=== PATIENT | male | born 1965 | race Caucasian/White ===

== ENCOUNTER → 2017-08-11 12:26 | Outpatient (CLI) | payer OTHER, SELFPAY | PROVIDERS: Family Provider Internal Medicine; PCP Internal Medicine; Visit Provider Internal Medicine | DX: Z53.9 Procedure and treatment not carried out, unspecified reason (principal) ==

== ENCOUNTER → 2018-02-08 12:45 | Outpatient (CLI) | payer OTHER, SELFPAY ==
[2018-02-08 14:07] LABS: Microalbumin,Random Urine 8.4 mg/L (NO RANGE EST.); Microalbumin:Creatinine Ratio 14.6 mg/g CRE (<30 mg/g CRE)
[2018-02-08 14:09] LABS: Hemoglobin A1c 7.6 % (4.2-6.3)
== END ==
PROVIDERS: Family Provider Internal Medicine; PCP Internal Medicine; Visit Provider Internal Medicine
DX: E10.65 Type 1 diabetes mellitus with hyperglycemia (principal); E78.5 Hyperlipidemia, unspecified; I10 Essential (primary) hypertension
CPT/HCPCS: 36415; 82043; 82570; 83036

== ENCOUNTER → 2018-07-12 08:58 | Outpatient (CLI) | payer OTHER, SELFPAY ==
[2017-08-19 16:10] VITALS: BMI 33.1
[2018-07-12 09:53] LABS: Cholesterol 192 mg/dL (200); Glucose 126 mg/dL (74-106); High Density Lipoprotein 52 mg/dL; Triglycerides 73 mg/dL; Very Low Density Lipoprotein 15 mg/dL (5-40)
[2018-07-12 10:00] LABS: Hemoglobin A1c 8.3 % (4.2-6.3)
== END ==
PROVIDERS: Family Provider Internal Medicine; PCP Internal Medicine; Referring Provider Internal Medicine; Visit Provider Internal Medicine
DX: E10.65 Type 1 diabetes mellitus with hyperglycemia (principal); I10 Essential (primary) hypertension; E78.5 Hyperlipidemia, unspecified; G47.33 Obstructive sleep apnea (adult) (pediatric); Z12.5 Encounter for screening for malignant neoplasm of prostate
CPT/HCPCS: 36415; 80061; 82947; 83036

== ENCOUNTER → 2018-09-04 13:54 | Outpatient (CLI) | payer OTHER, SELFPAY ==
[2018-08-29 11:31] VITALS: BMI 33.6
--- NOTE | 2018-09-04 13:57 | ECHOD_ITS ---
Reason For Study: HTN Procedure This was a 2D Doppler, Color Flow transthoracic echocardiogram. Technically difficult study due to patient body habitus. Patient refused IV and Definity even after being explained the benefits. Exam performed in department. Left Ventricle Normal LV size. Mild concentric left ventricular hypertrophy. Left ventricular systolic function is normal. The estimated ejection fraction is 60 %. Stage 1 diastolic dysfunction. No regional wall motion abnormalities noted. Right Ventricle Normal RV size. Normal systolic function. Atria Normal left atrium. Normal right atrium. Mitral Valve Normal mitral valve. Tricuspid Valve Normal tricuspid valve. Unable to estimate RV systolic pressure due to inadequate jet, pulmonary artery pressure probably normal. Aortic Valve Trisinus/trileaflet aortic valve. Mild focal aortic valve calcification. Pulmonic Valve Normal pulmonic valve. Great Vessels Normal aortic root. The pulmonary artery is normal size. Normal inferior vena cava. Pericardium/Pleural No pericardial effusion. MMode/2D Measurements & Calculations LVIDd: 4.2 cm IVSd: 1.3 cm Ao root diam: 3.2 cm LVIDs: 2.9 cm LVPWd: 1.2 cm LA dimension: 3.7 cm FS: 31.2 % LAV(MOD-bp): 50.8 ml LA A4 area: 17.5 cm2 RA A4 area: 11.6 cm2 LAV(MOD-bp) Indexed: 21.4 ml/m2 LAV(MOD-sp2): 54.6 ml LAV(MOD-sp4): 47.4 ml Time Measurements MV dec time: 0.18 sec Doppler Measurements & Calculations MV E max miah: 60.3 cm/sec Lat Peak E' Miah: 10.4 cm/sec Med Peak E' Miah: 7.8 cm/sec MV A max miah: 77.2 cm/sec E/E' lat: 5.8 E/E' med: 7.7 MV E/A: 0.78 MV V2 max: 76.6 cm/sec MV P1/2t max miah: 67.4 cm/sec Ao V2 max: 155.0 cm/sec MV max P.3 mmHg MV P1/2t: 72.8 msec Ao max P.6 mmHg MV V2 mean: 39.6 cm/sec MV dec slope: 271.2 cm/sec2 MV mean P.75 mmHg MVA(P1/2t): 3.0 cm2 MV V2 VTI: 22.0 cm LV V1 max: 119.2 cm/sec PA V2 max: 84.7 cm/sec LV V1 max P.7 mmHg Interpretation Summary Normal LV size. Left ventricular systolic function is normal. The estimated ejection fraction is 60 %. Stage 1 diastolic dysfunction. Mild concentric left ventricular hypertrophy. Mild focal aortic valve calcification. Ordering Physician: Elliott Lopez Referring Physician: Gracie Aleman Performed By: Malcolm Arias RCS
== END ==
PROVIDERS: Family Provider Internal Medicine; PCP Internal Medicine; Referring Provider Internal Medicine Cardiovascular Disease; Visit Provider Internal Medicine Cardiovascular Disease
DX: I10 Essential (primary) hypertension (principal)
CPT/HCPCS: 93306

== ENCOUNTER → 2018-11-14 06:35 | Outpatient (CLI) | payer OTHER, SELFPAY ==
[2018-08-29 11:31] VITALS: BMI 33.6
[2018-11-14 07:32] LABS: Cholesterol 152 mg/dL (200); High Density Lipoprotein 41 mg/dL; Triglycerides 107 mg/dL; Very Low Density Lipoprotein 21 mg/dL (5-40)
[2018-11-14 08:23] LABS: Hemoglobin A1c 7.7 % (4.2-6.3)
== END ==
PROVIDERS: Family Provider Internal Medicine; PCP Internal Medicine
DX: E78.5 Hyperlipidemia, unspecified (principal); E10.65 Type 1 diabetes mellitus with hyperglycemia
CPT/HCPCS: 36415; 80061; 83036

== ENCOUNTER → 2018-11-28 06:28 | Outpatient (CLI) | payer OTHER, SELFPAY ==
[2018-08-29 11:31] VITALS: BMI 33.6
--- NOTE | 2018-11-28 06:32 | RAD_ITS ---
STUDY: X-RAY - RIGHT SHOULDER REASON FOR EXAM: Male, 53 years old. 3 week history of pain. TECHNIQUE: 4 view(s) of the shoulder. COMPARISON: None. FINDINGS: Normal glenohumeral articulation. Normal acromioclavicular joint. Normal acromion. Normal humeral head and visualized proximal humerus. The soft tissue structures are unremarkable. Normal visualized pulmonary apex. RAD/Shoulder min 2 Views IMPRESSION: Normal x-ray examination of the shoulder. Electronically Signed: Сергей Lutz, at 14:27 EDT , Service support ,
== END ==
PROVIDERS: Family Provider Internal Medicine; PCP Internal Medicine; Referring Provider Internal Medicine; Visit Provider Internal Medicine
DX: M25.511 Pain in right shoulder (principal)
CPT/HCPCS: 73030

== ENCOUNTER → 2019-01-15 06:03 | Outpatient (CLI) | payer OTHER, SELFPAY ==
[2018-08-29 11:31] VITALS: BMI 33.6
[2019-01-15 06:47] LABS: Absolute Neutrophil Count 4.7 X10^3/uL (2.0-7.7); Basophil# 0.04 X10^3/uL; Basophil% 0.5 % (0-1); Eosinophil# 0.24 X10^3/uL; Eosinophils% 3.2 % (0-5); Hematocrit 47.2 % (40-54); Hemoglobin 16.8 g/dl (13.0-16.5); Mean Corp Hgb Conc 35.6 g/gl (32-36); Mean Corpuscular Hgb 32.1 pg (27.0-32.0); Mean Corpuscular Volume 90.1 fL (80-94); Mean Platelet Vol. 10.2 fl (6.2-12.0); Monocyte# 0.68 X10^3/uL; Monocyte% 9.1 % (0-10); Neutrophil # 4.73 X10^3/uL (2.7-7.7); Neutrophil % 62.9 % (47-70); Platelet Count 213 K/mm3 (150-450); RBC Distribution Width CV 12.5 % (11.6-14.6); RBC Distribution Width SD 40.7 fl (35.1-43.9); Red Blood Count 5.24 M/mm3 (4.6-6.2); White Blood Count 7.5 K/mm3 (4.4-11.0)
[2019-01-15 06:54] LABS: POSITIVE COUNT NO; POSITIVE DIFFERENTIAL NO; POSITIVE MORPHOLOGY NO
[2019-01-15 07:08] LABS: Microalbumin:Creatinine Ratio 27.6 mg/g CRE (<30 mg/g CRE)
[2019-01-15 07:12] LABS: AST(SGOT) 24 U/L (15-37); Alanine Aminotransfer ALT/SGPT 48 U/L (16-61); Albumin, Serum 3.8 g/dL (3.2-5.0); Alkaline Phosphatase 105 U/L (45-117); Anion Gap 8 (5-15); BUN 20 mg/dL (7-18); BUN/Creat Ratio 18.2 RATIO (10-20); Calcium,Total 9.6 mg/dL (8.5-10.1); Chloride 104 mmol/L (98-107); Cholesterol 178 mg/dL (200); EST Glomerular Filtration Rate 74 mL/min (>60); Est Glom Filt Rate - Afr Amer 89 mL/min (>60); Globulin 3.7 g/dL (2.2-4.2); Glucose 190 mg/dL (74-106); High Density Lipoprotein 54 mg/dL; PSA,Total - Annual Screen 1.52 ng/mL (0.00-4.00); Potassium 3.6 mmol/L (3.5-5.1); Protein, Total 7.5 g/dL (6.4-8.2); Sodium Level 140 mmol/L (136-145); Thyroid Stim Hormone (TSH) 2.05 uIU/mL (0.358-3.74); Triglycerides 117 mg/dL; Very Low Density Lipoprotein 23 mg/dL (5-40)
[2019-01-15 07:53] LABS: Color, Urine Straw (Yellow); Glucose, Dipstick 250 mg/dl (Normal); Ketone-Dipstick Negative (Negative); Leukocyte Esterase-Dipstick Negative /ul (Negative); Nitrite-Dipstick Negative (Negative); Occult Blood-Urine Negative /ul (Negative); Protein-Dipstick Negative (Negative); Urine Bilirubin Dipstick Negative (Negative); Urine Clarity Clear (Clear); Urine Urobilinogen Normal (Normal); Urine pH 6.5 (5.0 - 8.0)
[2019-01-15 08:50] LABS: Hemoglobin A1c 7.7 % (4.2-6.3)
== END ==
PROVIDERS: Family Provider Internal Medicine; PCP Internal Medicine; Referring Provider Internal Medicine; Visit Provider Internal Medicine
DX: Z00.00 Encounter for general adult medical examination without abnormal findings (principal); E78.5 Hyperlipidemia, unspecified; I10 Essential (primary) hypertension; E10.65 Type 1 diabetes mellitus with hyperglycemia; Z12.5 Encounter for screening for malignant neoplasm of prostate
CPT/HCPCS: 36415; 80053; 80061; 81002; 82043; 82570; 83036; 84153; 84443; 85025; G0103

== ENCOUNTER 2019-01-22 19:28 | Inpatient (IN) | payer OTHER, SELFPAY ==
[2018-08-29 11:31] VITALS: BMI 33.6
[2019-01-22 19:29] VITALS: BP 110/46; PULSE 106; RESP 18; TEMP 37.3; O2SAT 96; BMI 32.5
[2019-01-22 20:41] LABS: Absolute Lymphocyte Count 0.97 X10^3/ul (0.83-4.51); Basophil# 0.03 X10^3/uL; Basophil% 0.2 % (0-1); Hematocrit 44.6 % (40-54); Hemoglobin 15.2 g/dl (13.0-16.5); Lymphocyte # 0.97 X10^3/ul (4.0); Lymphocyte % 5.4 % (19-41); Mean Corp Hgb Conc 34.1 g/gl (32-36); Mean Corpuscular Volume 93.9 fL (80-94); Mean Platelet Vol. 10.8 fl (6.2-12.0); Monocyte# 0.98 X10^3/uL; Monocyte% 5.4 % (0-10); Neutrophil # 16.03 X10^3/uL (2.7-7.7); Neutrophil % 88.6 % (47-70); Platelet Count 266 K/mm3 (150-450); RBC Distribution Width CV 12.8 % (11.6-14.6); RBC Distribution Width SD 43.7 fl (35.1-43.9); Red Blood Count 4.75 M/mm3 (4.6-6.2); White Blood Count 18.1 K/mm3 (4.4-11.0)
[2019-01-22 20:43] LABS: POSITIVE COUNT NO; POSITIVE DIFFERENTIAL NO; POSITIVE MORPHOLOGY NO
--- NOTE | 2019-01-22 20:50 | ED.VIS.GEN ---
History of Present Illness Chief Complaint: Hyperglycemia Detail of Chief Complaint: Nausea, vomiting, high blood sugar Informant: Patient Onset: - - 4 days Current Severity: Moderate Maximum Severity: Moderate Narrative: Patient has had nausea for the past 4 days. He attributed it to starting Lexapro 4 days ago. Today his dose increased. An hour after taking the medication he developed nausea and vomiting this is continued throughout the day. His blood sugars have been elevated to the 300-400 range. He reports mild abdominal pain. - Past Medical History (1) Atherosclerotic heart disease of [place] coronary artery without angina pectoris Status: Chronic (2) Diabetes mellitus, insulin-dependent (IDDM or type I) Status: Chronic (3) Essential hypertension Status: Chronic (4) Hyperlipidemia Status: Chronic Past Medical History - Allergies and Home Meds Allergies/Adverse Reactions: Allergies No Known Allergies Allergy (Verified 01/22/19 19:31) Primary Care Physician: Gracie Aleman [Primary Care Provider] - Prior records reviewed: Yes Past Medical History: - - Reviewed Smoking Status: Former smoker Review of Systems General: Denies: Chills, Fever ENT: Denies: Bilateral ear pain Cardiovascular: Denies: Chest pain, Palpitations, Heart racing Respiratory: Denies: Dyspnea, Cough Gastrointestinal: Reports: Abdominal pain, Nausea, Vomiting. Denies: Diarrhea Genitourinary: Denies: Dysuria, Hematuria Physical Exam Vital Signs/Narrative: Vital Signs Temp Pulse Resp BP Pulse Ox 01/22/19 19:29 99.1 F 106 H 18 110/46 L 96 General: Well nourished, Well developed ENT: Moist mucous membranes Cardiovascular: Regular rate, Regular rhythm Respiratory: No distress, CTA bilaterally Abdomen: Soft, Tender, - - Mild diffuse tenderness to palpation.. Negative for: Guarding, Rebound tenderness Skin: Normal color Neurological: Alert, Oriented x3 Diagnostic/Tx/Re-eval Laboratory Results 01/22/19 01/22/19 01/22/19 19:45 19:45 19:45 WBC 18.1 H RBC 4.75 Hgb 15.2 Hct 44.6 MCV 93.9 MCH 32.0 MCHC 34.1 RDW 12.8 RDW Differential 43.7 Plt Count 266 MPV 10.8 Immature Gran % (Auto) 0.400 Neut % (Auto) 88.6 H Lymph % (Auto) 5.4 L [place] % (Auto) 5.4 Eos % (Auto) 0.0 Baso % (Auto) 0.2 Absolute Neuts (auto) 16.0 H Absolute Lymphs (auto) 0.97 Sodium 135 L Potassium 4.3 Chloride 98 Carbon Dioxide 12.0 L Anion Gap 25 H BUN 45 H Creatinine 1.95 H Estim Creat Clear Calc 49.76 Est GFR (MDRD) Af Amer 46 L Est GFR (MDRD) Non-Af 38 L BUN/Creatinine Ratio 23.1 H Glucose 511 H* Calcium 9.2 Total Bilirubin 1.00 Direct Bilirubin 0.20 AST 22 ALT 43 Alkaline Phosphatase 103 Total Protein 7.0 Albumin 3.8 Globulin 3.2 Lipase 60 L Urine Color Urine Clarity Urine pH Ur Specific [place] Urine Protein Urine Glucose (UA) Urine Ketones Urine Occult Blood Urine Nitrite Urine Bilirubin Urine Urobilinogen Ur Leukocyte Esterase Urine RBC Urine WBC Ur Squamous Epith Cells Urine Bacteria Urine Mucus Acetone Level 01/22/19 01/22/19 21:15 22:10 WBC RBC Hgb Hct MCV MCH MCHC RDW RDW Differential Plt Count MPV Immature Gran % (Auto) Neut % (Auto) Lymph % (Auto) [place] % (Auto) Eos % (Auto) Baso % (Auto) Absolute Neuts (auto) Absolute Lymphs (auto) Sodium Potassium Chloride Carbon Dioxide Anion Gap BUN Creatinine Estim Creat Clear Calc Est GFR (MDRD) Af Amer Est GFR (MDRD) Non-Af BUN/Creatinine Ratio Glucose Calcium Total Bilirubin Direct Bilirubin AST ALT Alkaline Phosphatase Total Protein Albumin Globulin Lipase Urine Color Yellow Urine Clarity Clear Urine pH 5.0 Ur Specific [place] 1.020 Urine Protein 15 H Urine Glucose (UA) 1000 H Urine Ketones 150 H Urine Occult Blood Negative Urine Nitrite Negative Urine Bilirubin Negative Urine Urobilinogen Normal Ur Leukocyte Esterase Negative Urine RBC 0 SEEN Urine WBC 0 SEEN Ur Squamous Epith Cells 0-5 SEEN Urine Bacteria 0 SEEN Urine Mucus 0 SEEN Acetone Level LARGE H - Medical Decision Making Patient was given Zofran and 2 L of IV fluid on arrival. On repeat evaluation he does feel somewhat improved. Blood work is concerning for DKA. Patient will turn off his insulin pump and we will start an insulin drip to better control this. I will speak with hospitalist regarding admission to the ICU. ED Disposition - Plan for ED Patient: Diagnosis: DKA (diabetic ketoacidoses) Referrals: Gracie Aleman [Primary Care Provider] -
[2019-01-22] MEDS: Ondansetron 4 MG/2 ML Vial IV (21:08)
[2019-01-22] MEDS: 0.9% Normal Saline 1,000 ML 1000 ML IV (21:09)
[2019-01-22 21:23] LABS: Anion Gap 25 (5-15); BUN 45 mg/dL (7-18); BUN/Creat Ratio 23.1 RATIO (10-20); Calcium,Total 9.2 mg/dL (8.5-10.1); Chloride 98 mmol/L (98-107); Creatinine, Serum 1.95 mg/dL (0.70-1.30); EST Glomerular Filtration Rate 38 mL/min (>60); Est Glom Filt Rate - Afr Amer 46 mL/min (>60); Estimated Creatinine Clearance 49.76 ml/min; Glucose 511 mg/dL (74-106); Potassium 4.3 mmol/L (3.5-5.1); Sodium Level 135 mmol/L (136-145)
--- NOTE | 2019-01-22 21:26 | NURSING ---
lab called with a critical glucose of 511. and nurse made aware.
[2019-01-22 21:31] LABS: Bacteria 0 SEEN /hpf (None Seen); Mucous, Urine 0 SEEN /hpf (<or=2+); Red Blood Cells-Urine 0 SEEN /hpf (0-5); White Blood Cells 0 SEEN /hpf (0-5)
[2019-01-22 21:46] LABS: Color, Urine Yellow (Yellow); Glucose, Dipstick 1000 mg/dl (Normal); Leukocyte Esterase-Dipstick Negative /ul (Negative); Nitrite-Dipstick Negative (Negative); Occult Blood-Urine Negative /ul (Negative); Protein-Dipstick 15 mg/dl (Negative); Urine Bilirubin Dipstick Negative (Negative); Urine Clarity Clear (Clear); Urine Urobilinogen Normal (Normal)
[2019-01-22 21:47] LABS: AST(SGOT) 22 U/L (15-37); Alanine Aminotransfer ALT/SGPT 43 U/L (16-61); Albumin, Serum 3.8 g/dL (3.2-5.0); Alkaline Phosphatase 103 U/L (45-117); Globulin 3.2 g/dL (2.2-4.2); Lipase 60 U/L (73-393)
[2019-01-22 21:53] LABS: Ketone-Dipstick 150 mg/dl (Negative)
[2019-01-22 21:56] LABS: Squamous Epithelial Cells - UA 0-5 SEEN /hpf (0-5)
[2019-01-22] MEDS: 0.9% Normal Saline 1,000 ML 999 ML IV (22:12)
[2019-01-22 22:15] VITALS: BP 95/45; PULSE 104; RESP 16; O2SAT 92
--- NOTE | 2019-01-22 22:49 | ED.RN ---
PER DR PARNELL ORDER. PT WAS REQUEST TO REMOVE HIS INSULIN PUMP. ORDER WILL BE PLACED FOR IV INSULIN. PT WAS INFORMED. AT BEDSIDE. PUMP WAS TAKEN BY . Angela DURANT, RN [id number]
--- NOTE | 2019-01-22 22:56 | PCM.HP.STD ---
Problem List (1) DKA (diabetic ketoacidoses) Status: Acute History of Present Illness Date of Admission: 01/22/19 Chief Complaint: nausea and vomiting The patient is a 53 year old M with a significant history of depression; hypertension hyperlipidemia and type 1 diabetes on insulin pump who presented to the emergency department with nausea and vomiting. His symptoms started 4 days before presentation with nausea after he was started on Lexapro 5mg. The Lexapro was then increased to 10 mg and about an hour after 10 mg dose was taken patient started to vomit. He has an insulin pump on but reportedly anytime that his blood sugar is very high his insulin pump is unable to function appropriately. At the emergency department patient was noted to have severely elevated glucose; and large ketones. Further, he was found to have an anion gap. Patient was diagnosed with diabetic ketoacidosis and was started on insulin drip and received IV fluid boluses. Past Medical History Past Medical History (Chronic Problems): Chronic Problems (Last Reviewed 01/23/19 @ 05:38 by Lionel Conner MD) Family history of ischemic heart disease (Chronic) Atherosclerotic heart disease of [place] coronary artery without angina pectoris (Chronic) Abnormal stress test (Chronic) Family history of sudden cardiac (Chronic) Family history of hyperlipidemia (Chronic) Family history of hypertension (Chronic) Sleep apnea (Chronic) Diabetes mellitus, insulin-dependent (IDDM or type I) (Chronic) Hyperlipidemia (Chronic) Essential hypertension (Chronic) Medical History: Medical History (Last Reviewed 01/23/19 @ 07:20 by Lionel Conner MD) Family history of ischemic heart disease (Chronic) Z82.49 Atherosclerotic heart disease of [place] coronary artery without angina pectoris (Chronic) I25.10 Abnormal stress test (Chronic) R94.39 Family history of sudden cardiac (Chronic) Z82.41 Family history of hyperlipidemia (Chronic) Z83.49 Family history of hypertension (Chronic) Z82.49 Sleep apnea (Chronic) G47.30 Diabetes mellitus, insulin-dependent (IDDM or type I) (Chronic) E10.9 Hyperlipidemia (Chronic) E78.5 Essential hypertension (Chronic) I10 Allergies No Known Allergies Allergy (Verified 01/22/19 19:31) Home Medications: Ambulatory Orders Medication Instructions Recorded Lisinopril [Zestril] 40 mg PO DAILY 01/24/14 Aspirin E.C. [Ecotrin] 81 mg PO DAILY@0800 02/11/15 Famotidine [Pepcid] 20 mg PO DAILY 02/11/15 sildenafil 100 mg tablet 100 mg PO ONCE 08/17/17 amlodipine 10 mg tablet 10 mg PO QDAY 08/19/17 hydrochlorothiazide 25 mg tablet 25 mg PO QAM #90 tab 08/19/17 cholecalciferol (vitamin D3) 1,000 2,000 unit PO DAILY cap 08/29/18 unit capsule rosuvastatin 40 mg tablet 40 mg PO DAILY #90 tab 08/29/18 Escitalopram Oxalate [Lexapro] 10 mg PO DAILY 01/22/19 Insulin Lispro [Humalog] 100 unit SQ DAILY 01/22/19 Surgical History: - - Eye surgery Lives: Spouse/ Significant Other Smoking Status: Former smoker Alcohol: Occasional Review of Systems Constitutional: Denies: Chills, Fever, Weight Change HEENT: Denies: Head Aches, Sinus Congestion, Sinus Drainage Cardiovascular: Denies: Chest Pain, Palpitations Respiratory: Denies: Cough, Shortness of breath at rest, Sputum production Gastrointestinal: Reports: Nausea, Vomiting. Denies: Abdominal Pain Genitourinary: Denies: Dysuria Musculoskeletal: Denies: Joint Pain, Joint Tenderness Skin: Denies: Rash, Wounds Neurological: Denies: Numbness, Tingling, Focal weakness Psychiatric: Denies: Anxiety, Depression, Homicidal Ideations, Suicidal Ideations Hematologic/ Lymphatic: Denies: Easy Bruising, Easy Bleeding VTE Information - Inpt Only VTE Present on Admission: No VTE Mechan Device Prophylaxis: None VTE Pharm Prophylaxis ordered?: Yes Patient Problems: Active and Suspected Problems (Last Reviewed 01/23/19 @ 05:38 by Lionel Conner MD) DKA (diabetic ketoacidoses) (Acute) - Physical Exam General: Alert, Oriented x3, Cooperative HEENT: Atraumatic, PERRLA, EOMI, Normocephalic Neck: Supple, No JVD, Negative Carotid Bruits Lungs: Clear to auscultation, Normal air movement Cardiovascular: Regular rate, No murmurs Abdomen: Bowel Sounds Present, Soft, Non Tender Extremities: No edema, Capillary Refill Less than 3 Seconds Skin: No rashes, No breakdown Musculoskeletal: No Tenderness to Palpation of Joints or Extremities Neurological: Cranial nerves II-XII grossly intact Psych/Mental Status: Normal Affect, Appropriate Vital Signs Temp Pulse Resp BP Pulse Ox 99.1 F 104 H 16 95/45 L 92 01/22/19 19:29 01/22/19 22:15 01/22/19 22:15 01/22/19 22:15 01/22/19 22:15 Oxygen Delivery Method Room Air Weight: 114.9 kg Body Mass Index (BMI) 32.5 Laboratory Tests Past 24 Hrs 01/22/19 01/22/19 01/22/19 19:45 19:45 19:45 WBC 18.1 H RBC 4.75 Hgb 15.2 Hct 44.6 MCV 93.9 MCH 32.0 MCHC 34.1 RDW 12.8 RDW Differential 43.7 Plt Count 266 MPV 10.8 Immature Gran % (Auto) 0.400 Neut % (Auto) 88.6 H Lymph % (Auto) 5.4 L [place] % (Auto) 5.4 Eos % (Auto) 0.0 Baso % (Auto) 0.2 Absolute Neuts (auto) 16.0 H Absolute Lymphs (auto) 0.97 Sodium 135 L Potassium 4.3 Chloride 98 Carbon Dioxide 12.0 L Anion Gap 25 H BUN 45 H Creatinine 1.95 H Estim Creat Clear Calc 49.76 Est GFR (MDRD) Af Amer 46 L Est GFR (MDRD) Non-Af 38 L BUN/Creatinine Ratio 23.1 H Glucose 511 H* Calcium 9.2 Total Bilirubin 1.00 Direct Bilirubin 0.20 AST 22 ALT 43 Alkaline Phosphatase 103 Total Protein 7.0 Albumin 3.8 Globulin 3.2 Lipase 60 L Urine Color Urine Clarity Urine pH Ur Specific [place] Urine Protein Urine Glucose (UA) Urine Ketones Urine Occult Blood Urine Nitrite Urine Bilirubin Urine Urobilinogen Ur Leukocyte Esterase Urine RBC Urine WBC Ur Squamous Epith Cells Urine Bacteria Urine Mucus Acetone Level 01/22/19 01/22/19 21:15 22:10 WBC RBC Hgb Hct MCV MCH MCHC RDW RDW Differential Plt Count MPV Immature Gran % (Auto) Neut % (Auto) Lymph % (Auto) [place] % (Auto) Eos % (Auto) Baso % (Auto) Absolute Neuts (auto) Absolute Lymphs (auto) Sodium Potassium Chloride Carbon Dioxide Anion Gap BUN Creatinine Estim Creat Clear Calc Est GFR (MDRD) Af Amer Est GFR (MDRD) Non-Af BUN/Creatinine Ratio Glucose Calcium Total Bilirubin Direct Bilirubin AST ALT Alkaline Phosphatase Total Protein Albumin Globulin Lipase Urine Color Yellow Urine Clarity Clear Urine pH 5.0 Ur Specific [place] 1.020 Urine Protein 15 H Urine Glucose (UA) 1000 H Urine Ketones 150 H Urine Occult Blood Negative Urine Nitrite Negative Urine Bilirubin Negative Urine Urobilinogen Normal Ur Leukocyte Esterase Negative Urine RBC 0 SEEN Urine WBC 0 SEEN Ur Squamous Epith Cells 0-5 SEEN Urine Bacteria 0 SEEN Urine Mucus 0 SEEN Acetone Level LARGE H Assessment/Plan All Active Problems (Last Reviewed 01/23/19 @ 05:38 by Lionel Conner MD) DKA (diabetic ketoacidoses) (Acute) The patient is a 53 year old M with a significant history of depression; hypertension hyperlipidemia and type 1 diabetes on insulin pump who presented to the emergency department with nausea and vomiting after being started on Lexapro and was found to have severely elevated blood glucose; and an anion gap consistent with likely diabetes ketoacidosis. Diabetic ketoacidosis The patient reports compliance with home insulin pump. Insulin pump was taken off at the ED. Unclear whether the Lexapro led to nausea and vomiting and then DKA; or Lexapro was unrelated. In any case we will hold Lexapro at this time. Serum glucose on presentation was 511. His sodium was 135. His corrected sodium is 142. acetone level: Large Anion gap of 25 Insulin drip started from emergency department; continue Completed IV bolus of normal saline and normal saline infusion Because of potassium of 4.3; and he has normal corrected sodium we will start patient on half-normal saline with potassium. BMP every 4 hours to calculate anion gap. N.p.o. for now. Patient asked of ice chips. Allow little ice chips.Hold all home p.o. meds at this time. Admitted to ICU A1C ordered. Returned as 8.2 Zofran IV ordered. Nurse reported that patient asked whether Zofran can be given more often. Will change Zofran frequency accordingly and add prn compazine Hygiene Teacher consult. OUSMANE On presentation his creatinine was 1.95. Review of old records shows a baseline creatinine of around 1.0. BUN over creatinine on presentation was 23.1 Likely prerenal from hypovolemia secondary to nausea and vomiting. IV fluid hydration as above. Patient currently on IV fluids. If anion gap closes consider continuing IV fluids until resolution of OUSMANE. Avoid nephrotoxics. Of note patient is on home lisinopril that has been held secondary to low blood pressure. While DKA persist BMP is been trended. Hypertension On presentation his blood pressure was within goal and even mildly low. Hold home antihypertensive medication at this time. Depression Hold Lexapro at this time GERD At home patient take Pepcid p.o. While n.p.o. hold Pepcid po and give IV. DVT prophylaxis Subcutaneous Lovenox Code Visit Inpatient E&M: 81964 Init Hosp L3
[2019-01-22 23:11] LABS: Bedside Glucose 400 mg/dL (70-110)
[2019-01-22 23:52] VITALS: BP 109/51
[2019-01-23] VITALS (23 sets, daily range): BP systolic 91–148; BP diastolic 48–78; PULSE 79–102; RESP 12–23; TEMP 36.6–37.3; O2SAT 91–97; BMI 33.5
[2019-01-23] MEDS: 0.9% NaCl Peripheral Flush Adult/Peds IV ×3 (00:45→16:47)
[2019-01-23 00:46] LABS: Anion Gap 17 (5-15); BUN 52 mg/dL (7-18); BUN/Creat Ratio 27.1 RATIO (10-20); Chloride 102 mmol/L (98-107); Creatinine, Serum 1.92 mg/dL (0.70-1.30); EST Glomerular Filtration Rate 39 mL/min (>60); Est Glom Filt Rate - Afr Amer 47 mL/min (>60); Estimated Creatinine Clearance 50.54 ml/min; Glucose 383 mg/dL (74-106); Potassium 3.7 mmol/L (3.5-5.1); Sodium Level 135 mmol/L (136-145)
[2019-01-23 01:21] LABS: Bedside Glucose 400 mg/dL (70-110)
[2019-01-23 01:21] LABS: Bedside Glucose 355 mg/dL (70-110)
[2019-01-23 02:04] LABS: Hemoglobin A1c 8.2 % (4.2-6.3)
[2019-01-23] MEDS: Ondansetron 4 MG/2 ML Vial IV ×2 (03:06→16:46)
[2019-01-23 04:11] LABS: Bedside Glucose 299 mg/dL (70-110)
[2019-01-23 04:11] LABS: Bedside Glucose 325 mg/dL (70-110)
[2019-01-23 04:47] LABS: Absolute Lymphocyte Count 1.92 X10^3/ul (0.83-4.51); Basophil# 0.02 X10^3/uL; Basophil% 0.1 % (0-1); Hematocrit 39.3 % (40-54); Hemoglobin 13.7 g/dl (13.0-16.5); Lymphocyte # 1.92 X10^3/ul (4.0); Lymphocyte % 9.8 % (19-41); Mean Corp Hgb Conc 34.9 g/gl (32-36); Mean Corpuscular Hgb 31.2 pg (27.0-32.0); Mean Corpuscular Volume 89.5 fL (80-94); Monocyte# 1.62 X10^3/uL; Monocyte% 8.3 % (0-10); Neutrophil # 15.97 X10^3/uL (2.7-7.7); Neutrophil % 81.5 % (47-70); Platelet Count 241 K/mm3 (150-450); RBC Distribution Width CV 12.5 % (11.6-14.6); Red Blood Count 4.39 M/mm3 (4.6-6.2); White Blood Count 19.6 K/mm3 (4.4-11.0)
[2019-01-23 04:52] LABS: Differential Indicated SCAN CRITERIA MET; POSITIVE COUNT NO; POSITIVE DIFFERENTIAL YES; POSITIVE MORPHOLOGY NO
[2019-01-23 04:58] LABS: Anion Gap 11 (5-15); BUN 50 mg/dL (7-18); BUN/Creat Ratio 28.2 RATIO (10-20); Chloride 104 mmol/L (98-107); Creatinine, Serum 1.77 mg/dL (0.70-1.30); EST Glomerular Filtration Rate 43 mL/min (>60); Est Glom Filt Rate - Afr Amer 52 mL/min (>60); Estimated Creatinine Clearance 54.83 ml/min; Glucose 255 mg/dL (74-106); Potassium 3.7 mmol/L (3.5-5.1); Sodium Level 138 mmol/L (136-145)
[2019-01-23 05:16] LABS: Bedside Glucose 264 mg/dL (70-110)
[2019-01-23 05:16] LABS: Bedside Glucose 231 mg/dL (70-110)
[2019-01-23 05:22] LABS: Platelet Estimate ADEQUATE (ADEQ); Red Cell Morphology NORM C+C NORMAL (NORM C&C)
[2019-01-23 06:11] LABS: Bedside Glucose 193 mg/dL (70-110)
--- NOTE | 2019-01-23 06:33 | PN_ITS ---
Patient Problems: Active and Suspected Problems (Last Reviewed 01/23/19 @ 07:20 by Lionel Conner MD) DKA (diabetic ketoacidoses) (Acute) Subjective: Patient since presentation feeling improved, nausea and emesis have resolved. Patient noted 4-day history of onset eventual intractable nausea and emesis no specific abdominal pain or diarrhea associated. He notes that this started following initiation of antidepressant therapy especially when he escalated the regimen. Patient normally on an insulin pump which had been sent home when he was transition to the insulin drip. Patient denies fevers, chills, recurrent nausea, emesis, abdominal pain, chest pain or dyspnea. Objective: Physical Examination: General: awake, alert, oriented x 3 and cooperative, seated upright in the ICU bedside chair, in no apparent distress. Skin: normal color, turgor, no icterus, cyanosis. HEENT: AT/NC, EOMI, PERRLA, improved, mildly dry MM. Lungs: CTA bilaterally, moderate effort, moderate decrease BL bases, no rales, ronchi or wheezing. Heart: Regular rate and rhythm; no gallop, rub audible. Abdomen: soft, obese, NTTP, ND, normal BS. Extremities: no cyanosis, clubbing, or edema. Neurological: patient awake, alert, oriented x 3; cognitive function intact; pupils equally reactive to light and accomodation; cranial nerves II-XII grossly normal, moving all 4 extremities, no focal deficits, strength mildly to moderately globally decreased, improved from initial presentation. Psychiatric: affect appears improved, mildly fatigued, no acute evidence of depressive or anxiety feelings. Vitals/I&O's: Vital Signs Temp Pulse Resp BP Pulse Ox 98.7 F 94 12 117/61 95 01/23/19 04:00 01/23/19 06:00 01/23/19 06:00 01/23/19 06:00 01/23/19 06:00 Oxygen Delivery Method CPAP Weight: 262 lb 12.656 oz Body Mass Index (BMI) 33.5 Finger Stick Blood Glucose 193 Intake and Output for Last 24 Hours 01/21/19 01/22/19 01/23/19 23:59 23:59 23:59 Intake Total 897.5 / 897.5 Output Total 400 / 400 Balance 497.5 / 497.5 Laboratory Results 01/22/19 19:45: WBC 18.1 H, RBC 4.75, Hgb 15.2, Hct 44.6, MCV 93.9, MCH 32.0, MCHC 34.1, RDW 12.8, RDW Differential 43.7, Plt Count 266, MPV 10.8, Immature Gran % (Auto) 0.400, Neut % (Auto) 88.6 H, Lymph % (Auto) 5.4 L, [place] % (Auto) 5.4, Eos % (Auto) 0.0, Baso % (Auto) 0.2, Absolute Neuts (auto) 16.0 H, Absolute Lymphs (auto) 0.97 01/22/19 19:45: Sodium 135 L, Potassium 4.3, Chloride 98, Carbon Dioxide 12.0 L, Anion Gap 25 H, BUN 45 H, Creatinine 1.95 H, Estim Creat Clear Calc 49.76, Est GFR (MDRD) Af Amer 46 L, Est GFR (MDRD) Non-Af 38 L, BUN/Creatinine Ratio 23.1 H , Glucose 511 H*, Calcium 9.2 01/22/19 19:45: Total Bilirubin 1.00, Direct Bilirubin 0.20, AST 22, ALT 43, Alkaline Phosphatase 103, Total Protein 7.0, Albumin 3.8, Globulin 3.2, Lipase 60 L 01/22/19 21:15: Urine Color Yellow, Urine Clarity Clear, Urine pH 5.0, Ur Specific [place] 1.020, Urine Protein 15 H, Urine Glucose (UA) 1000 H, Urine Ketones 150 H, Urine Occult Blood Negative, Urine Nitrite Negative, Urine Bilirubin Negative, Urine Urobilinogen Normal, Ur Leukocyte Esterase Negative, Urine RBC 0 SEEN, Urine WBC 0 SEEN, Ur Squamous Epith Cells 0-5 SEEN, Urine Bacteria 0 SEEN, Urine Mucus 0 SEEN 01/22/19 22:10: Acetone Level LARGE H 01/22/19 23:00: POC Glucose 400 H 01/23/19 00:10: POC Glucose 400 H 01/23/19 00:20: Hemoglobin A1c 8.2 H 01/23/19 00:20: Sodium 135 L, Potassium 3.7, Chloride 102, Carbon Dioxide 16.0 L , Anion Gap 17 H, BUN 52 H, Creatinine 1.92 H, Estim Creat Clear Calc 50.54, Est GFR (MDRD) Af Amer 47 L, Est GFR (MDRD) Non-Af 39 L, BUN/Creatinine Ratio 27.1 H , Glucose 383 H, Calcium 8.0 L 01/23/19 01:13: POC Glucose 355 H 01/23/19 02:10: POC Glucose 325 H 01/23/19 03:04: POC Glucose 299 H 01/23/19 04:12: POC Glucose 264 H 01/23/19 04:15: Sodium 138, Potassium 3.7, Chloride 104, Carbon Dioxide 23.0, Anion Gap 11, BUN 50 H, Creatinine 1.77 H, Estim Creat Clear Calc 54.83, Est GFR (MDRD) Af Amer 52 L, Est GFR (MDRD) Non-Af 43 L, BUN/Creatinine Ratio 28.2 H, Glucose 255 H, Calcium 8.0 L 01/23/19 04:15: WBC 19.6 H, RBC 4.39 L, Hgb 13.7, Hct 39.3 L, MCV 89.5, MCH 31.2, MCHC 34.9, RDW 12.5, RDW Differential 40.0, Plt Count 241, MPV 10.0, Immature Gran % (Auto) 0.300, Neut % (Auto) 81.5 H, Lymph % (Auto) 9.8 L, [place] % (Auto) 8.3, Eos % (Auto) 0.0, Baso % (Auto) 0.1, Absolute Neuts (auto) 16.0 H, Absolute Lymphs (auto) 1.92, Differential Comment SEE COMMENT, Diff Path Review May foll, Platelet Estimate ADEQUATE, RBC Morphology NORM C+C 01/23/19 05:09: POC Glucose 231 H 01/23/19 06:04: POC Glucose 193 H Current Medications Acetaminophen (Tylenol) 650 mg PO Q6H PRN PRN PRN Reason: Mild Pain (1-3)/Temp > 100.7 F Dextrose (D50w Syringe) 0 gm IV X1 PRN; Protocol PRN Reason: HYPOGLYCEMIA Enoxaparin Sodium (Lovenox) 40 mg SC DAILY@1000 MELANIE Glucagon () 1 mg IM .X1 PRN PRN Reason: Hypoglycemia Insulin Human Lispro 100 unit/ (Sodium Chloride) 100 mls @ 11.49 mls/hr IV .[id number] MELANIE; Protocol Last Admin: 01/23/19 06:06 Dose: 11.49 mls/hr Documented by: Famotidine 20 mg/ Sodium (Chloride) 10 mls @ 300 mls/hr IV Q24 MELANIE Last Admin: 01/23/19 00:40 Dose: 300 mls/hr Documented by: Sodium Chloride () 250 mls @ 15 mls/hr IV .[id number] PRN PRN Reason: SALINE FLUSH Potassium Chloride/Dextrose/Sod Cl (Kcl 20meq In D5.45ns 1000ml) 1,000 mls @ 150 mls/hr IV .Q6H40M MELANIE Stop: 01/23/19 12:14 Last Admin: 01/23/19 06:05 Dose: 150 mls/hr Documented by: Ondansetron HCl (Zofran) 4 mg IV Q6H PRN PRN PRN Reason: NAUSEA/VOMITING Last Admin: 01/23/19 03:06 Dose: 4 mg Documented by: Prochlorperazine Edisylate (Compazine Iv) 5 mg IV Q6H PRN PRN PRN Reason: NAUSEA/VOMITING Sodium Chloride () 10 - 40 ml IV UD PRN PRN Reason: SALINE FLUSH Last Admin: 01/23/19 06:05 Dose: 10 ml Documented by: Medical Necessity - Tobacco Use Smoking Status: Former smoker Assessment/Plan All Active Problems (Last Reviewed 01/23/19 @ 07:20 by Lionel Conner MD) DKA (diabetic ketoacidoses) (Acute) The patient is a 53 y/o M w/ PMHx: Depression, HTN, HLD, DONNELL on CPAP q HS, Diabetes mellitus type I with usage insulin drip baseline, Obesity who presents to the [facility] ED on 01/22/19 with history of 4 days of nausea, emesis following new medication start. (1) DKA w/ Diabetes mellitus type I secondary to medication side effect, Intractable N/V: Admission CBC w/ WBC 19.6 with L shift, BMP w/ Na 135, AG 17, BUN/Cr 52/1.92, glucose 383, HgbA1c 8.2. Patient administered aggressive IVF bolus in the ED and started on an insulin drip. Admitted to ICU initially, initially continued on insulin drip until AG closed, 01/23/19 will transition from overlapping insulin drip to lantus 20 u BID with ISS w/ accu checks and concurrent 5 u TID AC until able to have his insulin pump brought. Mag and phos obtained, normal. Nutrition consulted. Encouraged diet and insulin regimen compliance. (2) Acute kidney injury: Secondary to acute presentation, #1, DKA. Admission BUN/Cr 52/1.92, prior baseline creatinine noted to be 1.0-1.1. Will continue to hydrate, hold nephrotoxic medications and repeat chemistry in AM, discontinue serial BMPs given AG closure and improvement. If no improvement would plan renal US and FeNa assessment. (3) Hypertension: Continue home regimen including amlodipine, holding hydrochlorthiazide and lisinopril given acute kidney injury with restart once appropriate, PRN hydralazine. (4) Hyperlipidemia: Continue home statin regimen. (5) Depression: Recent initiation outpatient Lexapro with unfortunate intractable nausea, emesis, possibly related to this new start, will hold given DKA presentation. In the future may consider retrial as this may unfortunately have been a concurrent gastroenteritis. (6) Obesity: Weight loss and lifestyle changes encouraged, nutrition consulted. (7) DONNELL: CPAP q HS. (8) DVT prophylaxis: SCDs, renally dosed lovenox. Code Visit Inpatient E&M: 27894 Subs Hosp L2
[2019-01-23 07:15] LABS: Bedside Glucose 184 mg/dL (70-110)
--- NOTE | 2019-01-23 07:19 | CON.PCM_ITS ---
Reason for Consult Date of Consultation: 01/23/19 Reason for Consultation: Diabetic ketoacidosis History of Present Illness: The patient is a 53-year-old male, with a history as outlined below, who presented to the emergency department on January 22 with nausea, vomiting and hyperglycemia. The patient has a history of type 1 diabetes mellitus and obstructive sleep apnea, for which he is prescribed nocturnal CPAP therapy with a pressure support of 9 cm of water. The patient regularly follows with Dr. Cartwright of endocrinology. He does have an insulin pump and denies any recent malfunctions. He reports having recently been started on Lexapro. The dose of this medication was recently increased, after which time, the patient reported that he developed nausea and vomiting. The last time he experienced an episode of diabetic ketoacidosis was in college. On presentation to the emergency department, the patient was noted to be afebrile and hemodynamically stable. He was maintaining appropriate oxygen saturations on room air. Laboratory evaluation revealed an elevated white blood cell count 18,000. Chemistry profile was notable for a bicarbonate of 12 and evidence of acute kidney injury with a creatinine of 1.95. Glucose was elevated to 511. Glucose urea was noted on urinalysis. Large serum acetone level was noted. The patient received supplemental IV fluids, antiemetics and was started on a continuous insulin infusion. He was subsequently admitted to the medical intensive care unit for management of his diabetic ketoacidosis. Past Medical History Past Medical History (Chronic Problems): Chronic Problems (Last Reviewed 01/23/19 @ 07:20 by Lionel Conner MD) Family history of ischemic heart disease (Chronic) Atherosclerotic heart disease of [place] coronary artery without angina pectoris (Chronic) Abnormal stress test (Chronic) Family history of sudden cardiac (Chronic) Family history of hyperlipidemia (Chronic) Family history of hypertension (Chronic) Sleep apnea (Chronic) Diabetes mellitus, insulin-dependent (IDDM or type I) (Chronic) Hyperlipidemia (Chronic) Essential hypertension (Chronic) Medical History: Medical History (Last Reviewed 01/23/19 @ 07:20 by Lionel Conner MD) Family history of ischemic heart disease (Chronic) Z82.49 Atherosclerotic heart disease of [place] coronary artery without angina pectoris (Chronic) I25.10 Abnormal stress test (Chronic) R94.39 Family history of sudden cardiac (Chronic) Z82.41 Family history of hyperlipidemia (Chronic) Z83.49 Family history of hypertension (Chronic) Z82.49 Sleep apnea (Chronic) G47.30 Diabetes mellitus, insulin-dependent (IDDM or type I) (Chronic) E10.9 Hyperlipidemia (Chronic) E78.5 Essential hypertension (Chronic) I10 Allergies No Known Allergies Allergy (Verified 01/22/19 19:31) Home Medications: Ambulatory Orders Medication Instructions Recorded Lisinopril [Zestril] 40 mg PO DAILY 01/24/14 Aspirin E.C. [Ecotrin] 81 mg PO DAILY@0800 02/11/15 Famotidine [Pepcid] 20 mg PO DAILY 02/11/15 sildenafil 100 mg tablet 100 mg PO ONCE 08/17/17 amlodipine 10 mg tablet 10 mg PO QDAY 08/19/17 hydrochlorothiazide 25 mg tablet 25 mg PO QAM #90 tab 08/19/17 cholecalciferol (vitamin D3) 1,000 2,000 unit PO DAILY cap 08/29/18 unit capsule rosuvastatin 40 mg tablet 40 mg PO DAILY #90 tab 08/29/18 Escitalopram Oxalate [Lexapro] 10 mg PO DAILY 01/22/19 Insulin Lispro [Humalog] 100 unit SQ DAILY 01/22/19 Surgical History: - - Eye surgery Lives: Spouse/ Significant Other Smoking Status: Former smoker Alcohol: Occasional Review of Systems Constitutional: Denies: Chills, Fever Eyes: Denies: Blurred vision, Double vision HEENT: Denies: Head Aches, Sinus Congestion, Sinus Drainage Cardiovascular: Denies: Chest Pain, Palpitations Respiratory: Denies: Cough, Shortness of breath at rest, Sputum production Gastrointestinal: Reports: Abdominal Pain, Nausea, Vomiting. Denies: Diarrhea Genitourinary: Denies: Dysuria Musculoskeletal: Denies: Joint Pain, Joint Tenderness Skin: Denies: Rash, Wounds Neurological: Denies: Numbness, Tingling, Focal weakness Psychiatric: Denies: Anxiety, Depression, Homicidal Ideations, Suicidal Ideations Hematologic/ Lymphatic: Denies: Easy Bruising, Easy Bleeding Patient Problems: Active and Suspected Problems (Last Reviewed 01/23/19 @ 07:20 by Lionel Conner MD) DKA (diabetic ketoacidoses) (Acute) Objective: The patient's most recent lab work, culture data and imaging studies have all been personally reviewed. - Physical Exam General: Alert, Oriented x3, Cooperative, No apparent distress HEENT: Atraumatic, PERRLA, Normocephalic Oral: No Gingival or Mucosal Lesions/ Ulcerations Neck: Supple, No Nodes, Trachea Midline Lungs: Normal air movement, No rhonchi, No wheeze, No rales Cardiovascular: Regular rate, Regular Rhythm, Normal S1, Normal S2, No murmurs Abdomen: Bowel Sounds Present, Soft, Non Tender Extremities: No clubbing, No cyanosis, No edema Skin: No breakdown Musculoskeletal: No Tenderness to Palpation of Joints or Extremities, No Muscle Wasting Lymphatic: No Cervical, Supraclavicular, or Inguinal Adenopathy Neurological: Cranial nerves II-XII grossly intact, Neuro grossly intact Psych/Mental Status: Alert and oriented to time, place, person, mood and affect Vital Signs Temp Pulse Resp BP Pulse Ox 98.7 F 94 16 106/61 96 01/23/19 04:00 01/23/19 07:00 01/23/19 07:00 01/23/19 07:00 01/23/19 07:00 Oxygen Delivery Method CPAP Weight: 262 lb 12.656 oz Body Mass Index (BMI) 33.5 Finger Stick Blood Glucose 184 Intake and Output for Last 24 Hours 01/21/19 01/22/19 01/23/19 23:59 23:59 23:59 Intake Total 897.5 / 897.5 Output Total 400 / 400 Balance 497.5 / 497.5 Laboratory Tests Past 24 Hrs 01/22/19 01/22/19 01/22/19 19:45 19:45 19:45 WBC 18.1 H RBC 4.75 Hgb 15.2 Hct 44.6 MCV 93.9 MCH 32.0 MCHC 34.1 RDW 12.8 RDW Differential 43.7 Plt Count 266 MPV 10.8 Immature Gran % (Auto) 0.400 Neut % (Auto) 88.6 H Lymph % (Auto) 5.4 L [place] % (Auto) 5.4 Eos % (Auto) 0.0 Baso % (Auto) 0.2 Absolute Neuts (auto) 16.0 H Absolute Lymphs (auto) 0.97 Differential Comment Diff Path Review Platelet Estimate RBC Morphology Sodium 135 L Potassium 4.3 Chloride 98 Carbon Dioxide 12.0 L Anion Gap 25 H BUN 45 H Creatinine 1.95 H Estim Creat Clear Calc 49.76 Est GFR (MDRD) Af Amer 46 L Est GFR (MDRD) Non-Af 38 L BUN/Creatinine Ratio 23.1 H Glucose 511 H* Hemoglobin A1c Calcium 9.2 Total Bilirubin 1.00 Direct Bilirubin 0.20 AST 22 ALT 43 Alkaline Phosphatase 103 Total Protein 7.0 Albumin 3.8 Globulin 3.2 Lipase 60 L Urine Color Urine Clarity Urine pH Ur Specific [place] Urine Protein Urine Glucose (UA) Urine Ketones Urine Occult Blood Urine Nitrite Urine Bilirubin Urine Urobilinogen Ur Leukocyte Esterase Urine RBC Urine WBC Ur Squamous Epith Cells Urine Bacteria Urine Mucus Acetone Level 01/22/19 01/22/19 01/23/19 21:15 22:10 00:20 WBC RBC Hgb Hct MCV MCH MCHC RDW RDW Differential Plt Count MPV Immature Gran % (Auto) Neut % (Auto) Lymph % (Auto) [place] % (Auto) Eos % (Auto) Baso % (Auto) Absolute Neuts (auto) Absolute Lymphs (auto) Differential Comment Diff Path Review Platelet Estimate RBC Morphology Sodium Potassium Chloride Carbon Dioxide Anion Gap BUN Creatinine Estim Creat Clear Calc Est GFR (MDRD) Af Amer Est GFR (MDRD) Non-Af BUN/Creatinine Ratio Glucose Hemoglobin A1c 8.2 H Calcium Total Bilirubin Direct Bilirubin AST ALT Alkaline Phosphatase Total Protein Albumin Globulin Lipase Urine Color Yellow Urine Clarity Clear Urine pH 5.0 Ur Specific [place] 1.020 Urine Protein 15 H Urine Glucose (UA) 1000 H Urine Ketones 150 H Urine Occult Blood Negative Urine Nitrite Negative Urine Bilirubin Negative Urine Urobilinogen Normal Ur Leukocyte Esterase Negative Urine RBC 0 SEEN Urine WBC 0 SEEN Ur Squamous Epith Cells 0-5 SEEN Urine Bacteria 0 SEEN Urine Mucus 0 SEEN Acetone Level LARGE H 01/23/19 01/23/19 01/23/19 00:20 04:15 04:15 WBC 19.6 H RBC 4.39 L Hgb 13.7 Hct 39.3 L MCV 89.5 MCH 31.2 MCHC 34.9 RDW 12.5 RDW Differential 40.0 Plt Count 241 MPV 10.0 Immature Gran % (Auto) 0.300 Neut % (Auto) 81.5 H Lymph % (Auto) 9.8 L [place] % (Auto) 8.3 Eos % (Auto) 0.0 Baso % (Auto) 0.1 Absolute Neuts (auto) 16.0 H Absolute Lymphs (auto) 1.92 Differential Comment SEE COMMENT Diff Path Review May foll Platelet Estimate ADEQUATE RBC Morphology NORM C+C Sodium 135 L 138 Potassium 3.7 3.7 Chloride 102 104 Carbon Dioxide 16.0 L 23.0 Anion Gap 17 H 11 BUN 52 H 50 H Creatinine 1.92 H 1.77 H Estim Creat Clear Calc 50.54 54.83 Est GFR (MDRD) Af Amer 47 L 52 L Est GFR (MDRD) Non-Af 39 L 43 L BUN/Creatinine Ratio 27.1 H 28.2 H Glucose 383 H 255 H Hemoglobin A1c Calcium 8.0 L 8.0 L Total Bilirubin Direct Bilirubin AST ALT Alkaline Phosphatase Total Protein Albumin Globulin Lipase Urine Color Urine Clarity Urine pH Ur Specific [place] Urine Protein Urine Glucose (UA) Urine Ketones Urine Occult Blood Urine Nitrite Urine Bilirubin Urine Urobilinogen Ur Leukocyte Esterase Urine RBC Urine WBC Ur Squamous Epith Cells Urine Bacteria Urine Mucus Acetone Level POC Glucose 01/23/19 01/23/19 01/23/19 07:07 06:04 05:09 POC Glucose 184 H 193 H 231 H 01/23/19 01/23/19 01/23/19 04:12 03:04 02:10 POC Glucose 264 H 299 H 325 H 01/23/19 01/23/19 01/22/19 01:13 00:10 23:00 POC Glucose 355 H 400 H 400 H Assessment/Plan Active and Suspected Problems (Last Reviewed 01/23/19 @ 07:20 by Lionel Conner MD) DKA (diabetic ketoacidoses) (Acute) RECOMMENDATIONS: 1. Continue medical management per DKA protocol with supplemental IV fluid hydration and continuous insulin infusion. 2. Transition to basal insulin and sliding scale coverage once anion gap has been closed x2. 3. Discontinue Lexapro. 4. Continue nocturnal CPAP therapy per home regimen. 5. Close outpatient endocrinology follow-up is recommended. IMPRESSIONS: 1. Diabetic ketoacidosis It is unclear as to whether the Lexapro truly precipitated the patient's DKA or his symptoms were the consequence of the DKA. Regardless, the patient is being treated with supplemental IV fluid hydration and a continuous insulin drip. He will be maintained on this regimen per the DKA protocol. Aggressive electrolyte repletion will be undertaken. Continue to monitor serial chemistry profiles. The patient will remain on the continuous infusion of insulin until the anion gap has been closed x2. After this time, he can be transitioned to basal insulin and sliding scale coverage. 2. Acute kidney injury Likely prerenal in etiology. Creatinine is improving with IV fluid resuscitation. Continue to monitor urine output. No indication for renal replacement therapy. 3. Obstructive sleep apnea Continue nocturnal CPAP therapy with a pressure support of 9 cm of water, per home regimen. 4. Hypertension/hyperlipidemia/depression Complicates care, management, recovery and prognosis. Recommend discontinuation of Lexapro. This note was generated with infibond dictation software. It may contain incorrect words, spelling, and punctuation that were not noted in checking the note b efore signing. Code Visit Inpatient E&M: 18384 Init Hosp L3
[2019-01-23 08:35] LABS: Anion Gap 5 (5-15); BUN 44 mg/dL (7-18); Calcium,Total 8.3 mg/dL (8.5-10.1); Chloride 107 mmol/L (98-107); Creatinine, Serum 1.57 mg/dL (0.70-1.30); EST Glomerular Filtration Rate 49 mL/min (>60); Est Glom Filt Rate - Afr Amer 59 mL/min (>60); Estimated Creatinine Clearance 61.81 ml/min; Glucose 146 mg/dL (74-106); Potassium 3.7 mmol/L (3.5-5.1); Sodium Level 138 mmol/L (136-145)
[2019-01-23] MEDS: Aspirin E.C. 81 MG Tablet PO (09:40)
[2019-01-23] MEDS: Enoxaparin 30 MG/0.3 ML Syringe SC (09:40)
[2019-01-23] MEDS: amLODIPine 10 MG Tablet PO (09:40)
[2019-01-23] MEDS: Famotidine 20 MG Tablet PO ×2 (09:41→21:44)
[2019-01-23] MEDS: 0.9% Normal Saline 1,000 ML 999 ML IV (09:46)
[2019-01-23] MEDS: 0.9% Normal Saline 1,000 ML 125 ML IV ×2 (09:46→18:57)
[2019-01-23 09:51] LABS: Magnesium 2.2 mg/dL (1.6-2.6); Phosphorus 2.6 mg/dL (2.5-4.9)
[2019-01-23 10:01] LABS: Bedside Glucose 114 mg/dL (70-110)
--- NOTE | 2019-01-23 11:46 | CASEMGMT ---
RN CM Assessment Presentation: DKA, OUSMANE Intro role of CM and purpose of RN CM assessment to patient in ICU. Pt is awake, alert and able to participate in assessment. Demographics, PCP and Pharmacy verified. RN CM discussed diabetes management @ home. Pt states he is consistent with blood glucose monitoring, medications and f/u with physicians. RN CM let pt know CM is available for any dc needs or concerns. None identified @ this time. PCP: Dr. Aleman Specialists: Dr. Cartwright endocrinology Preferred Pharmacy: [facility] Insurance: [facility] [employer] Prescription Benefit: yes LNOK: , Amanda Anne Living Arrangements: pt states he is independent, no care needs identified. Transportation: Drives DME: Blood glucose monitoring equipment. HHC: none Patient DC goals: Home DC PLAN: Home on dc. Edwardo WALSH RN ACM
[2019-01-23] MEDS: Insulin Lispro 100 UNIT/ML INSULN.PEN SC ×4 (13:24→21:43)
[2019-01-23 13:31] LABS: Bedside Glucose 202 mg/dL (70-110)
--- NOTE | 2019-01-23 14:53 | CHAPLAIN ---
Type of Pastoral Visit _x__ Initial Visit ___ Follow-up Visit ___ On-call Visit ___ General Patient Visit ___ Spiritual Assessment ___ Family Conference ___ Bereavement ___ Rapid Response ___ Code Blue ___ Other (describe below) Pastoral Care Referral From _x__ Patient ___ Family ___ Nurse ___ Physician ___ Maintenance Custodian ___ Director Of Sleep ___ Other (describe below) Sacrament/Intervention _x__ Active listening ___ Anointing ___ Presybeterian ___ Bereavement ___ Communion _x__ [place] exploration ___ ___ Life review _x__ Prayer ___ Reconciliation ___ Sacrament of Sick _x__ Supportive presence ___ Wedding ___ Other (describe below) Pastoral Comments
[2019-01-23 17:00] LABS: Bedside Glucose 269 mg/dL (70-110)
[2019-01-23] MEDS: proCHLORPERazine 10 MG/2 ML Vial 5 MG IV (19:45)
[2019-01-23] MEDS: Atorvastatin Calcium 80 MG Tablet PO (21:44)
[2019-01-23 22:25] LABS: Bedside Glucose 218 mg/dL (70-110)
[2019-01-24] VITALS (7 sets, daily range): BP systolic 138–148; BP diastolic 74–86; PULSE 81–91; RESP 15–18; TEMP 36.7–36.8; O2SAT 91–97
[2019-01-24] MEDS: 0.9% Normal Saline 1,000 ML 125 ML IV ×3 (02:30→19:25)
[2019-01-24 04:27] LABS: Absolute Lymphocyte Count 1.18 X10^3/uL (0.83-4.51); Absolute Neutrophil Count 11.5 X10^3/uL (2.0-7.7); Basophil# 0.04 X10^3/uL; Basophil% 0.3 % (0-1); Hematocrit 38.9 % (40-54); Hemoglobin 13.6 g/dL (13.0-16.5); Lymphocyte # 1.18 X10^3/ul (4.0); Lymphocyte % 8.9 % (19-41); Mean Corpuscular Hgb 31.6 pg (27.0-32.0); Mean Corpuscular Volume 90.5 fL (80-94); Mean Platelet Vol. 10.1 fl (6.2-12.0); Monocyte# 0.41 X10^3/uL; Monocyte% 3.1 % (0-10); NRBC Flagged by Analyzer 0 % (0-5); Neutrophil # 11.54 X10^3/uL (2.7-7.7); Neutrophil % 87.3 % (47-70); Platelet Count 193 K/mm3 (150-450); RBC Distribution Width CV 12.4 % (11.6-14.6); RBC Distribution Width SD 40.8 fl (35.1-43.9); White Blood Count 13.2 K/mm3 (4.4-11.0)
[2019-01-24 04:48] LABS: Anion Gap 9 (5-15); BUN 24 mg/dL (7-18); BUN/Creat Ratio 21.8 RATIO (10-20); Calcium,Total 8.3 mg/dL (8.5-10.1); Chloride 109 mmol/L (98-107); EST Glomerular Filtration Rate 74 mL/min (>60); Est Glom Filt Rate - Afr Amer 89 mL/min (>60); Estimated Creatinine Clearance 88.22 ml/min; Glucose 238 mg/dL (74-106); Potassium 4.2 mmol/L (3.5-5.1); Sodium Level 143 mmol/L (136-145)
[2019-01-24] MEDS: Ondansetron 4 MG/2 ML Vial IV ×2 (04:59→15:58)
[2019-01-24] MEDS: 0.9% NaCl Peripheral Flush Adult/Peds IV (04:59)
--- NOTE | 2019-01-24 06:42 | DCINST_ITS ---
- Discharge Diagnoses Current Active Problems: Current Active and Chronic Problems (Last Reviewed 01/23/19 @ 07:20 by Lionel Conner MD) DKA (diabetic ketoacidoses) (Acute) Allergies/Adverse Reactions: Allergies No Known Allergies Allergy (Verified 01/22/19 19:31) Medications to take at Discharge Lisinopril [Zestril] 40 mg PO DAILY 01/24/14 Aspirin E.C. [Ecotrin] 81 mg PO DAILY@0800 02/11/15 Famotidine [Pepcid] 20 mg PO DAILY 02/11/15 sildenafil 100 mg tablet 100 mg PO ONCE 08/17/17 amlodipine 10 mg tablet 10 mg PO QDAY 08/19/17 hydrochlorothiazide 25 mg tablet 25 mg PO QAM #90 tab 08/19/17 cholecalciferol (vitamin D3) 1,000 unit capsule 2,000 unit PO DAILY cap 08/29/18 rosuvastatin 40 mg tablet 40 mg PO DAILY #90 tab 08/29/18 Escitalopram Oxalate [Lexapro] 10 mg PO DAILY 01/22/19 Insulin Lispro [Humalog] 100 unit SQ DAILY 01/22/19 Primary Care Physician: Gracie Aleman [Primary Care Provider] - Test Results: Test results from this visit will be discussed in further detail at your follow- up appointment, if applicable.
--- NOTE | 2019-01-24 06:47 | US_ITS ---
STUDY: ABDOMINAL ULTRASOUND - RIGHT UPPER QUADRANT REASON FOR VISIT: Male, 53 years old. Diffuse abdominal pain. TECHNIQUE: Ultrasound evaluation of the right upper quadrant was performed with real-time and static miguel-scale imaging. TECHNICAL QUALITY: Adequate. COMPARISON: None. FINDINGS: Liver: The liver measures 16 cm. There is increased echogenicity consistent with fatty infiltration. The bile ducts are within normal limits. There is hepatic color flow. The direction of portal flow is hepatopetal. There is no demonstrated mass lesion. Gallbladder: Normal distended gallbladder. The gallbladder wall measures 2.3 mm. There is a negative sonographic [place]'s sign. There is no pericholecystic fluid. There are no gallstones. Common Bile Duct (C.B.D.): The common bile duct measures 3.6 mm. Pancreas: Normal size of the head, body and tail of the pancreas. There is normal echogenicity of the pancreas. There is no demonstrated pancreatic mass or cyst. Right Kidney: Normal size of the right kidney. The right kidney measures 12.3 cm x 7.1 cm x 7.1 cm. Normal renal cortex. The right cortex measures 1.9 cm. There is no demonstrated renal mass or cyst. There is no right hydronephrosis. US/Gallbladder IMPRESSION: Fatty infiltration of the liver. Electronically Signed: Сергей Lutz, at 9:48 EDT , Service support ,
[2019-01-24] MEDS: Acetaminophen 325 MG Tablet 650 MG PO (07:01)
[2019-01-24 07:26] LABS: Bedside Glucose 242 mg/dL (70-110)
--- NOTE | 2019-01-24 08:17 | PCM.PN.HOSP ---
Patient Problems: Active and Suspected Problems (Last Reviewed 01/23/19 @ 07:20 by Lionel Conner MD) DKA (diabetic ketoacidoses) (Acute) Subjective: Patient overnight with ongoing nausea although no emesis but poor appetite and minimal intake. He this morning states that he has had 3 bowel movements of normal quality but states that the appearance has been more dark. He does state that he has some mild generalized abdominal cramping and discomfort but has difficulty describing it. Discussed plan of care which included ICU directed evaluation with surgery with pending right upper quadrant ultrasound and possibly follow-up CT scan. Patient denies fevers, chills, emesis, chest pain or dyspnea. Objective: Physical Examination: General: awake, alert, oriented x 3 and cooperative, seated upright in the ICU bed, ill and fatigued appearing. Skin: normal color, turgor, no icterus, cyanosis. HEENT: AT/NC, EOMI, PERRLA, worsened appearance, moderately dry MM, mild facial edema. Lungs: CTA bilaterally, moderate effort, moderate decrease BL bases, no rales, ronchi or wheezing. Heart: Mildly tachycardic with regular rhythm; no gallop, rub audible. Abdomen: soft, obese, no specific pain with palpation with no guarding or rebound, no RUQ pain, mildly distended, hyperactive BS. Extremities: no cyanosis, clubbing, mild extremity, facial edema. Neurological: patient awake, alert, oriented x 3; cognitive function intact; pupils equally reactive to light and accomodation; cranial nerves II-XII grossly normal, moving all 4 extremities, no focal deficits, strength moderately globally decreased. Psychiatric: affect appears worsened, fatigued, ill appearing, no acute evidence of depressive or anxiety feelings. Vitals/I&O's: Vital Signs Temp Pulse Resp BP Pulse Ox 98.1 F 90 16 138/74 H 92 01/24/19 03:00 01/24/19 03:00 01/24/19 03:00 01/24/19 03:00 01/24/19 07:50 Oxygen Delivery Method Room Air Weight: 262 lb 5.601 oz Body Mass Index (BMI) 33.5 Finger Stick Blood Glucose 146 Intake and Output for Last 24 Hours 01/22/19 01/23/19 01/24/19 23:59 23:59 23:59 Intake Total 4786.5 / 4786.5 1109 / 1109 Output Total 4550 / 4550 1050 / 1050 Balance 236.5 / 236.5 59 / 59 Laboratory Results 01/23/19 08:05: Sodium 138, Potassium 3.7, Chloride 107, Carbon Dioxide 26.0, Anion Gap 5, BUN 44 H, Creatinine 1.57 H, Estim Creat Clear Calc 61.81, Est GFR (MDRD) Af Amer 59 L, Est GFR (MDRD) Non-Af 49 L, BUN/Creatinine Ratio 28.0 H, Glucose 146 H, Calcium 8.3 L 01/23/19 08:05: Phosphorus 2.6, Magnesium 2.2 01/23/19 09:44: POC Glucose 114 H 01/23/19 13:19: POC Glucose 202 H 01/23/19 16:18: POC Glucose 269 H 01/23/19 21:42: POC Glucose 218 H 01/24/19 03:50: WBC 13.2 H, RBC 4.30 L, Hgb 13.6, Hct 38.9 L, MCV 90.5, MCH 31.6, MCHC 35.0, RDW Std Deviation 40.8, RDW Coeff of Javier 12.4, Plt Count 193, MPV 10.1, Immature Gran % (Auto) 0.400, Neut % (Auto) 87.3 H, Lymph % (Auto) 8.9 L, [place] % (Auto) 3.1, Eos % (Auto) 0.0, Baso % (Auto) 0.3, Absolute Neuts (auto) 11.5 H, Absolute Lymphs (auto) 1.18, Absolute Nucleated RBC 0.00, Nucleated RBC % 0 01/24/19 03:50: Sodium 143, Potassium 4.2, Chloride 109 H, Carbon Dioxide 25.0, Anion Gap 9, BUN 24 H, Creatinine 1.10, Estim Creat Clear Calc 88.22, Est GFR (MDRD) Af Amer 89, Est GFR (MDRD) Non-Af 74, BUN/Creatinine Ratio 21.8 H, Glucose 238 H, Calcium 8.3 L 01/24/19 07:20: POC Glucose 242 H Current Medications Acetaminophen (Tylenol) 650 mg PO Q6H PRN PRN PRN Reason: Mild Pain (1-3)/Temp > 100.7 F Last Admin: 01/24/19 07:01 Dose: 650 mg Documented by: Amlodipine Besylate (Norvasc) 10 mg PO DAILY [facility] Last Admin: 01/23/19 09:40 Dose: 10 mg Documented by: Aspirin (Ecotrin) 81 mg PO DAILY@0800 [facility] Last Admin: 01/23/19 09:40 Dose: 81 mg Documented by: Atorvastatin Calcium (Lipitor) 80 mg PO QHS [facility] Last Admin: 01/23/19 21:44 Dose: 80 mg Documented by: Dextrose (D50w Syringe) 0 gm IV X1 PRN; Protocol PRN Reason: HYPOGLYCEMIA Dextrose (D50w Syringe) 0 gm IV X1 PRN; Protocol PRN Reason: Hypoglycemia Enoxaparin Sodium (Lovenox) 30 mg SC DAILY [facility] Last Admin: 01/23/19 09:40 Dose: 30 mg Documented by: Famotidine (Pepcid) 20 mg PO BID [facility] Last Admin: 01/23/19 21:44 Dose: 20 mg Documented by: Glucagon () 1 mg IM .X1 PRN PRN Reason: Hypoglycemia Glucagon () 1 mg IM .X1 PRN PRN Reason: Hypoglycemia Sodium Chloride () 250 mls @ 15 mls/hr IV .[id number] PRN PRN Reason: SALINE FLUSH Sodium Chloride () 1,000 mls @ 125 mls/hr IV .Q8H [facility] Last Admin: 01/24/19 02:30 Dose: 125 mls/hr Documented by: Insulin Aspart (Pump, Basal) 0 unit SC Q24 [facility] Insulin Human Lispro (Humalog Kwikpen (Bkc)) 0 unit SC ACHS [facility]; Protocol Last Admin: 01/24/19 07:59 Dose: Not Given Documented by: Ondansetron HCl (Zofran) 4 mg IV Q6H PRN PRN PRN Reason: NAUSEA/VOMITING Last Admin: 01/24/19 04:59 Dose: 4 mg Documented by: Prochlorperazine Edisylate (Compazine Iv) 5 mg IV Q6H PRN PRN PRN Reason: NAUSEA/VOMITING Last Admin: 01/23/19 19:45 Dose: 5 mg Documented by: Promethazine HCl (Phenergan) 6.25 mg IV Q4H PRN PRN PRN Reason: NAUSEA/VOMITING Sodium Chloride () 10 - 40 ml IV UD PRN PRN Reason: SALINE FLUSH Last Admin: 01/24/19 04:59 Dose: 10 ml Documented by: Medical Necessity - Tobacco Use Smoking Status: Former smoker Assessment/Plan All Active Problems (Last Reviewed 01/23/19 @ 07:20 by Lionel Conner MD) DKA (diabetic ketoacidoses) (Acute) The patient is a 53 y/o M w/ PMHx: Depression, HTN, HLD, DONNELL on CPAP q HS, Diabetes mellitus type I with usage insulin drip baseline, Obesity who presents to the [facility] ED on 01/22/19 with history of 4 days of nausea, emesis following new medication start. (1) DKA w/ Diabetes mellitus type I secondary to medication side effect, Intractable N/V, Vague Abdominal Pain, Unclear Etiology: Admission CBC w/ WBC 19.6 with L shift, BMP w/ Na 135, AG 17, BUN/Cr 52/1.92, glucose 383, HgbA1c 8.2. Patient administered aggressive IVF bolus in the ED and started on an insulin drip. Admitted to ICU initially, initially continued on insulin drip until AG closed, 01/23/19 transitioned from overlapping insulin drip to lantus 20 u BID with ISS w/ accu checks and concurrent 5 u TID AC-->01/24/19 transition to 1/2 dosing of his home insulin pump w/ ISS. Mag and until able to have his insulin pump brought. Mag and phos obtained, normal. Nutrition consulted. Given ongoing CBC w/ WBC elevation with shift, elevated HR, ill appearance, ICU consulted Surgeon, planned RUQ US and if not marked appearing would then transition to CT A/P, NPO status currently. (2) Acute kidney injury: Secondary to acute presentation, #1, DKA. Admission BUN/Cr 52/1.92, prior baseline creatinine noted to be 1.0-1.1, continued to hydrate, holding nephrotoxic medications, 01/24/19 BUN/Cr 24/1.10, AG closure, improved, given possible CT needs as noted will plan continuation of IVFs w/ current NPO status. (3) Hypertension: Continue home regimen including amlodipine, holding hydrochlorthiazide and lisinopril given acute kidney injury with restart once appropriate, PRN hydralazine. (4) Hyperlipidemia: Continue home statin regimen. (5) Depression: Recent initiation outpatient Lexapro with unfortunate intractable nausea, emesis, but given ongoing symptoms pending RUQ US imaging suspect not medication related but will need to further elucidate. (6) Obesity: Weight loss and lifestyle changes encouraged, nutrition consulted for #1. (7) DONNELL: CPAP q HS. (8) DVT prophylaxis: SCDs, renally dosed lovenox. Code Visit Inpatient E&M: 49091 Subs Hosp L3
[2019-01-24 10:26] LABS: Bedside Glucose 221 mg/dL (70-110)
--- NOTE | 2019-01-24 11:12 | PCM.PN.INT ---
Subjective: Patient did well overnight. Patient was having significant nausea and did not feel like eating this morning. Patient also had an elevated white blood cell count and had been reporting some vague abdominal pain. Insulin pump has been placed and is running at half basal dosing for now. Patient did have a right upper quadrant ultrasound that is come back negative. Patient did have a bowel movement and reports some improvement in abdominal pain. General: Alert, Oriented x3, Cooperative, No apparent distress, - - Some facial edema appreciated HEENT: Atraumatic, PERRLA, EOMI, Normocephalic, - - No scleral icterus or injection noted. Oral: Moist Mucosa, No Gingival or Mucosal Lesions/ Ulcerations, - - No tongue swelling appreciated Neck: Supple, No JVD, No Nodes, Trachea Midline Lungs: Clear to auscultation, Normal air movement, No rhonchi, No wheeze, No rales Cardiovascular: Regular rate, Regular Rhythm, Normal S1, Normal S2, No murmurs, No rub noted, No Gallop Abdomen: Bowel Sounds Present, Soft, Tender - No pinpoint tenderness. No guarding or rebound noted. Extremities: No clubbing, No cyanosis, No edema, Capillary Refill Less than 3 Seconds Skin: No rashes, No breakdown Musculoskeletal: No Tenderness to Palpation of Joints or Extremities Lymphatic: No Cervical, Supraclavicular, or Inguinal Adenopathy Neurological: Cranial nerves II-XII grossly intact, Neuro grossly intact, Motor Exam 5/5 strength throughout Psych/Mental Status: Alert and oriented to time, place, person, mood and affect Vital Signs Temp Pulse Resp BP Pulse Ox 36.8 C 86 16 139/78 H 97 01/24/19 09:00 01/24/19 09:00 01/24/19 09:00 01/24/19 09:00 01/24/19 09:00 Oxygen Delivery Method Room Air Weight: 119 kg Body Mass Index (BMI) 33.5 Finger Stick Blood Glucose 146 Intake and Output for Last 24 Hours 01/22/19 01/23/19 01/24/19 23:59 23:59 23:59 Intake Total 4786.5 / 4786.5 1109 / 1109 Output Total 4550 / 4550 1050 / 1050 Balance 236.5 / 236.5 59 / 59 Labs (Last 48 Hours) 01/22/19 01/22/19 01/22/19 19:45 19:45 19:45 WBC 18.1 H RBC 4.75 Hgb 15.2 Hct 44.6 MCV 93.9 MCH 32.0 MCHC 34.1 RDW 12.8 RDW Differential 43.7 RDW Std Deviation RDW Coeff of Javier Plt Count 266 MPV 10.8 Immature Gran % (Auto) 0.400 Neut % (Auto) 88.6 H Lymph % (Auto) 5.4 L [place] % (Auto) 5.4 Eos % (Auto) 0.0 Baso % (Auto) 0.2 Absolute Neuts (auto) 16.0 H Absolute Lymphs (auto) 0.97 Absolute Nucleated RBC Nucleated RBC % Differential Comment Diff Path Review Platelet Estimate RBC Morphology Sodium 135 L Potassium 4.3 Chloride 98 Carbon Dioxide 12.0 L Anion Gap 25 H BUN 45 H Creatinine 1.95 H Estim Creat Clear Calc 49.76 Est GFR (MDRD) Af Amer 46 L Est GFR (MDRD) Non-Af 38 L BUN/Creatinine Ratio 23.1 H Glucose 511 H* Hemoglobin A1c Calcium 9.2 Phosphorus Magnesium Total Bilirubin 1.00 Direct Bilirubin 0.20 AST 22 ALT 43 Alkaline Phosphatase 103 Total Protein 7.0 Albumin 3.8 Globulin 3.2 Lipase 60 L Urine Color Urine Clarity Urine pH Ur Specific [place] Urine Protein Urine Glucose (UA) Urine Ketones Urine Occult Blood Urine Nitrite Urine Bilirubin Urine Urobilinogen Ur Leukocyte Esterase Urine RBC Urine WBC Ur Squamous Epith Cells Urine Bacteria Urine Mucus Acetone Level POC Glucose 01/22/19 01/22/19 01/22/19 21:15 22:10 23:00 WBC RBC Hgb Hct MCV MCH MCHC RDW RDW Differential RDW Std Deviation RDW Coeff of Javier Plt Count MPV Immature Gran % (Auto) Neut % (Auto) Lymph % (Auto) [place] % (Auto) Eos % (Auto) Baso % (Auto) Absolute Neuts (auto) Absolute Lymphs (auto) Absolute Nucleated RBC Nucleated RBC % Differential Comment Diff Path Review Platelet Estimate RBC Morphology Sodium Potassium Chloride Carbon Dioxide Anion Gap BUN Creatinine Estim Creat Clear Calc Est GFR (MDRD) Af Amer Est GFR (MDRD) Non-Af BUN/Creatinine Ratio Glucose Hemoglobin A1c Calcium Phosphorus Magnesium Total Bilirubin Direct Bilirubin AST ALT Alkaline Phosphatase Total Protein Albumin Globulin Lipase Urine Color Yellow Urine Clarity Clear Urine pH 5.0 Ur Specific [place] 1.020 Urine Protein 15 H Urine Glucose (UA) 1000 H Urine Ketones 150 H Urine Occult Blood Negative Urine Nitrite Negative Urine Bilirubin Negative Urine Urobilinogen Normal Ur Leukocyte Esterase Negative Urine RBC 0 SEEN Urine WBC 0 SEEN Ur Squamous Epith Cells 0-5 SEEN Urine Bacteria 0 SEEN Urine Mucus 0 SEEN Acetone Level LARGE H POC Glucose 400 H 01/23/19 01/23/19 01/23/19 00:10 00:20 00:20 WBC RBC Hgb Hct MCV MCH MCHC RDW RDW Differential RDW Std Deviation RDW Coeff of Javier Plt Count MPV Immature Gran % (Auto) Neut % (Auto) Lymph % (Auto) [place] % (Auto) Eos % (Auto) Baso % (Auto) Absolute Neuts (auto) Absolute Lymphs (auto) Absolute Nucleated RBC Nucleated RBC % Differential Comment Diff Path Review Platelet Estimate RBC Morphology Sodium 135 L Potassium 3.7 Chloride 102 Carbon Dioxide 16.0 L Anion Gap 17 H BUN 52 H Creatinine 1.92 H Estim Creat Clear Calc 50.54 Est GFR (MDRD) Af Amer 47 L Est GFR (MDRD) Non-Af 39 L BUN/Creatinine Ratio 27.1 H Glucose 383 H Hemoglobin A1c 8.2 H Calcium 8.0 L Phosphorus Magnesium Total Bilirubin Direct Bilirubin AST ALT Alkaline Phosphatase Total Protein Albumin Globulin Lipase Urine Color Urine Clarity Urine pH Ur Specific [place] Urine Protein Urine Glucose (UA) Urine Ketones Urine Occult Blood Urine Nitrite Urine Bilirubin Urine Urobilinogen Ur Leukocyte Esterase Urine RBC Urine WBC Ur Squamous Epith Cells Urine Bacteria Urine Mucus Acetone Level POC Glucose 400 H 01/23/19 01/23/19 01/23/19 01:13 02:10 03:04 WBC RBC Hgb Hct MCV MCH MCHC RDW RDW Differential RDW Std Deviation RDW Coeff of Javier Plt Count MPV Immature Gran % (Auto) Neut % (Auto) Lymph % (Auto) [place] % (Auto) Eos % (Auto) Baso % (Auto) Absolute Neuts (auto) Absolute Lymphs (auto) Absolute Nucleated RBC Nucleated RBC % Differential Comment Diff Path Review Platelet Estimate RBC Morphology Sodium Potassium Chloride Carbon Dioxide Anion Gap BUN Creatinine Estim Creat Clear Calc Est GFR (MDRD) Af Amer Est GFR (MDRD) Non-Af BUN/Creatinine Ratio Glucose Hemoglobin A1c Calcium Phosphorus Magnesium Total Bilirubin Direct Bilirubin AST ALT Alkaline Phosphatase Total Protein Albumin Globulin Lipase Urine Color Urine Clarity Urine pH Ur Specific [place] Urine Protein Urine Glucose (UA) Urine Ketones Urine Occult Blood Urine Nitrite Urine Bilirubin Urine Urobilinogen Ur Leukocyte Esterase Urine RBC Urine WBC Ur Squamous Epith Cells Urine Bacteria Urine Mucus Acetone Level POC Glucose 355 H 325 H 299 H 01/23/19 01/23/19 01/23/19 04:12 04:15 04:15 WBC 19.6 H RBC 4.39 L Hgb 13.7 Hct 39.3 L MCV 89.5 MCH 31.2 MCHC 34.9 RDW 12.5 RDW Differential 40.0 RDW Std Deviation RDW Coeff of Javier Plt Count 241 MPV 10.0 Immature Gran % (Auto) 0.300 Neut % (Auto) 81.5 H Lymph % (Auto) 9.8 L [place] % (Auto) 8.3 Eos % (Auto) 0.0 Baso % (Auto) 0.1 Absolute Neuts (auto) 16.0 H Absolute Lymphs (auto) 1.92 Absolute Nucleated RBC Nucleated RBC % Differential Comment SEE COMMENT Diff Path Review May foll Platelet Estimate ADEQUATE RBC Morphology NORM C+C Sodium 138 Potassium 3.7 Chloride 104 Carbon Dioxide 23.0 Anion Gap 11 BUN 50 H Creatinine 1.77 H Estim Creat Clear Calc 54.83 Est GFR (MDRD) Af Amer 52 L Est GFR (MDRD) Non-Af 43 L BUN/Creatinine Ratio 28.2 H Glucose 255 H Hemoglobin A1c Calcium 8.0 L Phosphorus Magnesium Total Bilirubin Direct Bilirubin AST ALT Alkaline Phosphatase Total Protein Albumin Globulin Lipase Urine Color Urine Clarity Urine pH Ur Specific [place] Urine Protein Urine Glucose (UA) Urine Ketones Urine Occult Blood Urine Nitrite Urine Bilirubin Urine Urobilinogen Ur Leukocyte Esterase Urine RBC Urine WBC Ur Squamous Epith Cells Urine Bacteria Urine Mucus Acetone Level POC Glucose 264 H 01/23/19 01/23/19 01/23/19 05:09 06:04 07:07 WBC RBC Hgb Hct MCV MCH MCHC RDW RDW Differential RDW Std Deviation RDW Coeff of Javier Plt Count MPV Immature Gran % (Auto) Neut % (Auto) Lymph % (Auto) [place] % (Auto) Eos % (Auto) Baso % (Auto) Absolute Neuts (auto) Absolute Lymphs (auto) Absolute Nucleated RBC Nucleated RBC % Differential Comment Diff Path Review Platelet Estimate RBC Morphology Sodium Potassium Chloride Carbon Dioxide Anion Gap BUN Creatinine Estim Creat Clear Calc Est GFR (MDRD) Af Amer Est GFR (MDRD) Non-Af BUN/Creatinine Ratio Glucose Hemoglobin A1c Calcium Phosphorus Magnesium Total Bilirubin Direct Bilirubin AST ALT Alkaline Phosphatase Total Protein Albumin Globulin Lipase Urine Color Urine Clarity Urine pH Ur Specific [place] Urine Protein Urine Glucose (UA) Urine Ketones Urine Occult Blood Urine Nitrite Urine Bilirubin Urine Urobilinogen Ur Leukocyte Esterase Urine RBC Urine WBC Ur Squamous Epith Cells Urine Bacteria Urine Mucus Acetone Level POC Glucose 231 H 193 H 184 H 01/23/19 01/23/19 01/23/19 08:05 08:05 09:44 WBC RBC Hgb Hct MCV MCH MCHC RDW RDW Differential RDW Std Deviation RDW Coeff of Javier Plt Count MPV Immature Gran % (Auto) Neut % (Auto) Lymph % (Auto) [place] % (Auto) Eos % (Auto) Baso % (Auto) Absolute Neuts (auto) Absolute Lymphs (auto) Absolute Nucleated RBC Nucleated RBC % Differential Comment Diff Path Review Platelet Estimate RBC Morphology Sodium 138 Potassium 3.7 Chloride 107 Carbon Dioxide 26.0 Anion Gap 5 BUN 44 H Creatinine 1.57 H Estim Creat Clear Calc 61.81 Est GFR (MDRD) Af Amer 59 L Est GFR (MDRD) Non-Af 49 L BUN/Creatinine Ratio 28.0 H Glucose 146 H Hemoglobin A1c Calcium 8.3 L Phosphorus 2.6 Magnesium 2.2 Total Bilirubin Direct Bilirubin AST ALT Alkaline Phosphatase Total Protein Albumin Globulin Lipase Urine Color Urine Clarity Urine pH Ur Specific [place] Urine Protein Urine Glucose (UA) Urine Ketones Urine Occult Blood Urine Nitrite Urine Bilirubin Urine Urobilinogen Ur Leukocyte Esterase Urine RBC Urine WBC Ur Squamous Epith Cells Urine Bacteria Urine Mucus Acetone Level POC Glucose 114 H 01/23/19 01/23/19 01/23/19 13:19 16:18 21:42 WBC RBC Hgb Hct MCV MCH MCHC RDW RDW Differential RDW Std Deviation RDW Coeff of Javier Plt Count MPV Immature Gran % (Auto) Neut % (Auto) Lymph % (Auto) [place] % (Auto) Eos % (Auto) Baso % (Auto) Absolute Neuts (auto) Absolute Lymphs (auto) Absolute Nucleated RBC Nucleated RBC % Differential Comment Diff Path Review Platelet Estimate RBC Morphology Sodium Potassium Chloride Carbon Dioxide Anion Gap BUN Creatinine Estim Creat Clear Calc Est GFR (MDRD) Af Amer Est GFR (MDRD) Non-Af BUN/Creatinine Ratio Glucose Hemoglobin A1c Calcium Phosphorus Magnesium Total Bilirubin Direct Bilirubin AST ALT Alkaline Phosphatase Total Protein Albumin Globulin Lipase Urine Color Urine Clarity Urine pH Ur Specific [place] Urine Protein Urine Glucose (UA) Urine Ketones Urine Occult Blood Urine Nitrite Urine Bilirubin Urine Urobilinogen Ur Leukocyte Esterase Urine RBC Urine WBC Ur Squamous Epith Cells Urine Bacteria Urine Mucus Acetone Level POC Glucose 202 H 269 H 218 H 01/24/19 01/24/19 01/24/19 03:50 03:50 07:20 WBC 13.2 H RBC 4.30 L Hgb 13.6 Hct 38.9 L MCV 90.5 MCH 31.6 MCHC 35.0 RDW RDW Differential RDW Std Deviation 40.8 RDW Coeff of Javier 12.4 Plt Count 193 MPV 10.1 Immature Gran % (Auto) 0.400 Neut % (Auto) 87.3 H Lymph % (Auto) 8.9 L [place] % (Auto) 3.1 Eos % (Auto) 0.0 Baso % (Auto) 0.3 Absolute Neuts (auto) 11.5 H Absolute Lymphs (auto) 1.18 Absolute Nucleated RBC 0.00 Nucleated RBC % 0 Differential Comment Diff Path Review Platelet Estimate RBC Morphology Sodium 143 Potassium 4.2 Chloride 109 H Carbon Dioxide 25.0 Anion Gap 9 BUN 24 H Creatinine 1.10 Estim Creat Clear Calc 88.22 Est GFR (MDRD) Af Amer 89 Est GFR (MDRD) Non-Af 74 BUN/Creatinine Ratio 21.8 H Glucose 238 H Hemoglobin A1c Calcium 8.3 L Phosphorus Magnesium Total Bilirubin Direct Bilirubin AST ALT Alkaline Phosphatase Total Protein Albumin Globulin Lipase Urine Color Urine Clarity Urine pH Ur Specific [place] Urine Protein Urine Glucose (UA) Urine Ketones Urine Occult Blood Urine Nitrite Urine Bilirubin Urine Urobilinogen Ur Leukocyte Esterase Urine RBC Urine WBC Ur Squamous Epith Cells Urine Bacteria Urine Mucus Acetone Level POC Glucose 242 H 01/24/19 10:18 WBC RBC Hgb Hct MCV MCH MCHC RDW RDW Differential RDW Std Deviation RDW Coeff of Javier Plt Count MPV Immature Gran % (Auto) Neut % (Auto) Lymph % (Auto) [place] % (Auto) Eos % (Auto) Baso % (Auto) Absolute Neuts (auto) Absolute Lymphs (auto) Absolute Nucleated RBC Nucleated RBC % Differential Comment Diff Path Review Platelet Estimate RBC Morphology Sodium Potassium Chloride Carbon Dioxide Anion Gap BUN Creatinine Estim Creat Clear Calc Est GFR (MDRD) Af Amer Est GFR (MDRD) Non-Af BUN/Creatinine Ratio Glucose Hemoglobin A1c Calcium Phosphorus Magnesium Total Bilirubin Direct Bilirubin AST ALT Alkaline Phosphatase Total Protein Albumin Globulin Lipase Urine Color Urine Clarity Urine pH Ur Specific [place] Urine Protein Urine Glucose (UA) Urine Ketones Urine Occult Blood Urine Nitrite Urine Bilirubin Urine Urobilinogen Ur Leukocyte Esterase Urine RBC Urine WBC Ur Squamous Epith Cells Urine Bacteria Urine Mucus Acetone Level POC Glucose 221 H Clinical Impression(s) from Imaging Studies Gallbladder Ultrasound 01/24/19 06:47 IMPRESSION: Fatty infiltration of the liver. Electronically Signed: Сергей Annmyles, at 9:48 EDT , Service support , Medical Necessity - Tobacco Use Smoking Status: Former smoker Assessment/Plan All Active Problems (Last Reviewed 01/23/19 @ 07:20 by Lionel Conner MD) DKA (diabetic ketoacidoses) (Acute) RECOMMENDATIONS: 1. Use insulin pump infusion. 2. P.o. challenge. 3. Discontinue Lexapro. 4. Continue nocturnal CPAP therapy per home regimen. 5. Close outpatient endocrinology follow-up is recommended. IMPRESSIONS: 1. Diabetic ketoacidosis Unclear etiology of patient's onset of DKA. Patient's pump was reportedly working well. Patient had had some nausea associated temporally with Lexapro, but this is not typically noted. Some concern for acute cholecystitis, but gallbladder ultrasound is unremarkable. Patient does have some residual leukocytosis. Discussed with the patient. Will proceed with a p.o. challenge. If patient is able to tolerate, will proceed per protocol. If patient is unable to tolerate p.o., CT of the abdomen with contrast to look for secondary source would be appropriate. 2. Acute kidney injury Resolved. Likely prerenal in etiology. Creatinine is improving with IV fluid resuscitation. Continue to monitor urine output. No indication for renal replacement therapy. 3. Obstructive sleep apnea Continue nocturnal CPAP therapy with a pressure support of 9 cm of water, per home regimen. 4. Hypertension/hyperlipidemia/depression Complicates care, management, recovery and prognosis. Recommend discontinuation of Lexapro. Code Visit Inpatient E&M: 48956 Subs Hosp L3
[2019-01-24] MEDS: Famotidine 20 MG Tablet PO ×2 (11:34→21:21)
[2019-01-24] MEDS: amLODIPine 10 MG Tablet PO (11:34)
[2019-01-24] MEDS: Aspirin E.C. 81 MG Tablet PO (11:34)
[2019-01-24] MEDS: Pantoprazole Sodium 40 MG Tablet PO ×2 (11:34→21:21)
[2019-01-24 12:16] LABS: Bedside Glucose 209 mg/dL (70-110)
--- NOTE | 2019-01-24 13:11 | PCM.CONS.GEN ---
Reason for Consult Date of Consultation: 01/24/19 Reason for Consultation: Abdominal pain and nausea History of Present Illness: The patient is a 53 year old M who was admitted to the ICU for DKA. Patient notes that for the last few weeks he has been nauseated especially when eating food. He describes a generalized abdominal discomfort. No vomiting. 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) Abnormal stress test (Chronic) Family history of sudden cardiac (Chronic) Family history of hyperlipidemia (Chronic) Family history of hypertension (Chronic) Sleep apnea (Chronic) Diabetes mellitus, insulin-dependent (IDDM or type I) (Chronic) Hyperlipidemia (Chronic) Essential hypertension (Chronic) Medical History: Medical History (Last Reviewed 01/23/19 @ 07:20 by Lionel Conner MD) Family history of ischemic heart disease (Chronic) Z82.49 Atherosclerotic heart disease of [place] coronary artery without angina pectoris (Chronic) I25.10 Abnormal stress test (Chronic) R94.39 Family history of sudden cardiac (Chronic) Z82.41 Family history of hyperlipidemia (Chronic) Z83.49 Family history of hypertension (Chronic) Z82.49 Sleep apnea (Chronic) G47.30 Diabetes mellitus, insulin-dependent (IDDM or type I) (Chronic) E10.9 Hyperlipidemia (Chronic) E78.5 Essential hypertension (Chronic) I10 Allergies No Known Allergies Allergy (Verified 01/22/19 19:31) Home Medications: Ambulatory Orders Medication Instructions Recorded Lisinopril [Zestril] 40 mg PO DAILY 01/24/14 Aspirin E.C. [Ecotrin] 81 mg PO DAILY@0800 02/11/15 Famotidine [Pepcid] 20 mg PO DAILY 02/11/15 sildenafil 100 mg tablet 100 mg PO ONCE 08/17/17 amlodipine 10 mg tablet 10 mg PO QDAY 08/19/17 hydrochlorothiazide 25 mg tablet 25 mg PO QAM #90 tab 08/19/17 cholecalciferol (vitamin D3) 1,000 2,000 unit PO DAILY cap 08/29/18 unit capsule rosuvastatin 40 mg tablet 40 mg PO DAILY #90 tab 08/29/18 Escitalopram Oxalate [Lexapro] 10 mg PO DAILY 01/22/19 Insulin Lispro [Humalog] 100 unit SQ DAILY 01/22/19 Surgical History: - - Eye surgery Lives: Spouse/ Significant Other Smoking Status: Former smoker Alcohol: Occasional - *Family History Maternal Family History: Family History (Last Reviewed 08/29/18 @ 11:41 by Elliott Lopez MD) Brother Sudden cardiac Mother Hypertension Brother Hypertension Review of Systems Constitutional: Denies: Anorexia, Fever HEENT: Denies: Difficulty Swallowing Cardiovascular: Denies: Chest Pain Respiratory: Denies: Cough Gastrointestinal: Reports: Nausea. Denies: Hematemesis, Vomiting Neurological: Denies: Balance problems Psychiatric: Denies: Anxiety Patient Problems: Active and Suspected Problems (Last Reviewed 01/23/19 @ 07:20 by Lionel Conner MD) DKA (diabetic ketoacidoses) (Acute) - Physical Exam General: Alert, Oriented x3 Neck: No JVD Lungs: Normal air movement Cardiovascular: Regular rate, Regular Rhythm Abdomen: Soft, Non-Distended Skin: No rashes Musculoskeletal: No Tenderness to Palpation of Joints or Extremities Neurological: Cranial nerves II-XII grossly intact Psych/Mental Status: Normal Affect Vital Signs Temp Pulse Resp BP Pulse Ox 98.2 F 86 16 139/78 H 97 01/24/19 09:00 01/24/19 09:00 01/24/19 09:00 01/24/19 09:00 01/24/19 09:00 Oxygen Delivery Method Room Air Weight: 262 lb 5.601 oz Body Mass Index (BMI) 33.5 Finger Stick Blood Glucose 146 Intake and Output for Last 24 Hours 01/22/19 01/23/19 01/24/19 23:59 23:59 23:59 Intake Total 4786.5 / 4786.5 2309 / 2309 Output Total 4550 / 4550 1800 / 1800 Balance 236.5 / 236.5 509 / 509 Laboratory Tests Past 24 Hrs 01/24/19 01/24/19 03:50 03:50 WBC 13.2 H RBC 4.30 L Hgb 13.6 Hct 38.9 L MCV 90.5 MCH 31.6 MCHC 35.0 RDW Std Deviation 40.8 RDW Coeff of Javier 12.4 Plt Count 193 MPV 10.1 Immature Gran % (Auto) 0.400 Neut % (Auto) 87.3 H Lymph % (Auto) 8.9 L [place] % (Auto) 3.1 Eos % (Auto) 0.0 Baso % (Auto) 0.3 Absolute Neuts (auto) 11.5 H Absolute Lymphs (auto) 1.18 Absolute Nucleated RBC 0.00 Nucleated RBC % 0 Sodium 143 Potassium 4.2 Chloride 109 H Carbon Dioxide 25.0 Anion Gap 9 BUN 24 H Creatinine 1.10 Estim Creat Clear Calc 88.22 Est GFR (MDRD) Af Amer 89 Est GFR (MDRD) Non-Af 74 BUN/Creatinine Ratio 21.8 H Glucose 238 H Calcium 8.3 L POC Glucose 01/24/19 01/24/19 01/24/19 11:39 10:18 07:20 POC Glucose 209 H 221 H 242 H 01/23/19 01/23/19 01/23/19 21:42 16:18 13:19 POC Glucose 218 H 269 H 202 H Clinical Impression(s) from Imaging Studies Gallbladder Ultrasound 01/24/19 06:47 IMPRESSION: Fatty infiltration of the liver. Electronically Signed: Сергей Lutz, at 9:48 EDT , Service support , Assessment/Plan All Active Problems (Last Reviewed 01/23/19 @ 07:20 by Lionel Conner MD) DKA (diabetic ketoacidoses) (Acute) 53-year-old male with nausea and leukocytosis 1. I was consulted by the clinical medical assistant for possible cholecystitis. Patient had leukocytosis and generalized nausea and abdominal discomfort. I ordered an ultrasound of the abdomen which showed normal walled gallbladder with no gallstones. Patient reports that he feels much better later in the morning. The patient may have gastritis and I would recommend PPI. Trial of diet. Johnnie Garces MD Pager: [facility] [address] [place] [address], [address] [place] [address] Office:
[2019-01-24 13:57] LABS: Pathologist Review Reviewed
[2019-01-24 17:26] LABS: Bedside Glucose 192 mg/dL (70-110)
[2019-01-24] MEDS: Atorvastatin Calcium 80 MG Tablet PO (21:21)
[2019-01-24 21:46] LABS: Bedside Glucose 176 mg/dL (70-110)
--- NOTE | 2019-01-25 00:30 | CPS ---
Pt currently wearing his home PAP machine.
[2019-01-25 03:00] VITALS: BP 148/56; PULSE 72; PULSE 81; RESP 15; TEMP 36.7; O2SAT 93
[2019-01-25] MEDS: 0.9% Normal Saline 1,000 ML 125 ML IV (03:12)
[2019-01-25 06:40] LABS: Bedside Glucose 169 mg/dL (70-110)
[2019-01-25 06:50] VITALS: O2SAT 90
[2019-01-25 06:51] LABS: ALB/GLOB Ratio 1.1 RATIO (0.9-2.4); AST(SGOT) 44 U/L (15-37); Alanine Aminotransfer ALT/SGPT 55 U/L (16-61); Alkaline Phosphatase 63 U/L (45-117); Anion Gap 2 (5-15); BUN 17 mg/dL (7-18); BUN/Creat Ratio 18.4 RATIO (10-20); Calcium,Total 8.5 mg/dL (8.5-10.1); Chloride 109 mmol/L (98-107); Creatinine, Serum 0.93 mg/dL (0.70-1.30); EST Glomerular Filtration Rate 90 mL/min (>60); Est Glom Filt Rate - Afr Amer 109 mL/min (>60); Estimated Creatinine Clearance 104.35 ml/min; Globulin 2.8 g/dL (2.2-4.2); Glucose 169 mg/dL (74-106); Magnesium 2.4 mg/dL (1.6-2.6); Phosphorus 1.2 mg/dL (2.5-4.9); Potassium 3.7 mmol/L (3.5-5.1); Protein, Total 5.8 g/dL (6.4-8.2); Sodium Level 140 mmol/L (136-145)
--- NOTE | 2019-01-25 07:16 | PCM.PN.HOSP ---
Patient Problems: Active and Suspected Problems (Last Reviewed 01/23/19 @ 07:20 by Lionel Conner MD) DKA (diabetic ketoacidoses) (Acute) Subjective: Patient overnight with improvement of nausea, no emesis, abdominal mild discomfort which she had noted prior has resolved. He has had a couple bowel movements that are more soft but not severely foul-smelling. He is eager for discharge and attempting to eat a normal breakfast this morning. Discussed plan of care which included suspicion for possible gastroenteritis and if appropriately tolerating diet will plan discharge to home with continued one half insulin pump regimen until oral intake improved with then transition to normal regimen to which she is understanding. Patient denies fevers, chills, recurrent or worsened nausea, emesis, abdominal pain, chest pain or dyspnea. Objective: Physical Examination: General: awake, alert, oriented x 3 and cooperative, seated upright in the ICU side chair, improved appearance since day prior, more interactive. Skin: normal color, turgor, no icterus, cyanosis. HEENT: AT/NC, EOMI, PERRLA, MMM. Lungs: CTA bilaterally, moderate effort, moderate decrease BL bases, no rales, ronchi or wheezing. Heart: Regular rate with regular rhythm; no gallop, rub audible. Abdomen: soft, obese, NTTP, resolved prior mild distention, normalized BS. Extremities: no cyanosis, clubbing, improved appearance. Neurological: patient awake, alert, oriented x 3; cognitive function intact; pupils equally reactive to light and accomodation; cranial nerves II-XII grossly normal, moving all 4 extremities, no focal deficits, strength improved, mildly to moderately globally decreased. Psychiatric: affect appears improved, calm, no acute evidence of depressive or anxiety feelings. Vitals/I&O's: Vital Signs Temp Pulse Resp BP Pulse Ox 98.1 F 72 15 148/56 H 93 01/25/19 03:00 01/25/19 03:00 01/25/19 03:00 01/25/19 03:00 01/25/19 03:00 Oxygen Delivery Method CPAP Weight: 263 lb 3.711 oz Body Mass Index (BMI) 33.5 Finger Stick Blood Glucose 146 Intake and Output for Last 24 Hours 01/23/19 01/24/19 01/25/19 23:59 23:59 23:59 Intake Total 4786.5 / 4786.5 3509 / 4609 1719 / 1719 Output Total 4550 / 4550 1800 / 2900 1100 / 1100 Balance 236.5 / 236.5 1709 / 1709 619 / 619 Laboratory Results 01/23/19 04:15: Diff Path Review Reviewed 01/24/19 07:20: POC Glucose 242 H 01/24/19 10:18: POC Glucose 221 H 01/24/19 11:39: POC Glucose 209 H 01/24/19 17:02: POC Glucose 192 H 01/24/19 21:26: POC Glucose 176 H 01/25/19 06:13: Sodium 140, Potassium 3.7, Chloride 109 H, Carbon Dioxide 29.0, Anion Gap 2 L, BUN 17, Creatinine 0.93, Estim Creat Clear Calc 104.35, Est GFR (MDRD) Af Amer 109, Est GFR (MDRD) Non-Af 90, BUN/Creatinine Ratio 18.4, Glucose 169 H, Calcium 8.5, Phosphorus 1.2 L, Magnesium 2.4, Total Bilirubin 1.00, AST 44 H, ALT 55, Alkaline Phosphatase 63, Total Protein 5.8 L, Albumin 3.0 L, Globulin 2.8, Albumin/Globulin Ratio 1.1 01/25/19 06:21: POC Glucose 169 H Current Medications Acetaminophen (Tylenol) 650 mg PO Q6H PRN PRN PRN Reason: Mild Pain (1-3)/Temp > 100.7 F Last Admin: 01/24/19 07:01 Dose: 650 mg Documented by: Amlodipine Besylate (Norvasc) 10 mg PO DAILY [facility] Last Admin: 01/24/19 11:34 Dose: 10 mg Documented by: Aspirin (Ecotrin) 81 mg PO DAILY@0800 [facility] Last Admin: 01/24/19 11:34 Dose: 81 mg Documented by: Atorvastatin Calcium (Lipitor) 80 mg PO QHS [facility] Last Admin: 01/24/19 21:21 Dose: 80 mg Documented by: Dextrose (D50w Syringe) 0 gm IV X1 PRN; Protocol PRN Reason: HYPOGLYCEMIA Dextrose (D50w Syringe) 0 gm IV X1 PRN; Protocol PRN Reason: Hypoglycemia Enoxaparin Sodium (Lovenox) 30 mg SC DAILY [facility] Last Admin: 01/23/19 09:40 Dose: 30 mg Documented by: Famotidine (Pepcid) 20 mg PO BID [facility] Last Admin: 01/24/19 21:21 Dose: 20 mg Documented by: Glucagon () 1 mg IM .X1 PRN PRN Reason: Hypoglycemia Glucagon () 1 mg IM .X1 PRN PRN Reason: Hypoglycemia Sodium Chloride () 250 mls @ 15 mls/hr IV .[id number] PRN PRN Reason: SALINE FLUSH Sodium Chloride () 1,000 mls @ 125 mls/hr IV .Q8H MELANIE Last Admin: 01/25/19 03:12 Dose: 125 mls/hr Documented by: Insulin Aspart (Pump, Basal) 0 unit SC Q24 MELANIE Last Admin: 01/24/19 10:02 Dose: Not Given Documented by: Insulin Human Lispro (Humalog Kwikpen (Bkc)) 0 unit SC ACHS [facility]; Protocol Last Admin: 01/25/19 06:27 Dose: Not Given Documented by: Ondansetron HCl (Zofran) 4 mg IV Q6H PRN PRN PRN Reason: NAUSEA/VOMITING Last Admin: 01/24/19 15:58 Dose: 4 mg Documented by: Pantoprazole Sodium (Protonix) 40 mg PO BID [facility] Last Admin: 01/24/19 21:21 Dose: 40 mg Documented by: Prochlorperazine Edisylate (Compazine Iv) 5 mg IV Q6H PRN PRN PRN Reason: NAUSEA/VOMITING Last Admin: 01/23/19 19:45 Dose: 5 mg Documented by: Promethazine HCl (Phenergan) 6.25 mg IV Q4H PRN PRN PRN Reason: NAUSEA/VOMITING Sodium Chloride () 10 - 40 ml IV UD PRN PRN Reason: SALINE FLUSH Last Admin: 01/24/19 04:59 Dose: 10 ml Documented by: Medical Necessity - Tobacco Use Smoking Status: Former smoker Assessment/Plan All Active Problems (Last Reviewed 01/23/19 @ 07:20 by Lionel Conner MD) DKA (diabetic ketoacidoses) (Acute) The patient is a 53 y/o M w/ PMHx: Depression, HTN, HLD, DONNELL on CPAP q HS, Diabetes mellitus type I with usage insulin drip baseline, Obesity who presents to the [facility] ED on 01/22/19 with history of 4 days of nausea, emesis following new medication start. (1) DKA w/ Diabetes mellitus type I secondary to medication side effect, Intractable N/V, Vague Abdominal Pain, Unclear Etiology, Suspected Acute Viral Gastroenteritis: Admission CBC w/ WBC 19.6 with L shift, BMP w/ Na 135, AG 17, BUN/Cr 52/1.92, glucose 383, HgbA1c 8.2. Patient administered aggressive IVF bolus in the ED and started on an insulin drip. Admitted to ICU initially, initially continued on insulin drip until AG closed, 01/23/19 transitioned from overlapping insulin drip to lantus 20 u BID with ISS w/ accu checks and concurrent 5 u TID AC-->01/24/19 transition to 1/2 dosing of his home insulin pump w/ ISS. Mag normal. Given ongoing CBC w/ WBC elevation with shift, elevated HR, ill appearance, ICU consulted Surgeon, and right upper quadrant ultrasound obtained given his vague symptoms which was noted to be unremarkable. Patient clinically began to improve and diet was initiated with advance diet as tolerated. Plan discharge to home if tolerating breakfast this AM. Re-evaluation per Surgery also w/ noted GERD x 3 years with no EGD, will refer upon discharge. (2) Acute kidney injury: Secondary to acute presentation, #1, DKA. Admission BUN/Cr 52/1.92, prior baseline creatinine noted to be 1.0-1.1, continued to hydrate, held nephrotoxic medications, 01/25/19 BUN/Cr 17/0.93. (3) Hypertension: Continued home regimen including amlodipine. Given OUSMANE resolution, will restart home lisinopril/HCTZ on 01/26/19. PRN hydralazine. (4) Hyperlipidemia: Continue home statin regimen. (5) Depression: Recent initiation outpatient Lexapro with unfortunate intractable nausea, emesis, suspected not specific medication side effect, likely gastroenteritis. Discussed with patient and advised once completely resolved #1, #2, would be appropriate to re-trial. (6) Obesity: Weight loss and lifestyle changes encouraged, nutrition consulted for #1. (7) DONNELL: CPAP q HS. (8) DVT prophylaxis: SCDs, lovenox.
--- NOTE | 2019-01-25 07:44 | PN_ITS ---
Subjective: Patient was unable to take substantial p.o. intake yesterday secondary to a continued sensation of nausea. Patient was placed on Protonix and this morning states that he feels significantly improved compared to previous. Blood sugars have been adequately controlled. General: Alert, Oriented x3, Cooperative, No apparent distress, Well developed, Well nourished, - - Speaking in full sentences. HEENT: Atraumatic, PERRLA, EOMI, Normocephalic, - - No scleral icterus or injection noted Oral: Moist Mucosa, No Gingival or Mucosal Lesions/ Ulcerations Neck: Supple, No JVD, No Nodes, Trachea Midline Lungs: Clear to auscultation, Normal air movement, No rhonchi, No wheeze, No rales Cardiovascular: Regular rate, Regular Rhythm, Normal S1, Normal S2, No murmurs, No rub noted, No Gallop Abdomen: Bowel Sounds Present, Soft, Non Tender, Non-Distended, Obese Extremities: No clubbing, No cyanosis, Edema - Trace Skin: No rashes, No breakdown Musculoskeletal: No Tenderness to Palpation of Joints or Extremities Lymphatic: No Cervical, Supraclavicular, or Inguinal Adenopathy Neurological: Cranial nerves II-XII grossly intact, Neuro grossly intact, Motor Exam 5/5 strength throughout Psych/Mental Status: Alert and oriented to time, place, person, mood and affect Vital Signs Temp Pulse Resp BP Pulse Ox 36.7 C 72 15 148/56 H 93 01/25/19 03:00 01/25/19 03:00 01/25/19 03:00 01/25/19 03:00 01/25/19 03:00 Oxygen Delivery Method CPAP Weight: 119.4 kg Body Mass Index (BMI) 33.5 Finger Stick Blood Glucose 146 Intake and Output for Last 24 Hours 01/23/19 01/24/19 01/25/19 23:59 23:59 23:59 Intake Total 4786.5 / 4786.5 3509 / 4609 1719 / 1719 Output Total 4550 / 4550 1800 / 2900 1100 / 1100 Balance 236.5 / 236.5 1709 / 1709 619 / 619 Labs (Last 48 Hours) 01/23/19 01/23/19 01/23/19 04:15 08:05 08:05 WBC RBC Hgb Hct MCV MCH MCHC RDW Std Deviation RDW Coeff of Javier Plt Count MPV Immature Gran % (Auto) Neut % (Auto) Lymph % (Auto) [place] % (Auto) Eos % (Auto) Baso % (Auto) Absolute Neuts (auto) Absolute Lymphs (auto) Absolute Nucleated RBC Nucleated RBC % Diff Path Review Reviewed Sodium 138 Potassium 3.7 Chloride 107 Carbon Dioxide 26.0 Anion Gap 5 BUN 44 H Creatinine 1.57 H Estim Creat Clear Calc 61.81 Est GFR (MDRD) Af Amer 59 L Est GFR (MDRD) Non-Af 49 L BUN/Creatinine Ratio 28.0 H Glucose 146 H Calcium 8.3 L Phosphorus 2.6 Magnesium 2.2 Total Bilirubin AST ALT Alkaline Phosphatase Total Protein Albumin Globulin Albumin/Globulin Ratio POC Glucose 01/23/19 01/23/19 01/23/19 09:44 13:19 16:18 WBC RBC Hgb Hct MCV MCH MCHC RDW Std Deviation RDW Coeff of Javier Plt Count MPV Immature Gran % (Auto) Neut % (Auto) Lymph % (Auto) [place] % (Auto) Eos % (Auto) Baso % (Auto) Absolute Neuts (auto) Absolute Lymphs (auto) Absolute Nucleated RBC Nucleated RBC % Diff Path Review Sodium Potassium Chloride Carbon Dioxide Anion Gap BUN Creatinine Estim Creat Clear Calc Est GFR (MDRD) Af Amer Est GFR (MDRD) Non-Af BUN/Creatinine Ratio Glucose Calcium Phosphorus Magnesium Total Bilirubin AST ALT Alkaline Phosphatase Total Protein Albumin Globulin Albumin/Globulin Ratio POC Glucose 114 H 202 H 269 H 01/23/19 01/24/19 01/24/19 21:42 03:50 03:50 WBC 13.2 H RBC 4.30 L Hgb 13.6 Hct 38.9 L MCV 90.5 MCH 31.6 MCHC 35.0 RDW Std Deviation 40.8 RDW Coeff of Javier 12.4 Plt Count 193 MPV 10.1 Immature Gran % (Auto) 0.400 Neut % (Auto) 87.3 H Lymph % (Auto) 8.[address] [place] % (Auto) 3.1 Eos % (Auto) 0.0 Baso % (Auto) 0.3 Absolute Neuts (auto) 11.5 H Absolute Lymphs (auto) 1.18 Absolute Nucleated RBC 0.00 Nucleated RBC % 0 Diff Path Review Sodium 143 Potassium 4.2 Chloride 109 H Carbon Dioxide 25.0 Anion Gap 9 BUN 24 H Creatinine 1.10 Estim Creat Clear Calc 88.22 Est GFR (MDRD) Af Amer 89 Est GFR (MDRD) Non-Af 74 BUN/Creatinine Ratio 21.8 H Glucose 238 H Calcium 8.3 L Phosphorus Magnesium Total Bilirubin AST ALT Alkaline Phosphatase Total Protein Albumin Globulin Albumin/Globulin Ratio POC Glucose 218 H 01/24/19 01/24/19 01/24/19 07:20 10:18 11:39 WBC RBC Hgb Hct MCV MCH MCHC RDW Std Deviation RDW Coeff of Javier Plt Count MPV Immature Gran % (Auto) Neut % (Auto) Lymph % (Auto) [place] % (Auto) Eos % (Auto) Baso % (Auto) Absolute Neuts (auto) Absolute Lymphs (auto) Absolute Nucleated RBC Nucleated RBC % Diff Path Review Sodium Potassium Chloride Carbon Dioxide Anion Gap BUN Creatinine Estim Creat Clear Calc Est GFR (MDRD) Af Amer Est GFR (MDRD) Non-Af BUN/Creatinine Ratio Glucose Calcium Phosphorus Magnesium Total Bilirubin AST ALT Alkaline Phosphatase Total Protein Albumin Globulin Albumin/Globulin Ratio POC Glucose 242 H 221 H 209 H 01/24/19 01/24/19 01/25/19 17:02 21:26 06:13 WBC RBC Hgb Hct MCV MCH MCHC RDW Std Deviation RDW Coeff of Javier Plt Count MPV Immature Gran % (Auto) Neut % (Auto) Lymph % (Auto) [place] % (Auto) Eos % (Auto) Baso % (Auto) Absolute Neuts (auto) Absolute Lymphs (auto) Absolute Nucleated RBC Nucleated RBC % Diff Path Review Sodium 140 Potassium 3.7 Chloride 109 H Carbon Dioxide 29.0 Anion Gap 2 L BUN 17 Creatinine 0.93 Estim Creat Clear Calc 104.35 Est GFR (MDRD) Af Amer 109 Est GFR (MDRD) Non-Af 90 BUN/Creatinine Ratio 18.4 Glucose 169 H Calcium 8.5 Phosphorus 1.2 L Magnesium 2.4 Total Bilirubin 1.00 AST 44 H ALT 55 Alkaline Phosphatase 63 Total Protein 5.8 L Albumin 3.0 L Globulin 2.8 Albumin/Globulin Ratio 1.1 POC Glucose 192 H 176 H 01/25/19 06:21 WBC RBC Hgb Hct MCV MCH MCHC RDW Std Deviation RDW Coeff of Javier Plt Count MPV Immature Gran % (Auto) Neut % (Auto) Lymph % (Auto) [place] % (Auto) Eos % (Auto) Baso % (Auto) Absolute Neuts (auto) Absolute Lymphs (auto) Absolute Nucleated RBC Nucleated RBC % Diff Path Review Sodium Potassium Chloride Carbon Dioxide Anion Gap BUN Creatinine Estim Creat Clear Calc Est GFR (MDRD) Af Amer Est GFR (MDRD) Non-Af BUN/Creatinine Ratio Glucose Calcium Phosphorus Magnesium Total Bilirubin AST ALT Alkaline Phosphatase Total Protein Albumin Globulin Albumin/Globulin Ratio POC Glucose 169 H Clinical Impression(s) from Imaging Studies Gallbladder Ultrasound 01/24/19 06:47 IMPRESSION: Fatty infiltration of the liver. Electronically Signed: Сергей Lutz, at 9:48 EDT , Service support , Medical Necessity - Tobacco Use Smoking Status: Former smoker Assessment/Plan All Active Problems (Last Reviewed 01/23/19 @ 07:20 by Lionel Conner MD) DKA (diabetic ketoacidoses) (Acute) RECOMMENDATIONS: 1. Use insulin pump infusion. 2. Await p.o. challenge 3. Discontinue Lexapro. 4. Continue nocturnal CPAP therapy per home regimen. 5. Close outpatient endocrinology follow-up is recommended. 6. Potentially discharge later today. Consider Protonix as an outpatient IMPRESSIONS: 1. Diabetic ketoacidosis Unclear etiology of patient's onset of DKA. Patient's pump was reportedly working well. Patient had had some nausea associated temporally with Lexapro, but this is not typically noted. Patient has responded well to PPI therapy indicating possible gastritis as the cause of his abdominal issues. Patient has not had any significant other signs of gastroparesis, although this would be a consideration given his long history of diabetes. If patient is able to tolerate a p.o. diet, discharge would be appropriate. 2. Acute kidney injury Resolved. Likely prerenal in etiology. Creatinine is improving with IV fluid resuscitation. Continue to monitor urine output. No indication for renal replacement therapy. 3. Obstructive sleep apnea Continue nocturnal CPAP therapy with a pressure support of 9 cm of water, per home regimen. 4. Hypertension/hyperlipidemia/depression Complicates care, management, recovery and prognosis. Unclear if Lexapro had significant effect on presentation. Code Visit Inpatient E&M: 72516 Subs Hosp L2
--- NOTE | 2019-01-25 07:44 | PCM.PN.SRG ---
Patient Problems: Active and Suspected Problems (Last Reviewed 01/23/19 @ 07:20 by Lionel Conner MD) DKA (diabetic ketoacidoses) (Acute) Subjective: Patient is tolerating diet, denies any abdominal pain states yesterday it may be more just some nausea. Patient does state that he takes Pepcid for about the last 3 years for reflux and sometimes he still has reflux with the medications. Patient has never had an upper scope. - Physical Exam General: Alert, Oriented x3, Cooperative, No apparent distress HEENT: Atraumatic Abdomen: Soft, Non Tender - No peritoneal signs, Non-Distended Neurological: Cranial nerves II-XII grossly intact Psych/Mental Status: Normal Affect Vital Signs Temp Pulse Resp BP Pulse Ox 98.1 F 72 15 148/56 H 93 01/25/19 03:00 01/25/19 03:00 01/25/19 03:00 01/25/19 03:00 01/25/19 03:00 Oxygen Delivery Method CPAP Weight: 263 lb 3.711 oz Body Mass Index (BMI) 33.5 Finger Stick Blood Glucose 146 Intake and Output for Last 24 Hours 01/23/19 01/24/19 01/25/19 23:59 23:59 23:59 Intake Total 4786.5 / 4786.5 3509 / 4609 1719 / 1719 Output Total 4550 / 4550 1800 / 2900 1100 / 1100 Balance 236.5 / 236.5 1709 / 1709 619 / 619 Laboratory Tests Past 24 Hrs 01/23/19 01/25/19 04:15 06:13 [address] Review Reviewed Sodium 140 Potassium 3.7 Chloride 109 H Carbon Dioxide 29.0 Anion Gap 2 L BUN 17 Creatinine 0.93 Estim Creat Clear Calc 104.35 Est GFR (MDRD) Af Amer 109 Est GFR (MDRD) Non-Af 90 BUN/Creatinine Ratio 18.4 Glucose 169 H Calcium 8.5 Phosphorus 1.2 L Magnesium 2.4 Total Bilirubin 1.00 AST 44 H ALT 55 Alkaline Phosphatase 63 Total Protein 5.8 L Albumin 3.0 L Globulin 2.8 Albumin/Globulin Ratio 1.1 POC Glucose 01/25/19 01/24/19 01/24/19 06:21 21:26 17:02 POC Glucose 169 H 176 H 192 H 01/24/19 01/24/19 11:39 10:18 POC Glucose 209 H 221 H Medical Necessity - Tobacco Use Smoking Status: Former smoker Assessment/Plan All Active Problems (Last Reviewed 01/23/19 @ 07:20 by Lionel Conner MD) DKA (diabetic ketoacidoses) (Acute) Patient is tolerating diet denies abdominal pain. No plans for any acute surgical intervention. Discussed with patient that I recommend getting an EGD as an outpatient as he has been on medication for reflux for 3 years and is never had one. Patient was agreeable plans to talk to his PCP regarding this. Will sign off call with any questions. Marielena Bay M.D. Pager: [phone] [facility] [address] [place] [address], Outpatient [place], [address] [place] [address] Office: [phone] Code Visit Inpatient E&M: 36575 Subs Hosp L1
[2019-01-25] MEDS: Aspirin E.C. 81 MG Tablet PO (08:31)
[2019-01-25] MEDS: amLODIPine 10 MG Tablet PO (08:32)
[2019-01-25] MEDS: Famotidine 20 MG Tablet PO (08:33)
[2019-01-25] MEDS: Pantoprazole Sodium 40 MG Tablet PO (08:33)
--- NOTE | 2019-01-25 08:46 | PCM.DC ---
- Discharge Diagnoses Current Active Problems: Current Active and Chronic Problems (Last Reviewed 01/23/19 @ 07:20 by Lionel Conner MD) (1) DKA w/ Diabetes mellitus type I secondary to Intractable N/V, Vague Abdominal Pain, Unclear Etiology, Suspected Acute Viral Gastroenteritis although possible concurrent side effect of new anti-depressant regimen (2) Acute kidney injury, Secondary to acute presentation, #1, DKA (3) Hypertension (4) Hyperlipidemia (5) Depression (6) Obesity (7) DONNELL on CPAP q HS. You will use the following diet at home:: Calorie/Carbohydrate Controlled (specify 1200, 1400, etc) Your food should be the consistency of: Regular Your liquids should be the consistency of: Regular/Thin Discharge Activity: - - Avoid aggressive activity until completely resolved, tolerating normal diet. May resume sexual activity in: - - Resume once current acute presentation completely resolved. Call your doctor if you observe: Fever of 101 or Higher, Inability to urinate, Inability to have a bowel movement, Shortness of breath, Dizziness, Fainting spells, Chest pain, Uncontrolled pain, - - Recurrent nausea, emesis, diarrhea noted, blood sugars low or high frequently Instructions: Long-Term Complications of Diabetes, Hyperglycemia (High Blood Sugar), Hypoglycemia (Low Blood Sugar), What is Type 1 Diabetes?, Resources for People with Diabetes Additional Instructions: Please hold your hydrochlorithiazide and losartan until 01/26/19 at which point you may resume. You renal function was elevated upon presentation but normalized. Please have repeat renal function (basic metabolic panel) with primary care physician at follow-up. Allergies/Adverse Reactions: Allergies No Known Allergies Allergy (Verified 01/22/19 19:31) Medications to take at Discharge Lisinopril [Zestril] 40 mg PO DAILY 01/24/14 Aspirin E.C. [Ecotrin] 81 mg PO DAILY@0800 02/11/15 sildenafil 100 mg tablet 100 mg PO ONCE 08/17/17 amlodipine 10 mg tablet 10 mg PO QDAY 08/19/17 hydrochlorothiazide 25 mg tablet 25 mg PO QAM #90 tab 08/19/17 cholecalciferol (vitamin D3) 1,000 unit capsule 2,000 unit PO DAILY cap 08/29/18 rosuvastatin 40 mg tablet 40 mg PO DAILY #90 tab 08/29/18 Escitalopram Oxalate [Lexapro] 10 mg PO DAILY 01/22/19 Insulin Lispro [Humalog] 100 unit SQ DAILY 01/22/19 Ondansetron [Zofran] 8 mg PO Q8H PRN PRN #20 tab 01/25/19 Pantoprazole Sodium [Protonix] 40 mg PO BID #60 tab 01/25/19 The following prescriptions were given: Pantoprazole Sodium [Protonix] 40 mg PO BID #60 tab Transmission Status: Pending to [facility] Ondansetron [Zofran] 8 mg PO Q8H PRN PRN #20 tab PRN Reason: nausea, emesis Transmission Status: Pending to [facility] Primary Care Physician: Gracie Aleman [Primary Care Provider] - Please follow up with your Primary Care Physician in: Follow-up 3-5 days. Test Results: Test results from this visit will be discussed in further detail at your follow-up appointment, if applicable. Please Follow Up With: Johnnie Garces MD When: Please call office to arrange EGD for ongoing GERD history. Proposed Discharge Date: 01/25/19
--- NOTE | 2019-01-25 08:52 | PCM.DC.SUM ---
Discharge Date and Diagnosis - Problem List Patient Problems: Active and Suspected Problems (Last Reviewed 01/23/19 @ 07:20 by Lionel Conner MD) DKA (diabetic ketoacidoses) (Acute) Date of Admission: 01/22/19 Date of Discharge: 01/25/19 - Primary Discharge Diagnosis Active and Suspected Problems (Last Reviewed 01/23/19 @ 07:20 by Lionel Conner MD) (1) DKA w/ Diabetes mellitus type I secondary to Intractable N/V, Vague Abdominal Pain, Unclear Etiology, Suspected Acute Viral Gastroenteritis although possible concurrent side effect of new anti-depressant regimen (2) Acute kidney injury, Secondary to acute presentation, #1, DKA (3) Hypertension (4) Hyperlipidemia (5) Depression (6) Obesity (7) DONNELL on CPAP q HS - Secondary Discharge Diagnosis Chronic Problems (Last Reviewed 01/23/19 @ 07:20 by Lionel Conner MD) Family history of ischemic heart disease (Chronic) Atherosclerotic heart disease of [place] coronary artery without angina pectoris (Chronic) Abnormal stress test (Chronic) Family history of sudden cardiac (Chronic) Family history of hyperlipidemia (Chronic) Family history of hypertension (Chronic) Sleep apnea (Chronic) Diabetes mellitus, insulin-dependent (IDDM or type I) (Chronic) Hyperlipidemia (Chronic) Essential hypertension (Chronic) Hospital Course and Treatment Dr. Bhakta ICU Dr. Garces Surgery Operations: None Procedures: EKG Summary of Care Provided: The patient is a 53 y/o M w/ PMHx: Depression, HTN, HLD, DONNELL on CPAP q HS, Diabetes mellitus type I with usage insulin drip baseline, Obesity who presented to the [facility] ED on 01/22/19 with history of 4 days of nausea, emesis following new medication start. Admission CBC w/ WBC 19.6 with L shift, BMP w/ Na 135, AG 17, BUN/Cr 52/1.92, glucose 383, HgbA1c 8.2. Patient administered aggressive IVF bolus in the ED and started on an insulin drip. Admitted to ICU initially, initially continued on insulin drip until AG closed, 01/23/19 transitioned from overlapping insulin drip to lantus 20 u BID with ISS w/ accu checks and concurrent 5 u TID AC-->01/24/19 transition to 1/2 dosing of his home insulin pump w/ ISS. Mag normal. Given ongoing CBC w/ WBC elevation with shift, elevated HR, ill appearance, ICU consulted Surgeon, and right upper quadrant ultrasound obtained given his vague symptoms which was noted to be unremarkable. Patient clinically began to improve and diet was initiated with advance diet as tolerated with suspicion of presentation likely acute viral gastroenteritis and unfortunate concurrent start at the same time of his new antidepressant medication, possibly contributing. As noted patient with presentation with OUSMANE, secondary to acute presentation, DKA w/ admission BUN/Cr 52/1.92, prior baseline creatinine noted to be 1.0-1.1, continued to hydrate, held nephrotoxic medications, 01/25/19 BUN/Cr 17/0.93. Patient with recent initiation outpatient Lexapro with unfortunate intractable nausea, emesis, suspected not specific medication side effect, likely gastroenteritis. Discussed with patient and advised once acute presentation completely resolved would be appropriate to re-trial although hesitant. Patient discharged home in stable condition with recommended follow-up with his primary care physician and given history of ongoing reflux symptoms x3 years referred to Dr. Garces for EGD outpatient. Patient discharged with regimen of Protonix as well as PRN Zofran and recommended lactobacillus supplementation. Patient Problems: Active and Suspected Problems (Last Reviewed 01/23/19 @ 07:20 by Lionel Conner MD) DKA (diabetic ketoacidoses) (Acute) - Physical Exam Vital Signs Temp Pulse Resp BP Pulse Ox 98.1 F 72 15 148/56 H 90 01/25/19 03:00 01/25/19 03:00 01/25/19 03:00 01/25/19 03:00 01/25/19 06:50 Oxygen Delivery Method Room Air Weight: 263 lb 3.711 oz Body Mass Index (BMI) 33.5 Finger Stick Blood Glucose 146 Intake and Output for Last 24 Hours 01/23/19 01/24/19 01/25/19 23:59 23:59 23:59 Intake Total 4786.5 / 4786.5 3509 / 4609 1719 / 1719 Output Total 4550 / 4550 1800 / 2900 1100 / 1100 Balance 236.5 / 236.5 1709 / 1709 619 / 619 Laboratory Tests Past 24 Hrs 01/23/19 01/25/19 01/25/19 04:15 06:13 08:00 WBC Cancelled Corrected WBC Cancelled RBC Cancelled Hgb Cancelled Hct Cancelled MCV Cancelled MCH Cancelled MCHC Cancelled RDW Std Deviation Cancelled RDW Coeff of Javier Cancelled Plt Count Cancelled MPV Cancelled Immature Gran % (Auto) Cancelled Neut % (Auto) Cancelled Lymph % (Auto) Cancelled [place] % (Auto) Cancelled Eos % (Auto) Cancelled Baso % (Auto) Cancelled Absolute Neuts (auto) Cancelled Absolute Lymphs (auto) Cancelled Absolute Nucleated RBC Cancelled Total Counted Cancelled Neutrophils % (Manual) Cancelled Band Neutrophils % Cancelled Lymphocytes % (Manual) Cancelled Monocytes % (Manual) Cancelled Eosinophils % (Manual) Cancelled Basophils % (Manual) Cancelled Metamyelocytes % Cancelled Myelocytes % Cancelled Promyelocytes % Cancelled Blast Cells % Cancelled Plasma Cell % (Manual) Cancelled Other Cells % Cancelled Nucleated RBC % Cancelled Nucleated RBCs/100 WBC Cancelled Differential Comment Cancelled Diff Path Review Reviewed Cancelled Hypersegmented Neuts Cancelled Atypical Lymphocytes Cancelled Reactive Lymphocytes Cancelled Smudge Cells Cancelled Toxic Granulation Cancelled Toxic Vacuolation Cancelled Dohle Bodies Cancelled Emiliana Rods Cancelled Platelet Estimate Cancelled Plt Morphology Comment Cancelled RBC Morphology Cancelled Polychromasia Cancelled Hypochromasia Cancelled Poikilocytosis Cancelled Basophilic Stippling Cancelled Anisocytosis Cancelled Microcytosis Cancelled Macrocytosis Cancelled Spherocytes Cancelled Sickle Cells Cancelled Target Cells Cancelled Tear Drop Cells Cancelled Ovalocytes Cancelled Stomatocytes Cancelled [place] Bodies Cancelled Sabrina Cells Cancelled Bite Cells Cancelled Crenated Cell Cancelled Acanthocytes (Spur) Cancelled Rouleaux Cancelled Schistocytes Cancelled Sodium 140 Potassium 3.7 Chloride 109 H Carbon Dioxide 29.0 Anion Gap 2 L BUN 17 Creatinine 0.93 Estim Creat Clear Calc 104.35 Est GFR (MDRD) Af Amer 109 Est GFR (MDRD) Non-Af 90 BUN/Creatinine Ratio 18.4 Glucose 169 H Calcium 8.5 Phosphorus 1.2 L Magnesium 2.4 Total Bilirubin 1.00 AST 44 H ALT 55 Alkaline Phosphatase 63 Total Protein 5.8 L Albumin 3.0 L Globulin 2.8 Albumin/Globulin Ratio 1.1 POC Glucose 07/18/19 07/17/19 07/17/19 06:21 21:26 17:02 POC Glucose 169 H 176 H 192 H 01/24/19 01/24/19 11:39 10:18 POC Glucose 209 H 221 H Discharge Activity: - - Avoid aggressive activity until completely resolved, tolerating normal diet. May resume sexual activity in: - - Resume once current acute presentation completely resolved. Call your doctor if you observe: Fever of 101 or Higher, Inability to urinate, Inability to have a bowel movement, Shortness of breath, Dizziness, Fainting spells, Chest pain, Uncontrolled pain, - - Recurrent nausea, emesis, diarrhea noted, blood sugars low or high frequently Home Medications: Medications to take at Discharge Lisinopril [Zestril] 40 mg PO DAILY 01/24/14 Aspirin E.C. [Ecotrin] 81 mg PO DAILY@0800 02/11/15 sildenafil 100 mg tablet 100 mg PO ONCE 08/17/17 amlodipine 10 mg tablet 10 mg PO QDAY 08/19/17 hydrochlorothiazide 25 mg tablet 25 mg PO QAM #90 tab 08/19/17 cholecalciferol (vitamin D3) 1,000 unit capsule 2,000 unit PO DAILY cap 08/29/18 rosuvastatin 40 mg tablet 40 mg PO DAILY #90 tab 08/29/18 Escitalopram Oxalate [Lexapro] 10 mg PO DAILY 01/22/19 Insulin Lispro [Humalog] 100 unit SQ DAILY 01/22/19 Ondansetron [Zofran] 8 mg PO Q8H PRN PRN #20 tab 01/25/19 Pantoprazole Sodium [Protonix] 40 mg PO BID #60 tab 01/25/19 Following Prescrptions Were Given to Patient: Pantoprazole Sodium [Protonix] 40 mg PO BID #60 tab Transmission Status: Pending to [facility] Ondansetron [Zofran] 8 mg PO Q8H PRN PRN #20 tab PRN Reason: nausea, emesis Transmission Status: Pending to [facility] Primary Care Physician: Gracie Aleman [Primary Care Provider] - Please follow up with your Primary Care Physician in: Follow-up 3-5 days. Please Follow Up With: Johnnie Garces MD When: Please call office to arrange EGD for ongoing GERD history. Patient Instructions: Long-Term Complications of Diabetes, Hyperglycemia (High Blood Sugar), Hypoglycemia (Low Blood Sugar), Resources for People with Diabetes, What is Type 1 Diabetes? Disposition: Home Minutes spent on discharge:: 35 Patient Condition:: Good Medical Necessity - Tobacco Use Smoking Status: Former smoker Meaningful Use Info Meaningful Use Diagnoses (Choose all that apply): None applicable Code Visit Inpatient E&M: 90332 Disch Hosp
[2019-01-25 09:00] VITALS: BP 147/87; PULSE 77; RESP 16; TEMP 36.6; O2SAT 94
--- NOTE | 2019-01-29 13:31 | CASEMGMT ---
ASIYA CM DC PHONE CALL DC DATE: 01/25/19 DC Disposition: Home Diagnosis on Discharge: DKA LACE/STRATA: 05/13 Attempted call to pt's phone. VM is not set up. Edwardo DE LA TORREN RN ACM
== END 2019-01-25 10:50 | disposition home or self-care (01) | DRG 638 ==
LOC: ED 21:14 → ICU 23:51
PROVIDERS: Internal Medicine Critical Care Medicine; Admitting Provider Hospitalist; Emergency Provider Emergency Medicine; Family Provider Internal Medicine; PCP Internal Medicine; Referring Provider Hospitalist; Visit Provider Family Medicine
DX: E10.10 Type 1 diabetes mellitus with ketoacidosis without coma (principal); N17.9 Acute kidney failure, unspecified; I10 Essential (primary) hypertension; E78.5 Hyperlipidemia, unspecified; Z79.4 Long term (current) use of insulin; Z96.41 Presence of insulin pump (external) (internal); A08.4 Viral intestinal infection, unspecified; Z87.891 Personal history of nicotine dependence; F32.9 Major depressive disorder, single episode, unspecified; K21.9 Gastro-esophageal reflux disease without esophagitis; G47.33 Obstructive sleep apnea (adult) (pediatric); E66.9 Obesity, unspecified; Z68.33 Body mass index [BMI] 33.0-33.9, adult; T43.205A Adverse effect of unspecified antidepressants, initial encounter; I25.10 Atherosclerotic heart disease of native coronary artery without angina pectoris
CPT/HCPCS: 76705; 80048; 80053; 80076; 81001; 82009; 82962; 83036; 83690; 83735; 84100; 85025; 94660; 97802; 99284; J7030; A4216; J2405; J3490

== ENCOUNTER 2019-02-12 16:00 | Outpatient (RCR) | payer OTHER, SELFPAY ==
[2018-08-29 11:31] VITALS: BMI 33.6
--- NOTE | 2019-01-05 17:04 | HP.PTEVAL_ITS ---
Patient's Visit Information WES SMITH is a 53 year old M referred to Physical Therapy by Venu Bills MD with a diagnosis of CERVICAL STAIN AND IMPINGEMENT RIGHT SHOULDER. Date of Evaluation: 01/05/19 Physical Therapist: Haley Potts PT, Cert MDT - Visit Plan Frequency: 2-3x /Week Duration: 4-6 Weeks Plan: ULTRASOUND TO NECK AND RIGHT SHOULDER. RIGHT SHLD PROM AND MOBILIZATION. CONSIDER CERVICAL TRACTION AND CRISTIANO'S EXTENSION PRINCIPLE OF TREATMENT. POSTURE CORRECTION/STRENGTHENING, INSTRUCTION IN APPROPRIATE BODY MECHANICS, WORK STATION ERGONOMICS AND ACTIVITY MODIFICATIONS. CHARLIE UE ROM, STRETCHING AND STRENGTHENING. HEP INSTRUCTION. 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 Disability: NO. Present symptoms: RIGHT SHOULDER PAIN. RIGHT CHEST PAIN. RIGHT SHOULDER BLADE PAIN. RIGHT ARM AND VERY RARE FOREARM PAIN. NO NUMBNESS OR TINGLING. CHARLIE NECK PAIN. Present since: NOVEMBER 2018. Pain Scale: Worst - 7/10 Least - 0/10. Currently: 5/10 NECK AND SHOULDER. Commenced as a result of: USING MOUSE WAS WHEN IT WAS FIRST NOTICABLE. Symptoms at onset: RIGHT SHOULDER. Worse: *USING THE MOUSE*, THROWING A BALL, GOLFING. Better: ALEVE? LYING DOWN. Disturbed sleep: YES. Previous history/Previous treatment: 2009 LEFT SHOULDER PT - ULTIMATELY STEROID INJECTION HELPED. NO RIGHT SHOULDER SX. NO NECK SURGERY. NO RIGHT SHOULDER INJECTIONS. NO NECK INJECTIONS. Dizziness: NO. Tinnitis: NO. Nausea: NO. Shortness of Breath: NO. Difficulty Swollowing: NO. Gait: NORMAL. Accidents: NO. Unexplained weight loss: NO. Imaging: RIGHT SHOULDER X-RAY - NORMAL. PMH/Recent major surgery: IDDM - TYPE I, HTN, VENOUS INSUFFICIENCY - SWELLING IN LEG. CARDIAC CATH - DIAGNOSITIC ONLY. - Objective Sitting Posture/Standing Posture: POOR. FORWARD HEAD AND ROUNDED SHOULDERS. Active Correction of posture: BETTER. Other Observations: INDEP GAIT AND TRANSFERS. 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 CHARLIE UE'S 5/5 WITH MMT'ING EXCEPT RIGHT SHOULDER FLEX, ABD AND ER GRADED 4-/5. Sensory deficit: NO. ROM deficit: DECREASED RIGHT SHOULDER FLEX, ABD, AND ER ROM BY APPROX 25% - MORE EVIDENT IN LYING THAN SITTING. Reflexes: 2/3 CHARLIE UE'S. Dural Signs: POSITIVE RIGHT UE. Cervical Mvmt Loss: Flex: NIL +. Pro: NIL +. Ext: STEVE. Ret: STEVE +. RSB: STEVE +. LSB: STEVE +. R Rot: MOD TO STEVE +. L Rot: MOD TO STEVE +. Postural strength: POOR. Palpation: TENDERNESS WITH PALPATION OF CHARLIE NECK, UPPER TRAP, MID TRAP AND SHOULDER REGIONS RIGHT SHLD > LEFT. CERVICAL DISTRACTION TESTING: RESULTS IN INCREASED CHARLIE NECK SORENESS BUT DOES NOT REMAIN WORSE A RESULT. - Goals Goal 1:: DECREASE C/O NECK AND RIGHT UE SX'S. Goal Time Frame: 4-6 Weeks Goal 2:: IMPROVE LIFTING, REACHING, WORK, READING, DRIVING, RECREATIONAL AND SLEEP FUNCTION Goal Time Frame: 4-6 Weeks Goal 3:: INSTRUCT IN PROPHYLAXIS Goal Time Frame: 4-6 Weeks - Rehabilitation Potential Rehabilitation Potential: Fair - Anticipated Interventions Patient/Client Instruction: Educate patient on: Condition, Plan of Care, Risk Factors, Benefits of Fitness Program For the Purpose of:: To improve self management Therapeutic Exercise to Include: Strength training, Body mechanics, Postural training, Passive ROM, Cristiano Exercises, Scapular Strength/Stabilization Comment: CRISTIANO'S EXTENSION PRINCIPLE OF TREATMENT INDICATED/TOLERATED For the Purpose of:: To decrease pain, To increase ROM, To improve muscle performance and motor function, To increase tolerance to activity/condition/position, To improve ability of physical actions for home/community/work/leisure Manual Therapy Techniques to Include: Mobilization, Passive ROM Comment: NECK AND SHOULDER INDICATED For the Purpose of:: To decrease pain, To increase ROM TENS: Yes Cryotherapy (ice pack, ice massage): Yes Thermo therapy (hot pack): Yes Ultrasound (thermal/non thermal): Yes For the Purpose of:: To decrease pain, To decrease swelling/inflammation, To increase ROM, To improve nutrient delivery to tissue Thank you for the opportunity to evaluate your patient. For Medicare and Medicare HMO plans, please review the plan of care and approve it. It will need to be FAXED BACK to us at [phone] for Medicare purposes. For Medicare only, by signing this I certify the plan of care. Please let me know if there are questions or concerns regarding this plan of care. Physician Sign ature: Date:
--- NOTE | 2019-02-12 17:41 | HP.PTDCSUM ---
HP - PT D/C Summary It has been my pleasure to treat WES SMITH under orders from Venu Bills MD, for the diagnosis of CERVICAL STAIN AND IMPINGEMENT RIGHT SHOULDER for a total of 10 visit(s). Discharge Date: 02/12/19 Please see the following information for a summary of their discharge status. - Subjective Subjective: PATIENT STATES HIS NECK IS STIFF AGAIN TODAY BUT THIS HAS BEEN A CHRONIC PROBLEM FOR AT LEAST 5 YEARS. HE PLANS TO TRY MASSAGE THERAPY. HE REPORTS THAT THE SHOULDER PAIN THAT HE CAME HERE FOR IS BETTER NOW. PATIENT REPORTS HE HAS AN ORDER FOR A SLEEP STUDY AND FOR A NECK X-RAY THAT HE HASN'T PURSUED YET. - Pain NECK Pain Intensity (Out of 10): 4 - Overall Improvement % Improvement: 90 - Objective Objective/Function: ALL GOALS MET. PATIENT HAS RIGHT SHOULDER ROM AND STRENGTH WFL AND NO INCREASED PAIN WITH TESTING. HE STILL HAS SIGNIFICANT NECK TIGHTNESS. - Goals Goal 1:: DECREASE C/O NECK AND RIGHT UE SX'S. Goal Progress: Goal Met Goal 2:: IMPROVE LIFTING, REACHING, WORK, READING, DRIVING, RECREATIONAL AND SLEEP FUNCTION Goal Progress: Goal Met Goal 3:: INSTRUCT IN PROPHYLAXIS Goal Progress: Goal Met - Plan Plan: D/C TO INDEP EX AND MASSAGE THERAPY. PATIENT AGREEABLE. - D/C Information If there are questions or concerns regarding this patient's physical therapy, please feel free to call me at [phone]. Thank you for the referral of this patient. Sincerely, Haley Potts, PT, Cert MDT
== END 2019-02-12 19:00 | disposition home or self-care (01) ==
LOC: PT 16:00
PROVIDERS: Family Provider Internal Medicine; PCP Internal Medicine; Referring Provider Orthopaedic Surgery; Visit Provider Orthopaedic Surgery
DX: S16.1XXD Strain of muscle, fascia and tendon at neck level, subsequent encounter (principal); M75.41 Impingement syndrome of right shoulder
CPT/HCPCS: 97012; 97035; 97110; 97140; 97162; 97530

== ENCOUNTER → 2019-02-13 07:01 | Outpatient (CLI) | payer OTHER, SELFPAY ==
[2019-01-23 00:05] VITALS: BMI 33.5
--- NOTE | 2019-02-13 07:08 | RAD_ITS ---
STUDY: X-RAY - CERVICAL SPINE REASON FOR EXAM: Male, 53 years old. Cervical pain. TECHNIQUE: 5 view(s) of the cervical spine were obtained including oblique and flexion extension views. COMPARISON: None FINDINGS: Normal anterior atlantoaxial articulation. Normal odontoid process. There is straightening of the normal cervical lordosis. Anterior spondylosis and disc space narrowing at the C5-C6 and C6-C7 levels. Normal visualized intervertebral neuroforamina. The soft tissue structures are unremarkable. RAD/Cerv Spine 4 or 5 Views IMPRESSION: Spondylosis and disc space narrowing at the C5-C6 and C6-C7 levels. Electronically Signed: Сергей Lutz, at 14:43 EDT , Service support ,
== END ==
PROVIDERS: Family Provider Internal Medicine; PCP Internal Medicine; Referring Provider Internal Medicine; Visit Provider Internal Medicine
DX: M54.2 Cervicalgia (principal)
CPT/HCPCS: 72050

== ENCOUNTER → 2019-09-03 06:44 | Outpatient (CLI) | payer OTHER, SELFPAY ==
[2019-04-24 08:06] VITALS: BMI 33.5
[2019-09-03 08:07] LABS: Cholesterol 129 mg/dL (200); Glucose 101 mg/dL (74-106); High Density Lipoprotein 44 mg/dL; Triglycerides 72 mg/dL; Very Low Density Lipoprotein 14 mg/dL (5-40)
[2019-09-03 08:41] LABS: Hemoglobin A1c 7.4 % (4.2-6.3)
== END ==
PROVIDERS: PCP Internal Medicine; Referring Provider Internal Medicine; Visit Provider Internal Medicine
DX: E10.65 Type 1 diabetes mellitus with hyperglycemia (principal); E78.5 Hyperlipidemia, unspecified
CPT/HCPCS: 36415; 80061; 82947; 83036

== ENCOUNTER → 2020-01-08 06:48 | Outpatient (CLI) | payer OTHER, SELFPAY ==
[2020-01-07 16:13] VITALS: BMI 33.4
[2020-01-08 07:34] LABS: Absolute Lymphocyte Count 1.99 X10^3/uL (0.83-4.51); Absolute Neutrophil Count 3.6 X10^3/uL (2.0-7.7); Basophil# 0.04 X10^3/uL; Basophil% 0.6 % (0-1); Eosinophil# 0.19 X10^3/uL; Eosinophils% 2.9 % (0-5); Hematocrit 44.3 % (40-54); Hemoglobin 15.4 g/dL (13.0-16.5); Lymphocyte # 1.99 X10^3/ul (4.0); Lymphocyte % 30.7 % (19-41); Mean Corp Hgb Conc 34.8 g/dL (32-36); Mean Corpuscular Hgb 32.1 pg (27.0-32.0); Mean Corpuscular Volume 92.3 fL (80-94); Mean Platelet Vol. 9.6 fl (6.2-12.0); Monocyte# 0.65 X10^3/uL; NRBC Flagged by Analyzer 0 % (0-5); Neutrophil # 3.59 X10^3/uL (2.7-7.7); Neutrophil % 55.5 % (47-70); Platelet Count 207 K/mm3 (150-450); RBC Distribution Width CV 12.4 % (11.6-14.6); RBC Distribution Width SD 40.8 fl (35.1-43.9); White Blood Count 6.5 K/mm3 (4.4-11.0)
[2020-01-08 07:50] LABS: Color, Urine Yellow (Yellow); Glucose, Dipstick 250 mg/dl (Normal); Ketone-Dipstick Negative (Negative); Leukocyte Esterase-Dipstick Negative /ul (Negative); Nitrite-Dipstick Negative (Negative); Occult Blood-Urine 10 /ul (Negative); Protein-Dipstick Negative (Negative); Specific Gravity, Urine 1.015 (1.002-1.030); Urine Bilirubin Dipstick Negative (Negative); Urine Clarity Clear (Clear); Urine Urobilinogen Normal (Normal)
[2020-01-08 07:52] LABS: Hemoglobin A1c 7.5 % (3.8-5.6); Microalbumin,Random Urine 9.7 mg/L (NO RANGE EST.); Microalbumin:Creatinine Ratio 19.1 mg/g CRE (<30 mg/g CRE)
[2020-01-08 08:09] LABS: AST(SGOT) 27 U/L (15-37); Alanine Aminotransfer ALT/SGPT 51 U/L (16-61); Albumin, Serum 3.6 g/dL (3.2-5.0); Alkaline Phosphatase 90 U/L (45-117); Anion Gap 6 (5-15); BUN 19 mg/dL (7-18); BUN/Creat Ratio 20.8 RATIO (10-20); Chloride 104 mmol/L (98-107); Cholesterol 165 mg/dL (200); Creatinine, Serum 0.91 mg/dL (0.70-1.30); EST Glomerular Filtration Rate 91 mL/min (>60); Est Glom Filt Rate - Afr Amer 111 mL/min (>60); Globulin 3.6 g/dL (2.2-4.2); Glucose 182 mg/dL (74-106); High Density Lipoprotein 49 mg/dL; Potassium 3.5 mmol/L (3.5-5.1); Protein, Total 7.2 g/dL (6.4-8.2); Sodium Level 139 mmol/L (136-145); Thyroid Stim Hormone (TSH) 2.74 uIU/mL (0.358-3.74); Triglycerides 66 mg/dL; Very Low Density Lipoprotein 13 mg/dL (5-40)
== END ==
PROVIDERS: PCP Internal Medicine; Referring Provider Internal Medicine Endocrinology, Diabetes & Metabolism; Visit Provider Internal Medicine Endocrinology, Diabetes & Metabolism
DX: Z00.00 Encounter for general adult medical examination without abnormal findings (principal); I10 Essential (primary) hypertension; E78.5 Hyperlipidemia, unspecified; Z12.5 Encounter for screening for malignant neoplasm of prostate
CPT/HCPCS: 36415; 80053; 80061; 81002; 82043; 82570; 83036; 84443; 85025

== ENCOUNTER → 2020-02-05 06:57 | Outpatient (CLI) | payer OTHER, SELFPAY ==
[2020-02-05 06:57] VITALS: BMI 33.4
[2020-02-05 08:10] LABS: PSA,Total - Annual Screen 1.67 ng/mL (0.00-4.00)
== END ==
PROVIDERS: PCP Internal Medicine; Referring Provider Internal Medicine; Visit Provider Internal Medicine
DX: Z00.00 Encounter for general adult medical examination without abnormal findings (principal); E78.5 Hyperlipidemia, unspecified; I10 Essential (primary) hypertension; Z12.5 Encounter for screening for malignant neoplasm of prostate
CPT/HCPCS: 36415; 84153; G0103

== ENCOUNTER → 2020-10-08 07:42 | Outpatient (CLI) | payer OTHER, SELFPAY ==
[2020-10-02 15:46] VITALS: BMI 34.1
[2020-10-08 08:59] LABS: Hemoglobin A1c 6.6 % (3.8-5.6)
[2020-10-08 09:10] LABS: AST(SGOT) 29 U/L (15-37); Alanine Aminotransfer ALT/SGPT 62 U/L (16-61); Albumin, Serum 3.9 g/dL (3.2-5.0); Alkaline Phosphatase 86 U/L (45-117); Bilirubin, Direct 0.16 mg/dL (0.00-0.30); Cholesterol 160 mg/dL (200); Globulin 3.5 g/dL (2.2-4.2); High Density Lipoprotein 55 mg/dL; Protein, Total 7.4 g/dL (6.4-8.2); Triglycerides 84 mg/dL; Very Low Density Lipoprotein 17 mg/dL (5-40)
== END ==
PROVIDERS: Internal Medicine Cardiovascular Disease; PCP Internal Medicine; Referring Provider Internal Medicine; Visit Provider Internal Medicine
DX: E10.65 Type 1 diabetes mellitus with hyperglycemia (principal); I25.10 Atherosclerotic heart disease of native coronary artery without angina pectoris
CPT/HCPCS: 36415; 80061; 80076; 83036

== ENCOUNTER → 2021-02-11 06:46 | Outpatient (CLI) | payer OTHER, SELFPAY ==
[2020-10-10 14:30] VITALS: BMI 34.6
[2021-02-11 08:01] LABS: Absolute Lymphocyte Count 2.23 X10^3/uL (0.83-4.51); Absolute Neutrophil Count 3.9 X10^3/uL (2.0-7.7); Basophil# 0.09 X10^3/uL; Basophil% 1.2 % (0-1); Eosinophils% 4.2 % (0-5); Hematocrit 45.2 % (40-54); Hemoglobin 15.3 g/dL (13.0-16.5); Lymphocyte # 2.23 X10^3/ul (0.83-4.51); Lymphocyte % 30.9 % (19-41); Mean Corp Hgb Conc 33.8 g/dL (32-36); Mean Corpuscular Volume 91.5 fL (80-94); Monocyte# 0.71 X10^3/uL; Monocyte% 9.8 % (0-10); NRBC Flagged by Analyzer 0 % (0-5); Neutrophil # 3.88 X10^3/uL (2.7-7.7); Neutrophil % 53.8 % (47-70); Platelet Count 251 K/mm3 (150-450); RBC Distribution Width CV 12.4 % (11.6-14.6); RBC Distribution Width SD 41.6 fl (35.1-43.9); Red Blood Count 4.94 M/mm3 (4.6-6.2); White Blood Count 7.2 K/mm3 (4.4-11.0)
[2021-02-11 08:08] LABS: Color, Urine Yellow (Yellow); Glucose, Dipstick Normal (Normal); Ketone-Dipstick Negative (Negative); Leukocyte Esterase-Dipstick Negative /ul (Negative); Nitrite-Dipstick Negative (Negative); Occult Blood-Urine Negative /ul (Negative); Protein-Dipstick Negative (Negative); Specific Gravity, Urine 1.015 (1.002-1.030); Urine Bilirubin Dipstick Negative (Negative); Urine Clarity Clear (Clear); Urine Urobilinogen Normal (Normal); Urine pH 6.5 (5.0 - 8.0)
[2021-02-11 08:26] LABS: Hemoglobin A1c 6.4 % (3.8-5.6); Microalbumin,Random Urine 12.5 mg/L (NO RANGE EST.)
[2021-02-11 08:33] LABS: ALB/GLOB Ratio 1.1 RATIO (0.9-2.4); AST(SGOT) 24 U/L (15-37); Alanine Aminotransfer ALT/SGPT 49 U/L (16-61); Albumin, Serum 3.8 g/dL (3.2-5.0); Alkaline Phosphatase 82 U/L (45-117); Anion Gap 4 (5-15); BUN 20 mg/dL (7-18); BUN/Creat Ratio 21.5 RATIO (10-20); Calcium,Total 9.6 mg/dL (8.5-10.1); Chloride 105 mmol/L (98-107); Cholesterol 157 mg/dL (200); Creatinine, Serum 0.93 mg/dL (0.70-1.30); EST Glomerular Filtration Rate 89 mL/min (>60); Est Glom Filt Rate - Afr Amer 107 mL/min (>60); Globulin 3.4 g/dL (2.2-4.2); Glucose 136 mg/dL (74-106); High Density Lipoprotein 51 mg/dL; PSA,Total - Annual Screen 1.63 ng/mL (0.00-4.00); Potassium 3.6 mmol/L (3.5-5.1); Protein, Total 7.2 g/dL (6.4-8.2); Sodium Level 140 mmol/L (136-145); Thyroid Stim Hormone (TSH) 2.32 uIU/mL (0.358-3.74); Triglycerides 63 mg/dL; Very Low Density Lipoprotein 13 mg/dL (5-40)
== END ==
PROVIDERS: PCP Internal Medicine; Referring Provider Internal Medicine; Visit Provider Internal Medicine
DX: Z00.00 Encounter for general adult medical examination without abnormal findings (principal); Z12.5 Encounter for screening for malignant neoplasm of prostate; E10.65 Type 1 diabetes mellitus with hyperglycemia; E78.5 Hyperlipidemia, unspecified
CPT/HCPCS: 36415; 80053; 80061; 81002; 82043; 83036; 84153; 84443; 85025; G0103

== ENCOUNTER 2021-08-12 06:36 | Outpatient (CLI) | payer OTHER, SELFPAY ==
[2021-08-12 07:49] LABS: AST(SGOT) 22 U/L (15-37); Alanine Aminotransfer ALT/SGPT 58 U/L (16-61); Albumin, Serum 3.8 g/dL (3.2-5.0); Alkaline Phosphatase 94 U/L (45-117); Anion Gap 5 (5-15); BUN 25 mg/dL (7-18); BUN/Creat Ratio 22.5 RATIO (10-20); Calcium,Total 9.1 mg/dL (8.5-10.1); Chloride 103 mmol/L (98-107); Cholesterol 136 mg/dL (200); Creatinine, Serum 1.11 mg/dL (0.70-1.30); EST Glomerular Filtration Rate 72 mL/min (>60); Est Glom Filt Rate - Afr Amer 88 mL/min (>60); Globulin 3.4 g/dL (2.2-4.2); Glucose 310 mg/dL (74-106); High Density Lipoprotein 39 mg/dL; Protein, Total 7.2 g/dL (6.4-8.2); Sodium Level 137 mmol/L (136-145); Triglycerides 143 mg/dL; Very Low Density Lipoprotein 29 mg/dL (5-40)
[2021-08-12 08:28] LABS: Hemoglobin A1c 6.7 % (3.8-5.6)
== END 2021-08-12 23:59 | disposition short-term general hospital (02) ==
LOC: LAB 06:39
PROVIDERS: Internal Medicine Endocrinology, Diabetes & Metabolism; PCP Internal Medicine; Referring Provider Internal Medicine Cardiovascular Disease; Visit Provider Internal Medicine Cardiovascular Disease
DX: I10 Essential (primary) hypertension (principal); E78.5 Hyperlipidemia, unspecified
CPT/HCPCS: 36415; 80048; 80061; 80076; 83036

== ENCOUNTER 2021-09-28 06:52 | Outpatient (CLI) | payer OTHER, SELFPAY ==
--- NOTE | 2021-09-28 06:54 | ECHOD_ITS ---
Reason For Study: CAD Procedure This was a 2D Doppler, Color Flow transthoracic echocardiogram. The study was technically difficult. Exam performed in department. Left Ventricle Normal LV size. Left ventricular systolic function is normal. The estimated ejection fraction is 60 %. Stage 1 diastolic dysfunction. No regional wall motion abnormalities noted. Right Ventricle Normal RV size. Normal systolic function. Atria Normal left atrium. Normal right atrium. Mitral Valve Normal mitral valve. Tricuspid Valve Normal tricuspid valve. Mild (1+) tricuspid valve insufficiency. Pulmonary artery systolic pressure is 30 mmHg. Aortic Valve Trisinus/trileaflet aortic valve. Moderate focal aortic valve calcification. Pulmonic Valve Normal pulmonic valve. Great Vessels Normal aortic root. The pulmonary artery is normal size. Normal inferior vena cava. Pericardium/Pleural No pericardial effusion. MMode/2D Measurements & Calculations LVIDd: 4.5 cm IVSd: 1.2 cm Ao root diam: 3.4 cm LVIDs: 2.8 cm LVPWd: 1.1 cm RVDd: 3.6 cm FS: 37.9 % LAV(MOD-bp): 49.6 ml LVAd ap4: 31.2 cm2 SV(MOD-sp4): 50.0 ml LAV(MOD-bp) Indexed: 20.1 ml/m2 LVLd ap4: 8.9 cm LAV(MOD-sp2): 44.0 ml EDV(MOD-sp4): 88.9 ml LAV(MOD-sp4): 52.3 ml EDV(sp4-el): 92.7 ml LVAs ap4: 18.5 cm2 LVLs ap4: 7.2 cm ESV(MOD-sp4): 38.9 ml ESV(sp4-el): 40.1 ml EF(MOD-sp4): 56.3 % EF(sp4-el): 56.7 % SV(sp4-el): 52.5 ml LA A4 area: 18.1 cm2 LA dimension(2D): 4.2 cm RA A4 area: 14.2 cm2 Doppler Measurements & Calculations MV E max miah: 67.6 cm/sec Lat Peak E' Miah: 8.9 cm/sec Med Peak E' Miah: 7.7 cm/sec MV A max miah: 73.7 cm/sec E/E' lat: 7.6 E/E' med: 8.8 MV E/A: 0.92 Ao V2 max: 144.8 cm/sec LV V1 max: 116.2 cm/sec PA V2 max: 103.4 cm/sec Ao max P.4 mmHg LV V1 max P.4 mmHg TR max miah: 250.2 cm/sec TR max P.0 mmHg ECHO/Echo Complete Interpretation Summary Normal LV size. Left ventricular systolic function is normal. The estimated ejection fraction is 60 %. Stage 1 diastolic dysfunction. Moderate focal aortic valve calcification. Pulmonary artery systolic pressure is 30 mmHg. Ordering Physician: Elliott Lopez Referring Physician: Gracie Aleman Performed By: Ashlyn Alfonso RDCS
--- NOTE | 2021-09-28 14:04 | STRESSREP ---
Stress Test Report Exercise myocardial perfusion stress test. 55-year-old male with a history of chest pain. Stress protocol: Resting EKG demonstrates normal sinus rhythm with a rate of 61 bpm normal intervals are noted resting blood pressure is 152/86 mmHg. The patient exercised according to regular Tushar protocol for total duration of 5 minutes and 26 seconds. The maximum heart rate attained was 144 bpm which was 88% of max impact at heart rate the maximum workload was 7 metabolic equivalents. The patient maintained sinus rhythm throughout the recording. At rest there were no ST or T wave changes noted to suggest ischemia and at peak exercise there was upsloping ST depression noted in leads II and aVF V4 through V6 and [address] depression noted in lead III. During recovery there was improvement in all these changes except for lead III. No clinical angina was noted the test was terminated due to exaggerated blood pressure response and dyspnea. The peak blood pressure was 220/82 mmHg which was a hypertensive response to exercise. Myocardial perfusion protocol. 14.6 mCi of technetium 99m sestamibi was injected at rest. Patient exercised according to regular Tushar protocol for total duration of 5-1/2 minutes and at peak exercise 45.0 mCi of technetium 99m sestamibi was injected stress images were obtained stress and rest images were reconstructed and compared in the short axis vertical long and horizontal long axis. Gated images were also obtained. Perfusion SPECT analysis: Review of the stress images demonstrate normal uptake of tracer noted in all areas of the myocardium. The resting images similarly demonstrate normal uptake of tracer noted in all areas of the myocardium. No areas of reversibility are noted to suggest ischemia and no previous infarct is noted. Gated SPECT analysis: The gated ejection fraction is 60%. Conclusion: Normal exercise myocardial perfusion stress test at a moderate workload. Preserved ejection fraction.
== END 2021-09-28 23:59 | disposition home or self-care (01) ==
LOC: CVS 06:53
PROVIDERS: PCP Internal Medicine; Referring Provider Internal Medicine Cardiovascular Disease; Visit Provider Internal Medicine Cardiovascular Disease
DX: E78.2 Mixed hyperlipidemia (principal); I10 Essential (primary) hypertension; I25.10 Atherosclerotic heart disease of native coronary artery without angina pectoris
CPT/HCPCS: 78452; 93017; 93306; A9500; A4216

== ENCOUNTER → 2021-11-16 | Outpatient (CLI) | payer OTHER, SELFPAY ==
[2021-11-23 19:07] LABS: Cortisol, Urinary Free 7 ug/L (Undefined)
[2021-11-23 21:46] LABS: Cortisol, Free 24Ur 18 ug/24 hr (5-64)
== END | disposition home or self-care (01) ==
LOC: LABSPEC 07:22
PROVIDERS: PCP Internal Medicine; Referring Provider Internal Medicine Endocrinology, Diabetes & Metabolism; Visit Provider Internal Medicine Endocrinology, Diabetes & Metabolism
DX: E27.0 Other adrenocortical overactivity (principal)
CPT/HCPCS: 81050; 82530

== ENCOUNTER → 2022-03-08 | Outpatient (CLI) | payer OTHER, SELFPAY ==
--- NOTE | 2022-03-08 06:42 | RAD_ITS ---
EXAM: XR CERVICAL SPINE, 4 OR 5 VIEWS CLINICAL INDICATION: SPONDYLOSIS TECHNIQUE: Frontal, lateral and bilateral oblique views of the cervical spine. This report was created using [email or web address] report generation technology. COMPARISON: XR Cervical Spine dated 02/13/2019 FINDINGS: VERTEBRAE: Straightening of the cervical lordosis again noted. Preserved vertebral body height. No acute fracture. No spondylolisthesis. No significant facet arthropathy. DISC SPACES: Mild disc space narrowing moderate to body hypertrophy at the C5-6 and C6-7 levels unchanged from prior exam. SOFT TISSUES: Normal. No prevertebral soft tissue widening. LUNG APICES: Clear. RAD/Cerv Spine 4 or 5 Views IMPRESSION: No acute abnormality. Stable mild spondylosis. Electronically Signed: Danial Perdue MD at 9:51 EDT ,
== END | disposition home or self-care (01) ==
LOC: RAD 06:40
PROVIDERS: PCP Internal Medicine; Referring Provider Internal Medicine; Visit Provider Internal Medicine
DX: M47.892 Other spondylosis, cervical region (principal)
CPT/HCPCS: 72050

== ENCOUNTER → 2022-04-05 | Outpatient (CLI) | payer OTHER, SELFPAY ==
--- NOTE | 2022-04-05 13:14 | MRI_ITS ---
EXAM: MR CERVICAL SPINE WITHOUT INTRAVENOUS CONTRAST CLINICAL INDICATION: CERVICALGIA,RADICULOPATHY TECHNIQUE: Multiplanar and multisequence MR images of the cervical spine without intravenous contrast were performed. This report was created using [employer] report generation technology. COMPARISON: Plain film March 08, 2022. FINDINGS: VERTEBRAE: Mild straightening of the usual lordotic curvature. Normal craniocervical junction and cervicothoracic junction. No spondylolisthesis. SPINAL CORD: Unremarkable in signal and morphology. SOFT TISSUES: Unremarkable. No prevertebral soft tissue swelling. LYMPH NODES: Unremarkable. There is no cervical adenopathy. DISCS/SPINAL CANAL/NEURAL FORAMINA: C2-C3: Unremarkable. Normal disc height and morphology. Normal spinal canal. Normal neuroforamina. C3-C4: Moderate left C3-4 neural foraminal stenosis and left C5-6 neural foraminal stenosis. Normal spinal canal. C4-C5: Unremarkable. Normal disc height and morphology. Normal spinal canal. Normal neuroforamina. C5-C6: Mild disc bulging minimally narrowing the ventral thecal sac and C5-6 and C6-7. Most pronounced at C5-6. The AP diameter of the canal is mildly stenotic, measuring 9 mm at C5-6. No norah cord compression or significant cord signal intensity. C6-C7: See above. C7-T1: Unremarkable. Normal disc height and morphology. Normal spinal canal. Normal neuroforamina. MRI/Spine Cervical (Routine) IMPRESSION: Mild degenerative changes including borderline spinal canal stenosis, bulging discs, and multilevel neural foraminal stenosis. Electronically Signed: Ashley Manjarrez MD at 7:37 EDT ,
== END | disposition home or self-care (01) ==
LOC: MRI 13:11
PROVIDERS: PCP Internal Medicine; Referring Provider Internal Medicine; Visit Provider Internal Medicine
DX: M54.12 Radiculopathy, cervical region (principal); M47.892 Other spondylosis, cervical region; M54.2 Cervicalgia
CPT/HCPCS: 72141

== ENCOUNTER → 2022-06-08 | Outpatient (CLI) | payer OTHER, SELFPAY ==
[2022-06-08 07:23] LABS: Absolute Lymphocyte Count 2.28 X10^3/uL (0.83-4.51); Absolute Neutrophil Count 3.8 X10^3/uL (2.0-7.7); Basophil# 0.06 X10^3/uL; Basophil% 0.8 % (0-1); Eosinophil# 0.26 X10^3/uL; Eosinophils% 3.7 % (0-5); Hematocrit 43.8 % (40-54); Lymphocyte # 2.28 X10^3/ul (0.83-4.51); Lymphocyte % 32.2 % (19-41); Mean Corp Hgb Conc 34.2 g/dL (32-36); Mean Corpuscular Hgb 31.8 pg (27.0-32.0); Mean Platelet Vol. 9.5 fl (6.2-12.0); Monocyte# 0.69 X10^3/uL; Monocyte% 9.8 % (0-10); NRBC Flagged by Analyzer 0 % (0-5); Neutrophil # 3.75 X10^3/uL (2.7-7.7); Neutrophil % 53.1 % (47-70); Platelet Count 244 K/mm3 (150-450); RBC Distribution Width SD 41.5 fl (35.1-43.9); Red Blood Count 4.71 M/mm3 (4.6-6.2); White Blood Count 7.1 K/mm3 (4.4-11.0)
[2022-06-08 08:06] LABS: AST(SGOT) 21 U/L (15-37); Alanine Aminotransfer ALT/SGPT 44 U/L (16-61); Albumin, Serum 3.5 g/dL (3.2-5.0); Alkaline Phosphatase 82 U/L (45-117); Anion Gap 5 (5-15); BUN 20 mg/dL (7-18); BUN/Creat Ratio 19.8 RATIO (10-20); Calcium,Total 9.8 mg/dL (8.5-10.1); Chloride 106 mmol/L (98-107); Cholesterol 171 mg/dL (200); Creatinine, Serum 1.01 mg/dL (0.70-1.30); EST Glomerular Filtration Rate 81 mL/min (>60); Est Glom Filt Rate - Afr Amer 97 mL/min (>60); Globulin 3.6 g/dL (2.2-4.2); Glucose 156 mg/dL (74-106); High Density Lipoprotein 48 mg/dL; PSA,Total - Annual Screen 2.18 ng/mL (0.00-4.00); Potassium 3.8 mmol/L (3.5-5.1); Protein, Total 7.1 g/dL (6.4-8.2); Sodium Level 139 mmol/L (136-145); Triglycerides 177 mg/dL; Very Low Density Lipoprotein 35 mg/dL (5-40)
[2022-06-08 11:34] LABS: Color, Urine Yellow (Yellow); Glucose, Dipstick 100 mg/dl (Normal); Ketone-Dipstick Negative (Negative); Leukocyte Esterase-Dipstick Negative /ul (Negative); Nitrite-Dipstick Negative (Negative); Occult Blood-Urine Negative /ul (Negative); Protein-Dipstick Negative (Negative); Urine Bilirubin Dipstick Negative (Negative); Urine Clarity Clear (Clear); Urine Urobilinogen Normal (Normal)
== END | disposition home or self-care (01) ==
LOC: LAB 06:50
PROVIDERS: Internal Medicine Cardiovascular Disease; PCP Internal Medicine; Referring Provider Internal Medicine; Visit Provider Internal Medicine
DX: Z00.01 Encounter for general adult medical examination with abnormal findings (principal); E10.65 Type 1 diabetes mellitus with hyperglycemia; E78.5 Hyperlipidemia, unspecified; Z12.5 Encounter for screening for malignant neoplasm of prostate
CPT/HCPCS: 36415; 80053; 80061; 81002; 82248; 84153; 84443; 85025; G0103

== ENCOUNTER 2022-06-11 15:30 | Outpatient (RCR) | payer OTHER, SELFPAY ==
--- NOTE | 2022-02-16 13:00 | HP.PTEVAL ---
Patient's Visit Information WES SMITH is a 56 year old M referred to Physical Therapy by Out of Town Doctor with a diagnosis of CERVICALGIA AND SPONDYLOSIS. Date of Evaluation: 02/16/22 Physical Therapist: Haley Potts PT, Cert MDT - Visit Plan Frequency: 2-3x /Week Duration: 4-6 Weeks Plan: CERICAL US X 6-8. POSTURE CORRECTION/STRENGTHENING, INSTRUCTION IN APPROPRIATE BODY MECHANICS AND ACTIVITY MODIFICATIONS. CHARLIE UE ROM, STRETCHING AND STRENGTHENING. HEP INSTRUCTION. CONSIDER MANUAL TRACTION AND STM. - Subjective Diagnosis: NECK PAIN AND SPONDYLOSIS. 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 Present symptoms: CHARLIE NECK AND SHLD PAIN LEFT > RIGHT. INTERMITTENT L WRIST AND RING FINGER PAIN AND TINGLING. SOMETIMES CHARLIE CHEST PAIN LEFT > RIGHT. Present since: DECEMBER 2021 - SX'S SEEMED TO FLARE BACK UP DRIVING ON VACATION IN [place]. Pain Scale: Worst - 8/10 Least - 0/10. Currently: 6-7/10. Commenced as a result of: NO APPARENT REASON. Symptoms at onset: NECK STIFFNESS. 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 Better: LYING DOWN, HEAT. Disturbed sleep: YES. Previous history/Previous treatment: PHYSICAL THERAPY 2019. TYLONOL AND IBUPROFEN. PCP. Dizziness: NO. Tinnitis: NO. Nausea: NO. Shortness of Breath: NO. Difficulty Swollowing: SOMETIMES - PATIENT WILL LET PCP KNOW. Gait: WAS NOTICING SOME STUMBLING WITH LEFT FOOT. BETTER NOW. AGAIN - PATIENT WILL MAKE PCP AWARE ALONG WITH DIFFICULTY SWOLLOWING AT TIMES AND LEFT WRIST AND RING FINGER TINGLING AND PAIN. Accidents: ~2016 FELL ON BACK ON ICE AND HURT L SHLD. HAD PHYSICAL THERAPY. [facility] CONSULT FOR SHLD AND HAD INJECTION THAT HELPED. Unexplained weight loss: NO. Imaging: NECK X-RAYS 2019 - SEE [facility] EMR. PMH/Recent major surgery: IDDM - ON PUMP - SEE BELOW. - Objective Sitting Posture/Standing Posture: FH. RS'S. NO TORTICOLLIS. ACTIVE CORRECTION OF POSTURE INCREASES L CHEST PAIN. Other Observations: INDEP GAIT AND TRANSFERS. Sensory deficit: CHARLIE UE LIGHT TOUCH SENSATION GROSSLY INTACT AND SYMMETRICAL. ROM deficit: CHARLIE UE ROM WFL BUT PAIN WITH L SHLD ELEVATION AND ROTATION TESTING. 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 CHARLIE UE'S GROSSLY 5/5 WITH MMT'ING EXCEPT L SHLD 4-/5. Dural Signs: POSITIVE L UE. Cervical Mvmt Loss: Flex: NIL. Pro: NIL. Ext: STEVE. Ret: STEVE. RSB: STEVE. LSB: STEVE. R Rot: MOD TO STEVE. L Rot: MOD. PATIENT C/O INCREASED NECK OR INCREASED SHLD PAIN WITH NECK ROM TESTING ALL PLANES. Postural strength: POOR. Palpation: VERY TIGHT CHARLIE CERVICAL MUSCULATURE. TREATMENT: NEUROMUSCULAR REEDUCATION - INTRO TO RETRAINING OF MVMT AND POSTURE FOR SITTING, LYING AND STANDING ACTIVITIES AND AVOIDANCE OF PERIPHERALIZATION. - Balance/Special Test Scores Oswestry Neck Score: 13 - Goals Goal 1:: DECREASE C/O NECK AND UE SX'S. Goal Time Frame: 4-6 Weeks Goal 2:: IMPROVE PERSONAL CARE, READING, SLEEP, WORK, DRIVING AND RECREATIONAL FUNCTION Goal Time Frame: 4-6 Weeks Goal 3:: INSTRUCT IN PROPHYLAXIS Goal Time Frame: 4-6 Weeks - Anticipated Interventions Patient/Client Instruction: Educate patient on: Condition, Plan of Care, Risk Factors For the Purpose of:: To improve self management Therapeutic Exercise to Include: Strength training, Body mechanics, Postural training, Flexibilty training, Neuromotor development, Scapular Strength/Stabilization For the Purpose of:: To decrease pain, To increase ROM, To improve muscle performance and motor function, To increase tolerance to activity/condition/position, To improve ability of physical actions for home/community/work/leisure Manual Therapy Techniques to Include: Soft tissue mobilization TENS: Yes IF ES: Yes Cryotherapy (ice pack, ice massage): Yes Thermo therapy (hot pack): Yes Ultrasound (thermal/non thermal): Yes Intermittent cervical traction: Yes - TRY MANUAL FIRST For the Purpose of:: To decrease pain, To improve nutrient delivery to tissue Thank you for the opportunity to evaluate your patient. For Medicare and Medicare HMO plans, please review the plan of care and approve it. It will need to be FAXED BACK to us at [phone] for Medicare purposes. For Medicare only, by signing this I certify the plan of care. Please let me know if there are questions or concerns regarding this plan of care. Physician Signature: Date:
--- NOTE | 2022-04-12 15:36 | HP.PTREVAL ---
Dr. Gracie Aleman MD, It has been my pleasure to treat WES SMITH over the last 11 visits for CERVICALGIA AND SPONDYLOSIS. Please see the progress note below for an update on the physical therapy plan of care! Subjective: PATIENT REPORTS HE ISN'T DOING HIS HEP LIKE HE SHOULD BUT HE THINKS THEY HELP. PATIENT REPORTS THAT HIS DOCTOR WENT OVER HIS MRI RESULTS WITH HIM. HE WAS GIVEN THE OPTION OF HAVING A PAIN MGMT CONSULT BUT HE WANTS TO TRY HIS HEP FOR AWHILE FIRST. HE REPORTS HE DOESN'T FEEL PAIN CONSTANTLY LIKE HE DID BEFORE STARTING PT. NO LONGER HAVING LEFT WRIST OR FINGER TINGLING. CHEST PAIN IS GONE TOO BUT STILL HAVING LEFT NECK AND SHLD PAIN. Objective/Function: PATIENT WAS SEEN TODAY FOR RE-ASSESSMENT OF PROGRESS TOWARD THE SET PT GOALS AND THE NEED FOR FURTHER PHYSICAL THERAPY VS READINESS FOR DISCHARGE. PATIENT IS MAKING SLOW PROGRESS TOWARD PT GOALS AND IS A GOOD CANDIDATE TO CONTINUE PT BASED ON PROGRESS MADE AND ROOM FOR FURTHER IMPROVEMENT. PATIENT IS AGREEABLE. HEP CHECK. PATIENT ADMITS TO NOT BEING CONSISTENT WITH HEP AND HE PLANS TO IMPROVE. UPON EXAM TODAY: Sensory deficit: CHARLIE UE LIGHT TOUCH SENSATION GROSSLY INTACT AND SYMMETRICAL. ROM deficit: CHARLIE UE ROM WFL BUT PAIN WITH L SHLD ELEVATION AND ROTATION TESTING. 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 CHARLIE UE'S GROSSLY 5/5 WITH MMT'ING EXCEPT L SHLD 4-/5. Dural Signs: NEGATIVE L UE. R UE NT. Cervical Mvmt Loss: Flex: NIL. Pro: NIL. Ext: MOD. Ret: STEVE. RSB: MOD. LSB: MOD. R Rot: MOD. L Rot: MOD. PATIENT DENIES INCREASED PAIN WITH CERVICAL ROM TESTING ALL PLANES. Plan Plan: CONTINUE PT 1-2 TIMES A WK X 3-4 WKS FOR EX PROGRESSION. PATIENT IS AGREEABLE. POSTURE CORRECTION/STRENGTHENING, INSTRUCTION IN APPROPRIATE BODY MECHANICS AND ACTIVITY MODIFICATIONS. CHARLIE UE ROM, STRETCHING AND STRENGTHENING. HEP INSTRUCTION. CONSIDER MANUAL TRACTION AND STM. Balance/Gait/Functional tests - Balance/Special Test Scores Oswestry Neck Score: 4 Goals Goal 1:: DECREASE C/O NECK AND UE SX'S. Goal Time Frame: 4-6 Weeks Goal Progress: Progressing Goal 2:: IMPROVE PERSONAL CARE, READING, SLEEP, WORK, DRIVING AND RECREATIONAL FUNCTION Goal Time Frame: 4-6 Weeks Goal Progress: Progressing Goal 3:: INSTRUCT IN PROPHYLAXIS Goal Time Frame: 4-6 Weeks Goal Progress: Progressing Anticipated Interventions Patient/Client Instruction: Educate patient on: Condition, Plan of Care, Risk Factors For the Purpose of:: To improve self management Therapeutic Exercise to Include: Strength training, Body mechanics, Postural training, Flexibilty training, Neuromotor development, Scapular Strength/Stabilization For the Purpose of:: To decrease pain, To increase ROM, To improve muscle performance and motor function, To increase tolerance to activity/condition/position, To improve ability of physical actions for home/community/work/leisure Manual Therapy Techniques to Include: Soft tissue mobilization TENS: Yes IF ES: Yes Cryotherapy (ice pack, ice massage): Yes Thermo therapy (hot pack): Yes Ultrasound (thermal/non thermal): Yes Intermittent cervical traction: Yes - TRY MANUAL FIRST For the Purpose of:: To decrease pain, To improve nutrient delivery to tissue Please do not hesitate to contact me at [phone] by phone or if you have questions or concerns regarding this new plan of care! Sincerely, Haley Potts, PT, Cert MDT
--- NOTE | 2022-06-11 16:11 | HP.PTDCSUM ---
It has been my pleasure to treat WES SMITH referred by Dr. Gracie Aleman MD, with the diagnosis of CERVICALGIA AND SPONDYLOSIS for a total of 15 visit(s). Discharge Date: 06/11/22 Please see the following information for a summary of their discharge status. Subjective: PATIENT REPORTS CONTINUOUS SLOW IMPROVEMENT SINCE LAST VISIT. HAD SOME NUMBNESS IN RING FINGER YESTERDAY BUT THAT WAS THE FIRST TIME IN A LONG TIME. REPORTS PARTIAL COMPLIANCE WITH HEP AND NOTES LESS SX'S WHEN HE IS COMPLIANT WITH HEP. L c-spine Pain Intensity (Out of 10): 2 % Improvement: 75 Objective/Function: ALL GOALS MET. Goal 1:: DECREASE C/O NECK AND UE SX'S. Goal Progress: Goal Met Goal 2:: IMPROVE PERSONAL CARE, READING, SLEEP, WORK, DRIVING AND RECREATIONAL FUNCTION Goal Progress: Goal Met Goal 3:: INSTRUCT IN PROPHYLAXIS Goal Progress: Progressing Plan: D/C TO INDEP EX. PATIENT AGREEABLE. If there are questions or concerns regarding this patient's physical therapy, please feel free to call me at [phone]. Thank you for the referral of this patient. Sincerely, Haley Potts, PT, Cert MDT Balance/Gait/Functional tests - Balance/Special Test Scores Oswestry Neck Score: 1
== END 2022-06-11 19:00 | disposition home or self-care (01) ==
LOC: PT 15:30
PROVIDERS: PCP Internal Medicine; Visit Provider Internal Medicine
DX: M47.892 Other spondylosis, cervical region (principal)
CPT/HCPCS: 97035; 97110; 97112; 97140; 97162; 97164; 97530

== ENCOUNTER → 2022-12-13 | Outpatient (CLI) | payer OTHER, SELFPAY ==
[2022-12-13 08:26] LABS: AST(SGOT) 25 U/L (15-37); Alanine Aminotransfer ALT/SGPT 60 U/L (16-61); Albumin, Serum 3.5 g/dL (3.2-5.0); Alkaline Phosphatase 86 U/L (45-117); Bilirubin, Direct 0.12 mg/dL (0.00-0.30); Cholesterol 132 mg/dL (200); Globulin 3.3 g/dL (2.2-4.2); High Density Lipoprotein 37 mg/dL; Protein, Total 6.8 g/dL (6.4-8.2); Triglycerides 83 mg/dL; Very Low Density Lipoprotein 17 mg/dL (5-40)
[2022-12-13 09:17] LABS: Microalbumin,Random Urine 27.1 mg/L (NO RANGE EST.); Microalbumin:Creatinine Ratio 8.4 mg/g CRE (<30 mg/g CRE)
[2022-12-13 09:47] LABS: Hemoglobin A1c 6.6 % (3.8-5.6)
[2022-12-17 11:08] LABS: Testosterone, % Free 2.37 % (1.50-4.20); Testosterone, Free 13.18 ng/dL (5.00-21.00); Testosterone, Total 556 ng/dL (264-916)
== END | disposition home or self-care (01) ==
LOC: LAB 06:49
PROVIDERS: PCP Internal Medicine; Referring Provider Internal Medicine Endocrinology, Diabetes & Metabolism; Visit Provider Internal Medicine Cardiovascular Disease
DX: E10.9 Type 1 diabetes mellitus without complications (principal); E78.2 Mixed hyperlipidemia; N52.9 Male erectile dysfunction, unspecified
CPT/HCPCS: 36415; 80061; 80076; 82043; 82570; 83036; 84402; 84403

== ENCOUNTER → 2023-01-06 | Outpatient (CLI) | payer OTHER, SELFPAY | END | disposition home or self-care (01) | LOC: SL 20:14 | PROVIDERS: PCP Internal Medicine; Referring Provider Internal Medicine; Visit Provider Internal Medicine | DX: G47.33 Obstructive sleep apnea (adult) (pediatric) (principal) | CPT/HCPCS: 95811 ==

== ENCOUNTER → 2023-02-22 | Outpatient (CLI) | payer OTHER, SELFPAY | END | disposition home or self-care (01) | LOC: SL 02-25 16:04 | PROVIDERS: PCP Internal Medicine; Visit Provider Internal Medicine | DX: Z46.89 Encounter for fitting and adjustment of other specified devices (principal) ==

== ENCOUNTER → 2023-05-11 | Outpatient (CLI) | payer OTHER, SELFPAY ==
--- NOTE | 2023-05-11 08:56 | CDU_ITS ---
Reason For Study: Dizziness Rt. Velocities/BP Lt. Velocities/BP Prox CCA 97.1/15.7 cm/sec. Prox CCA 92.7/12.4 cm/sec. Mid CCA 94.9/14.6 cm/sec. Mid CCA 83.9/19 cm/sec. Dist CCA 72.9/9.1 cm/sec. Dist CCA 78.4/13.5 cm/sec. Prox ICA 62.6/19.2 cm/sec. Prox ICA 64.2/18.8 cm/sec. Mid ICA 70.2/23 cm/sec. Mid ICA 76.5/21.2 cm/sec. Dist ICA 79.5/23.4 cm/sec. Dist ICA 77.7/18.8 cm/sec. Rt. ICA/CCA = 0.84. Lt. ICA/CCA = 0.93. Prox ECA 166.8/7.9 cm/sec. Prox ECA 117/15.1 cm/sec. Rt. Vert. 30.8/7.2 cm/sec. Lt. Vert. 56.4/12.4 cm/sec. Right Extracranial There is intimal thickening but no significant atherosclerotic plaque noted in the right common carotid artery. There is homogeneous, smooth atherosclerotic plaque noted in the right internal carotid artery. There is intimal thickening but no significant atherosclerotic plaque noted in the right external carotid artery. Antegrade flow is noted in the right vertebral artery. Left Extracranial There is intimal thickening but no significant atherosclerotic plaque noted in the left common carotid artery. There is intimal thickening but no significant atherosclerotic plaque noted in the left internal carotid artery. There is intimal thickening but no significant atherosclerotic plaque noted in the left external carotid artery. Antegrade flow is noted in the left vertebral artery. Procedure Carotid Duplex [id number]. This is a Carotid Duplex examination using B-mode, color flow and specral Doppler. Exam performed in department. VL/Carotid Duplex Ultrasound Interpretation Summary Mild (<50%) stenosis right extracranial internal carotid. Normal left extracranial internal carotid. Patent and antegrade vertebrals bilaterally. Ordering Physician: Reba Elliott Referring Physician: Kelsey Burns Performed By: Sussy Gutierrez RVT
== END | disposition home or self-care (01) ==
LOC: CVS 08:55
PROVIDERS: PCP Internal Medicine; Referring Provider Nurse Practitioner Gerontology; Visit Provider Nurse Practitioner Gerontology
DX: R42 Dizziness and giddiness (principal)
CPT/HCPCS: 93880

== ENCOUNTER → 2023-08-03 | Outpatient (CLI) | payer OTHER, SELFPAY ==
--- OUTSIDE RECORDS SUMMARY | 2023-08-03 06:11 | XMS RPT_ITS | CCD ---
Author Name Unknown Address [address] [place] [address] Organization [facility] Care Team Providers Care [employer] Consultant Name Role Phone Brianne Ramsay Unavailable ROSALINA CARTWRIGHT Attending Unavailable CORBYROSALINA M Referring Unavailable CORBYROSALINA M Attending Unavailable CORBYROSALINA M Referring Unavailable CORBYROSALINA M Attending Unavailable CORBYTRISHI M Referring Unavailable CORBY, ROSALINA Attending Unavailable CORBY, ROSALINA Referring Unavailable RANIOL, [facility] Primary Care Unavailable CORBY, ROSALINA Attending Unavailable CORBY, ROSALINA Referring Unavailable RANIOL, [facility] Care Unavailable CORBY, ROSALINA Attending Unavailable CORBY, ROSALINA Referring Unavailable RANIOL, [facility] Care Unavailable CORBY, ROSALINA Attending Unavailable CORBY, ROSALINA Referring Unavailable RANIOL, [facility] Care Unavailable CORBY, ROSALINA Attending Unavailable CORBY, ROSALINA Referring Unavailable RANIOL, [facility] Primary Care Unavailable Sanju MCCLAIN, Venu Lucio Unavailable RAUL OCASIO Attending Unavailab le RANIOL, RAUL CHARLES Referring Unavailab le RANIOL, RAUL CHARLES Primary Care Unavailab le RANIOLRAUL Attending Unavailab le RANIOL, RAUL CHARLES Referring Unavailab le RANIOL, RAUL CHARLES Primary Care Unavailab le RANIOLRAUL Attending Unavailab le RANIOLRAUL Referring Unavailab le RANIOL, RAUL CHARLES Primary Care Unavailab le RANIOL, RAUL CHARLES Primary Care Unavailab le RANIOL, RAUL CHARLES Attending Unavailab le RANIOLRAUL Referring Unavailab le SandraCatie Attending Unavailable Sandra, Pankil Referring Unavailable RAUL OCASIO Primary Care Unavailab le RANIOL, RAUL CHARLES Attending Unavailab le RANIOL, RAUL CHARLES Referring Unavailab le RANIOL, RAUL CHARLES Primary Care Unavailab le RANIOL, RAUL CHARLES Attending Unavailab le RANIOL, RAUL CHARLES Referring Unavailab le RANIOL, RAUL CHARLES Primary Care Unavailab le Medications Completed/Discontinued Medications Medication Drug Class(es) Dates Sig (Normalized) Sig (Original) amLODIPine 10 mg oral tablet (4 sources) Dihydropyridine Calcium Channel Prakash Start: 12-12-2018 AMLODIPINE BESYLATE 10 MG TABS take 1 tablet daily AMLODIPINE BESYLATE [id number] Elodia Basilio PA-C Problems Active Problems Problem Classification Problem Date Documented Da te Episodic/Chronic Coronary atherosclerosis and other heart disease (2 sources) Coronary atherosclerosis; Translations: [Atherosclerotic heart disease of [place] coronary artery without angina pectoris] Onset: 05-13-2011 05-13-2011 Chronic Diabetes mellitus with complications (3 sources) Type 1 diabetes mellitus with hyperglycemia; Translations: [Type 1 diabetes mellitus with hyperglycemia] Onset: 11-01-2015 Chronic Diabetes mellitus without complication (3 sources) Type 1 diabetes mellitus without complications; Translations: [Encounter for fitting and adjustment of insulin pump] Onset: 05-13-2011 05-13-2011 Chronic Disorders of lipid metabolism (2 sources) Hyperlipidemia; Translations: [Mixed hyperlipidemia] Onset: 05-13-2011 05-13-2011 Chronic Essential hypertension (3 sources) Hypertensive disorder; Translations: [Essential (primary) hypertension] Onset: 05-13-2011 05-13-2011 Chronic Other connective tissue disease (1 source) Impingement syndrome of shoulder region; Translations: [Impingement syndrome of right shoulder] Onset: 12-12-2018 12-12-2018 Episodic Other nutritional; endocrine; and metabolic disorders (2 sources) Body mass index (BMI) 34.0-34.9, adult; Translations: [Body mass index (BMI) 34.0-34.9, adult] Onset: 01-23-2014 01-23-2014 Chronic Other nutritional; endocrine; and metabolic disorders (2 sources) Other obesity due to excess calories; Translations: [Class 1 obesity due to excess calories with serious comorbidity and body mass index (BMI) of 34.0 to 34.9 in adult] Onset: 02-10-2018 Chronic Other nutritional; endocrine; and metabolic disorders (1 source) Body mass index (BMI) 33.0-33.9, adult; Translations: [Body mass index (bmi) 33.0-33.9, adult] Onset: 02-10-2018 Chronic Sprains and strains (1 source) Strain of neck muscle; Translations: [Strain of muscle, fascia and tendon at neck level, initial encounter] Onset: 12-12-2018 12-12-2018 Episodic Past or Other Problems Problem Classification Problem Date Documented Date Episodic/Chronic Diabetes mellitus without complication (2 sources) Presence of insulin pump (external) (internal); Translations: [Presence of insulin pump] Onset: 11-01-2015 Episodic Other aftercare (2 sources) penit[facility]iary (current) use of insulin; Translations: [buttermaker (current) use of insulin] Onset: 11-01-2015 Episodic Other screening for suspected conditions (not mental disorders or infectious disease) (3 sources) Abnormal result of cardiovascular function study, unspecified; Translations: [Abnormal result of cardiovascular function study, unspecified] Onset: 05-13-2011 Resolved: 01-22-2014 01-22-2014 Episodic Residual codes; unclassified (1 source) Family history of sudden ; Translations: [Family history of other specified conditions] 01-23-2014 Episodic Residual codes; unclassified (1 source) Family history of ischemic heart disease; Translations: [Family history of ischemic heart disease and other diseases of the circulatory system] Onset: 05-13-2011 05-13-2011 Episodic Residual codes; unclassified (1 source) FH: Hypertension; Translations: [Family history of ischemic heart disease and other diseases of the circulatory system] 01-23-2014 Episodic Residual codes; unclassified (1 source) FH: Raised blood lipids; Translations: [Family history of other specified conditions] 01-23-2014 Episodic Unclassified (1 source) Problem Results Test Name Value Interpretation Reference Range Facil ity Vital Signs Date Time Vital Sign Value Performing Clinician Facility 07-27-2016 16:00-0500 BMI (Body Mass Index) 32.98 kg/m2 Brianne Ramsay [place] [facility] Work Phone: 07-27-2016 16:00-0500 BP Diastolic 60 mm[Hg] Brianne Sobia [facility] Work Phone: 07-27-2016 16:00-0500 BP Systolic 110 mm[Hg] Brianne Sobia [facility] Work Phone: 07-27-2016 16:00-0500 BSA (Body Surface Area) 2.37 m2 Brianne [facility] Work Phone: 07-27-2016 16:00-0500 Pulse (Heart Rate) 68 /min Brianne [facility] Work Phone: 07-27-2016 16:00-0500 Respiratory Rate 20 /min Brianne [facility] Work Phone: 07-27-2016 16:00-0500 Weight 113.4 kg Brianne [facility] Work Phone: 01-23-2014 10:04-0400 Height 185.42 cm Brianne [facility] Work Phone: NEGATED: Highlighted [id number] 15:27-0400 BMI (Body Mass Index) 34.28 kg/m2 Destinicarl [facility] Work Phone: NEGATED: Highlighted [id number] 15:27-0400 BP Diastolic 82 mm[Hg] Destinicarl [facility] Work Phone: NEGATED: Highlighted [id number] 15:27-0400 BP Systolic 124 mm[Hg] Destini Marissa [facility] Work Phone: NEGATED: Highlighted [id number] 15:27-[address] [facility] Work Phone: NEGATED: Highlighted [id number] 15:27-[address] [facility] [facility] Work Phone: NEGATED: Highlighted [id number] 15:27-0400 Pulse (Heart Rate) 80 /min Destini Ann LPN [facility] Work Phone: NEGATED: Highlighted [id number] 15:270400 Weight 120.66 kg Destini Ann LPN [facility] Work Phone: NEGATED: Highlighted [id number] 15:270400 Weight 121 kg Destini Ann LPN [facility] Work Phone: Encounters Encounter Date Encounter Type Care Provider Facility Start: 06-07-2022 ambulatory RAUL BOOKERIOL F acility:[id number] Start: 04-08-2022 ambulatory RAUL FLORESA ADEIOL F acility:9254 Start: 03-04-2022 ambulatory RAUL MELVIN ADEIOL F acility:9254 Start: 02-12-2022 ambulatory RAUL MELVIN RANIOL F acility:9254 Start: 12-01-2021 ambulatory RAUL MELVIN RANIOL F acility:9254 Start: 09-15-2021 ambulatory Lancatrachita Sandra Facility:[id number] Start: 08-10-2021 ambulatory RAUL MELVIN RANIOL F acility:9254 Start: 07-12-2019 Patient encounter procedure ROSALINA CARTWRIGHT Facility:[facility] Start: 04-02-2019 Patient encounter procedure ROSALINA CARTWRIGHT Facility:[facility] Start: 12-12-2018 End: 12-12-2018 Patient encounter procedure Venu Bills MD Work Phone: [facility] Work Phone: Start: 12-12-2018 End: 12-12-2018 Pt evaluation Venu Bills MD Work Phone: [facility] Work Phone: Start: 11-10-2018 End: 11-10-2018 Patient encounter procedure ROSALINA Byrd [facility] Start: 07-13-2018 End: 07-13-2018 Patient encounter procedure ROSALINA Byrd [facility] Start: 02-10-2018 End: 02-10-2018 Patient encounter procedure ROSALINA Byrd [facility] Procedures Date Procedure Procedure Detail Performing Clinician Start: 12-12-2018 End: 12-12-2018 Blood pressure within normal parameters - no follow-up required Venu Bills MD Work Phone: Start: 12-12-2018 End: 12-12-2018 BMI documented as above normal parameters - follow-up documented Venu Bills MD Work Phone: Start: 12-12-2018 End: 12-12-2018 Documentation of current medications Venu Bills MD Work Phone: Start: 12-12-2018 End: 12-12-2018 Pain assessment documented as positive - follow-up documented Venu Bills MD Work Phone: Start: 12-12-2018 End: 12-12-2018 Tobacco non-user Venu Bills MD Work Phone: Start: 07-27-2016 End: 07-27-2016 SHYAM Lopez MD Start: 07-27-2016 End: 07-27-2016 Follow Up Appt 1 year Elliott Lopez MD Start: 07-25-2015 End: 07-25-2015 SHYAM Lopez MD Start: 07-25-2015 End: 07-25-2015 Follow Up Appt 1 year Elliott Lopez MD Start: 05-31-2014 End: 05-31-2014 Dietary management education, guidance, and counseling Brianne Ramsay Start: 05-31-2014 End: 05-31-2014 SHYAM Lopez MD Start: 05-31-2014 End: 05-31-2014 Follow Up Appt 1 year Elliott Lopez MD Start: 01-23-2014 End: 01-24-2014 Chest x-ray Elliott Lopez MD Start: 01-23-2014 End: 01-23-2014 SHYAM Lopez MD Start: 01-23-2014 End: 01-29-2014 Echocardiography Elliott Lopez MD Start: 01-23-2014 End: 01-23-2014 Follow Up Appt 3 months Rochelle Haq Start: 01-23-2014 End: 01-29-2014 Left Heart Cath Elliott Lopez MD Plan of Treatment Date Care Activity Detail Author Start: 12-12-2018 End: 12-12-2018 Appointment Appointment [facility] Work Phone: Start: 07-28-2017 End: 07-28-2017 Appointment Appointment [employer] Work Phone: Start: 07-27-2016 End: 07-27-2016 [facility] 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 CHEMIST [employer] Work Phone: Start: 07-27-2016 End: 07-27-2016 Follow Up Appt 1 year Follow Up Appt 1 year [employer] Work Phone: Start: 07-25-2015 End: 07-25-2015 FORMULATION CHEMIST [employer] Work Phone: Start: 07-25-2015 End: 07-25-2015 Follow Up Appt 1 year Follow Up Appt 1 year [employer] Work Phone: Start: 05-31-2014 End: 05-31-2014 FORMULATION CHEMIST [employer] Work Phone: Start: 05-31-2014 End: 05-31-2014 Follow Up Appt 1 year Follow Up Appt 1 year [employer] Work Phone: Start: 01-23-2014 End: 01-24-2014 Chest x-ray X-Ray, Chest, PA & Lateral [place] [facility] Work Phone: Start: 01-23-2014 End: 01-23-2014 FORMULATION CHEMIST [facility] Work Phone: Start: 01-23-2014 End: 01-23-2014 [facility]chocardiography [facility] Work Phone: Start: 01-23-2014 End: 01-23-2014 Follow Up Appt 3 months Follow Up Appt 3 months [place] [facility] Work Phone: Start: 01-23-2014 End: 01-23-2014 Left Heart Cath Left Heart Cath [place] [facility] Work Phone: Immunizations Immunization Date Immunization Notes Care Provider Fa cility No information available. Destini Ann LPN [facility] Work Phone: Payers Date Payer Category Payer Unknown [id number] 2.16.8 [id number] 1965 Unknown [id number] 2.16.8 [id number] 1965 Unknown [id number] 2.16.8 [id number] 1965 Unknown [id number] 2.16.8 [id number] 1965 Unknown [id number] 2.16.8 [id number] 1965 Unknown [id number] 1965 Unknown [id number] 1965 Unknown [id number] 1965 Unknown [id number] 1965 Unknown [id number] 2.16. [id number] 1965 Unknown [id number] 2.16. [id number] 1965 Unknown [id number] 2.16. [id number] Unknown [id number] Social History Date Type Detail Facility NEGATED: Highlighted rowStart: 12-12-2018 End: 12-12-2018 Alcohol use ETOH USE Yes [facility] Work Phone: NEGATED: Highlighted rowStart: 12-12-2018 End: 12-12-2018 Details of drug misuse behavior DRUG USE No [facility] Work Phone: NEGATED: Highlighted rowStart: 12-12-2018 End: 12-12-2018 Assertion Former smoker [facility] Work Phone: NEGATED: Highlighted rowStart: 12-12-2018 End: 12-12-2018 How many days of moderate to strenuous exercise, like a brisk walk, did you do in the last 7 days? EXERCISEFREQ 2 days per week [facility] Work Phone: Clinical Note 09-12-2020 Note Date & Type Note Facility 09-12-2020 Note Patient Outreach ([place] [facility]) WES SMITH ([id number]) 1965 M Date Time Provider Department 09/12/20 JONN RAYMOND During your visit today, we recorded the following information about you: Allergies As of Date: 09/12/2020 (No Known Allergies) Date Reviewed: 11/13/2018 Reviewed by: Rosalina Cartwright - Fully Assessed Order(s):SARS-COVID VACCINE 1ST DOSE APPT [[id number]] Order #: [id number] FUTURE Prescriptions as of 09/12/2020 Sig: INSULIN LISPRO (U-100) 100 UN* Inject 130 units subcutaneous* BLOOD-GLUCOSE SENSOR DEVICE 1 Each once each week. AMLODIPINE 10 MG TABLET Take 1 tablet by mouth once d* HYDROCHLOROTHIAZIDE 25 MG TAB* Take 1 tablet by mouth once d* CHOLECALCIFEROL (VITAMIN D3) * Take 1 tablet by mouth once d* ROSUVASTATIN 40 MG TABLET Take 40 mg by mouth once chucho* FAMOTIDINE 20 MG TABLET Take 20 mg by mouth once chucho* LISINOPRIL 40 MG TABLET ASPIR-81 ORAL Take 1 tablet by mouth once d* Problem List As Of Date 09/12/2020 Noted Resolved Presence of insulin pump [Z96.41] buttermaker current use of insulin (HCC) [Z79.4] Essential hypertension, benign [I10] Hyperlipidemia [E78.5] Insulin pump titration [Z46.81] Type 1 diabetes mellitus with hyperglycemia (HC* More... Obesity (BMI 30.0-34.9) [E66.9] Type 1 diabetes mellitus with diabetic retinopa* Encounter Status:Closed by [place] on 09/15/20 [facility] Summary Purpose Family History No Family History Records FoundNo Family History Records FoundThere may be information available, but it has not been provided by the sender.No Family History Records FoundNo Family History Records Found Advance Directives No Advanced Directives Records FoundNo Advanced Directives Records FoundThere may be information available, but it has not been provided by the sender.No Advanced Directives Records FoundNo Advanced Directives Records Found Chief Complaint Chief Complaint Description Start Date right shoulder pain Preliminary chief co mplaint data, not yet signed by the author as of Instructions Instruction Description Start Date Patient advised to follow-up with Primary Care Physician for BMI management. Assessments There may be information available, but it has not been provided by the sender. Review of System There may be information available, but it has not been provided by the sender. History of Present Illness There may be information available, but it has not been provided by the sender. Additional Source Comments (unrecognized sect ion and content) No Status Records FoundNo Status Records FoundNo Status Records FoundNo Status Records Found INFORMATION SOURCE (unrecogn ized section and content) DATE CREATED AUTHOR AUTHOR'S ORGANIZ ATION 11/26/2018 [facility] DATE CREATED AUTHOR AUTHOR'S ORGANIZ ATION 08/08/2021 [facility] DATE CREATED AUTHOR AUTHOR'S ORGANIZ ATION 06/07/2022 [facility] Reason for Visit (unrecogniz ed section and content) FOR RECORDS PERTAINING TO PATIENTS WHO ARE OR HAVE BEEN ENROLLED IN A CHEMICAL DEPENDENCY/SUBSTANCEABUSE PROGRAM, SOME INFORMATION MAY BE OMITTED. This clinical summary was aggregated from multiple sources. Caution should be exercised in using it in the provision of clinical care. This summary normalizes information from multiple sources, and as a consequence, information in this document may materially change the coding, format and clinical context of patient data. In addition, data may be omitted in some cases. CLINICAL DECISIONS SHOULD BE BASED ON THE PRIMARY CLINICAL RECORDS. [facility] [employer] provides no warranty or guarantee of the accuracy or completeness of information in this document.
[2023-08-03 07:18] LABS: Absolute Lymphocyte Count 2.39 X10^3/uL (0.83-4.51); Absolute Neutrophil Count 4.2 X10^3/uL (2.0-7.7); Basophil# 0.07 X10^3/uL; Basophil% 0.9 % (0-1); Eosinophil# 0.35 X10^3/uL; Eosinophils% 4.5 % (0-5); Hematocrit 43.2 % (40-54); Hemoglobin 14.5 g/dL (13.0-16.5); Lymphocyte # 2.39 X10^3/ul (0.83-4.51); Mean Corp Hgb Conc 33.6 g/dL (32-36); Mean Corpuscular Hgb 30.9 pg (27.0-32.0); Mean Corpuscular Volume 92.1 fL (80-94); Monocyte# 0.72 X10^3/uL; Monocyte% 9.4 % (0-10); NRBC Flagged by Analyzer 0 % (0-5); Neutrophil # 4.15 X10^3/uL (2.7-7.7); Neutrophil % 53.9 % (47-70); Platelet Count 255 K/mm3 (150-450); RBC Distribution Width CV 12.5 % (11.6-14.6); Red Blood Count 4.69 M/mm3 (4.6-6.2); White Blood Count 7.7 K/mm3 (4.4-11.0)
[2023-08-03 07:55] LABS: Anion Gap 2 (5-15); BUN 24 mg/dL (7-18); BUN/Creat Ratio 24.4 RATIO (10-20); Calcium,Total 9.9 mg/dL (8.5-10.1); Chloride 108 mmol/L (98-107); Creatinine, Serum 0.98 mg/dL (0.70-1.30); EST Glomerular Filtration Rate 83 mL/min (>60); Est Glom Filt Rate - Afr Amer 100 mL/min (>60); Free T3 2.8 pg/mL (2.18-3.98); Glucose 158 mg/dL (74-106); Potassium 4.2 mmol/L (3.5-5.1); Sodium Level 137 mmol/L (136-145); T4 Free Direct 0.89 ng/dL (0.76-1.46); Thyroid Stim Hormone (TSH) 3.06 uIU/mL (0.358-3.74)
[2023-08-03 08:00] LABS: AST(SGOT) 19 U/L (15-37); Alanine Aminotransfer ALT/SGPT 40 U/L (16-61); Albumin, Serum 3.5 g/dL (3.2-5.0); Alkaline Phosphatase 85 U/L (45-117); Bilirubin, Direct 0.16 mg/dL (0.00-0.30); Cholesterol 155 mg/dL (200); Globulin 3.6 g/dL (2.2-4.2); High Density Lipoprotein 47 mg/dL; Protein, Total 7.1 g/dL (6.4-8.2); Triglycerides 118 mg/dL; Very Low Density Lipoprotein 24 mg/dL (5-40)
[2023-08-03 09:48] LABS: Vitamin D,25 Hydroxy 41.6 ng/mL
== END | disposition home or self-care (01) ==
PROVIDERS: Internal Medicine Cardiovascular Disease; PCP Internal Medicine; Referring Provider Nurse Practitioner Gerontology; Visit Provider Nurse Practitioner Gerontology
DX: R53.83 Other fatigue (principal); R42 Dizziness and giddiness; E78.00 Pure hypercholesterolemia, unspecified
CPT/HCPCS: 36415; 80048; 80061; 80076; 82306; 84439; 84443; 84481; 85025

== ENCOUNTER → 2023-08-19 | Outpatient (CLI) | payer OTHER, SELFPAY ==
--- OUTSIDE RECORDS SUMMARY | 2023-08-15 07:28 | XMS RPT_ITS | CCD ---
Author Name Unknown Address [address] [place] [address] Organization [facility] Care Team Providers Care Printed Circuit Board Layout Designer Name Role Phone Brianne Ramsay Unavailable ROSALINA CARTWRIGHT Attending Unavailable CORBYROSALINA M Referring Unavailable CORBYROSALINA M Attending Unavailable CORBYROSALINA M Referring Unavailable CORBYROSALINA M Attending Unavailable CORBYTRISHI M Referring Unavailable CORBY, ROSALINA Attending Unavailable CORBY, ROSALINA Referring Unavailable RANIOL, [facility] Primary Care Unavailable CORBY, ROSALINA Attending Unavailable CORBY, ROSALINA Referring Unavailable RANIOL, [facility] Care Unavailable CORBY, ROSALINA Attending Unavailable CORBY, ROSALINA Referring Unavailable RANIOL, [facility] Care Unavailable CORBY, ROSALINA Attending Unavailable CORBY, ROSALINA Referring Unavailable RANIOL, [facility] Care Unavailable CORBY, ROSALINA Attending Unavailable CORBY, ROSALINA Referring Unavailable RANIOL, [facility] Primary Care Unavailable Sanju MCCLAIN, Venu Lucio [...] TABS take 1 tablet daily AMLODIPINE BESYLATE [id number] Elodia Basilio PA-C Problems Active Problems Problem Classification Problem Date Documented Da te Episodic/Chronic Coronary atherosclerosis and other heart disease (2 sources) Coronary atherosclerosis; Translations: [Atherosclerotic heart disease of havasupai coronary artery without angina pectoris] Onset: 05-13-2011 [...] Onset: 11-01-2015 Episodic Other aftercare (2 sources) intermediate (current) use of insulin; Translations: [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] Onset: 11-01-2015 Episodic [...] (Body Mass Index) 32.98 kg/m2 Brianne Ramsay [facility] Work Phone: 07-27-2016 16:00-0500 BP Diastolic 60 mm[Hg] Brianne Sobia [facility] Work Phone: 07-27-2016 16:00-0500 BP Systolic 110 mm[Hg] Brianne Sobia [facility] Work Phone: 07-27-2016 16:00-0500 BSA (Body Surface Area) 2.37 m2 Brianne [facility] Work Phone: 07-27-2016 16:00-0500 Pulse (Heart Rate) 68 /min Brianne [facility] Work Phone: 07-27-2016 16:00-0500 Respiratory Rate 20 /min Brianne [facility] Work Phone: 07-27-2016 16:00-0500 Weight 113.4 kg Brianne [facility] Work Phone: 01-23-2014 10:04-0400 Height 185.42 cm Brianne [facility] Work Phone: NEGATED: Highlighted [id number] 15:27-0400 BMI (Body Mass Index) 34.28 kg/m2 Destinicarl Ann [facility] Work Phone: NEGATED: Highlighted [id number] 15:27-0400 BP Diastolic 82 mm[Hg] Destinicarl Ann [facility] Work Phone: NEGATED: Highlighted [id number] 15:27-0400 BP Systolic 124 mm[Hg] Destini Marissa [facility] Work Phone: NEGATED: Highlighted [id number] 15:27-0400 [facility] Work Phone: NEGATED: Highlighted [id number] 15:27-0400 Height 188 [facility] Work Phone: NEGATED: Highlighted [id number] 15:27-0400 Pulse (Heart Rate) 80 /min Destini Ann LPN [facility] Work Phone: NEGATED: Highlighted [id number] 15:270400 Weight 120.66 kg Destini Ann LPN [facility] Work Phone: NEGATED: Highlighted [id number] 15:270400 Weight 121 kg Destini Ann LPN [facility] Work Phone: Encounters [...] Patient encounter procedure ROSALINA CARTWRIGHT Facility:[facility] Start: 04-02-2019 Patient encounter procedure ROSALINA CARTWRIGHT Facility:[facility] Start: 12-12-2018 End: 12-12-2018 Patient encounter procedure Venu Bills MD Work Phone: [facility] Work Phone: Start: 12-12-2018 End: 12-12-2018 Pt evaluation Venu Bills MD Work Phone: [facility] Work Phone: Start: 11-10-2018 End: 11-10-2018 Patient encounter procedure ROSALINA [facility] Start: 07-13-2018 End: 07-13-2018 Patient encounter procedure ROSALINA [facility] Start: 02-10-2018 End: 02-10-2018 Patient encounter procedure ROSALINA [facility] Procedures Date Procedure Procedure Detail Performing Clinician [...] Author Start: 12-12-2018 End: 12-12-2018 Appointment Appointment [facility] Work Phone: Start: 07-28-2017 End: 07-28-2017 Appointment Appointment [employer] Work Phone: Start: 07-27-2016 End: 07-27-[address] [facility] ENERGY MANAGEMENT SPECIALIST [employer] [facility] Work Phone: Start: 07-27-2016 End: 07-27-2016 Follow Up Appt 1 year Follow Up Appt 1 year [facility] Work Phone: Start: 07-25-2015 End: 07-25-2015 ENERGY MANAGEMENT SPECIALIST [facility] [employer] Work Phone: Start: 07-25-2015 End: 07-25-2015 Follow Up Appt 1 year Follow Up Appt 1 year [facility] Work Phone: Start: 05-31-2014 End: 05-31-2014 ENERGY MANAGEMENT SPECIALIST [employer] Work Phone: Start: 05-31-2014 End: 05-31-2014 Follow Up Appt 1 year Follow Up Appt 1 year [facility] Work Phone: Start: 01-23-2014 End: 01-24-2014 Chest x-ray X-Ray, Chest, PA & Lateral [facility] Work Phone: Start: 01-23-2014 End: 01-23-2014 ENERGY MANAGEMENT SPECIALIST [facility] Work Phone: Start: 01-23-2014 End: 01-23-2014 [facility] Work Phone: Start: 01-23-2014 End: 01-23-2014 Follow Up Appt 3 months Follow Up Appt 3 months [facility] Work Phone: Start: 01-23-2014 End: 01-23-2014 Left Heart Cath Left Heart Cath [facility] Work Phone: Immunizations Immunization Date Immunization Notes Care Provider Fa cility No information available. Destini Ann LPN [facility] Work Phone: Payers Date Payer Category Payer Unknown [id number] 2.16.8 [id number] 1965 Unknown [id number] 2.16.8 [id number] 1965 Unknown [id number] 2.16.8 [id number] 1963 Unknown [id number] 2.16.8 [id number] 1963 Unknown [id number] 2.16.8 [id number] 1963 Unknown [id number] 1965 Unknown [id number] 1965 Unknown [id number] 1963 Unknown [id number] 1965 Unknown [id number] 2.16. [id number] 1965 Unknown [id number] 2.16. [id number] 1965 Unknown [id number] 2.16. [id number] Unknown [id number] Social History Date Type Detail Facility NEGATED: Highlighted rowStart: 12-12-2018 End: 12-12-2018 Alcohol use ETOH USE Yes [facility] Work Phone: NEGATED: Highlighted rowStart: 12-12-2018 End: 12-12-2018 Details of drug misuse behavior DRUG USE No [facility] Work Phone: NEGATED: Highlighted rowStart: 12-12-2018 End: 12-12-2018 Assertion Former smoker [facility] Work Phone: NEGATED: Highlighted rowStart: 12-12-2018 End: 12-12-2018 How many days of moderate to strenuous exercise, like a brisk walk, did you do in the last 7 days? EXERCISEFREQ 2 days per week [facility] Work Phone: Clinical Note 09-12-2020 Note Date & Type Note Facility 09-12-2020 Note Patient Outreach ([place] [facility]) WES SMITH ([id number]) 1965 M Date Time Provider Department 09/12/20 JONN RAYMOND During your visit today, we recorded the following information about you: Allergies As of Date: 09/12/2020 (No Known Allergies) Date Reviewed: 11/13/2018 Reviewed by: Rosalina Cartwright - Fully Assessed Order(s):SARS-COVID VACCINE 1ST DOSE APPT [26348YET] Order #: [id number] FUTURE Prescriptions as of 09/12/2020 Sig: INSULIN [...] Noted Resolved Presence of insulin pump [Z96.41] director of 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 Obesity (BMI 30.0-34.9) [E66.9] Type 1 diabetes mellitus with diabetic retinopa* Encounter Status:Closed by [facility] on 09/15/20 [facility] Summary Purpose Family History No [...] DATE CREATED AUTHOR AUTHOR'S ORGANIZ ATION 11/26/2018 [facility] [employer] [facility] DATE CREATED AUTHOR AUTHOR'S ORGANIZ ATION 08/08/2021 [facility] DATE CREATED AUTHOR AUTHOR'S ORGANIZ ATION 06/07/2022 [facility] Reason for Visit (unrecogniz ed section and [...] BE BASED ON THE PRIMARY CLINICAL RECORDS. [facility] [employer] provides no warranty or guarantee of the accuracy or completeness of information in this document.
== END | disposition home or self-care (01) ==
PROVIDERS: PCP Internal Medicine; Referring Provider Internal Medicine; Visit Provider Internal Medicine
DX: R00.2 Palpitations (principal)
CPT/HCPCS: 93225; 93226

== ENCOUNTER 2023-12-26 16:30 | Outpatient (RCR) | payer OTHER, SELFPAY ==
--- NOTE | 2023-11-08 18:33 | HP.PTEVAL_ITS ---
Patient's Visit Information Visit Information Visit Information: WES SMITH is a 58 year old M referred to Physical Therapy by Dr. Yolanda Lynne DPM with a diagnosis of Metatarsalgia. Date of Evaluation: 11/08/23 Physical Therapist: Eleuterio Stephenson DPT, OCS, CSCS Visit Plan Duration: 2 visits Plan: molded today for [employer] orthotics as he has had them in the past and likes them. Will call when they are fabricated and sent back for dispensing. Subjective Subjective: Has orthotics but lost one pair. Problem was breaking 5th metatarsal in 2010 and has high arch and wanted to offset the 5th metatarsal. Wears them with tennis shoes. No real pain. No exercises. 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 No neuropathy, no dizzyness, no balance problems. Objective Objective: Walks I into PT without gait deviations. Doffs shoes and socks I and dons shoes I. Sensation feet to gross light touch WNL strength ankles 4/5 without pain. Posture of feet is mild flat feet(says he used to have high arch) and hindfoot neutral. Has a deformity mid shaft 5th metatarsal lateral /[id number] from a previous fracture that could use a relief in his orthotic. Goals Goal 1:: fit for adn I in use of orthotics comfortable Goal Time Frame: 2-4 Weeks Rehabilitation Potential Physical Therapy Diagnosis: H/o foot pain with orthotics being helpful Rehabilitation Potential: Good Anticipated Interventions Patient/Client Instruction: Educate patient on: Plan of Care For the Purpose of:: To improve gait and locomotor functions Orthotics: Shoe insert Comment: to improve foot posture and off load deformity Text: Thank you for the opportunity to evaluate your patient. For Medicare and Medicare HMO plans, please review the plan of care and approve it. It will need to be FAXED BACK to us at [phone] for Medicare purposes. For Medicare only, by signing this I certify the plan of care. Please let me know if there are questions or concerns regarding this plan of care. Physician Signature: Date:
--- NOTE | 2023-12-26 16:55 | HP.PTDCSUM ---
Discharge Summary D/C summary: It has been my pleasure to treat WES SMITH referred by Dr. Yolanda Lynne DPM, with the diagnosis of Metatarsalgia for a total of 2 visit(s). Discharge Date: Please see the following information for a summary of their discharge status. Subjective Subjective: No new co' Goals Goal 1:: fit for adn I in use of orthotics comfortable Plan Plan: Provide orthotics to ensure proper wear and med appropriate adjustments D/C Information d/c sentence: If there are questions or concerns regarding this patient's physical therapy, please feel free to call me at [phone]. Thank you for the referral of this patient. Sincerely, Leopoldo Fowler, PT, Cert MDT, OCS
== END 2023-12-26 19:00 | disposition home or self-care (01) ==
LOC: PT 16:30
PROVIDERS: PCP Internal Medicine; Referring Provider Podiatrist; Visit Provider Podiatrist
DX: M77.41 Metatarsalgia, right foot (principal)
CPT/HCPCS: 97161; 97763

== ENCOUNTER → 2025-01-01 | Outpatient (CLI) | payer OTHER, SELFPAY | END | disposition home or self-care (01) | LOC: LABSPEC 14:50 | PROVIDERS: PCP Internal Medicine; Referring Provider Internal Medicine; Visit Provider Internal Medicine | DX: R09.81 Nasal congestion (principal) | CPT/HCPCS: 87635 ==

== ENCOUNTER → 2025-01-15 | Outpatient (CLI) | payer OTHER, SELFPAY ==
[2025-01-15 07:50] LABS: Hematocrit 40.4 % (40-54); Hemoglobin 13.8 g/dL (13.0-16.5); Immature Granulocytes Count 0.040 X10^3/uL (0.0-0.0); Mean Corp Hgb Conc 34.2 g/dL (32-36); Mean Corpuscular Volume 92.0 fL (80-94); Mean Platelet Vol. 9.6 fl (6.2-12.0); NRBC Flagged by Analyzer 0 % (0-5); Platelet Count 264 K/mm3 (150-450); RBC Distribution Width CV 12.5 % (11.6-14.6); RBC Distribution Width SD 42.2 fl (35.1-43.9); Red Blood Count 4.39 M/mm3 (4.6-6.2); White Blood Count 8.4 K/mm3 (4.4-11.0)
[2025-01-15 09:17] LABS: AST(SGOT) 25 U/L (<=37); Alanine Aminotransfer ALT/SGPT 46 U/L (<=46); Albumin, Serum 3.9 g/dL (3.4-4.8); Alkaline Phosphatase 80 U/L (40-129); Bilirubin, Direct 0.20 mg/dL (0.00-0.30); Globulin 2.8 g/dL (2.2-4.2)
[2025-01-15 09:18] LABS: Creatinine, Urine (random) 244.00 mg/dL (39.00-259.00)
[2025-01-15 09:31] LABS: Microalbumin,Random Urine 18.2 mg/L (NO RANGE EST.)
[2025-01-15 09:36] LABS: AST(SGOT) 25 U/L (<=37); Alanine Aminotransfer ALT/SGPT 46 U/L (<=46); Albumin, Serum 4.0 g/dL (3.4-4.8); Alkaline Phosphatase 80 U/L (40-129); Anion Gap 11 (5-15); BUN 22 mg/dL (4-19); BUN/Creat Ratio 21.0 RATIO (10-20); Calcium,Total 9.8 mg/dL (7.6-11.0); Carbon Dioxide 22.9 mmol/L (21.0-32.0); Chloride 104 mmol/L (98-108); Cholesterol 142 mg/dL (<=200); Globulin 2.7 g/dL (2.2-4.2); Glucose 104 mg/dL (70-99); Low Density Lipoprotein Calc. 81 mg/dL; Potassium 4.3 mmol/L (3.3-5.1); Triglycerides 113 mg/dL; Very Low Density Lipoprotein 23 mg/dL (5-40); Vitamin D,25 Hydroxy 36.5 ng/mL (30-100); cholesterol:hdl ratio screen 3.66
--- OUTSIDE RECORDS SUMMARY | 2025-01-17 02:58 | XMS RPT_ITS | CCD ---
Author Organization [facility] CliniSynj Care Team Providers Care Patient Centered Care Specialist Name Role Phone Brianne Ramsay Unavailable ROSALINA CARTWRIGHT Attending Unavailable CHAY, ROSALINA M Referring Unavailable CHAY, ROSALINA M Attending Unavailable CHAY, ROSALINA M Referring Unavailable CHAY, ROSALINA M Attending Unavailable CHAY, ROSALINA M Referring Unavailable CHAY, ROSALINA Attending Unavailable CHAY, ROSALINA Referring Unavailable RANIOL, BANNER Primary Care Unavailable CHAY, ROSALINA Attending Unavailable CHAY, ROSALINA Referring Unavailable RANIOL, BANNER Primary Care Unavailable CHAY, ROSALINA Attending Unavailable CHAY, ROSALINA Referring Unavailable RANIOL, BANNER Primary Care Unavailable CHAY, ROSALINA Attending Unavailable CHAY, ROSALINA Referring Unavailable RANIOL, BANNER Primary Care Unavailable CHAY, ROSALINA Attending Unavailable CHAY, ROSALINA Referring Unavailable RANIOL, BANNER Primary Care Unavailable Sanju MCCLAIN, Venu Lucio Unavailable Dr. Raul Aleman Primary Care Provider Unava ilDr. Raul Richey Referring Provider UnavailDr. Elliott Cristina Attending Provider [phone] Rosalina Cartwright Attending Provider [phone] HECTOR James Attending Provider HECTOR Huizar Attending Provider Dr. Raul Aleman Primary Care Provider Unava Dr. Raul Minor Referring Provider UnavailDr. Elliott Cristina Attending Provider [phone] Raul Aleman Primary Care Provider Unava Dr. Raul Minor Referring Provider Unavailwilberto Elliott NP, CRISTINA Britton Attending Provider Dr. Rosalina Cartwright Attending Provider RAUL ALEMAN Attending Unavailab le RANIOL, RAUL CHARLES Referring [...] le RANIOL, RAUL CHARLES Referring Unavailab le Sandra, Catie Attending Unavailable Sandra, Catie Referring Unavailable RANIOL, RAUL CHARLES Primary Care Unavailab le RANIOL, RAUL CHARLES Attending Unavailab le RANIOL, RAUL CHARLES Referring Unavailab le RANIOL, RAUL CHARLES Primary Care Unavailab le RANIOL, RAUL CHARLES Attending Unavailab le RANIOL, RAUL CHARLES Referring Unavailab le RANIOL, RAUL CHARLES Primary Care Unavailab le Raniol, Dr. Bowman Primary Care Provider Unava ilverenice Aleman, Dr. Bowman Referring Provider Unavailwilberto Elliott MARINE DRILLER, MARINE DRILLER-C Reba Attending Provider Dr. Rosalina Cartwright Attending Provider [phone] Raul Aleman Primary Care Provider Unava ilDr. Raul Richey Referring Provider Unavaila Dr. Kelsey Reyes Attending Provider [phone] Dr. Rosalina Cartwright Attending Provider [phone] Kelsey Burns Primary Care Provider Dr. Kelsey Burns Primary Care Provider Dr. Eleuterio Quinones Attending Provider [phone] Earl MARINE DRILLER, MARINE DRILLER-C Reba Referring Provider Earl MARINE DRILLER, MARINE DRILLER-C Reba Attending Provider Dr. Kelesy Burns Referring Provider [phone] Dr. Rosalina Cartwright Attending Provider [phone] Kelsey Burns Attending Provider [phone] Katy MCCLAIN, Dr. Cole Primary Care Provider [phone] Dr. Kelsey Burns MD Referring Provider Liang MARINE DRILLER-Howard Lam Attending Provider [phone] Katy MCCLAIN, Dr. Cole Attending Provider Gio MARINE DRILLER-C, Omaira Attending Provider [phone] [place], Kelsey Primary Care Unavailable Liang MARINE DRILLER, Howard Campos Attending Unavailable [place], Kelsey Referring Unavailable [place], Kelsey Referring Unavailable [place], Kelsey Primary Care Unavailable Katy, Kelsey Attending Unavailable Katy, Kelsey Primary Care Unavailable Katy, Kelsey Attending Unavailable [place], Kelsey Referring Unavailable [place], Kelsey Primary Care Unavailable Gio, Omaira Attending Unavailable [place], Kelsey Referring Unavailable Katy, Kelsey Referring Unavailable [place], Kelsey Primary Care Unavailable Katy, Kelsey Attending Unavailable Katy, Kelsey Referring Unavailable Rosalina Cartwright Attending Unavailable [place], Kelsey Primary Care Unavailable Reba Elliott NP Attending Unavailable Katy, Kelsey Primary Care Unavailable [place], Kelsey Referring Unavailable Katy, Kelsey Primary Care Unavailable Katy, Kelsey Attending Unavailable [place], Kelsey Referring Unavailable ChayRosalina Attending Unavailable Katy, Kelsey Primary Care Unavailable Katy, Kelsey Referring Unavailable Medications Current Medications Medication Drug Class(es) Dates Sig (Normalized) Sig (Original) acetaminophen 500 mg oral capsule (14 sources) Start: 10-02-2020 take 2 capsules by mouth twice daily Acetaminophen 500 mg capsule Active 1000 mg PO TWICE A DAY October 02, 2020 12:00am Start: 10-02-2020 take 1000 mg by mout h twice daily Acetaminophen Active 1000 MG PO TWICE A DAY October 01, 2020 11:00pm amoxicillin 500 mg / clavulanate 125 mg oral tablet (15 sources) Penicillin-class Antibacterial Start: 01-04-2025 Amoxicillin-Pot Clavulanate (Augmentin) 500-125 mg tablet Active 1 {tbl} PO THREE TIMES A DAY 21 January 04, 2025 12:00am Otitis media Otitis media, unspecified, unspecified ear Start: 09-16-2021 End: 03-18-2022 Amoxicillin-Pot Clavulanate 875-125 mg tablet Discontinued 1 {tbl} PO TWICE A DAY September 16, 2021 1:00am March 18, 2022 3:55pm Start: 09-16-2021 End: 03-18-2022 take 1 tablet by mouth twice daily Amoxicillin-Pot Clavulanate Discontinued 1 TABLET PO TWICE A DAY September 16, 2021 12:00am March 18, 2022 2:55pm aspirin 81 mg delayed release oral tablet (18 sources) Platelet Aggregation Inhibitor, Nonsteroidal Anti-inflammatory Drug Start: 05-13-2011 take 1 tablet by mouth once daily Aspirin 81 MG tablet Active 81 mg PO DAILY@0800 February 11, 2015 12:00am Start: 05-13-2011 take 1 tablet by demetrio th once daily ASPIRIN 325 MG TABS One tablet by mouth daily ASPIRIN [id number] Antonina M Quinones Start: 05-13-2011 take 1 tablet by demetrio th once daily ASPIRIN 81 MG TABS One tablet by mouth daily ASPIRIN [id number] Elliott Lopez MD brimonidine / Timolol (4 sources) alpha-Adrenergic Agonist, beta-Adrenergic Prakash Start: 12-02-2022 Brimonidine-Mook lol Active 1 DRP OPHTHALMIC TWICE A DAY December 01, 2022 11:00pm Start: 12-02-2022 Brimonidine-Ti molol Active 1 DRP OPHTHALMIC TWICE A DAY December 02, 2022 12:00am Brimonidine-Timolol 0.2-0.5 % drops (8 sources) Start: 01-19-2024 take 0.2-0.5 drop(s) into the eye(s) twice daily Brimonidine-Timolol 0.2-0.5 % drops Active 1 NMA OPHTHALMIC TWICE A DAY January 19, 2024 3:41pm Start: 01-19-2024 take 0.2-0.5 drop(s) into the eye(s) twice daily Brimonidine-Timolol 0.2-0.5 % drops Active 1 NMA OPHTHALMIC TWICE A DAY 5 January 19, 2024 3:41pm Start: 12-02-2022 End: 01-19-2024 take 0.2-0.5 drop(s) into the eye(s) twice daily Brimonidine-Timolol 0.2-0.5 % drops Discontinued 1 NMA OPHTHALMIC TWICE A DAY December 02, 2022 12:00am January 19, 2024 3:41pm codeine phosphate 2 mg/ml / guaiFENesin 20 mg/ml oral solution (2 sources) Opioid Agonist Start: 01-02-2025 take 1 mL by mouth every four to six hours as needed for cough Codeine-Guaifenesin 10-100 mg/5 mL liquid Active 10 mL PO EVERY 4-6 HOURS as needed for cough 118 0 January 02, 2025 12:00am Acute upper respiratory infection Acute upper respiratory infection, unspecified diphenhydrAMINE hydrochloride 25 mg oral tablet (20 sources) Histamine-1 Receptor Antagonist Start: 01-04-2025 take 2 tablets by mouth at bedtime as needed Diphenhydramine Hcl (Allergy (Diphenhydramine)) 25 mg tablet Active 50 mg PO AT BEDTIME as needed January 04, 2025 2:22pm Start: 08-24-2024 End: 01-04-2025 take 1 tablet by mouth at bedtime as needed Diphenhydramine Hcl (Allergy (Diphenhydramine)) 25 mg tablet Discontinued 25 mg PO AT BEDTIME as needed August 24, 2024 1:00am January 04, 2025 2:23pm Start: 10-02-2019 End: 12-02-2022 take 1 capsule by mouth at bedtime as needed Diphenhydramine Hcl 50 mg capsule Discontinued 50 mg PO AT BEDTIME as needed January 07, 2020 4:11pm December 02, 2022 3:01pm esomeprazole 20 mg delayed release oral capsule (4 sources) Proton Pump Inhibitor Start: 10-21-2023 take 1 capsule by mouth once daily Esomeprazole Magnesium 20 mg capsule,delayed release(DR/EC) Active 20 mg PO DAILY October 21, 2023 12:00am ibuprofen 400 mg oral tablet (19 sources) Nonsteroidal Anti-inflammatory Drug Start: 07-18-2024 End: 12-30-2024 Ibuprofen 400 mg tablet Active 600 mg PO TWICE A DAY as needed December 30, 2024 10:08am Start: 03-18-2022 End: 07-18-2024 take 1 tablet by mouth twice daily Ibuprofen 400 mg tablet Discontinued 400 mg PO TWICE A DAY March 18, 2022 12:00am July 18, 2024 3:08pm Lidocaine (4 sources) Antiarrhythmic, Amide Local Anesthetic Start: 12-30-2024 Lidocaine Hcl (Lidocaine Viscous) 2 % solution Active 1 NMA MUCOUS MEM TWICE A DAY as needed for pain 300 1 December 30, 2024 12:00am Start: 12-30-2024 Lidocaine Hcl (Lidocaine Viscous) 2 % solution Active 1 NMA MUCOUS MEM TWICE A DAY as needed for pain 300 December 30, 2024 12:00am melatonin 10 mg oral capsule (20 sources) Start: 04-23-2019 take 1 capsule by mouth at bedtime Melatonin 10 mg capsule Active 10 mg PO BEDTIME April 23, 2019 12:00am Start: 08-18-2017 End: 08-19-2017 take 2 tablets by mouth once daily as needed Melatonin 5 mg tablet Discontinued 0 PO daily as needed August 18, 2017 1:00am August 19, 2017 5:09pm 10MG PO QDAY PRN Start: 08-18-2017 End: 08-19-2017 take 10 mg by mouth once daily as needed Melatonin Discontinued 0 PO daily August 18, 2017 12:00am August 19, 2017 4:09pm 10MG PO QDAY PRN Start: 07-27-2016 take 2 tablets by mo [facility] once daily as needed MELATONIN 5 MG TABS 10 mg by mouth daily as needed MELATONIN [id number] Elliott Lopez MD predniSONE 20 mg oral tablet (3 sources) Start: 01-01-2025 take 2 tablets by mouth once daily Prednisone 20 mg tablet Active 40 mg PO daily 10 0 January 01, 2025 12:00am spironolactone 50 mg oral tablet (20 sources) Aldosterone Antagonist Start: 01-19-2024 End: 05-17-2024 take 1 tablet by mouth once daily Spironolactone 50 mg tablet Active 50 mg PO daily 90 May 17, 2024 4:15pm Start: 01-19-2024 End: 01-19-2024 take 2 tablets by mouth once daily Spironolactone 25 mg tablet Discontinued 50 mg PO .qd January 19, 2024 12:59pm January 19, 2024 1:42pm Start: 07-29-2022 End: 01-19-2024 take 1 tablet by mouth twice daily Spironolactone 25 mg tablet Discontinued 25 mg PO TWICE A DAY 90 3 April 26, 2023 9:04am July 20, 2023 5:17pm Start: 06-23-2021 End: 07-29-2022 take 1 tablet by mouth once daily Spironolactone 25 mg tablet Discontinued 25 mg PO DAILY 90 March 18, 2022 4:04pm July 29, 2022 5:11pm tadalafil 20 mg oral tablet (4 sources) Phosphodiesterase 5 Inhibitor Start: 07-18-2024 take 1 tablet by mouth every twenty-four hours Tadalafil (Cialis) 20 mg tablet Active 20 mg PO daily as needed for sexual activity 10 July 18, 2024 1:00am administer approximately 30min before sexual activity; do not use more than 1 dose per 24hrs Completed/Discontinued Medications Medication Drug Class(es) Dates Sig (Normalized) Sig (Original) amLODIPine 10 mg oral tablet (20 sources) Dihydropyridine Calcium Channel Prakash Start: 08-19-2017 End: 05-17-2024 take 1 tablet by mouth once daily Amlodipine 10 mg tablet Discontinued 10 mg PO daily 90 September 28, 2022 4:14pm July 20, 2023 5:17pm Start: 01-22-2014 End: 08-19-2017 take 1 tablet by mouth once daily Amlodipine 5 MG tablet Discontinued 5 mg PO DAILY January 24, 2014 12:00am August 19, 2017 5:09pm Start: 01-22-2014 take 1 tablet by demetrio th once daily AMLODIPINE BESYLATE 10 MG TABS One tablet by mouth daily AMLODIPINE BESYLATE [id number] Elliott Lopez MD amoxicillin 500 mg oral tablet (14 sources) Penicillin-class Antibacterial Start: 09-12-2021 End: 03-18-2022 take 1 tablet by mouth twice daily Amoxicillin 500 mg tablet Discontinued 500 mg PO TWICE A DAY 20 September 12, 2021 1:00am March 18, 2022 3:55pm Cholecalciferol (20 sources) Vitamin D Start: 12-12-2018 EQL VITAMIN D3 2000 UNIT CAPS take 1 capsule daily CHOLECALCIFEROL [id number] Elodia Basilio PA-C Start: 08-29-2018 take 2 capsules by m out once daily Cholecalciferol (Vitamin D3) 1,000 unit capsule Active 2000 U PO DAILY August 29, 2018 12:30pm Start: 08-29-2018 take 2000 [IU] by mo [facility] once daily Cholecalciferol (Vitamin D3) Active 2000 UNIT PO DAILY August 29, 2018 11:30am Start: 08-19-2017 End: 08-29-2018 take 2 capsules by mouth every other day Cholecalciferol (Vitamin D3) 1,000 UNIT capsule Discontinued 2000 U PO EVERY OTHER DAY August 19, 2017 5:09pm August 29, 2018 12:31pm Start: 08-19-2017 End: 08-29-2018 take 2000 [IU] by mouth every other day Cholecalciferol (Vitamin D3) Discontinued 2000 UNIT PO EVERY OTHER DAY August 19, 2017 4:09pm August 29, 2018 11:31am Start: 01-24-2014 End: 08-19-2017 take 1 capsule by mouth every other day Cholecalciferol (Vitamin D3) 1,000 UNIT capsule Discontinued 1000 U PO EVERY OTHER DAY January 24, 2014 12:00am August 19, 2017 5:10pm Start: 05-13-2011 take 1 tablet by demetrio once daily VITAMIN D 2000 UNIT TABS One tablet by mouth daily CHOLECALCIFEROL [id number] Elliott Lopez MD dorzolamide 20 mg/ml / timolol 5 mg/ml ophthalmic solution (14 sources) Carbonic Anhydrase Inhibitor, beta-Adrenergic Prakash Start: 09-11-2021 End: 12-02-2022 take 1 drop(s) into the eye(s) twice daily Dorzolamide-Timolol (Cosopt) 22.3-6.8 mg/mL drops Discontinued 1 NMA OPHTHALMIC TWICE A DAY September 11, 2021 1:00am December 02, 2022 3:00pm one drop in Right eye Start: 09-11-2021 End: 12-02-2022 take 1 drop(s) into the eye(s) twice daily Dorzolamide-Timolol (Cosopt) 22.3-6.8 mg/mL drops Discontinued 1 DRP OPHTHALMIC TWICE A DAY September 11, 2021 12:00am December 02, 2022 2:00pm one drop in Right eye empagliflozin 25 mg oral tablet (14 sources) Sodium-Glucose Cotransporter 2 Inhibitor Start: 08-19-2017 End: 08-29-2018 take 1 tablet by mouth once daily Empagliflozin (Jardiance) 25 mg tablet Discontinued 25 mg PO daily August 19, 2017 1:00am August 29, 2018 12:30pm escitalopram 10 mg oral tablet (14 sources) Serotonin Reuptake Inhibitor Start: 01-22-2019 End: 04-23-2019 take 1 tablet by mouth once daily Escitalopram Oxalate 10 MG tablet Discontinued 10 mg PO DAILY January 22, 2019 12:00am April 23, 2019 8:38am famotidine 20 mg oral tablet (20 sources) Histamine-2 Receptor Antagonist Start: 10-02-2020 End: 07-20-2023 take 1 tablet by mouth twice daily Famotidine 20 mg tablet Discontinued 20 mg PO TWICE A DAY October 02, 2020 3:47pm July 20, 2023 4:37pm Start: 10-02-2019 End: 10-02-2020 take 1 tablet by mouth once daily Famotidine 20 mg tablet Discontinued 20 mg PO DAILY October 02, 2019 12:00am October 02, 2020 3:47pm Start: 05-31-2014 End: 01-25-2019 take 1 tablet by mouth once daily Famotidine 20 MG tablet Discontinued 20 mg PO DAILY February 11, 2015 12:00am January 25, 2019 8:44am hydroCHLOROthiazide 25 mg oral tablet (20 sources) Thiazide Diuretic Start: 10-02-2019 End: 07-29-2022 take 1 tablet by mouth once daily Hydrochlorothiazide 25 mg tablet Discontinued 25 mg PO DAILY October 02, 2019 12:00am July 29, 2022 5:10pm Start: 08-19-2017 End: 04-23-2019 take 1 tablet by mouth once daily in the morning Hydrochlorothiazide 25 mg tablet Discontinued 25 mg PO EVERY MORNING 90 3 August 19, 2017 1:00am April 23, 2019 8:38am insulin lispro 100 unt/ml injectable solution (20 sources) Insulin Analog Start: 04-04-2020 End: 11-26-2024 Insulin Lispro (Humalog U-100 Insulin) 100 unit/mL solution Discontinued 160 U SC .continuous 15 May 07, 2021 7:52am March 30, 2022 4:13pm Start: 05-28-2019 End: 04-04-2020 Insulin Lispro (Humalog U-10 0 Insulin) 100 unit/mL solution Discontinued 100 U SC .continuous October 02, 2019 11:21am April 04, 2020 10:16am Start: 04-23-2019 End: 05-28-2019 Insulin Lispro (Humalog U-10 0 Insulin) 100 unit/mL solution Discontinued 0 SC .COMPLEX April 23, 2019 12:00am May 28, 2019 2:45pm up to 150U qd SC via pump; Start: 01-22-2019 End: 04-23-2019 inject 100 [IU] by subcutaneous injection once daily Insulin Lispro 100 UNIT/ML cartridge Discontinued 100 U SQ DAILY January 22, 2019 12:00am April 23, 2019 8:38am INSULIN PUMP insulin, aspart, human 100 unt/ml injectable solution (1 source) Insulin Analog Start: 05-13-2011 NOVOLOG 100 UNIT/ML SOLN Per insulin pump, sliding scale INSULIN ASPART [id number] Antonina Quinones ketorolac tromethamine 4 mg/ml ophthalmic solution (14 sources) Nonsteroidal Anti-inflammatory Drug, Cyclooxygenase Inhibitor Start: 04-10-2021 End: 06-23-2021 take 0.4 drop(s) into the eye(s) every six hours Ketorolac (Acular Ls) 0.4 % drops Discontinued 1 NMA OPHTHALMIC EVERY 6 HOURS April 10, 2021 12:00am June 23, 2021 4:51pm RT EYE QID Start: 04-10-2021 End: 06-23-2021 take 0.4 drop(s) into the eye(s) every six hours Ketorolac (Acular Ls) 0.4 % drops Discontinued 1 DRP OPHTHALMIC EVERY 6 HOURS April 09, 2021 11:00pm June 23, 2021 3:51pm RT EYE QID lisinopril 40 mg oral tablet (20 sources) Angiotensin Converting Enzyme Inhibitor Start: 05-13-2011 End: 05-17-2024 take 1 tablet by mouth once daily Lisinopril 40 mg tablet Discontinued 40 mg PO DAILY 90 3 September 28, 2022 4:14pm July 20, 2023 5:17pm naproxen 375 mg delayed release oral tablet (1 source) Nonsteroidal Anti-inflammatory Drug Start: 12-12-2018 EC-NAPROSYN 375 MG TBEC take 1 tablet twice daily NAPROXEN [id number] Elodia Basilio PA-C omeprazole 20 mg delayed release oral tablet (6 sources) Proton Pump Inhibitor Start: 07-20-2023 End: 10-21-2023 take 1 tablet by mouth once daily Omeprazole 20 mg tablet,delayed release (DR/EC) Discontinued 20 mg PO DAILY July 20, 2023 1:00am October 21, 2023 4:05pm ondansetron 8 mg oral tablet (14 sources) Serotonin-3 Receptor Antagonist Start: 01-25-2019 End: 04-23-2019 take 1 tablet by mouth every eight hours as needed for nausea Ondansetron Hcl 8 MG tablet Discontinued 8 mg PO EVERY 8 HOURS NEEDED as needed for nausea, emesis 20 0 January 25, 2019 12:00am April 23, 2019 8:38am pantoprazole 40 mg delayed release oral tablet (14 sources) Proton Pump Inhibitor Start: 01-25-2019 End: 04-23-2019 take 1 tablet by mouth twice daily Pantoprazole 40 MG tablet Discontinued 40 mg PO TWICE A DAY 60 0 January 25, 2019 12:00am April 23, 2019 8:38am Prednisolone Sod Ph-Bromfenac (10 sources) Start: 04-10-2021 End: 06-23-2021 Prednisolone Sod Ph-Bromfenac Discontinued DRP OPHTHALMIC April 10, 2021 2:38pm June 23, 2021 4:51pm Start: 04-10-2021 End: 06-23-2021 Prednisolone Sod Ph-Bromfena c Discontinued DRP OPHTHALMIC April 09, 2021 11:00pm June 23, 2021 3:51pm Start: 04-10-2021 End: 06-23-2021 Prednisolone Sod Ph-Bromfena c Discontinued DRP OPHTHALMIC April 10, 2021 12:00am June 23, 2021 4:51pm Prednisolone Sod Ph-Bromfenac 1-0.075 % drops (4 sources) Start: 04-10-2021 End: 06-23-2021 Prednisolone Sod Ph-Bromfenac 1-0.075 % drops Discontinued NMA OPHTHALMIC April 10, 2021 12:00am June 23, 2021 4:51pm rosuvastatin calcium 40 mg oral tablet (20 sources) HMG-CoA Reductase Inhibitor Start: 08-29-2018 End: 05-17-2024 take 1 tablet by mouth once daily Rosuvastatin 40 mg tablet Discontinued 40 mg PO DAILY 90 3 January 18, 2023 6:11pm January 19, 2024 1:42pm Start: 05-13-2011 End: 08-29-2018 take 1 tablet by mouth once daily Rosuvastatin 20 MG tablet Discontinued 20 mg PO DAILY January 24, 2014 12:00am August 29, 2018 12:48pm sildenafil 100 mg oral tablet (20 sources) Phosphodiesterase 5 Inhibitor Start: 08-17-2017 End: 07-18-2024 take 1 tablet by mouth once Sildenafil (Viagra) 100 mg tablet Discontinued 100 mg PO ONCE 10 October 21, 2023 4:29pm July 18, 2024 4:59pm Start: 05-13-2011 take 1 tablet by demetrio th once daily as needed VIAGRA 100 MG TABS 1 tablet by mouth daily as needed SILDENAFIL CITRATE [id number] Antonina Quinones Tirzepatide (Mounjaro) 2.5 mg/0.5 mL pen injector (6 sources) Start: 06-16-2023 End: 10-21-2023 Tirzepatide (Mounjaro) 2.5 mg/0.5 mL pen injector Discontinued 2.5 mg SC EVERY WEEK 2 05 10June 16, 2023 1:00am October 21, 2023 4:05pm Start: 06-16-2023 End: 10-21-2023 Tirzepatide (Mounjaro) 2.5 m g/0.5 mL pen injector Discontinued 2.5 mg SC EVERY WEEK 09 07June 16, 2023 1:00am October 21, 2023 4:05pm Start: 06-16-2023 Tirzepatide (M ounjaro) 2.5 mg/0.5 mL pen injector Active 2.5 MG SC EVERY WEEK 2 June 16, 2023 12:00am vitamin d 1000 unt oral tablet (2 sources) Start: 05-13-2011 take 1 tablet by mouth every other day VITAMIN D 1000 UNIT TABS 1 tablet by mouth every other day CHOLECALCIFEROL [id number] Antonina Quinones Start: 05-13-2011 take 1 tablet by demetrio th once daily VITAMIN D 1000 UNIT TABS One tablet by mouth daily CHOLECALCIFEROL [id number] Elliott Lopez MD Problems Active Problems Problem Classification Problem Date Documented Da te Episodic/Chronic Administrative/social admission (2 sources) Persons encountering health services in other specified circumstances; Translations: [Other reasons for seeking consultation] 12-02-2022 Episodic Cardiac dysrhythmias (2 sources) Palpitations; Translations: [Palpitations] 07-20-2023 Episodic Conditions associated with dizziness or vertigo (6 sources) Dizziness; Translations: [Dizziness and giddiness] 03-31-2023 Episodic Coronary atherosclerosis and other heart disease (20 sources) Coronary atherosclerosis; Translations: [Atherosclerotic heart disease of [place] coronary artery without angina pectoris] Onset: 05-13-2011 05-13-2011 Chronic Diabetes mellitus with complications (10 sources) Type 1 diabetes mellitus with hyperglycemia; Translations: [Type 1 diabetes mellitus] Onset: 11-01-2015 Chronic Diabetes mellitus without complication (20 sources) Type 1 diabetes mellitus without complications; Translations: [Encounter for fitting and adjustment of insulin pump] Onset: 05-13-2011 05-13-2011 Chronic Diabetes mellitus without complication (20 sources) Presence of insulin pump (external) (internal); Translations: [Insulin pump present] Onset: 11-01-2015 Episodic Disorders of lipid metabolism (20 sources) Hyperlipidemia; Translations: [Mixed hyperlipidemia] Onset: 05-13-2011 05-13-2011 Chronic Essential hypertension (20 sources) Hypertensive disorder; Translations: [Essential (primary) hypertension] Onset: 05-13-2011 05-13-2011 Chronic Malaise and fatigue (6 sources) Fatigue; Translations: [Other fatigue] 03-31-2023 Episodic Other aftercare (14 sources) Long-term current use of insulin; Translations: [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] 10-02-2019 Episodic Other connective tissue disease (1 source) Impingement syndrome of shoulder region; Translations: [Impingement syndrome of right shoulder] Onset: 12-12-2018 12-12-2018 Episodic Other endocrine disorders (3 sources) Increased cortisol level; Translations: [Other adrenocortical overactivity] Chronic Other lower respiratory disease (2 sources) Other forms of dyspnea; Translations: [Other respiratory abnormalities] 07-20-2023 Episodic Other male genital disorders (4 sources) Male erectile dysfunction, unspecified; Translations: [Impotence of organic origin] 12-02-2022 Chronic Other nutritional; endocrine; and metabolic disorders [...] index (bmi) 33.0-33.9, adult] Onset: 02-10-2018 Chronic Other nutritional; endocrine; and metabolic disorders (14 sources) Obesity; Translations: [Obesity, unspecified] 10-13-2020 Chronic Other nutritional; endocrine; and metabolic disorders (12 sources) Obesity, unspecified; Translations: [Obesity, unspecified] Chronic Other upper respiratory disease (1 source) Nasal congestion; Translations: [Nasal congestion] Onset: 01-06-2025 Episodic Other upper respiratory infections (20 sources) Acute maxillary sinusitis; Translations: [Acute maxillary sinusitis, unspecified] Onset: 01-01-2025 Episodic Otitis media and related conditions (19 sources) Otitis media; Translations: [Otitis media, unspecified, left ear] Episodic Residual codes; unclassified (14 sources) Sleep apnea; Translations: [Sleep apnea, unspecified] 08-17-2017 Chronic Residual codes; unclassified (4 sources) Obstructive sleep apnea (adult) (pediatric); Translations: [Obstructive sleep apnea (adult)(pediatric)] 12-02-2022 Chronic Sprains and strains (1 source) Strain of neck muscle; Translations: [Strain of muscle, fascia and tendon at neck level, initial encounter] Onset: 12-12-2018 12-12-2018 Episodic Past or Other Problems Problem Classification Problem Date Documented Date Episodic/Chronic Other 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 (2 sources) 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; Translations: [custodial (current) use of insulin] Onset: 11-01-2015 Episodic [...] Results Test Name Value Interpretation Reference Range Facility Internal Medicine Office Vis raegan 01-04-2025 Internal Medicine Office Visit [facility] [address] [place] [address] OFFICE VISIT Date of Service: 01/04/25 MR#: [id number] Acct: [id number] Name: WES SMITH Rep #: [id number] : 1965 Provider: CRISTINA joshi Age/Sex: 59/M Location: [facility] Status: Signed Intake Vital Signs 01/01/25 13:32 01/04/25 08:23 Height 6 ft 2 in 6 ft 2 in Weight: 264 lb 268 lb BMI 33.9 34.4 BP 140/78 H 128/62 H Blood Pressure Location Rt brachial Lt brachial Position Sitting Sitting Respiration 16 18 Pulse 81 89 Pulse Source Monitor Monitor Temp 97.6 F L 96.8 F L Temp Source Temporal Temporal Pulse Oximetry (%) 92 94 Oxygen Delivery Method room air room air Intake Visit Reasons: ACUTE RIGHT EAR PAIN Chief Complaint: ACUTE RIGHT EAR PAIN Retort Operator Required: No Accompanied by: Self Is patient in pain?: Yes (4 ear pain ) Allergies No Known Allergies Allergy (Verified 01/04/25 14:32) Medications ???Medication ???Instructions ???Recorded ???Confirmed ???Type aspirin 81 mg tablet,delayed 81 mg PO DAILY@0800 /10/23 History release cholecalciferol (vitamin D3) 25 2,000 unit PO DAILY 08/29/1801/04 History mcg (1,000 unit) capsule melatonin 10 mg capsule 10 mg PO HS 04/23/19 01/04/25 Hist ory acetaminophen 500 mg capsule 1,000 mg PO BID 10/02/20 01/04/25 History esomeprazole magnesium 20 mg 20 mg PO DAILY 10/21/23 01/04/25 H istory capsule,delayed release brimonidine 0.2 %-timolol 0.5 % 1 drp ophthalmic (eye) BID #5 mL 0 01/19/24 01/04/25 Rx eye drops amlodipine 10 mg tablet 10 mg PO QDAY #90 tabs 05/17/24 Rx lisinopril 40 mg tablet 40 mg PO DAILY #90 tabs 05/17/24 0 01/04/25 Rx rosuvastatin 40 mg tablet 40 mg PO DAILY #90 tabs 05/17/24 0 01/04/25 Rx spironolactone 50 mg tablet 50 mg PO QDAY #90 tabs 05/17/24 Rx tadalafil 20 mg tablet (Cialis) 20 mg PO QDAY PRN sexual activity 07/18/24 01/04/25 Rx #10 tabs insulin lispro 100 unit/mL 160 unit (1.6 mL) subcut 11/26/24 01/04/25 Rx subcutaneous solution (Humalog .continuous #150 mL U-100 Insulin) ibuprofen 400 mg tablet 600 mg PO BID PRN 12/30/24 5 History lidocaine HCl 2 % mucosal solution 1 applic mucous membrane BID PRN 12/30/24 01/04/25 Rx (Lidocaine Viscous) pain #300 mL prednisone 20 mg tablet 40 mg (2 x 20 mg) PO QDAY #10 tabs 01/01/25 01/04/25 Rx codeine 10 mg-guaifenesin 100 mg/5 10 ml PO Q4-6H PRN cough #118 mL 01/02/25 01/04/25 Rx mL oral liquid amoxicillin 500 mg-potassium 1 tab PO TID #21 tabs 01/04/25 Rx clavulanate 125 mg tablet (Augmentin) diphenhydramine HCl 25 mg tablet 50 mg PO QHS PRN 01/04/25 01/04/25 History (Allergy (diphenhydramine)) Have you fallen in the past year?: No Nurse's Note: pt reports that his earache developed after cold like symptoms this past week, reports sore throat is resolving but he has developed pain and pressure in his ears, worse in right ear. finishing prednisone tomorrow. feels sweaty today. 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 Vascular disease Stomach ulcer Cataracts, bilateral History of back problems DKA (diabetic ketoacidoses) Sleep apnea Hyperlipidemia Surgical History H/O vitrectomy History of left heart catheterization (01/25/14) History of eye surgery Family History Brother Sudden cardiac , Onset Age: 48 Myocardial infarction, Onset Age: 48 Hypertension Hyperlipidemia Heart disease Mother Hypertension Alcoholism analgesic complications Afib post operatively Hyperlipidemia Dementia Father Multiple sclerosis Grandmother Hyperlipidemia Hypertension Grandfather Parkinsons disease Grandmother Cancer lung Social History household members: spouse current occupational status: employed 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 Normal [facility] Internal Medicine Office Vis alinaemma 01-01-2025 Internal Medicine Office Visit [facility] [address] [place] [address] [place] [address] OFFICE VISIT Date of Service: 01/01/25 MR#: [id number] Acct: [id number] Name: WES SMITH Rep #: [id number] : 1965 Provider: Dr. Kelsey thomas MD Age/Sex: 59/M Location: [facility] [place] Status: Signed Intake Vital Signs 08/24/24 16:03 01/01/25 13:32 Height 6 ft 2 in 6 ft 2 in Weight: 264 lb BMI 33.9 BP 140/78 H Blood Pressure Location Rt brachial Position Sitting Respiration 16 Pulse 81 Pulse Source Monitor Temp 97.6 F L Temp Source Temporal Pulse Oximetry (%) 92 Oxygen Delivery Method room air Intake Visit Reasons: ACUTE -CONGESTION / SORE THROAT Chief Complaint: sick Retort Operator Required: No Accompanied by: Self Is patient in pain?: Yes (sore throat is painful ) Pain scale (1-10): 9 Allergies No Known Allergies Allergy (Verified 01/01/25 13:21) Medications ???Medication ???Instructions ???Recorded ???Confirmed ???Type aspirin 81 mg tablet,delayed 81 mg PO DAILY@0800 08//01/01 History release cholecalciferol (vitamin D3) 25 2,000 unit PO DAILY 08/29/1801/01 History mcg (1,000 unit) capsule melatonin 10 mg capsule 10 mg PO HS 04/23/19 01/01/25 Hist ory acetaminophen 500 mg capsule 1,000 mg PO BID 10/02/20 01/01/25 History esomeprazole magnesium 20 mg 20 mg PO DAILY 10/21/23 01/01/25 H istory capsule,delayed release brimonidine 0.2 %-timolol 0.5 % 1 drp ophthalmic (eye) BID #5 mL 0 01/19/24 01/01/25 Rx eye drops amlodipine 10 mg tablet 10 mg PO QDAY #90 tabs 05/17/24 Rx lisinopril 40 mg tablet 40 mg PO DAILY #90 tabs 05/17/24 0 01/01/25 Rx rosuvastatin 40 mg tablet 40 mg PO DAILY #90 tabs 05/17/24 0 01/01/25 Rx spironolactone 50 mg tablet 50 mg PO QDAY #90 tabs 05/17/24 Rx tadalafil 20 mg tablet (Cialis) 20 mg PO QDAY PRN sexual activity 07/18/24 01/01/25 Rx #10 tabs diphenhydramine HCl 25 mg tablet 25 mg PO QHS PRN 08/24/24 01/01/25 History (Allergy (diphenhydramine)) insulin lispro 100 unit/mL 160 unit (1.6 mL) subcut 11/26/24 01/01/25 Rx subcutaneous solution (Humalog .continuous #150 mL U-100 Insulin) ibuprofen 400 mg tablet 600 mg PO BID PRN 12/30/24 5 History lidocaine HCl 2 % mucosal solution 1 applic mucous membrane BID PRN 12/30/24 01/01/25 Rx (Lidocaine Viscous) pain #300 mL prednisone 20 mg tablet 40 mg (2 x 20 mg) PO QDAY #10 tabs 01/01/25 01/01/25 Rx Have you fallen in the past year?: No Nurse's Note: started but really became uncomfortable tuesday with sore throat went tuesday to the [facility] negative for strep on rapid strep test was not tested for anything else at that time lots of pressure in viviane ears coughing head congestion and low grade temp and headache on and off. 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 Vascular disease Stomach ulcer Cataracts, bilateral History of back problems DKA (diabetic ketoacidoses) Sleep apnea Hyperlipidemia Surgical History H/O vitrectomy History of left heart catheterization (01/25/14) History of eye surgery Family History Brother Sudden cardiac , Onset Age: 48 Myocardial infarction, Onset Age: 48 Hypertension Hyperlipidemia Heart disease Mother Hypertension Alcoholism analgesic complications Afib post operatively Hyperlipidemia Dementia Father Multiple sclerosis Grandmother Hyperlipidemia Hypertension Grandfather Parkinsons disease Grandmother Cancer lung Social History household members: spouse current occupational status: employed 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 He has concerns about sinus pressure and sore throat. He reports that his symptoms started when he was drivi (more content not included)... Normal [facility] M100.019on 01-01-2025 M100.019 Negative Normal [facility] Comment on above: Performed By: #### M 100.019 #### [facility] Laboratory [facility] [address] [place], [place], [phone] No Panel InformationOrdered By: Kelsey Burns on 01-01-2025 POC SARS CoV-2 Antigen Negative [facility] Rapid group A Streptococcus antigen assay at point of careOrdered By: Kelsey Burns on 01-01-2025 S. pyogenes Ag IA.rapid Ql (Throat) Negative [facility] [id number] By: Kelsey Burns on 01-01-2025 SARS-CoV-2 (COVID-19) RNA CORINNE+probe Ql (Unsp spec) [facility] Rapid group A Streptococcus antigen assay at point of careOrdered By: Howard Tavera on 12-30-2024 S. pyogenes Ag IA.rapid Ql (Throat) Negative [facility] Urgent Care Visit Reporton 0 12-30-2024 Urgent Care Visit Report [facility] [address] [place] [address] OFFICE VISIT Date of Service: 12/30/24 MR#: [id number] Acct: [id number] Name: WES SMITH Rep #: [id number] : 1965 Provider: CRISTINA varner Age/Sex: 59/M Location: [facility] Status: Signed Intake Vital Signs 08/24/24 16:03 12/30/24 10:08 Height 6 ft 2 in Weight: 268 lb 6 oz BMI 34.4 BP 132/80 H 124/66 H Blood Pressure Location Rt brachial Position Sitting Sitting Respiration 16 Pulse 73 82 Pulse Source Monitor Temp 98.5 F Temp Source Oral Pulse Oximetry (%) 97 95 Oxygen Delivery Method room air room air Intake Visit Reasons: SORE THROAT Accompanied by: Self Allergies No Known Allergies Allergy (Verified 12/30/24 10:08) Medications ???Medication ???Instructions ???Recorded ???Confirmed ???Type aspirin 81 mg tablet,delayed 81 mg PO DAILY@0800 08//12/30 History release cholecalciferol (vitamin D3) 25 2,000 unit PO DAILY 08/29/1812/30 History mcg (1,000 unit) capsule melatonin 10 mg capsule 10 mg PO HS 04/23/19 12/30/24 Hist ory acetaminophen 500 mg capsule 1,000 mg PO BID 10/02/20 12/30/24 History esomeprazole magnesium 20 mg 20 mg PO DAILY 10/21/23 12/30/24 H istory capsule,delayed release brimonidine 0.2 %-timolol 0.5 % 1 drp ophthalmic (eye) BID #5 mL 0 01/19/24 12/30/24 Rx eye drops amlodipine 10 mg tablet 10 mg PO QDAY #90 tabs 05/17/24 Rx lisinopril 40 mg tablet 40 mg PO DAILY #90 tabs 05/17/24 0 12/30/24 Rx rosuvastatin 40 mg tablet 40 mg PO DAILY #90 tabs 05/17/24 0 12/30/24 Rx spironolactone 50 mg tablet 50 mg PO QDAY #90 tabs 05/17/24 Rx tadalafil 20 mg tablet (Cialis) 20 mg PO QDAY PRN sexual activity 07/18/24 12/30/24 Rx #10 tabs diphenhydramine HCl 25 mg tablet 25 mg PO QHS PRN 08/24/24 12/30/24 History (Allergy (diphenhydramine)) insulin lispro 100 unit/mL 160 unit (1.6 mL) subcut 11/26/24 12/30/24 Rx subcutaneous solution (Humalog .continuous #150 mL U-100 Insulin) ibuprofen 400 mg tablet 600 mg PO BID PRN 12/30/24 5 History lidocaine HCl 2 % mucosal solution 1 applic mucous membrane BID PRN 12/30/24 12/30/24 Rx (Lidocaine Viscous) pain #300 mL Nurse's Note: Patient has a ST that has been going on since Tuesday. Patient state thrus he started having chest tightness in his upper chest and nasal congestion and cough. Patient is taking Sudafed.Patient also has pressure in his ear this morning. 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 Vascular disease Stomach ulcer Cataracts, bilateral History of back problems DKA (diabetic ketoacidoses) Sleep apnea Hyperlipidemia Surgical History H/O vitrectomy History of left heart catheterization (01/25/14) History of eye surgery Family History Brother Sudden cardiac , Onset Age: 48 Myocardial infarction, Onset Age: 48 Hypertension Hyperlipidemia Heart disease Mother Hypertension Alcoholism analgesic complications Afib post operatively Hyperlipidemia Dementia Father Multiple sclerosis Grandmother Hyperlipidemia Hypertension Grandfather Parkinsons disease Grandmother Cancer lung Social History household members: spouse current occupational status: employed 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 The patient is a 59-year-old male presenting with upper respiratory infection symptoms. Symptoms include sore throat, nasal congestion, cough, and chest tightness, persisting despite Sudafed and Mucinex DM use. Past medical history includes diabetes mellitus type 1, nonobstructive atherosclerosis of coronary arteries, obesity, sleep apnea, and hyperlipidemia. Former smoker with a 17 pack-year history, uses CPAP for s (more content not included)... Normal [facility] Endocrinology Visit Reporton 08-24-2024 Endocrinology Visit Report [facility] [address] [place] [address] OFFICE VISIT Date of Service: 08/24/24 MR#: [id number] Acct: [id number] Name: WES SMITH Rep #: [id number] : 1965 Provider: Rochelle Camacho Age/Sex: 58/M Location: [facility] Status: Signed Intake Vital Signs 02/10/24 16:29 07/18/24 14:07 08/24/24 16:03 Height 6 ft 2 in 6 ft 2 in 6 ft 2 in Weight: 271 lb 268 lb 6 oz BMI 34.7 34.4 BP 142/78 H 132/80 H Blood Pressure Location Lt brachial Rt brachial Position Sitting Sitting Respiration 17 Pulse 69 73 Pulse Source Monitor Monitor Temp 97.8 F Temp Source Temporal Pulse Oximetry (%) 96 97 Oxygen Delivery Method room air room air Intake Visit Reasons: 6 M FU Chief Complaint: Diabetes Is patient in pain?: No Allergies No Known Allergies Allergy (Verified 08/24/24 16:05) Medications ???Medication ???Instructions ???Recorded ???Confirmed ???Type aspirin 81 mg tablet,delayed 81 mg PO DAILY@0800 08/10/23 History release cholecalciferol (vitamin D3) 25 2,000 unit PO DAILY 08/29/1808/24 History mcg (1,000 unit) capsule melatonin 10 mg capsule 10 mg PO HS 04/23/19 08/24/24 Hist ory acetaminophen 500 mg capsule 1,000 mg PO BID 10/02/20 08/24/24 History esomeprazole magnesium 20 mg 20 mg PO DAILY 10/21/23 08/24/24 H istory capsule,delayed release insulin lispro 100 unit/mL 160 unit (1.6 mL) subcut 10/21/23 08/24/24 Rx subcutaneous solution (Humalog .continuous #150 mL U-100 Insulin) brimonidine 0.2 %-timolol 0.5 % 1 drp ophthalmic (eye) BID #5 mL 0 01/19/24 08/24/24 Rx eye drops amlodipine 10 mg tablet 10 mg PO QDAY #90 tabs 05/17/24 Rx lisinopril 40 mg tablet 40 mg PO DAILY #90 tabs 05/17/24 0 08/24/24 Rx rosuvastatin 40 mg tablet 40 mg PO DAILY #90 tabs 05/17/24 0 08/24/24 Rx spironolactone 50 mg tablet 50 mg PO QDAY #90 tabs 05/17/24 Rx ibuprofen 400 mg tablet 600 mg PO BID 07/18/24 08/24/24 Hi story tadalafil 20 mg tablet (Cialis) 20 mg PO QDAY PRN sexual activity 07/18/24 08/24/24 Rx #10 tabs diphenhydramine HCl 25 mg tablet 25 mg PO QHS PRN 08/24/24 08/24/24 History (Allergy (diphenhydramine)) 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 Vascular disease Stomach ulcer Cataracts, bilateral History of back problems DKA (diabetic ketoacidoses) Sleep apnea Hyperlipidemia Surgical History H/O vitrectomy History of left heart catheterization (01/25/14) History of eye surgery Family History Brother Sudden cardiac , Onset Age: 48 Myocardial infarction, Onset Age: 48 Hypertension Hyperlipidemia Heart disease Mother Hypertension Alcoholism analgesic complications Afib post operatively Hyperlipidemia Dementia Father Multiple sclerosis Grandmother Hyperlipidemia Hypertension Grandfather Parkinsons disease Grandmother Cancer lung Social History household members: spouse current occupational status: employed 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 A1C is 6.9% GMI is 7.2% He is using T-slim insulin pump with Dexcom G7 and Control IQ Upload shows post meal highs. He is on PANTERA and statin. He sees podiatry regularly. ROS Const Constitutional: No fatigue, weight change or change in appetite Eyes Eyes: No change in vision ENT ENT: No dizziness/vertigo or difficulty swallowing Cardio Cardiology: No chest pain at rest, chest pain with exertion, shortness of breath or palpitations Musc Musculoskeletal: No abnormal gait, joint pain, numbness or tingling Neuro Neurology: No abnormal gait, memory loss, numbness or tingling Psych Psychiatric: No change in appetite (more content not included)... Normal [facility] Internal Medicine Office Vis raegan 07-17-2024 Internal Medicine Office Visit [facility] [address] [place] [address] [place] [address] OFFICE VISIT Date of Service: 07/18/24 MR#: [id number] Acct: [id number] Name: WES SMITH Rep #: [id number] : 1965 Provider: Dr. Kelsey thomas MD Age/Sex: 58/M Location: [facility] Status: Signed Intake Vital Signs 01/19/24 12:59 05/17/24 15:05 07/18/24 14:07 Height 6 ft 2 in 6 ft 2 in 6 ft 2 in Weight: 271 lb BMI 34.7 BP 142/78 H Blood Pressure Location Lt brachial Position Sitting Respiration 17 Pulse 69 Pulse Source Monitor Temp 97.8 F Temp Source Temporal Pulse Oximetry (%) 96 Oxygen Delivery Method room air Intake Visit Reasons: 6 m fu Chief Complaint: 6m f/u Is patient in pain?: Yes (pain of 1 on 0-10 ) Allergies No Known Allergies Allergy (Verified 07/18/24 14:07) Medications ???Medication ???Instructions ???Recorded ???Confirmed ???Type aspirin 81 mg tablet,delayed 81 mg PO DAILY@0800 02/11/15 07/18/24 History release cholecalciferol (vitamin D3) 25 2,000 unit PO DAILY 08/29/18 07/18/24 History mcg (1,000 unit) capsule melatonin 10 mg capsule 10 mg PO HS 04/23/19 07/18/24 History acetaminophen 500 mg capsule 1,000 mg PO BID 10/02/20 07/18/24 History esomeprazole magnesium 20 mg 20 mg PO DAILY 10/21/23 07/18/24 History capsule,delayed release insulin lispro 100 unit/mL 160 unit (1.6 mL) subcut 10/21/23 07/18/24 Rx subcutaneous solution (Humalog .continuous #150 mL U-100 Insulin) brimonidine 0.2 %-timolol 0.5 % 1 drp ophthalmic (eye) BID #5 mL 01/19/24 07/18/24 Rx eye drops amlodipine 10 mg tablet 10 mg PO QDAY #90 tabs 05/17/24 07/18/24 Rx lisinopril 40 mg tablet 40 mg PO DAILY #90 tabs 05/17/24 07/18/24 Rx rosuvastatin 40 mg tablet 40 mg PO DAILY #90 tabs 05/17/24 07/18/24 Rx spironolactone 50 mg tablet 50 mg PO QDAY #90 tabs 05/17/24 07/18/24 Rx ibuprofen 400 mg tablet 600 mg PO BID 07/18/24 07/18/24 History tadalafil 20 mg tablet (Cialis) 20 mg PO QDAY PRN sexual activity 07/18/24 07/18/24 Rx #10 tabs Have you fallen in the past year?: Yes (1) Nurse's Note: pt reports that he has chronic pain in bilateral knees reports that the pain right now is a 1 on 0- 10 scale. reports no concerns. 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 Vascular disease Stomach ulcer Cataracts, bilateral History of back problems DKA (diabetic ketoacidoses) Sleep apnea Hyperlipidemia Surgical History H/O vitrectomy History of left heart catheterization (01/25/14) History of eye surgery Family History Brother Sudden cardiac , Onset Age: 48 Myocardial infarction, Onset Age: 48 Hypertension Hyperlipidemia Heart disease Mother Hypertension Alcoholism analgesic complications Afib post operatively Hyperlipidemia Dementia Father Multiple sclerosis Grandmother Hyperlipidemia Hypertension Grandfather Parkinsons disease Grandmother Cancer lung Social History household members: spouse current occupational status: employed 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 He isdue for some routine blood work. He believes he had his colonoscopy in 2018 or 2019 and it was normal. He does still need to get his shingles vaccines and will get that at the pharmacy. He doesn't smoke and does not need refills today. He is trying to eat healthy. He hasn't been very active. The patient has a history of DM1, diagnosed as a child at 10. He does check his sugars at home through his yair and states they have been pretty well controlled. He has an insulin pump in place which runs continuously. He states it is out of warranty, however, and may be changing pumps. He is trying to monitor his carbohydrates and sugars. He reports his diabetic eye exam is up to da (more content not included)... Normal [facility] Cardiology Visit Reporton Cardiology Visit Report [facility] [address] [place] [address] OFFICE VISIT Date of Service: 05/17/24 MR#: [id number] Acct: [id number] Name: WES SMITH Rep #: [id number] : 1965 Provider: CRISTINA nicole Age/Sex: 58/M Location: [facility] [place] Status: Signed HPI HPI History of Present Illness Details: WES SMITH, is a 58 M who presents to the office today for a cardiovascular follow-up visit. As you know he does have a diagnosis of minimal coronary artery disease following a cardiac catheterization in 2013. He also has a history of hypertension, hyperlipidemia, and diabetes mellitus on insulin. From a cardiac standpoint, the patient is doing well. He denies any palpitations, chest pain, pressure or heaviness. He does have occasional SOB with exertion-this is nothing new or worsening. He denies Orthopnea, and PND. He states that he does have a new CPAP. He does not have bleeding issues; no blood in urine, stool or nosebleeds. He denies any decrease in energy level, myalgias, or claudication. He does not have edema, or sudden weight gain. He does acknowledge occasional lightheadedness. He denies dizziness, syncopal or near syncopal episodes, and headaches. Intake Vital Signs 03/31/23 11:09 02/10/24 16:29 05/17/24 15:04 05/17/24 15:05 Height 6 ft 2 in 6 ft 2 in 6 ft 2 in 6 ft 2 in Weight: 272 lb BMI 34.9 BP 119/71 Blood Pressure Location Lt brachial Position Sitting Respiration 18 Pulse 72 Pulse Source Monitor Pulse Oximetry (%) 96 Intake Visit Reasons: 1 Y FU/MOVED FROM [facility] Retort Operator Required: No Is patient in pain?: No Allergies No Known Allergies Allergy (Verified 05/17/24 15:14) Medications ???Medication ???Instructions ???Recorded ???Confirmed ???Type aspirin 81 mg tablet,delayed 81 mg PO DAILY@0800 02/11/15 05/17/24 History release cholecalciferol (vitamin D3) 25 2,000 unit PO DAILY 08/29/18 05/17/24 History mcg (1,000 unit) capsule melatonin 10 mg capsule 10 mg PO HS 04/23/19 05/17/24 History acetaminophen 500 mg capsule 1,000 mg PO BID 10/02/20 05/17/24 History ibuprofen 400 mg tablet 400 mg PO BID 03/18/22 05/17/24 History esomeprazole magnesium 20 mg 20 mg PO DAILY 10/21/23 05/17/24 History capsule,delayed release insulin lispro 100 unit/mL 160 unit (1.6 mL) subcut 10/21/23 05/17/24 Rx subcutaneous solution (Humalog .continuous #150 mL U-100 Insulin) sildenafil 100 mg tablet (Viagra) 100 mg PO ONCE #10 tabs 10/21/23 05/17/24 Rx brimonidine 0.2 %-timolol 0.5 % 1 drp ophthalmic (eye) BID #5 mL 01/19/24 05/17/24 Rx eye drops amlodipine 10 mg tablet 10 mg PO QDAY #90 tabs 05/17/24 05/17/24 Rx lisinopril 40 mg tablet 40 mg PO DAILY #90 tabs 05/17/24 05/17/24 Rx rosuvastatin 40 mg tablet 40 mg PO DAILY #90 tabs 05/17/24 05/17/24 Rx spironolactone 50 mg tablet 50 mg PO QDAY #90 tabs 05/17/24 05/17/24 Rx 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 Vascular disease Stomach ulcer Cataracts, bilateral History of back problems DKA (diabetic ketoacidoses) Sleep apnea Hyperlipidemia Surgical History H/O vitrectomy History of left heart catheterization (01/25/14) History of eye surgery Family History Brother Sudden cardiac , Onset Age: 48 Myocardial infarction, Onset Age: 48 Hypertension Hyperlipidemia Heart disease Mother Hypertension Alcoholism analgesic complications Afib post operatively Hyperlipidemia Dementia Father Multiple sclerosis Grandmother Hyperlipidemia Hypertension Grandfather Parkinsons disease Grandmother Cancer lung Social History household members: spouse current occupational status: employed 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 Normal [facility] Endocrinology Visit Reporton 02-10-2024 Endocrinology Visit Report [facility] [address] [place] [address]. [address] [place] [address] OFFICE VISIT Date of Service: 02/10/24 MR#: [id number] Acct: [id number] Name: WES SMITH Rep #: [id number] : 1965 Provider: Rochelle Camacho Age/Sex: 58/M Location: [facility] [place] Status: Signed Intake Vital Signs 10/21/23 16:07 01/19/24 12:59 02/10/24 16:29 Height 6 ft 2 in 6 ft 2 in 6 ft 2 in Weight: 276 lb 275 lb 8 oz 278 lb BMI 35.4 35.4 35.6 BP 130/73 H 122/64 H 137/77 H Blood Pressure Location Rt brachial Lt brachial Lt brachial Position Sitting Sitting Sitting Respiration 14 16 16 Pulse 80 74 75 Pulse Source Monitor Monitor Monitor Temp 97.7 F L 97.2 F L 97.2 F L Temp Source Temporal Temporal Temporal Pulse Oximetry (%) 92 95 94 Oxygen Delivery Method room air room air room air Intake Visit Reasons: 6 M FU Chief Complaint: 6m f/u Retort Operator Required: No Accompanied by: Self Is patient in pain?: No Allergies No Known Allergies Allergy (Verified 02/10/24 16:24) Medications ???Medication ???Instructions ???Recorded ???Confirmed ???Type aspirin 81 mg tablet,delayed 81 mg PO DAILY@0800 02/11/15 02/10/24 History release cholecalciferol (vitamin D3) 25 2,000 unit PO DAILY 08/29/18 02/10/24 History mcg (1,000 unit) capsule melatonin 10 mg capsule 10 mg PO HS 04/23/19 02/10/24 History acetaminophen 500 mg capsule 1,000 mg PO BID 10/02/20 02/10/24 History ibuprofen 400 mg tablet 400 mg PO BID 03/18/22 02/10/24 History esomeprazole magnesium 20 mg 20 mg PO DAILY 10/21/23 02/10/24 History capsule,delayed release insulin lispro 100 unit/mL 160 unit (1.6 mL) subcut 10/21/23 02/10/24 Rx subcutaneous solution (Humalog .continuous #150 mL U-100 Insulin) sildenafil 100 mg tablet (Viagra) 100 mg PO ONCE #10 tabs 10/21/23 02/10/24 Rx amlodipine 10 mg tablet 10 mg PO QDAY #90 tabs 01/19/24 02/10/24 Rx brimonidine 0.2 %-timolol 0.5 % 1 drp ophthalmic (eye) BID #5 mL 01/19/24 02/10/24 Rx eye drops lisinopril 40 mg tablet 40 mg PO DAILY #90 tabs 01/19/24 02/10/24 Rx rosuvastatin 40 mg tablet 40 mg PO DAILY #90 tabs 01/19/24 02/10/24 Rx spironolactone 50 mg tablet 50 mg PO QDAY #90 tabs 01/19/24 02/10/24 Rx 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 Vascular disease Stomach ulcer Cataracts, bilateral History of back problems DKA (diabetic ketoacidoses) Sleep apnea Hyperlipidemia Surgical History H/O vitrectomy History of left heart catheterization (01/25/14) History of eye surgery Family History Brother Sudden cardiac , Onset Age: 48 Myocardial infarction, Onset Age: 48 Hypertension Hyperlipidemia Heart disease Mother Hypertension Alcoholism analgesic complications Afib post operatively Hyperlipidemia Dementia Father Multiple sclerosis Grandmother Hyperlipidemia Hypertension Grandfather Parkinsons disease Grandmother Cancer lung Social History household members: spouse current occupational status: employed 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 A1c is 7.2% GMI is 7% He is using t-slim insulin pump with Dexcom CGM. Upload shows highs from 8 pm to 11 pm, otherwise good control. He has HTN and hyperlipidemia. He is on statin and PANTERA. He is on spironolactone for renal protection. He is under a lot of stress, but is doing well. ROS Const Constitutional: No body ache, chills, excessive sweating, fatigue, fever(s), frequent falls, headache(s), snoring, weakness or change in appetite Eyes Eyes: No blurry vision, change in vision, eye pain or Light sensitivity ENT ENT: No abnormal hearing, ear or mastoid pain, tinnitus, nasal congestion, headache(s), neck pain or sore throat Card (more content not included)... Normal [facility] Internal Medicine Office Vis iton 01-18-2024 Internal Medicine Office Visit [facility] [address] [place], [place] [address] OFFICE VISIT Date of Service: 01/19/24 MR#: [id number] Acct: [id number] Name: WES SMITH Rep #: [id number] : 1965 Provider: Dr. Kelsey thomas MD Age/Sex: 58/M Location: [facility] [place] Status: Signed Intake Vital Signs 07/20/23 15:40 10/21/23 16:07 01/19/24 12:59 Height 6 ft 2 in 6 ft 2 in 6 ft 2 in Weight: 275 lb 8 oz BMI 35.4 BP 122/64 H Blood Pressure Location Lt brachial Position Sitting Respiration 16 Pulse 74 Pulse Source Monitor Temp 97.2 F L Temp Source Temporal Pulse Oximetry (%) 95 Oxygen Delivery Method room air Intake Visit Reasons: 6 M FU Chief Complaint: f/u Retort Operator Required: No Accompanied by: Self Is patient in pain?: No Allergies No Known Allergies Allergy (Verified 01/19/24 12:55) Medications ???Medication ???Instructions ???Recorded ???Confirmed ???Type aspirin 81 mg tablet,delayed 81 mg PO DAILY@0800 15 01/19/24 History release cholecalciferol (vitamin D3) 25 2,000 unit PO DAILY 08/29/18 01/19/24 History mcg (1,000 unit) capsule melatonin 10 mg capsule 10 mg PO HS 04/23/19 01/19/24 History acetaminophen 500 mg capsule 1,000 mg PO BID 10/02/20 01/19/24 History ibuprofen 400 mg tablet 400 mg PO BID 03/18/22 01/19/24 History esomeprazole magnesium 20 mg 20 mg PO DAILY 10/21/23 01/19/24 History capsule,delayed release insulin lispro 100 unit/mL 160 unit (1.6 mL) subcut 10/21/23 01/19/24 Rx subcutaneous solution (Humalog .continuous #150 mL U-100 Insulin) sildenafil 100 mg tablet (Viagra) 100 mg PO ONCE #10 tabs 10/21/23 01/19/24 Rx amlodipine 10 mg tablet 10 mg PO QDAY #90 tabs 01/19/24 01/19/24 Rx brimonidine 0.2 %-timolol 0.5 % 1 drp ophthalmic (eye) BID #5 mL 01/19/24 01/19/24 Rx eye drops lisinopril 40 mg tablet 40 mg PO DAILY #90 tabs 01/19/24 01/19/24 Rx rosuvastatin 40 mg tablet 40 mg PO DAILY #90 tabs 01/19/24 01/19/24 Rx spironolactone 50 mg tablet 50 mg PO QDAY #90 tabs 01/19/24 Rx PFSH Medical History Pseudophakia of both eyes 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 associated with type 1 diabetes mellitus Epiretinal membrane (ERM) of right eye Ocular hypertension of right eye High triglycerides Glaucoma Diabetes mellitus type 1 Nonobstructive atherosclerosis of coronary artery 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 Vascular disease Stomach ulcer Cataracts, bilateral History of back problems DKA (diabetic ketoacidoses) Sleep apnea Hyperlipidemia Surgical History H/O vitrectomy History of left heart catheterization (01/25/14) History of eye surgery Family History Brother Sudden cardiac , Onset Age: 48 Myocardial infarction, Onset Age: 48 Hypertension Hyperlipidemia Heart disease Mother Hypertension Alcoholism analgesic complications Afib post operatively Hyperlipidemia Dementia Father Multiple sclerosis Grandmother Hyperlipidemia Hypertension Grandfather Parkinsons disease Grandmother Cancer lung Social History (Updated 01/19/24 @ 13:[address] 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 He is up to date on his routine blood work. He believes he had his colonoscopy in 2018 or 2019 and it was normal. He does still need to get his shingles vaccines, which he will get at the pharmacy. He doesn't smoke and does need refills today. He is trying to monitor his diet, but isn't doing as well as he used to be. He reports he isn't very active. The patient has a history of DM1, diagnosed as a child at 10. He does check his sugars at home through his yair. Currently, it is 119. He has an insulin pump in place which runs continuously. He has had the pump for 2-3 years and thinks he is changing his cartridge more frequently. He is trying to monitor his carbohydrates and sugars somewhat. He reports his diabetic eye exam is up to date and he does follow with podiatry. He sees endocrinology and has an appointment coming up. He doesn't check his blood pressure (more content not included)... Normal [facility] Absolute lymphocyte countOrd ered By: Reba Elliott on 08-03-2023 Lymphocytes Auto (Unsp spec) [#/Vol] 2.39 10*3/uL 0.83-4.51 [facility] Automated lymphocyte count a s percentage of total leukocytesOrdered By: Reba Elliott on 08-03-2023 Lymphocytes/100 WBC Auto (Unsp spec) 31.0 % 19-41 [facility] Basophil percentageOrdered B y: Reba Elliott on 08-03-2023 Basophils/100 WBC (Bld) 0.9 % 0-1 [facility] Chloride [Moles/Vol] 108 mmol/L 98-107 [facility] Eosinophils/100 WBC (Bld) 4.5 % 0-5 [facility] Glucose [Mass/Vol] 158 mg/dL 74-106 [facility] Comment on above: Fasting Glucose resu lt greater than or equal to 126 mg/dL suggests DIABETES MELLITUS per A.D.A. criteria. Hemoglobin (Bld) [Mass/Vol] 14.5 g/dL 13.0-16.5 [facility] Monocytes/100 WBC (Bld) 9.4 % 0-10 [facility] Neutrophils (Bld) [#/Vol] 4.2 10*3/uL 2.0-7.7 [facility] Neutrophils/100 WBC (Bld) 53.9 % 47-70 [facility] Potassium [Moles/Vol] 4.2 mmol/L 3.5-5.1 [facility] Sodium [Moles/Vol] 137 mmol/L 136-145 [facility] WBC (Bld) [#/Vol] 7.7 10*3/uL 4.4-11.0 [facility] Basophil percentageOrdered B y: lEliott Lopez on 08-03-2023 Bilirubin [Mass/Vol] 0.40 mg/dL 0.20-1.00 [facility] Comment on above: For patients on eltr ombopag therapy, use of Dimension [place] TBIL is not recommended. Cholesterol [Mass/Vol] 155 mg/dL <200 [facility] Comment on above: <200 mg/dL Desirable 200-240 mg/dL Borderline >240 mg/dL High Risk Protein [Mass/Vol] 7.1 g/dL 6.4-8.2 [facility] Triglyceride [Mass/Vol] 118 mg/dL <199 [facility] Comment on above: The drugs N-Acetylcy steine and Metamizole may falsely depress this assay.Serum Triglycerides Reference Interval Normal <150 mg/dL Borderline high 150 - 199 mg/dL High 200 - 499 mg/dL Very High > or = 500 mg/dL Determination of erythrocyte mean corpuscular volume (MCV)Ordered By: Reba Elliott on 08-03-2023 MCV (RBC) [Entitic vol] 92.1 fL 80-94 [facility] Direct bilirubinOrdered By: Elliott Lopez on 08-03-2023 Bilirubin.direct [Mass/Vol] 0.16 mg/dL 0.00-0.30 [facility] Erythrocyte distribution wid th ratioOrdered By: Reba Elliott on 08-03-2023 Erythrocyte distribution width (RBC) [Ratio] 12.5 % 11.6-14.6 [facility] Erythrocyte distribution wid th standard deviationOrdered By: Reba Elliott on 08-03-2023 Erythrocyte distribution width (RBC) [Entitic vol] 42.0 fL 35.1-43.9 [facility] Hematocrit Auto (Bld) [Volum e fraction]Ordered By: Reba Elliott on 08-03-2023 Hematocrit (Bld) [Volume fraction] 43.2 % 40-54 [facility] High density lipoprotein (HD L) measurementOrdered By: Elliott Lopez on 08-03-2023 Cholesterol in HDL (Body fld) [Mass/Vol] 47 mg/dL >40 [facility] Comment on above: The drugs N-Acetylcy steine and Metamizole may falsely depress this assay. Reference Range HDL <40 mg/dL Low HDL Cholesterol HDL >or= 60 mg/dL High HDL Cholesterol Immature granulocytes/100 WB C Auto (Bld)Ordered By: Reba Elloitt on 08-03-2023 Immature granulocytes/100 WBC (Bld) 0.300 % 0.0-0.9 [facility] Comment on above: IG% - Immature Granu locytes (promyelocytes, myelocytes and metamyelocytes) > 1% indicates that a LEFT SHIFT is Present. Laboratory - Chemistry and C hemistry - challengeOrdered By: Elliott Lopez on 08-03-2023 ALP [Catalytic activity/Vol] 85 U/L 45-117 [facility] ALT [Catalytic activity/Vol] 40 U/L 16-61 [facility] Globulin (S) [Mass/Vol] 3.6 g/dL 2.2-4.2 [facility] Laboratory - Chemistry and C hemistry - challengeOrdered By: Reba Elliott on 08-03-2023 CO2 [Moles/Vol] 27.0 mmol/L 21.0-32.0 [facility] Urea nitrogen/Creatinine [Mass ratio] 24.4 mg/mg 10-20 [facility] Laboratory - Hematology and Cell countsOrdered By: Reba Elliott on 08-03-2023 MCH (RBC) [Entitic mass] 30.9 pg 27.0-32.0 [facility] MCHC (RBC) [Mass/Vol] 33.6 g/dL 32-36 [facility] Nucleated RBC/100 WBC (Bld) [Ratio] 0 % 0-5 [facility] Platelets (Bld) [#/Vol] 255 10*3/uL 150-450 [facility] Low density lipoprotein (LDL ) cholesterol measurementOrdered By: Elliott Lopez on 08-03-2023 Cholesterol in LDL (Body fld) [Moles/Vol] 84 mg/dL 0-130 [facility] No Panel InformationOrdered By: Reba Elliott on 08-03-2023 Estimated GFR (MDRD) Amer 100 mL/min >60 [facility] Comment on above: GFR Calc Estimated GFR (MDRD) Non-Af Amer 83 mL/min >60 [facility] Comment on above: Non- GFR Calc Free Triiodothyronine (T3) pg/dL 2.8 pg/mL 2.18-3.98 [facility] Vitamin D 25-Hydroxy 41.6 ng/mL [facility] Comment on above: Vitamin D 25(OH) Sta tus Range Deficiency <20 ng/mL (50nmol/L) Insufficiency 20 - 30 ng/mL (50 - 75 nmol/L) Sufficiency 30 - 100 ng/mL (75 - 250 nmol/L) Toxicity >100 ng/mL (>250 nmol/L) Platelet mean volume Jonathan-Ec ker (Bld) [Entitic vol]Ordered By: Reba Elliott on 08-03-2023 Platelet mean volume (Bld) [Entitic vol] 10.0 fL 6.2-12.0 [facility] RBC Auto (Bld) [#/Vol]Ordere d By: Reba Elliott on 08-03-2023 RBC (Bld) [#/Vol] 4.69 10*6/uL 4.6-6.2 [facility] Serum or plasma calcium darlene urement (mass/volume)Ordered By: Reba Elliott on 08-03-2023 Calcium [Mass/Vol] 9.9 mg/dL 8.5-10.1 [facility] Serum or plasma creatinine m easurement (mass/volume)Ordered By: Reba Elliott on 08-03-2023 Creatinine [Mass/Vol] 0.98 mg/dL 0.70-1.30 [facility] Comment on above: The validity of the calculated GFR & GFRAA in patients over 70 years has not been determined. Clinical correlation is essential. Serum or plasma thyroid stim ulating hormone (TSH) measurement (units/volume)Ordered By: Reba Elliott on 08-03-2023 TSH Qn 3.06 uIU/mL 0.358-3.74 [facility] Serum or plasma urea nitroge n measurement (mass/volume)Ordered By: Reba Elliott on 08-03-2023 Urea nitrogen [Mass/Vol] 24 mg/dL 7-18 [facility] Thin prep Papanicolaou smear with manual screeningOrdered By: Elliott Lopez on 08-03-2023 Thin prep Papanicolaou smear with manual screening 3.5 g/dL 3.2-5.0 [facility] Thin prep Papanicolaou smear with manual screening 19 U/L 15-37 [facility] Thin prep Papanicolaou smear with manual screeningOrdered By: Reba Elliott on 08-03-2023 Thin prep Papanicolaou smear with manual screening 2 5-15 [facility] Thin prep Papanicolaou smear with manual screening 0.89 ng/dL 0.76-1.46 [facility] Very low density lipoprotein (VLDL) cholesterol measurementOrdered By: Elliott Lopez on 08-03-2023 Cholesterol in VLDL Calc [Moles/Vol] 24 mg/dL 5-40 [facility] Laboratory - Hematology and Cell countson 06-16-2023 HbA1c (Bld) [Mass fraction] 7.4 % 4.2-6.3 [facility] Basophil percentageOrdered B y: Elliott Lopez on 12-13-2022 Bilirubin [Mass/Vol] 0.40 mg/dL 0.20-1.00 [facility] Comment on above: For patients on eltr ombopag therapy, use of Dim[place] TBIL is not recommended. Cholesterol [Mass/Vol] 132 mg/dL <200 [facility] Comment on above: <200 mg/dL Desirable 200-240 mg/dL Borderline >240 mg/dL High Risk Protein [Mass/Vol] 6.8 g/dL 6.4-8.2 [facility] Triglyceride [Mass/Vol] 83 mg/dL <199 [facility] Comment on above: The drugs N-Acetylcy steine and Metamizole may falsely depress this assay.Serum Triglycerides Reference Interval Normal <150 mg/dL Borderline high 150 - 199 mg/dL High 200 - 499 mg/dL Very High > or = 500 mg/dL Basophil percentageOrdered B y: Kelsey Burns on 12-13-2022 Testosterone [Mass/Vol] 556 ng/dL 264-916 [facility] Comment on above: Adult male reference interval is based on a population ofhealthy nonobese males (BMI <30) between 19 and 39 yearsold. vanessa Black.al. JCEM 2017,102;[id number]. PMID:[id number]. Direct bilirubinOrdered By: Elliott Lopez on 12-13-2022 Bilirubin.direct [Mass/Vol] 0.12 mg/dL 0.00-0.30 [facility] Free testosterone percentage Ordered By: Kelsey Burns on 12-13-2022 Testosterone Free/Testosterone.tota l [Mass fraction] 2.37 % 1.50-4.20 [facility] Comment on above: Performed at: - L [address] [id number] Director: Markel Luu PhD, Phone: [phone] at: BN - [facility] [address] [id number] Director: Rom Ohara MD, Phone: [phone] Laboratory - Chemistry and C hemistry - challengeOrdered By: Elliott Lopez on 12-13-2022 ALP [Catalytic activity/Vol] 86 U/L 45-117 [facility] ALT [Catalytic activity/Vol] 60 U/L 16-61 [facility] Globulin (S) [Mass/Vol] 3.3 g/dL 2.2-4.2 [facility] No Panel InformationOrdered By: Kelsey Burns on 12-13-2022 Urine Microalbumin/Creatinin e Ratio 8.4 mg/g CRE <30 [facility] Serum or plasma albumin darlene urement (mass/volume)Ordered By: Elliott Lopez on 12-13-2022 Albumin [Mass/Vol] 3.5 g/dL 3.2-5.0 [facility] Serum or plasma cholesterol in HDL measurement (mass/volume)Ordered By: Elliott Lopez on 12-13-2022 Cholesterol in HDL [Mass/Vol] 37 mg/dL >40 [facility] Comment on above: The drugs N-Acetylcy steine and Metamizole may falsely depress this assay. Reference Range HDL <40 mg/dL Low HDL Cholesterol HDL >or= 60 mg/dL High HDL Cholesterol Serum or plasma cholesterol in VLDL measurement (mass/volume)Ordered By: Elliott Lopez on 12-13-2022 Cholesterol in VLDL [Mass/Vol] 17 mg/dL 5-40 [facility] Serum or plasma low density lipoprotein (LDL) cholesterol measurement (mass/volume)Ordered By: Elliott Lopez on 12-13-2022 Cholesterol in LDL [Mass/Vol] 78 mg/dL 0-130 [facility] Serum or plasma testosterone free measurement (mass/volume)Ordered By: Kelsey Burns on 12-13-2022 Testosterone Free [Mass/Vol] 13.18 ng/dL 5.00-21.00 [facility] Thin prep Papanicolaou smear with manual screeningOrdered By: Elliott Lopez on 12-13-2022 Thin prep Papanicolaou smear with manual screening 25 U/L 15-37 [facility] Thin prep Papanicolaou smear with manual screeningOrdered By: Kelsey Burns on 12-13-2022 Thin prep Papanicolaou smear with manual screening 27.1 mg/L NO RANGE EST. [facility] Urine creatinine measurement (mass/volume)Ordered By: Kelsey Burns on 12-13-2022 Creatinine (U) [Mass/Vol] 323.00 mg/dL NO RANGE EST. [facility] Whole blood hemoglobin A1c/t otal hemoglobin ratio (mass fraction)Ordered By: Rosalina Cartwright on 12-13-2022 HbA1c (Bld) [Mass fraction] 6.6 % 3.8-5.6 [facility] Comment on above: Normal < 5.7 % Predi abetic 5.7 - 6.4 % Diabetic >or= 6.5 % Please note range changes. Absolute lymphocyte counton 06-08-2022 Lymphocytes Auto (Unsp spec) [#/Vol] 2.28 10*3/uL 0.83-4.51 [facility] Work Phone: Basophil percentageon 2021 Basophils/100 WBC (Bld) 0.8 % 0-1 [facility] Work Phone: Eosinophils/100 WBC (Bld) 3.7 % 0-5 [facility] Work Phone: Neutrophils (Bld) [#/Vol] 3.8 10*3/uL 2.0-7.7 [facility] Work Phone: Neutrophils/100 WBC (Bld) 53.1 % 47-70 [facility] Work Phone: WBC (Bld) [#/Vol] 7.1 10*3/uL 4.4-11.0 [facility] Work Phone: Bilirubin [Mass/Vol] 0.40 mg/dL 0.20-1.00 [facility] Work Phone: Comment on above: For patients on eltr ombopag therapy, use of Dimension [place] TBIL is not recommended. Chloride [Moles/Vol] 106 mmol/L 98-107 [facility] Work Phone: Cholesterol [Mass/Vol] 171 mg/dL <200 [facility] Work Phone: Comment on above: <200 mg/dL Desirable 200-240 mg/dL Borderline >240 mg/dL High Risk Glucose [Mass/Vol] 156 mg/dL 74-106 [facility] Work Phone: Comment on above: Fasting Glucose resu lt greater than or equal to 126 mg/dL suggests DIABETES MELLITUS per A.D.A. criteria. Potassium [Moles/Vol] 3.8 mmol/L 3.5-5.1 [facility] Work Phone: Protein [Mass/Vol] 7.1 g/dL 6.4-8.2 [facility] Work Phone: Sodium [Moles/Vol] 139 mmol/L 136-145 [facility] Work Phone: Triglyceride [Mass/Vol] 177 mg/dL <199 [facility] Work Phone: Comment on above: The drugs N-Acetylcy steine and Metamizole may falsely depress this assay.Serum Triglycerides Reference Interval Normal <150 mg/dL Borderline high 150 - 199 mg/dL High 200 - 499 mg/dL Very High > or = 500 mg/dL Bilirubin Test strip Ql (U)o n 06-08-2022 Bilirubin Ql (U) Negative Negative [facility] Work Phone: Blood erythrocytes count (nu mber/volume)on 06-08-2022 RBC (Bld) [#/Vol] 4.71 10*6/uL 4.6-6.2 [facility] Work Phone: Blood hemoglobin measurement (mass/volume)on 06-08-2022 Hemoglobin (Bld) [Mass/Vol] 15.0 g/dL 13.0-16.5 [facility] Work Phone: Blood lymphocytes/100 leukoc yteson 06-08-2022 Lymphocytes/100 WBC (Bld) 32.2 % 19-41 [facility] Work Phone: Blood monocytes/100 leukocyt eson 06-08-2022 Monocytes/100 WBC (Bld) 9.8 % 0-10 [facility] Work Phone: Blood platelet mean volumeon 06-08-2022 Platelet mean volume (Bld) [Entitic vol] 9.5 fL 6.2-12.0 [facility] Work Phone: Determination of erythrocyte mean corpuscular volume (MCV)on 06-08-2022 MCV (RBC) [Entitic vol] 93.0 fL 80-94 [facility] Work Phone: Direct bilirubinon 2 Bilirubin.direct [Mass/Vol] 0.10 mg/dL 0.00-0.30 [facility] Work Phone: Hematocrit Auto (Bld) [Volum e fraction]on 06-08-2022 Hematocrit (Bld) [Volume fraction] 43.8 % 40-54 [facility] Work Phone: Ketones Test strip Ql (U)on 06-08-2022 Ketones Ql (U) Negative Negative [facility] Work Phone: Laboratory - Chemistry and C hemistry - challengeon 06-08-2022 ALP [Catalytic activity/Vol] 82 U/L 45-117 [facility] Work Phone: ALT [Catalytic activity/Vol] 44 U/L 16-61 [facility] Work Phone: CO2 [Moles/Vol] 28.0 mmol/L 21.0-32.0 [facility] Work Phone: Globulin (S) [Mass/Vol] 3.6 g/dL 2.2-4.2 [facility] Work Phone: Urea nitrogen/Creatinine [Mass ratio] 19.8 mg/mg 10-20 [facility] Work Phone: Laboratory - Hematology and Cell countson 06-08-2022 Erythrocyte distribution width (RBC) [Entitic vol] 41.5 fL 35.1-43.9 [facility] Work Phone: Erythrocyte distribution width (RBC) [Ratio] 12.0 % 11.6-14.6 [facility] Work Phone: Immature granulocytes/100 WBC (Bld) 0.400 % 0.0-0.9 [facility] Work Phone: Comment on above: IG% - Immature Granu locytes (promyelocytes, myelocytes and metamyelocytes) > 1% indicates that a LEFT SHIFT is Present. MCH (RBC) [Entitic mass] 31.8 pg 27.0-32.0 [facility] Work Phone: Nucleated RBC/100 WBC (Bld) [Ratio] 0 % 0-5 [facility] Work Phone: MCHC Auto (RBC) [Mass/Vol]on 06-08-2022 MCHC (RBC) [Mass/Vol] 34.2 g/dL 32-36 [facility] Work Phone: Nitrite Test strip Ql (U)on 06-08-2022 Nitrite Ql (U) Negative Negative [facility] Work Phone: No Panel Informationon 06-08 Estimated GFR (MDRD) Amer 97 mL/min >60 [facility] Work Phone: Comment on above: GFR Calc Estimated GFR (MDRD) Non-Af Amer 81 mL/min >60 [facility] Work Phone: Comment on above: Non- GFR Calc Prostate Specific Antigen Screen 2.18 ng/mL 0.00-4.00 [facility] Work Phone: Comment on above: This test was perfor med using the TPSA assay method for [employer] chemistry system. Values obtained with differentassay methods cannot be used interchangably.When changing PSA assays in the course of monitoring apatient, additional sequential testing should be carriedout to confirm baseline values. Thyroid Stimulating Hormone (TSH) 2.60 uIU/mL 0.358-3.74 [facility] Work Phone: Platelets bldon 06-08-2022 Platelets (Bld) [#/Vol] 244 10*3/uL 150-450 [facility] Work Phone: Protein Test strip Ql (U)on 06-08-2022 Protein Ql (U) Negative Negative [facility] Work Phone: Serum or plasma albumin darlene urement (mass/volume)on 06-08-2022 Albumin [Mass/Vol] 3.5 g/dL 3.2-5.0 [facility] Work Phone: Serum or plasma albumin/glob ulin mass ratioon 06-08-2022 Albumin/Globulin [Mass ratio] 1.0 {ratio} 0.9-2.4 [facility] Work Phone: Serum or plasma calcium darlene urement (mass/volume)on 06-08-2022 Calcium [Mass/Vol] 9.8 mg/dL 8.5-10.1 [facility] Work Phone: Serum or plasma cholesterol in HDL measurement (mass/volume)on 06-08-2022 Cholesterol in HDL [Mass/Vol] 48 mg/dL >40 [facility] Work Phone: Comment on above: The drugs N-Acetylcy steine and Metamizole may falsely depress this assay. Reference Range HDL <40 mg/dL Low HDL Cholesterol HDL >or= 60 mg/dL High HDL Cholesterol Serum or plasma cholesterol in VLDL measurement (mass/volume)on 06-08-2022 Cholesterol in VLDL [Mass/Vol] 35 mg/dL 5-40 [facility] Work Phone: Serum or plasma creatinine m easurement (mass/volume)on 06-08-2022 Creatinine [Mass/Vol] 1.01 mg/dL 0.70-1.30 [facility] Work Phone: Comment on above: The validity of the calculated GFR & GFRAA in patients over 70 years has not been determined. Clinical correlation is essential. Serum or plasma low density lipoprotein (LDL) cholesterol measurement (mass/volume)on 06-08-2022 Cholesterol in LDL [Mass/Vol] 88 mg/dL 0-130 [facility] Work Phone: Serum or plasma urea nitroge n measurement (mass/volume)on 06-08-2022 Urea nitrogen [Mass/Vol] 20 mg/dL 7-18 [facility] Work Phone: Thin prep Papanicolaou smear with manual screeningon 06-08-2022 Thin prep Papanicolaou smear with manual screening 21 U/L 15-37 [facility] Work Phone: Thin prep Papanicolaou smear with manual screening 5 5-15 [facility] Work Phone: Urine blood detectionon 05-12 RBC Ql (U) Negative Negative [facility] Work Phone: Urine clarityon 06-08-2022 Clarity (U) Clear Clear [facility] Work Phone: Urine color determinationon 06-08-2022 Color (U) Yellow Yellow [facility] Work Phone: Urine glucose detectionon Glucose Ql (U) 100 mg/dl Normal [facility] Work Phone: Urine leukocyte esterase det ection by dipstickon 06-08-2022 Leukocyte esterase Test strip Ql (U) Negative Negative [facility] Work Phone: Urine pHon 06-08-2022 pH (U) 7.0 [pH] 5.0 - 8.0 [facility] Work Phone: Urine specific gravity measu rementon 06-08-2022 Specific gravity (U) [Rel density] 1.010 1.002-1.030 [facility] Work Phone: Urobilinogen Auto test strip Ql (U)on 06-08-2022 Urobilinogen Ql (U) Normal mg/dl Normal [facility] Work Phone: Laboratory - Hematology and Cell countson 03-30-2022 HbA1c (Bld) [Mass fraction] 7.2 % [facility] Work Phone: Basophil percentageon 2021 Bilirubin [Mass/Vol] 0.40 mg/dL 0.20-1.00 [facility] Work Phone: Comment on above: For patients on eltr ombopag therapy, use of Dimension [place] TBIL is not recommended. Chloride [Moles/Vol] 103 mmol/L 98-107 [facility] Work Phone: Cholesterol [Mass/Vol] 136 mg/dL <200 [facility] Work Phone: Comment on above: <200 mg/dL Desirable 200-240 mg/dL Borderline >240 mg/dL High Risk Glucose [Mass/Vol] 310 mg/dL 74-106 [facility] Work Phone: Comment on above: Glucose result great er than or equal to 200 mg/dLsuggests DIABETES MELLITUS per A.D.A. criteria. Potassium [Moles/Vol] 4.0 mmol/L 3.5-5.1 [facility] Work Phone: Protein [Mass/Vol] 7.2 g/dL 6.4-8.2 [facility] Work Phone: Sodium [Moles/Vol] 137 mmol/L 136-145 [facility] Work Phone: Triglyceride [Mass/Vol] 143 mg/dL [facility] Work Phone: Comment on above: The drugs N-Acetylcy steine and Metamizole may falsely depress this assay.Serum Triglycerides Reference Interval Normal <150 mg/dL Borderline high 150 - 199 mg/dL High 200 - 499 mg/dL Very High > or = 500 mg/dL Direct bilirubinon 2 Bilirubin.direct [Mass/Vol] 0.10 mg/dL 0.00-0.30 [facility] Work Phone: Laboratory - Chemistry and C hemistry - challengeon 08-12-2021 ALP [Catalytic activity/Vol] 94 U/L 45-117 [facility] Work Phone: ALT [Catalytic activity/Vol] 58 U/L 16-61 [facility] Work Phone: CO2 [Moles/Vol] 29.0 mmol/L 21.0-32.0 [facility] Work Phone: Globulin (S) [Mass/Vol] 3.4 g/dL 2.2-4.2 [facility] Work Phone: Urea nitrogen/Creatinine [Mass ratio] 22.5 mg/mg 10-20 [facility] Work Phone: No Panel Informationon 08-12 Estimated GFR (MDRD) Amer 88 mL/min >60 [facility] Work Phone: Comment on above: GFR Calc Estimated GFR (MDRD) Non-Af Amer 72 mL/min >60 [facility] Work Phone: Comment on above: Non- GFR Calc Serum or plasma albumin darlene urement (mass/volume)on 08-12-2021 Albumin [Mass/Vol] 3.8 g/dL 3.2-5.0 [facility] Work Phone: Serum or plasma calcium darlene urement (mass/volume)on 08-12-2021 Calcium [Mass/Vol] 9.1 mg/dL 8.5-10.1 [facility] Work Phone: Serum or plasma cholesterol in HDL measurement (mass/volume)on 08-12-2021 Cholesterol in HDL [Mass/Vol] 39 mg/dL [facility] Work Phone: Comment on above: The drugs N-Acetylcy steine and Metamizole may falsely depress this assay. Reference Range HDL <40 mg/dL Low HDL Cholesterol HDL >or= 60 mg/dL High HDL Cholesterol Serum or plasma cholesterol in VLDL measurement (mass/volume)on 08-12-2021 Cholesterol in VLDL [Mass/Vol] 29 mg/dL 5-40 [facility] Work Phone: Serum or plasma creatinine m easurement (mass/volume)on 08-12-2021 Creatinine [Mass/Vol] 1.11 mg/dL 0.70-1.30 [facility] Work Phone: Comment on above: The validity of the calculated GFR & GFRAA in patients over 70 years has not been determined. Clinical correlation is essential. Serum or plasma low density lipoprotein (LDL) cholesterol measurement (mass/volume)on 08-12-2021 Cholesterol in LDL [Mass/Vol] 68 mg/dL 0-130 [facility] Work Phone: Serum or plasma urea nitroge n measurement (mass/volume)on 08-12-2021 Urea nitrogen [Mass/Vol] 25 mg/dL 7-18 [facility] Work Phone: Thin prep Papanicolaou smear with manual screeningon 08-12-2021 Thin prep Papanicolaou smear with manual screening 22 U/L 15-37 [facility] Work Phone: Thin prep Papanicolaou smear with manual screening 5 5-15 [facility] Work Phone: Whole blood hemoglobin A1c/t otal hemoglobin ratio (mass fraction)on 08-12-2021 HbA1c (Bld) [Mass fraction] 6.7 % 3.8-5.6 [facility] Work Phone: Comment on above: Normal < 5.7 % Predi abetic 5.7 - 6.4 % Diabetic >or= 6.5 % Please note range changes. Clinical Summary: HMSPatient IDon 12-12-2018 OOP [facility] Work Phone: Clinical Summary: Scanned RO S Summaryon 12-12-2018 endocrine ROS Complains [place] Work Phone: endocrine system, review of, comments Diabetes [facility] Work Phone: genitourinary review of systems, E&M Denies [facility] Work Phone: Lymphocytes #/vol (Bld) Denies [facility] Work Phone: ROS cardiovascular E&M Denies Cr ystal [facility] Work Phone: ROS ENT E&M Denies [facility] Work Phone: ROS gastrointestinal E&M Denies [facility] Work Phone: ROS general E&M Denies [facility] Work Phone: ROS Musculoskeletal comments Pain,Joint Pain [facility] Work Phone: ROS musculoskeletal E&M Complains [facility] Work Phone: ROS neurological E&M Denies Kizzy lourdes [facility] Work Phone: ROS psychiatric E&M Denies Cryst al [facility] Work Phone: ROS pulmonary E&M Denies [facility] Work Phone: ROS skin E&M Denies [facility] Work Phone: Office Visit: New/Est - 1st visit with physician, Rm: 41on 12-12-2018 NEGATED: Highlighted rowProtein mass conc Done [facility] Work Phone: NEGATED: Highlighted rowThyrotropin Qn of the right shoulder on 11/2018 at [facility] Work Phone: NEGATED: Highlighted rowTobacco smoking status NHIS Tobacco smoking status NHIS [facility] Work Phone: PROGRESSon 11-13-2018 Protein mass conc HNO ID: [id number] Author: Rosalina Cartwright Service: ? Author Type: Physician Type: Progress Notes Filed: 11/13/2018 5:38 AM Note Text: Subjective Wes Smith is a 53 year old male who presents in follow up for type 1 diabetes. Pump upload reviewed and discussed in detail with pt. Type of insulin: Humalog Hemoglobin A1C (%) Date Value 07/12/2018 8.3 02/08/2018 7.6 ) BMI 34.02 kg/(m2) Discussed the patient's BMI with him. The BMI is above average; BMI management plan is completed. Compliance: Fair Complications: None Last 2 Encounter Wt Readings: Date: Wt: 11/10/2018 120.2 kg (265 lb) 07/13/2018 120.7 kg (266 lb) Review of Systems Constitutional: Negative for chills, diaphoresis, fever, malaise/fatigue and weight loss. HENT: Negative for congestion, ear discharge, ear pain, hearing loss, nosebleeds, sore throat and tinnitus. Eyes: Negative for blurred vision, double vision, photophobia, pain, discharge and redness. Respiratory: Negative for cough, hemoptysis, sputum production, shortness of breath and wheezing. Cardiovascular: Negative for chest pain, palpitations, orthopnea, claudication, leg swelling and PND. Gastrointestinal: Negative for abdominal pain, blood in stool, constipation, diarrhea, heartburn, melena, nausea and vomiting. Genitourinary: Negative for dysuria, flank pain, frequency, hematuria and urgency. Musculoskeletal: Negative for back pain, falls, joint pain, myalgias and neck pain. Skin: Negative for itching and rash. Neurological: Negative for dizziness, tingling, tremors, sensory change, speech change, focal weakness, seizures, loss of consciousness, weakness and headaches. Endo/Heme/Allergies: Negative for environmental allergies and polydipsia. Does not bruise/bleed easily. Psychiatric/Behavioral : Negative for depression, hallucinations, memory loss, substance abuse and suicidal ideas. The patient is not nervous/anxious and does not have insomnia. 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) - Obesity (BMI 30.0-34.9) - Presence of insulin pump - Type 1 diabetes mellitus with hyperglycemia (HCC) PAST SURGICAL HISTORY Procedure Laterality Date - CATARACT EXTRACTION HX 2018 retina ok - EYE SURGERY HX 1988 - IRIDOTOMY/IRIDECTOMY BY LASER Bilateral 2018 FAMILY HISTORY Problem Relation Age of Onset - Hypertension Mother - Hypertension Brother - Lipids Mother Social History Socioeconomic History Marital status: Spouse name: Not on file Number of children: Not on file Years of education: Not on file Highest education level: Not on file Social Needs Financial resource strain: Not on file Food insecurity - worry: Not on file Food insecurity - inability: Not on file Transportation needs - medical: Not on file Transportation needs - non-medical: Not on file Occupational History Not on file Tobacco Use Smoking status: Former Smoker Types: Cigarettes Smokeless tobacco: Never Used Substance and Sexual Activity Alcohol use: Yes Comment: Rare Drug use: Not on file Sexual activity: Not on file Other Topics Concerns: Service: Not Asked Blood Transfusions: Not Asked Caffeine Concern: Yes 2-3 daily Occupational Exposure: Not Asked Hobby Hazards: Not Asked Sleep Concern: Not Asked Stress Concern: Not Asked Weight Concern: Not Asked Special Diet: Not Asked Back Care: Not Asked Exercise: Yes 2-3 weekly Bike Helmet: Not Asked Seat Belt: Not Asked Self-Exams: Not Asked Social History Narrative Not on file Current Meds insulin lispro (HUMALOG U-100 INSULIN) 100 unit/mL injection Inject 130 units subcutaneously daily VIA insulin pump amLODIPine (NORVASC) 10 mg tablet Take 1 tablet by mouth once daily. hydroCHLOROthiazide (HYDRODIURIL, ESIDRIX) 25 mg tablet Take 1 tablet by mouth once daily. cholecalciferol (VITAMIN D-3) 2,000 unit tablet Take 1 tablet by mouth once daily. rosuvastatin (CRESTOR) 40 mg tablet Take 40 mg by mouth once daily. famotidine (PEPCID) 20 mg tablet Take 20 mg by mouth once daily. lisinopril (ZESTRIL, PRINIVIL) 40 mg tablet ASPIRIN (ASPIR-81 ORAL) Take 1 tablet by mouth once daily. Blood-Glucose Sensor (DEXCOM G5-G4 SENSOR) radha 1 Each once each week. Objective BP 136/68 Ht 6' 2 (1.88m) Wt 265 lb (120.2kg) BMI 34.01 kg/(m2). Physical Exam Constitutional: He is oriented to person, place, and time and well-developed, well-nourished, and in no distress. HENT: Head: Normocephalic and atraumatic. Mouth/Throat: Oropharynx is clear and moist. Eyes: Pupils are equal, round, and reactive to light. Conjunctivae and EOM are normal. Neck: Neck supple. Carotid bruit is not present. No thyromegaly present. Cardiovascular: Normal rate, regular rhythm and normal heart sounds. No murmur heard. Pulmonary/Chest: Effort normal and breath sounds normal. Abdominal: Soft. Musculoskeletal: He exhibits no edema. Lymphadenopathy: He has no cervical adenopathy. Neurological: He is alert and oriented to person, place, and time. No cranial nerve deficit. Gait normal. Skin: Skin is warm and dry. Psychiatric: Mood, memory, affect and judgment normal. ASSESSMENT/PLAN: 1. Type 1 diabetes mellitus with hyperglycemia (HCC) - ICD9: 250.01, ICD10: E10.65 (primary diagnosis) uncontrolled Diabetes education provided. I reviewed with the patient the risk of developing and worsening of diabetes complications including retinopathy, neuropathy, nephropathy, heart attack, stroke, amputation and sudden . - INSULIN LISPRO (U-100) 100 UNIT/ML SUBCUTANEOUS SOLUTION - BLOOD-GLUCOSE SENSOR DEVICE - HGB A1C 2. Essential hypertension, benign - ICD9: 401.1, ICD10: I10 - Continue current medication(s) - Recommended regular aerobic exercise. - Recommend home blood pressure monitoring, to bring results in on next visit - Goal of BP <130/80 3. Mixed hyperlipidemia - ICD9: 272.2, ICD10: E78.2 - Continue current medication. 4. custodial current use of insulin (HCC) - ICD9: V58.67, ICD10: Z79.4 5. Presence of insulin pump - ICD9: V45.85, ICD10: Z96.41 Insulin pump management performed. 6. Insulin pump titration - ICD9: V53.91, ICD10: Z46.81 Insulin pump settings adjusted to improve control. 7. Class 1 obesity due to excess calories with serious comorbidity and body mass index (BMI) of 34.0 to 34.9 in adult - ICD9: 278.00, V85.34, ICD10: E66.09, Z68.34 Nutritional counseling provided, avoid flour, sugar, and artificial sweeteners. Rosalina Cartwright MD [facility] CNOVon 11-10-2018 CNOV Office Visit (ASHLEY Boyd) LUISWES ([id number]) 1965 M Date Time Provider Department 11/10/18 2:00 PM ROSALINA CARTWRIGHT During your visit today, we recorded the following information about you: Blood pressure Weight Height 136/68 120.2 kg 1.88 m Rosalina Cartwright MD 11/13/2018 5:38 AM Signed Subjective Wes Smith is a 53 year old male who presents in follow up for type 1 diabetes. Pump upload reviewed and discussed in detail with pt. Type of insulin: Humalog Hemoglobin A1C (%) Date Value 07/12/2018 8.3 02/08/2018 7.6 ) BMI 34.02 kg/(m2) Discussed the patient's BMI with him. The BMI is above average; BMI management plan is completed. Compliance: Fair Complications: None Last 2 Encounter Wt Readings: Date: Wt: 11/10/2018 120.2 kg (265 lb) 07/13/2018 120.7 kg (266 lb) Review of Systems Constitutional: Negative for chills, diaphoresis, fever, malaise/fatigue and weight loss. HENT: Negative for congestion, ear discharge, ear pain, hearing loss, nosebleeds, sore throat and tinnitus. Eyes: Negative for blurred vision, double vision, photophobia, pain, discharge and redness. Respiratory: Negative for cough, hemoptysis, sputum production, shortness of breath and wheezing. Cardiovascular: Negative for chest pain, palpitations, orthopnea, claudication, leg swelling and PND. Gastrointestinal: Negative for abdominal pain, blood in stool, constipation, diarrhea, heartburn, melena, nausea and vomiting. Genitourinary: Negative for dysuria, flank pain, frequency, hematuria and urgency. Musculoskeletal: Negative for back pain, falls, joint pain, myalgias and neck pain. Skin: Negative for itching and rash. Neurological: Negative for dizziness, tingling, tremors, sensory change, speech change, focal weakness, seizures, loss of consciousness, weakness and headaches. Endo/Heme/Allergies: Negative for environmental allergies and polydipsia. Does not bruise/bleed easily. Psychiatric/Behavioral : Negative for depression, hallucinations, memory loss, substance abuse and suicidal ideas. The patient is not nervous/anxious and does not have insomnia. PAST MEDICAL HISTORY Diagnosis Date - Essential hypertension, benign - Hyperlipidemia - Insulin pump titration - custodial current use of insulin (HCC) - Obesity (BMI 30.0-34.9) - Presence of insulin pump - Type 1 diabetes mellitus with hyperglycemia (HCC) PAST SURGICAL HISTORY Procedure Laterality Date - CATARACT EXTRACTION HX 2018 retina ok - EYE SURGERY HX 1988 - IRIDOTOMY/IRIDECTOMY BY LASER Bilateral 2018 FAMILY HISTORY Problem Relation Age of Onset - Hypertension Mother - Hypertension Brother - Lipids Mother Social History Socioeconomic History Marital status: Spouse name: Not on file Number of children: Not on file Years of education: Not on file Highest education level: Not on file Social Needs Financial resource strain: Not on file Food insecurity - worry: Not on file Food insecurity - inability: Not on file Transportation needs - medical: Not on file Transportation needs - non-medical: Not on file Occupational History Not on file Tobacco Use Smoking status: Former Smoker Types: Cigarettes Smokeless tobacco: Never Used Substance and Sexual Activity Alcohol use: Yes Comment: Rare Drug use: Not on file Sexual activity: Not on file Other Topics Concerns: Service: Not Asked Blood Transfusions: Not Asked Caffeine Concern: Yes 2-3 daily Occupational Exposure: Not Asked Hobby Hazards: Not Asked Sleep Concern: Not Asked Stress Concern: Not Asked Weight Concern: Not Asked Special Diet: Not Asked Back Care: Not Asked Exercise: Yes 2-3 weekly Bike Helmet: Not Asked Seat Belt: Not Asked Self-Exams: Not Asked Social History Narrative Not on file Current Meds insulin lispro (HUMALOG U-100 INSULIN) 100 unit/mL injection Inject 130 units subcutaneously daily VIA insulin pump amLODIPine (NORVASC) 10 mg tablet Take 1 tablet by mouth once daily. hydroCHLOROthiazide (HYDRODIURIL, ESIDRIX) 25 mg tablet Take 1 tablet by mouth once daily. cholecalciferol (VITAMIN D-3) 2,000 unit tablet Take 1 tablet by mouth once daily. rosuvastatin (CRESTOR) 40 mg tablet Take 40 mg by mouth once daily. famotidine (PEPCID) 20 mg tablet Take 20 mg by mouth once daily. lisinopril (ZESTRIL, PRINIVIL) 40 mg tablet ASPIRIN (ASPIR-81 ORAL) Take 1 tablet by mouth once daily. Blood-Glucose Sensor (DEXCOM G5-G4 SENSOR) radha 1 Each once each week. Objective BP 136/68 Ht 6' 2 (1.88m) Wt 265 lb (120.2kg) BMI 34.01 kg/(m2). Physical Exam Constitutional: He is oriented to person, place, and time and well-developed, well-nourished, and in no distress. HENT: Head: Normocephalic and atraumatic. Mouth/Throat: Oropharynx is clear and moist. Eyes: Pupils are equal, round, and reactive to light. Conjunctivae and EOM are normal. Neck: Neck supple. Carotid bruit is not present. No thyromegaly present. Cardiovascular: Normal rate, regular rhythm and normal heart sounds. No murmur heard. Pulmonary/Chest: Effort normal and breath sounds normal. Abdominal: Soft. Musculoskeletal: He exhibits no edema. Lymphadenopathy: He has no cervical adenopathy. Neurological: He is alert and oriented to person, place, and time. No cranial nerve deficit. Gait normal. Skin: Skin is warm and dry. Psychiatric: Mood, memory, affect and judgment normal. ASSESSMENT/PLAN: 1. Type 1 diabetes mellitus with hyperglycemia (HCC) - ICD9: 250.01, ICD10: E10.65 (primary diagnosis) uncontrolled Diabetes education provided. I reviewed with the patient the risk of developing and worsening of diabetes complications including retinopathy, neuropathy, nephropathy, heart attack, stroke, amputation and sudden . - INSULIN LISPRO (U-100) 100 UNIT/ML SUBCUTANEOUS SOLUTION - BLOOD-GLUCOSE SENSOR DEVICE - HGB A1C 2. Essential hypertension, benign - ICD9: 401.1, ICD10: I10 - Continue current medication(s) - Recommended regular aerobic exercise. - Recommend home blood pressure monitoring, to bring results in on next visit - Goal of BP <130/80 3. Mixed hyperlipidemia - ICD9: 272.2, ICD10: E78.2 - Continue current medication. 4. custodial current use of insulin (HCC) - ICD9: V58.67, ICD10: Z79.4 5. Presence of insulin pump - ICD9: V45.85, ICD10: Z96.41 Insulin pump management performed. 6. Insulin pump titration - ICD9: V53.91, ICD10: Z46.81 Insulin pump settings adjusted to improve control. 7. Class 1 obesity due to excess calories with serious comorbidity and body mass index (BMI) of 34.0 to 34.9 in adult - ICD9: 278.00, V85.34, ICD10: E66.09, Z68.34 Nutritional counseling provided, avoid flour, sugar, and artificial sweeteners. Rosalina Cartwright MD Referring Provider: ROSALINA CARTWRIGHT [[id number]] Allergies As of Date: 11/10/2018 (No Known Allergies) Date Reviewed: 11/10/2018 Reviewed by: Lorena Patterson - Fully Assessed Reason for Visit: Diabetes [34] Primary Visit Diagnosis:Type 1 diabetes mellitus with hyperglycemia (HCC) [E10.65] Other Visit Diagnoses:Essential hypertension, benign [I10] Mixed hyperlipidemia [E78.2] custodial current use of insulin (HCC) [Z79.4] Presence of insulin pump [Z96.41] Insulin pump titration [Z46.81] Class 1 obesity due to excess calories with serious comorbidity and body mass index (BMI) of 34.0 to 34.9 in adult [E66.09, Z68.34] Order(s):insulin lispro (HUMALOG U-100 INSULIN) 100 unit/mL injectionInject 130 units subcutaneously daily VIA insulin pumpDisp: 12 VialRfl: 1 Blood-Glucose Sensor (DEXCOM G5-G4 SENSOR) devi1 Each once each week.Disp: 12 DeviceRfl: 3 HGB A1C [[id number]] Order #: [id number] FUTURE Prescriptions as of 11/10/2018 Sig: INSULIN LISPRO (U-100) 100 UN* Inject 130 units subcutaneous* AMLODIPINE 10 MG TABLET Take 1 tablet [...] Take 1 tablet by mouth once d* BLOOD-GLUCOSE SENSOR DEVICE 1 Each once each week. Problem List As Of Date 11/10/2018 Noted Resolved Presence of insulin pump [Z96.41] custodial current use of insulin (HCC) [Z79.4] Essential hypertension, benign [I10] Hyperlipidemia [E78.5] Insulin pump titration [Z46.81] Type 1 diabetes mellitus with hyperglycemia (HC* More... Obesity (BMI 30.0-34.9) [E66.9] Prescriptions ordered this encounter Disp Refills Start End INSULIN LISPRO (U-100) 100 UNIT/ML S* 12 V* 1 11/10/2018 Sig: Inject 130 units subcutaneously daily VIA insulin pump BLOOD-GLUCOSE SENSOR DEVICE 12 D* 3 11/10/2018 Route: Misc Si Each once each week. Medications Discontinued During This Encounter empagliflozin (JARDIANCE) 25 mg tabl* 90 t* 1 02/10/2018 11/10/2018 Route: ORAL Sig: Take 1 tablet by mouth once daily. Disc: Reason for discontinue is not on file. insulin lispro (HUMALOG U-100 INSULI* 12 V* 1 11/03/2017 11/10/2018 Sig: Inject 130 units subcutaneously daily VIA insulin pump Disc: Reason for discontinue is not on file. Encounter Status:Closed by ROSALINA CARTWRIGHT MD on 11/13/18 [facility] PROGRESSon 07-14-2018 Protein mass conc HNO ID: [id number] Author: Rosalina Cartwright Service: (none) Author Type: Physician Type: Progress Notes Filed: 08/04/2018 8:04 AM Note Text: Subjective Wes Smith is a 52 year old male who presents in follow up for type 1 diabetes. Pump upload reviewed and discussed in detail with pt. Type of insulin: Humalog Glucose patterns: glucose average is 177. Hemoglobin A1C (%) Date Value 07/12/2018 8.3 02/08/2018 7.6 ) BMI 33.71 kg/(m2) Discussed the patient's BMI with him. The BMI is above average; BMI management plan is completed. Compliance: Fair Complications: None Last 2 Encounter Wt Readings: Date: Wt: 07/13/2018 120.7 kg (266 lb) 02/10/2018 119.6 kg (263 lb 9.6 oz) Review of Systems Constitutional: Negative for chills, diaphoresis, fever, malaise/fatigue and weight loss. HENT: Negative for congestion, ear discharge, ear pain, hearing loss, nosebleeds, sore throat and tinnitus. Eyes: Negative for blurred vision, double vision, photophobia, pain, discharge and redness. Respiratory: Negative for cough, hemoptysis, sputum production, shortness of breath and wheezing. Cardiovascular: Negative for chest pain, palpitations, orthopnea, claudication, leg swelling and PND. Gastrointestinal: Negative for abdominal pain, blood in stool, constipation, diarrhea, heartburn, melena, nausea and vomiting. Genitourinary: Negative for dysuria, flank pain, frequency, hematuria and urgency. Musculoskeletal: Negative for back pain, falls, joint pain, myalgias and neck pain. Skin: Positive for itching and rash. Neurological: Negative for dizziness, tingling, tremors, sensory change, speech change, focal weakness, seizures, loss of consciousness, weakness and headaches. Endo/Heme/Allergies: Negative for environmental allergies and polydipsia. Does not bruise/bleed easily. Psychiatric/Behavioral : Negative for depression, hallucinations, memory loss, substance abuse and suicidal ideas. The patient is not nervous/anxious and does not have insomnia. PAST MEDICAL HISTORY Diagnosis Date - Essential hypertension, benign - Hyperlipidemia - Insulin pump titration - custodial current use of insulin (HCC) - Obesity (BMI 30.0-34.9) - Presence of insulin pump - Type 1 diabetes mellitus with hyperglycemia (HCC) PAST SURGICAL HISTORY Procedure Laterality Date - CATARACT EXTRACTION HX 2018 retina ok - EYE SURGERY HX 1988 - IRIDOTOMY/IRIDECTOMY BY LASER Bilateral 2018 FAMILY HISTORY Problem Relation Age of Onset - Hypertension Mother - Hypertension Brother - Lipids Mother Social History Marital status: Spouse name: Years of education: Number of children: Social History Main Topics Smoking status: Former Smoker Packs/day: 0.00 Years: 0.00 Types: Cigarettes Smokeless tobacco: Never Used Alcohol use: Yes Comment: Rare Other Topics Concern Caffeine Concern Yes Comment:2-3 daily Exercise Yes Comment:2-3 weekly Current Meds amLODIPine (NORVASC) 10 mg tablet Take 1 tablet by mouth once daily. hydroCHLOROthiazide (HYDRODIURIL, ESIDRIX) 25 mg tablet Take 1 tablet by mouth once daily. cholecalciferol (VITAMIN D-3) 2,000 unit tablet Take 1 tablet by mouth once daily. empagliflozin (JARDIANCE) 25 mg tablet Take 1 tablet by mouth once daily. insulin lispro (HUMALOG U-100 INSULIN) 100 unit/mL injection Inject 130 units subcutaneously daily VIA insulin pump rosuvastatin (CRESTOR) 20 mg tablet Take 20 mg by mouth once daily. famotidine (PEPCID) 20 mg tablet Take 20 mg by mouth once daily. lisinopril (ZESTRIL, PRINIVIL) 40 mg tablet ASPIRIN (ASPIR-81 ORAL) Take 1 tablet by mouth once daily. Objective BP 132/76 Ht 6' 2.488 (1.89m) Wt 266 lb (120.7kg) BMI 33.71 kg/(m2). Physical Exam Constitutional: He is oriented to person, place, and time and well-developed, well-nourished, and in no distress. HENT: Head: Normocephalic and atraumatic. Mouth/Throat: Oropharynx is clear and moist. Eyes: Pupils are equal, round, and reactive to light. Conjunctivae and EOM are normal. Neck: Neck supple. Carotid bruit is not present. No thyromegaly present. Cardiovascular: Normal rate, regular rhythm and normal heart sounds. No murmur heard. Pulmonary/Chest: Effort normal and breath sounds normal. Abdominal: Soft. Musculoskeletal: He exhibits no edema. Lymphadenopathy: He has no cervical adenopathy. Neurological: He is alert and oriented to person, place, and time. No cranial nerve deficit. Gait normal. Skin: Skin is warm and dry. Psychiatric: Mood, memory, affect and judgment normal. Feet:Shoes and socks removed, normal distal pulses and vibratory perception normal ASSESSMENT/PLAN: 1. Type 1 diabetes mellitus with hyperglycemia (HCC) - ICD9: 250.01, ICD10: E10.65 (primary diagnosis) uncontrolled Discussed plan of action. Diabetes education provided. 2. Mixed hyperlipidemia - ICD9: 272.2, ICD10: E78.2 - good control - Continue current medication. 3. Essential hypertension, benign - ICD9: 401.1, ICD10: I10 - fair control - Continue current medication(s) - Recommended regular aerobic exercise. - Recommend home blood pressure monitoring, to bring results in on next visit - Discussed need and benefit for weight loss. - Goal of BP <130/80 4. custodial current use of insulin (HCC) - ICD9: V58.67, ICD10: Z79.4 5. Presence of insulin pump - ICD9: V45.85, ICD10: Z96.41 Insulin pump management performed 6. Insulin pump titration - ICD9: V53.91, ICD10: Z46.81 Settings adjusted to improve control 7. Class 1 obesity due to excess calories with serious comorbidity and body mass index (BMI) of 33.0 to 33.9 in adult - ICD9: 278.00, V85.33, ICD10: E66.09, Z68.33 Nutritional counseling provided, avoid flour, sugar, and artificial sweeteners. Rosalina Cartwright MD [facility] CNOVon 07-13-2018 CNOV Office Visit (AGENDO G) WES SMITH ([id number]) 1965 M Date Time Provider Department 07/13/18 2:00 PM ROSALINA CARTWRIGHT During your visit today, we recorded the following information about you: Blood pressure Weight Height 132/76 120.7 kg 1.892 m Rosalina Cartwright MD 08/04/2018 8:04 AM Signed Subjective Wes Smith is a 52 year old male who presents in follow up for type 1 diabetes. Pump upload reviewed and discussed in detail with pt. Type of insulin: Humalog Glucose patterns: glucose average is 177. Hemoglobin A1C (%) Date Value 07/12/2018 8.3 02/08/2018 7.6 ) BMI 33.71 kg/(m2) Discussed the patient's BMI with him. The BMI is above average; BMI management plan is completed. Compliance: Fair Complications: None Last 2 Encounter Wt Readings: Date: Wt: 07/13/2018 120.7 kg (266 lb) 02/10/2018 119.6 kg (263 lb 9.6 oz) Review of Systems Constitutional: Negative for chills, diaphoresis, fever, malaise/fatigue and weight loss. HENT: Negative for congestion, ear discharge, ear pain, hearing loss, nosebleeds, sore throat and tinnitus. Eyes: Negative for blurred vision, double vision, photophobia, pain, discharge and redness. Respiratory: Negative for cough, hemoptysis, sputum production, shortness of breath and wheezing. Cardiovascular: Negative for chest pain, palpitations, orthopnea, claudication, leg swelling and PND. Gastrointestinal: Negative for abdominal pain, blood in stool, constipation, diarrhea, heartburn, melena, nausea and vomiting. Genitourinary: Negative for dysuria, flank pain, frequency, hematuria and urgency. Musculoskeletal: Negative for back pain, falls, joint pain, myalgias and neck pain. Skin: Positive for itching and rash. Neurological: Negative for dizziness, tingling, tremors, sensory change, speech change, focal weakness, seizures, loss of consciousness, weakness and headaches. Endo/Heme/Allergies: Negative for environmental allergies and polydipsia. Does not bruise/bleed easily. Psychiatric/Behavioral : Negative for depression, hallucinations, memory loss, substance abuse and suicidal ideas. The patient is not nervous/anxious and does not have insomnia. PAST MEDICAL HISTORY Diagnosis Date - Essential hypertension, benign - Hyperlipidemia - Insulin pump titration - custodial current use of insulin (HCC) - Obesity (BMI 30.0-34.9) - Presence of insulin pump - Type 1 diabetes mellitus with hyperglycemia (HCC) PAST SURGICAL HISTORY Procedure Laterality Date - CATARACT EXTRACTION HX 2018 retina ok - EYE SURGERY HX 1988 - IRIDOTOMY/IRIDECTOMY BY LASER Bilateral 2018 FAMILY HISTORY Problem Relation Age of Onset - Hypertension Mother - Hypertension Brother - Lipids Mother Social History Marital status: Spouse name: Years of education: Number of children: Social History Main Topics Smoking status: Former Smoker Packs/day: 0.00 Years: 0.00 Types: Cigarettes Smokeless tobacco: Never Used Alcohol use: Yes Comment: Rare Other Topics Concern Caffeine Concern Yes Comment:2-3 daily Exercise Yes Comment:2-3 weekly Current Meds amLODIPine (NORVASC) 10 mg tablet Take 1 tablet by mouth once daily. hydroCHLOROthiazide (HYDRODIURIL, ESIDRIX) 25 mg tablet Take 1 tablet by mouth once daily. cholecalciferol (VITAMIN D-3) 2,000 unit tablet Take 1 tablet by mouth once daily. empagliflozin (JARDIANCE) 25 mg tablet Take 1 tablet by mouth once daily. insulin lispro (HUMALOG U-100 INSULIN) 100 unit/mL injection Inject 130 units subcutaneously daily VIA insulin pump rosuvastatin (CRESTOR) 20 mg tablet Take 20 mg by mouth once daily. famotidine (PEPCID) 20 mg tablet Take 20 mg by mouth once daily. lisinopril (ZESTRIL, PRINIVIL) 40 mg tablet ASPIRIN (ASPIR-81 ORAL) Take 1 tablet by mouth once daily. Objective BP 132/76 Ht 6' 2.488 (1.89m) Wt 266 lb (120.7kg) BMI 33.71 kg/(m2). Physical Exam Constitutional: He is oriented to person, place, and time and well-developed, well-nourished, and in no distress. HENT: Head: Normocephalic and atraumatic. Mouth/Throat: Oropharynx is clear and moist. Eyes: Pupils are equal, round, and reactive to light. Conjunctivae and EOM are normal. Neck: Neck supple. Carotid bruit is not present. No thyromegaly present. Cardiovascular: Normal rate, regular rhythm and normal heart sounds. No murmur heard. Pulmonary/Chest: Effort normal and breath sounds normal. Abdominal: Soft. Musculoskeletal: He exhibits no edema. Lymphadenopathy: He has no cervical adenopathy. Neurological: He is alert and oriented to person, place, and time. No cranial nerve deficit. Gait normal. Skin: Skin is warm and dry. Psychiatric: Mood, memory, affect and judgment normal. Feet:Shoes and socks removed, normal distal pulses and vibratory perception normal ASSESSMENT/PLAN: 1. Type 1 diabetes mellitus with hyperglycemia (HCC) - ICD9: 250.01, ICD10: E10.65 (primary diagnosis) uncontrolled Discussed plan of action. Diabetes education provided. 2. Mixed hyperlipidemia - ICD9: 272.2, ICD10: E78.2 - good control - Continue current medication. 3. Essential hypertension, benign - ICD9: 401.1, ICD10: I10 - fair control - Continue current medication(s) - Recommended regular aerobic exercise. - Recommend home blood pressure monitoring, to bring results in on next visit - Discussed need and benefit for weight loss. - Goal of BP <130/80 4. custodial current use of insulin (HCC) - ICD9: V58.67, ICD10: Z79.4 5. Presence of insulin pump - ICD9: V45.85, ICD10: Z96.41 Insulin pump management performed 6. Insulin pump titration - ICD9: V53.91, ICD10: Z46.81 Settings adjusted to improve control 7. Class 1 obesity due to excess calories with serious comorbidity and body mass index (BMI) of 33.0 to 33.9 in adult - ICD9: 278.00, V85.33, ICD10: E66.09, Z68.33 Nutritional counseling provided, avoid flour, sugar, and artificial sweeteners. 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] Presence of insulin pump [Z96.41] Insulin pump titration [Z46.81] Class 1 obesity due to excess calories with serious comorbidity and body mass index (BMI) of 33.0 to 33.9 in adult [E66.09, Z68.33] Order(s):HEMOGLOBIN A1C (EXTERNAL) [5827790] Order #: [id number] Prescriptions as of 07/13/2018 Sig: AMLODIPINE 10 MG TABLET Take 1 tablet by mouth once d* HYDROCHLOROTHIAZIDE 25 MG TAB* Take 1 tablet by mouth once d* CHOLECALCIFEROL (VITAMIN D3) * Take 1 tablet by mouth once d* EMPAGLIFLOZIN 25 MG TABLET Take 1 tablet by mouth once d* INSULIN LISPRO (U-100) 100 UN* Inject 130 units subcutaneous* ROSUVASTATIN 20 MG TABLET Take 20 mg by mouth once chucho* FAMOTIDINE 20 MG TABLET Take 20 mg by mouth once chucho* LISINOPRIL 40 MG TABLET ASPIR-81 ORAL Take 1 tablet by mouth once d* Problem List As Of Date 07/13/2018 Noted Resolved Presence of insulin pump [Z96.41] 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 Obesity (BMI 30.0-34.9) [E66.9] Encounter Status:Closed by ROSALINA CARTWRIGHT MD on 08/04/18 [facility] PROGRESSon 02-13-2018 Protein mass conc HNO ID: [id number] Author: Rosalina Cartwright Service: (none) Author Type: Physician Type: Progress Notes Filed: 02/13/2018 8:32 AM Note Text: Subjective Wes Smith is a 52 year old male who presents in follow up for type 1 diabetes. HPI Pump upload reviewed and discussed in detail with pt. Type of insulin: Humalog Hemoglobin A1C (%) Date Value 02/08/2018 7.6 HGBA1C (%) Date Value 05/10/2017 8.1 ) BMI 33.40 kg/(m2) Discussed the patient's BMI with him. The BMI is above average; BMI management plan is completed. Compliance: Fair Complications: None Last 2 Encounter Wt Readings: Date: Wt: 02/10/2018 119.6 kg (263 lb 9.6 oz) 09/09/2017 114.8 kg (253 lb) Review of Systems Constitutional: Negative for chills, diaphoresis, fever, malaise/fatigue and weight loss. HENT: Negative for congestion, ear discharge, ear pain, hearing loss, nosebleeds, sore throat and tinnitus. Eyes: Positive for blurred vision. Negative for double vision, photophobia, pain, discharge and redness. Respiratory: Negative for cough, hemoptysis, sputum production, shortness of breath and wheezing. Cardiovascular: Positive for leg swelling. Negative for chest pain, palpitations, orthopnea, claudication and PND. Gastrointestinal: Negative for abdominal pain, blood in stool, constipation, diarrhea, heartburn, melena, nausea and vomiting. Genitourinary: Negative for dysuria, flank pain, frequency, hematuria and urgency. Musculoskeletal: Negative for back pain, falls, joint pain, myalgias and neck pain. Skin: Negative for itching and rash. Neurological: Negative for dizziness, tingling, tremors, sensory change, speech change, focal weakness, seizures, loss of consciousness, weakness and headaches. Endo/Heme/Allergies: Negative for environmental allergies and polydipsia. Does not bruise/bleed easily. Psychiatric/Behavioral : Negative for depression, hallucinations, memory loss, substance abuse and suicidal ideas. The patient is not nervous/anxious and does not have insomnia. 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) - Obesity (BMI 30.0-34.9) - Presence of insulin pump - Type 1 diabetes mellitus with hyperglycemia (HCC) PAST SURGICAL HISTORY Procedure Laterality Date - EYE SURGERY HX 1988 FAMILY HISTORY Problem Relation Age of Onset - Hypertension Mother - Hypertension Brother - Lipids Mother Social History Marital status: Spouse name: Years of education: Number of children: Social History Main Topics Smoking status: Former Smoker Packs/day: 0.00 Years: 0.00 Types: Cigarettes Smokeless tobacco: Never Used Alcohol use: Yes Comment: Rare Other Topics Concern Caffeine Concern Yes Comment:2-3 daily Exercise Yes Comment:2-3 weekly Current Meds empagliflozin (JARDIANCE) 25 mg tablet Take 1 tablet by mouth once daily. insulin lispro (HUMALOG U-100 INSULIN) 100 unit/mL injection Inject 130 units subcutaneously daily VIA insulin pump rosuvastatin (CRESTOR) 20 mg tablet Take 20 mg by mouth once daily. famotidine (PEPCID) 20 mg tablet Take 20 mg by mouth once daily. lisinopril (ZESTRIL, PRINIVIL) 40 mg tablet ASPIRIN (ASPIR-81 ORAL) Take 1 tablet by mouth once daily. amLODIPine (NORVASC) 10 mg tablet Take 1 tablet by mouth once daily. hydroCHLOROthiazide (HYDRODIURIL, ESIDRIX) 25 mg tablet Take 1 tablet by mouth once daily. Objective BP 130/76 Ht 6' 2.488 (1.89m) Wt 263 lb 9.6 oz (119.6kg) BMI 33.40 kg/(m2). Physical Exam Constitutional: He is oriented to person, place, and time and well-developed, well-nourished, and in no distress. No distress. HENT: Head: Normocephalic and atraumatic. Mouth/Throat: Oropharynx is clear and moist. Eyes: Conjunctivae and EOM are normal. Pupils are equal, round, and reactive to light. No scleral icterus. Neck: Neck supple. Carotid bruit is not present. No tracheal deviation present. No thyromegaly present. Cardiovascular: Normal rate, regular rhythm, normal heart sounds and intact distal pulses. No murmur heard. Pulmonary/Chest: Effort normal and breath sounds normal. No respiratory distress. He has no wheezes. Abdominal: Soft. No Organomegaly Musculoskeletal: He exhibits no edema. Lymphadenopathy: He has no cervical adenopathy. Neurological: He is alert and oriented to person, place, and time. No cranial nerve deficit. Gait normal. Skin: Skin is warm and dry. Psychiatric: Mood, memory, affect and judgment normal. ASSESSMENT/PLAN: 1. Type 1 diabetes mellitus with hyperglycemia (HCC) - ICD9: 250.01, ICD10: E10.65 (primary diagnosis) Not at goal Will have pump downloaded and go from there - EMPAGLIFLOZIN 25 MG TABLET - HEMOGLOBIN A1C (EXTERNAL) - MICROALBUMIN/CREATININ E UR W RATIO (EXTERNAL) 2. Mixed hyperlipidemia - ICD9: 272.2, ICD10: E78.2 - Continue current medication. 3. custodial current use of insulin (HCC) - ICD9: V58.67, ICD10: Z79.4 4. Presence of insulin pump - ICD9: V45.85, ICD10: Z96.41 5. Insulin pump titration - ICD9: V53.91, ICD10: Z46.81 Will titrate settings once download is available 6. Essential hypertension, benign - ICD9: 401.1, ICD10: I10 - fair control - Continue current medication(s) - Recommended regular aerobic exercise. - Recommend home blood pressure monitoring, to bring results in on next visit - Goal of BP <130/80 - AMLODIPINE 10 MG TABLET - HYDROCHLOROTHIAZIDE 25 MG TABLET 7. Class 1 obesity due to excess calories with serious comorbidity and body mass index (BMI) of 33.0 to 33.9 in adult - ICD9: 278.00, V85.33, ICD10: E66.09, Z68.33 [facility]wright [facility] (ASHLEY Byod[facility] SMITHWES MCGEE ([id number]) 1965 M Date Time Provider Department 02/10/18 2:00 PM ROSALINA CARTWRIGHT During your visit today, we recorded the following information about you: Blood pressure Weight Height 130/76 119.6 kg 1.892 m Rosalina Cartwright MD 02/13/2018 8:32 AM Signed Subjective Wes Smith is a 52 year old male who presents in follow up for type 1 diabetes. HPI Pump upload reviewed and discussed in detail with pt. Type of insulin: Humalog Hemoglobin A1C (%) Date Value 02/08/2018 7.6 HGBA1C (%) Date Value 05/10/2017 8.1 ) BMI 33.40 kg/(m2) Discussed the patient's BMI with him. The BMI is above average; BMI management plan is completed. Compliance: Fair Complications: None Last 2 Encounter Wt Readings: Date: Wt: 02/10/2018 119.6 kg (263 lb 9.6 oz) 09/09/2017 114.8 kg (253 lb) Review of Systems Constitutional: Negative for chills, diaphoresis, fever, malaise/fatigue and weight loss. HENT: Negative for congestion, ear discharge, ear pain, hearing loss, nosebleeds, sore throat and tinnitus. Eyes: Positive for blurred vision. Negative for double vision, photophobia, pain, discharge and redness. Respiratory: Negative for cough, hemoptysis, sputum production, shortness of breath and wheezing. Cardiovascular: Positive for leg swelling. Negative for chest pain, palpitations, orthopnea, claudication and PND. Gastrointestinal: Negative for abdominal pain, blood in stool, constipation, diarrhea, heartburn, melena, nausea and vomiting. Genitourinary: Negative for dysuria, flank pain, frequency, hematuria and urgency. Musculoskeletal: Negative for back pain, falls, joint pain, myalgias and neck pain. Skin: Negative for itching and rash. Neurological: Negative for dizziness, tingling, tremors, sensory change, speech change, focal weakness, seizures, loss of consciousness, weakness and headaches. Endo/Heme/Allergies: Negative for environmental allergies and polydipsia. Does not bruise/bleed easily. Psychiatric/Behavioral : Negative for depression, hallucinations, memory loss, substance abuse and suicidal ideas. The patient is not nervous/anxious and does not have insomnia. 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) - Obesity (BMI 30.0-34.9) - Presence of insulin pump - Type 1 diabetes mellitus with hyperglycemia (HCC) PAST SURGICAL HISTORY Procedure Laterality Date - EYE SURGERY HX 1989 FAMILY HISTORY Problem Relation Age of Onset - Hypertension Mother - Hypertension Brother - Lipids Mother Social History Marital status: Spouse name: Years of education: Number of children: Social History Main Topics Smoking status: Former Smoker Packs/day: 0.00 Years: 0.00 Types: Cigarettes Smokeless tobacco: Never Used Alcohol use: Yes Comment: Rare Other Topics Concern Caffeine Concern Yes Comment:2-3 daily Exercise Yes Comment:2-3 weekly Current Meds empagliflozin (JARDIANCE) 25 mg tablet Take 1 tablet by mouth once daily. insulin lispro (HUMALOG U-100 INSULIN) 100 unit/mL injection Inject 130 units subcutaneously daily VIA insulin pump rosuvastatin (CRESTOR) 20 mg tablet Take 20 mg by mouth once daily. famotidine (PEPCID) 20 mg tablet Take 20 mg by mouth once daily. lisinopril (ZESTRIL, PRINIVIL) 40 mg tablet ASPIRIN (ASPIR-81 ORAL) Take 1 tablet by mouth once daily. amLODIPine (NORVASC) 10 mg tablet Take 1 tablet by mouth once daily. hydroCHLOROthiazide (HYDRODIURIL, ESIDRIX) 25 mg tablet Take 1 tablet by mouth once daily. Objective BP 130/76 Ht 6' 2.488 (1.89m) Wt 263 lb 9.6 oz (119.6kg) BMI 33.40 kg/(m2). Physical Exam Constitutional: He is oriented to person, place, and time and well-developed, well-nourished, and in no distress. No distress. HENT: Head: Normocephalic and atraumatic. Mouth/Throat: Oropharynx is clear and moist. Eyes: Conjunctivae and EOM are normal. Pupils are equal, round, and reactive to light. No scleral icterus. Neck: Neck supple. Carotid bruit is not present. No tracheal deviation present. No thyromegaly present. Cardiovascular: Normal rate, regular rhythm, normal heart sounds and intact distal pulses. No murmur heard. Pulmonary/Chest: Effort normal and breath sounds normal. No respiratory distress. He has no wheezes. Abdominal: Soft. No Organomegaly Musculoskeletal: He exhibits no edema. Lymphadenopathy: He has no cervical adenopathy. Neurological: He is alert and oriented to person, place, and time. No cranial nerve deficit. Gait normal. Skin: Skin is warm and dry. Psychiatric: Mood, memory, affect and judgment normal. ASSESSMENT/PLAN: 1. Type 1 diabetes mellitus with hyperglycemia (HCC) - ICD9: 250.01, ICD10: E10.65 (primary diagnosis) Not at goal Will have pump downloaded and go from there - EMPAGLIFLOZIN 25 MG TABLET - HEMOGLOBIN A1C (EXTERNAL) - MICROALBUMIN/CREATININ E UR W RATIO (EXTERNAL) 2. Mixed hyperlipidemia - ICD9: 272.2, ICD10: E78.2 - Continue current medication. 3. custodial current use of insulin (HCC) - ICD9: V58.67, ICD10: Z79.4 4. Presence of insulin pump - ICD9: V45.85, ICD10: Z96.41 5. Insulin pump titration - ICD9: V53.91, ICD10: Z46.81 Will titrate settings once download is available 6. Essential hypertension, benign - ICD9: 401.1, ICD10: I10 - fair control - Continue current medication(s) - Recommended regular aerobic exercise. - Recommend home blood pressure monitoring, to bring results in on next visit - Goal of BP <130/80 - AMLODIPINE 10 MG TABLET - HYDROCHLOROTHIAZIDE 25 MG TABLET 7. 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) [Z79.4] Presence of insulin pump [Z96.41] Insulin pump titration [Z46.81] Essential hypertension, benign [I10] Class 1 obesity due to excess calories with serious comorbidity and body mass index (BMI) of 33.0 to 33.9 in adult [E66.09, Z68.33] Order(s):empagliflozin (JARDIANCE) 25 mg tabletTake 1 tablet by mouth once daily.Disp: 90 tabletRfl: 1 amLODIPine (NORVASC) 10 mg tabletTake 1 tablet by mouth once daily.Disp: 90 tabletRfl: 0 hydroCHLOROthiazide (HYDRODIURIL, ESIDRIX) 25 mg tabletTake 1 tablet by mouth once daily.Disp: 90 tabletRfl: 0 HEMOGLOBIN A1C (EXTERNAL) [[id number]] Order #: [id number] MICROALBUMIN/CREATININ E UR W RATIO (EXTERNAL) [[id number]] Order #: [id number] cholecalciferol (VITAMIN D-3) 2,000 unit tabletTake 1 tablet by mouth once daily.Disp: Rfl: Prescriptions as of 02/10/2018 Sig: AMLODIPINE 10 MG TABLET Take 1 tablet by mouth once d* HYDROCHLOROTHIAZIDE 25 MG TAB* Take 1 tablet by mouth once d* CHOLECALCIFEROL (VITAMIN D3) * Take 1 tablet by mouth once d* EMPAGLIFLOZIN 25 MG TABLET Take 1 tablet by mouth once d* INSULIN LISPRO (U-100) 100 UN* Inject 130 units subcutaneous* ROSUVASTATIN 20 MG TABLET Take 20 mg by mouth once chucho* FAMOTIDINE 20 MG TABLET Take 20 mg by mouth once chucho* LISINOPRIL 40 MG TABLET ASPIR-81 ORAL Take 1 tablet by mouth once d* Problem List As Of Date 02/10/2018 Noted Resolved Presence of insulin pump [Z96.41] 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 Obesity (BMI 30.0-34.9) [E66.9] Prescriptions ordered this encounter Disp Refills Start End EMPAGLIFLOZIN 25 MG TABLET 90 t* 1 02/10/2018 Route: ORAL Sig: Take 1 tablet by mouth once daily. AMLODIPINE 10 MG TABLET 90 t* 0 02/13/2018 Class: Med Update Route: ORAL Sig: Take 1 tablet by mouth once daily. HYDROCHLOROTHIAZIDE 25 MG TABLET 90 t* 0 02/13/2018 Class: Med Update Route: ORAL Sig: Take 1 tablet by mouth once daily. CHOLECALCIFEROL (VITAMIN D3) 2,000 U* 02/13/2018 Class: Med Update Route: ORAL Sig: Take 1 tablet by mouth once daily. Medications Discontinued During This Encounter empagliflozin (JARDIANCE) 25 mg tabl* 90 t* 1 09/09/2017 02/10/2018 Route: ORAL Sig: Take 1 tablet by mouth once daily. Disc: Reason for discontinue is not on file. amLODIPine (NORVASC) 5 mg tablet 30 t* 0 05/10/2017 02/13/2018 Class: Med Update Route: ORAL Sig: Take 1 tablet by mouth once daily. Patient taking differently: Take 10 mg by mouth once daily. Disc: Reason for discontinue is not on file. Encounter Status:Closed by ROSALINA CARTWRIGHT MD on 02/13/[address] [facility] Chart Maintenanceon 10-26-19 17 Hemoglobin A1c/Hemoglobin.total mass fraction (Bld) 7.8 % [place] [employer] [facility] Work Phone: Office Visiton 07-27-2016 Protein mass conc Done 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 Work Phone: Clinical Lists Update: Pre inventory control analyst 06-23-2016 Cholesterol in HDL mass conc 40 mg/dL [place] [employer] [facility] Work Phone: Cholesterol in LDL mass conc 67 mg/dL [facility] Work Phone: Cholesterol mass conc 134 mg/dL [facility] [employer] [facility] Work Phone: Triglyceride mass conc 133 mg/dL [facility] Work Phone: Office Visiton 07-25-2015 Tobacco smoking status NHIS Never smoker [facility] Work Phone: Clinical Lists Update: Prelo inventory control analyst 07-10-2015 Albumin mass conc 3.8 g/dL [facility] [employer] [facility] Work Phone: ALP enzyme act/vol (Bld) 96 U/L [place] [employer] [facility] Work Phone: ALT enzyme act/vol 40 U/L [facility] Work Phone: AST enzyme act/vol 17 U/L [facility] Work Phone: Bilirubin mass conc 0.40 mg/dL [facility] Work Phone: Bilirubin.direct mass conc 0.11 mg/dL [facility] Work Phone: Glucose mass conc 231 mg/dL High [facility] Work Phone: Lipoprotein.pre-beta mass conc 14 mg/dL [facility] Work Phone: Protein mass conc 7.2 g/dL [facility] Work Phone: Office Visiton 05-31-2014 cardiac risk group C [facility] Work Phone: General cardiovascular disease 10Y risk [#] Elton.Fara N/A [facility] Work Phone: Lab Report: BGMon 01-25-2014 BGM 195 mg/dL High 70-[address] [facility] Work Phone: Clinical Lists Update: Prelo inventory control analyst 01-09-2014 Anion gap molar conc 6 mmol/L [facility] Work Phone: Calcium mass conc 9.7 mg/dL [facility] Work Phone: Chloride molar conc 106 mmol/L [facility] Work Phone: CO2 ppres (BldV) 28.0 mmol/L [facility] Work Phone: Creatinine mass conc 1.1 mg/dL [facility] Work Phone: Hematocrit Volume Fraction (Bld) 44.2 % [facility] Work Phone: Hemoglobin mass conc (Bld) 16.0 g/dL [facility] Work Phone: MCH Entitic mass (RBC) 32.0 pg Bl [facility] Work Phone: MCHC mass conc (RBC) 36.2 g/dL [facility] Work Phone: MCV Entitic volume (RBC) 88.[address] [facility] Work Phone: Platelets #/vol (Bld) 200 10*3/mm3 B [facility] Work Phone: Potassium molar conc 4.0 mmol/L [facility] Work Phone: RBC #/vol (Bld) 5.0 10*6/uL [facility] Work Phone: Sodium molar conc 140 mmol/L [facility] Work Phone: Thyrotropin Qn 2.51 u[iU]/mL [facility] Work Phone: Urea nitrogen mass conc 19 mg/dL [facility] Work Phone: Urea nitrogen/Creatinine mass ratio 17.3 mg/mg [facility] Work Phone: WBC #/vol (Bld) 7.4 10*3/uL [facility] Work Phone: Vital Signs Date Time Vital Sign Value Performing Clinician Facility 01-04-2025 08:23-0400 Body height 187.[address] Kelsey Burns MD Work Phone: [facility] 01-04-2025 08:23-0400 Body mass index (BMI) [Ratio] 34.4 kg/m2 Dr. Kelsey Burns MD Work Phone: [facility] 01-04-2025 08:23-0400 Body temperature 96.8 [degF] Dr. Kelsey Burns MD Work Phone: [facility] 01-04-2025 08:23-0400 Body weight 121.[address] Kelsey Burns MD Work Phone: [facility] 01-04-2025 08:23-0400 Diastolic blood pressure 62 mm[Hg] Dr. Kelsey Burns MD Work Phone: [facility] 01-04-2025 08:23-0400 Heart rate 89 /min Dr. Kelsey Burns MD Work Phone: [facility] 01-04-2025 08:23-0400 Respiratory rate 18 /min Dr. Kelsey Burns MD Work Phone: [facility] 01-04-2025 08:23-0400 SaO2% (BldA) [Mass fraction] 94 % Dr. Kelsey Burns MD Work Phone: [facility] 01-04-2025 08:23-0400 Systolic blood pressure 128 mm[Hg] Dr. Kelsey Burns MD Work Phone: [facility] 01-01-2025 13:32-0400 Body height 187.[address] Kelsey Burns MD Work Phone: [facility] 01-01-2025 13:32-0400 Body mass index (BMI) [Ratio] 33.9 kg/m2 Dr. Kelsey Burns MD Work Phone: [facility] 01-01-2025 13:32-0400 Body temperature 97.6 [degF] Dr. Kelsey Burns MD Work Phone: [facility] 01-01-2025 13:32-0400 Body weight 119.[address] Kelsey Burns MD Work Phone: [facility] 01-01-2025 13:32-0400 Diastolic blood pressure 78 mm[Hg] Dr. Kelsey Burns MD Work Phone: [facility] 01-01-2025 13:32-0400 Heart rate 81 /min Dr. Kelsey Burns MD Work Phone: [facility] 01-01-2025 13:32-0400 Respiratory rate 16 /min Dr. Kelsey Burns MD Work Phone: [facility] 01-01-2025 13:32-0400 SaO2% (BldA) [Mass fraction] 92 % Dr. Kelsey Burns MD Work Phone: [facility] 01-01-2025 13:32-0400 Systolic blood pressure 140 mm[Hg] Dr. Kelsey Burns MD Work Phone: [facility] 12-30-2024 10:08-0400 Body temperature 98.5 [degF] Dr. Kelsey Burns MD Work Phone: [facility] 12-30-2024 10:08-0400 Diastolic blood pressure 66 mm[Hg] Dr. Kelsey Burns MD Work Phone: [facility] 12-30-2024 10:08-0400 Heart rate 82 /min Dr. Kelsey Burns MD Work Phone: [facility] 12-30-2024 10:08-0400 Respiratory rate 16 /min Dr. Kelsey Burns MD Work Phone: [facility] 12-30-2024 10:08-0400 SaO2% (BldA) [Mass fraction] 95 % Dr. Kelsey Burns MD Work Phone: [facility] 12-30-2024 10:08-0400 Systolic blood pressure 124 mm[Hg] Dr. Kelsey Burns MD Work Phone: [facility] 07-20-2023 15:40-0500 Body height 187.[address] Kelsey Burns Work Phone: [facility] 07-20-2023 15:40-0500 Body mass index (BMI) [Ratio] 35.9 kg/m2 Dr. Kelsey Burns Work Phone: [facility] 07-20-2023 15:40-0500 Body temperature 97.3 [degF] Dr. Kelsey Burns Work Phone: [facility] 07-20-2023 15:40-0500 Body weight [address] Kelsey Burns Work Phone: [facility] 07-20-2023 15:40-0500 Diastolic blood pressure 74 mm[Hg] Dr. Kelsey Burns Work Phone: [facility] 07-20-2023 15:40-0500 Heart rate 73 /min Dr. Kelsey Burns Work Phone: [facility] 07-20-2023 15:40-0500 Respiratory rate 16 /min Dr. Kelsey Burns Work Phone: [facility] 07-20-2023 15:40-0500 SaO2% (BldA) [Mass fraction] 94 % Dr. Kelsey Burns Work Phone: [facility] 07-20-2023 15:40-0500 Systolic blood pressure 140 mm[Hg] Dr. Kelsey Burns Work Phone: [facility] 06-16-2023 16:00-0500 Body mass index (BMI) [Ratio] 35 kg/m2 Dr. Kelsey Burns Work Phone: [facility] 06-16-2023 16:00-0500 Body temperature 97.8 [degF] Dr. Kelsey Burns Work Phone: [facility] 06-16-2023 16:00-0500 Body weight 123.[address] Kelsey Burns Work Phone: [facility] 06-16-2023 16:00-0500 Diastolic blood pressure 80 mm[Hg] Dr. Kelsey Burns Work Phone: [facility] 06-16-2023 16:00-0500 Heart rate 81 /min Dr. Kelsey Burns Work Phone: [facility] 06-16-2023 16:00-0500 SaO2% (BldA) [Mass fraction] 95 % Dr. Kelsey Burns Work Phone: [facility] 06-16-2023 16:00-0500 Systolic blood pressure 152 mm[Hg] Dr. Kelsey Burns Work Phone: [facility] 12-14-2022 15:56-0400 Body height 187.[address] Bowman [facility] 12-14-2022 15:56-0400 Body mass index (BMI) [Ratio] 34.7 kg/m2 Dr. Bowman [facility] 12-14-2022 15:56-0400 Body temperature 98.2 [degF] Dr. Bowman [facility] 12-14-2022 15:56-0400 Body weight 122.[address] [facility]man [facility] 12-14-2022 15:56-0400 Diastolic blood pressure 73 mm[Hg[facility] 12-14-2022 15:56-0400 Heart rate 78 /min [facility]. Bowman [facility] 12-14-2022 15:56-0400 Respiratory rate 16 /min [facility]. Bowman [facility] 12-14-2022 15:56-0400 SaO2% (BldA) [Mass fraction] 95 % Dr. Bowman [facility] 12-14-2022 15:56-0400 Systolic blood pressure 133 mm[Hg] [facility] 12-02-2022 15:06-0400 Body mass index (BMI) [Ratio] 34.1 kg/m2 Dr. Bowman [facility] 12-02-2022 15:06-0400 Body temperature 98.2 [degF] [facility] 12-02-2022 15:06-0400 Body weight 120.[address] Bowman [facility] 12-02-2022 15:06-0400 Diastolic blood pressure 68 mm[Hg] [facility] 12-02-2022 15:06-0400 Heart rate 62 /min [facility]. Bowman [facility] 12-02-2022 15:06-0400 Respiratory rate 14 /[facility] 12-02-2022 15:06-0400 SaO2% (BldA) [Mass fraction] 97 % Dr. Raul Aleman [facility] 12-02-2022 15:06-0400 Systolic blood pressure 124 mm[Hg] Dr. Raul Aleman [facility] 03-30-2022 15:07-0400 Body height 187.[address] Raul Aleman [facility] Work Phone: 03-30-2022 15:07-0400 Body mass index (BMI) [Ratio] 34.9 kg/m2 Dr. Bowman [facility] Work Phone: 03-30-2022 15:07-0400 Body temperature 96.5 [degF] [facility] Work [facility]: 03-30-2022 15:07-0400 Body weight 123.[address] Bowman [facility] Work Phone: 03-30-2022 15:07-0400 Diastolic blood pressure 78 mm[Hg] [facility] Work [facility]: 03-30-2022 15:07-0400 Heart rate 74 /min Dr. Bowman [facility] Work Phone: 03-30-2022 15:07-0400 Respiratory rate 20 /min [facility]. Bowman [facility] Work Phone: 03-30-2022 15:07-0400 SaO2% (BldA) [Mass fraction] 94 % Dr. Bowman [facility] Work Phone: 03-30-2022 15:07-0400 Systolic blood pressure 126 mm[Hg] [facility] Work Phone: 03-18-2022 15:51-0400 Body mass index (BMI) [Ratio] 34.9 kg/m2 [facility] Work Phone: 03-18-2022 15:51-0400 Body weight 123.[address] Raul Aleman [facility] Work Phone: 03-18-2022 15:51-0400 Diastolic blood pressure 77 mm[Hg] Dr. Raul Aleman [facility] Work Phone: 03-18-2022 15:51-0400 Heart rate 79 /[facility] Work [facility]: 03-18-2022 15:51-0400 Respiratory rate 18 /[facility] Work Phone: 03-18-2022 15:51-0400 SaO2% (BldA) [Mass fraction] 95 % Dr. Raul Aleman [facility] Work Phone: 03-18-2022 15:51-0400 Systolic blood pressure 134 mm[Hg] [facility] Work Phone: 09-16-2021 14:39-0500 Body temperature 97.8 [degF] Dr. Raul Aleman [facility] Work Phone: 09-16-2021 14:39-0500 Diastolic blood pressure 70 mm[Hg] Dr. Raul Aleman [facility] Work Phone: 09-16-2021 14:39-0500 Heart rate 62 /[facility] Work Phone: 09-16-2021 14:39-0500 Respiratory rate 16 /min [facility]. Bowman [facility] Work Phone: 09-16-2021 14:39-0500 SaO2% (BldA) [Mass fraction] 97 % [facility] Work Phone: 09-16-2021 14:39-0500 Systolic blood pressure 152 mm[Hg] [facility] Work Phone: 09-12-2021 10:23-0500 Body height 187.[address] Raul Aleman [facility] Work Phone: 09-12-2021 10:23-0500 Body mass index (BMI) [Ratio] 34 kg/m2 Dr. Raul Aleman [facility] Work Phone: 09-12-2021 10:23-0500 Body temperature 98 [degF] Dr. Raul Aleman [facility] Work Phone: 09-12-2021 10:23-0500 Body weight 120.[address] Raul Aleman [facility] Work Phone: 09-12-2021 10:23-0500 Diastolic blood pressure 78 mm[Hg] Dr. Raul Aleman [facility] Work Phone: 09-12-2021 10:23-0500 Heart rate 78 /[facility] Work Phone: 09-12-2021 10:23-0500 Respiratory rate 16 /min [facility]. Bow[facility] Work Phone: 09-12-2021 10:23-0500 SaO2% (BldA) [Mass fraction] 96 % Dr. Raul Aleman [facility] Work Phone: 09-12-2021 10:23-0500 Systolic blood pressure 132 mm[Hg] Dr. Raul Aleman [facility] Work Phone: 09-11-2021 14:07-0500 Body mass index (BMI) [Ratio] 34.2 kg/m2 Dr. Raul Aleman [facility] Work Phone: 09-11-2021 14:07-0500 Body temperature 96.5 [degF] Dr. Raul Aleman [facility] Work Phone: 09-11-2021 14:07-0500 Body weight 120.[address] Raul Aleman [facility] Work Phone: 09-11-2021 14:07-0500 Diastolic blood pressure 82 mm[Hg] Dr. Raul Aleman [facility] Work Phone: 09-11-2021 14:07-0500 Heart rate 73 /min Dr. Raul Aleman [facility] Work Phone: 09-11-2021 14:07-0500 Respiratory rate 16 /[facility] Work Phone: 09-11-2021 14:07-0500 SaO2% (BldA) [Mass fraction] 97 % Dr. Raul Aleman [facility] Work Phone: 09-11-2021 14:07-0500 Systolic blood pressure 140 mm[Hg] Dr. Raul Aleman [facility] Work Phone: 06-23-2021 14:46-0500 Body weight 122.[address] Bowman [facility] Work Phone: 06-23-2021 14:46-0500 Diastolic blood pressure 87 mm[Hg] Dr. Raul Aleman [facility] Work Phone: 06-23-2021 14:46-0500 Heart rate 82 /min Dr. Raul Aleman [facility] Work Phone: 06-23-2021 14:46-0500 Respiratory rate 16 /[facility] Work Phone: 06-23-2021 14:46-0500 SaO2% (BldA) [Mass fraction] 96 % Dr. Raul Aleman [facility] Work Phone: 06-23-2021 14:46-0500 Systolic blood pressure 154 mm[Hg] Dr. Raul Aleman [facility] Work Phone: 10-02-2020 15:46-0400 Body mass index (BMI) [Ratio] 34.1 kg/m2 Dr. Raul Aleman [facility] Work Phone: 07-27-2016 16:00-0500 BMI (Body Mass Index) 32.98 kg/m2 [facility] [employer] [facility] Work Phone: 07-27-2016 16:00-0500 BP Diastolic 60 mm[Hg] [facility] [employer] [facility] Work Phone: 07-27-2016 16:00-0500 BP Systolic 110 mm[Hg] Formerly [facility] [employer] [facility] Work Phone: 07-27-2016 16:00-0500 BSA (Body Surface Area) 2.37 m2 Formerly [facility] [employer] [facility] Work Phone: 07-27-2016 16:00-0500 Pulse (Heart Rate) 68 /min Formerly [facility] [employer] [facility] Work Phone: 07-27-2016 16:00-0500 Respiratory Rate 20 /min Formerly [facility] [employer] [facility] Work Phone: 07-27-2016 16:00-0500 Weight 113.4 kg Formerly [facility] [employer] [facility] Work Phone: 01-23-2014 10:04-0400 Height 185.42 cm Formerly [facility] [employer] [facility] Work Phone: NEGATED: Highlighted [id number] 15:27-0400 BMI (Body Mass Index) 34.28 kg/m2 [facility] Work Phone: NEGATED: Highlighted [id number] 15:27-0400 BP Diastolic 82 mm[Hg] [facility] Work Phone: NEGATED: Highlighted [id number] 15:27-0400 BP Systolic 124 mm[Hg] [facility] Work Phone: NEGATED: Highlighted [id number] 15:270400 Height 187.96 cm Destini Ann [facility] Work Phone: NEGATED: Highlighted [id number] 15:27-0400 Height 188 cm Destini Ann 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 Work Phone: NEGATED: Highlighted [id number] 15:27-0400 Pulse (Heart Rate) 80 /min Destini Marissa [facility] Work Phone: NEGATED: Highlighted [id number] 15:27-0400 Weight 120.66 kg Destinicarl Ann [facility] Work Phone: NEGATED: Highlighted [id number] 15:270400 Weight 121 kg [facility] Work Phone: Encounters Encounter Date Encounter Type Care Provider Facility Start: 01-04-2025 End: 01-04-2025 Patient encounter procedure Omaira EVANS -[facility] Work Phone: Start: 01-04-2025 End: 01-04-[address] Kelsey Burns MD Work Phone: -[facility] Start: 01-01-2025 End: 01-01-[address] Kelsey Burns MD Work Phone: -Laboratory Specimen Start: 01-01-2025 End: 01-01-[address] Kelsey Burns MD -Laboratory Specimen Work Phone: Start: 01-01-2025 End: 01-01-[address] Kelsey Burns MD -[facility] Work Phone: Start: 01-01-2025 End: 01-01-[address] Kelsey Burns MD Work Phone: [facility] Work Phone: Start: 01-01-2025 End: 01-01-2025 ambulatory Kelsey Burns Facility:[facility] Start: 12-30-2024 End: 12-30-2024 Patient encounter procedure Howard Tavera MARINE [facility] Work Phone: Start: 12-30-2024 End: 12-30-[address] Kelsey Burns MD Work Phone: [facility] Work Phone: Start: 08-24-2024 End: 08-24-2024 ambulatory Rosalina Cartwright Facility:[facility] Start: 07-18-2024 End: 07-18-2024 ambulatory Kelsey Burns Facility:[facility] Start: 05-17-2024 End: 05-17-2024 ambulatory Reba Elliott NP Facility:[facility] Start: 02-10-2024 End: 02-10-2024 ambulatory Kelsey Burns Facility:[facility] Start: 01-19-2024 End: 01-19-2024 ambulatory Kelsey Burns Facility:[facility] Start: 08-19-2023 End: 08-19-[address] Kelsey Burns Work Phone: [facility] Work Phone: Start: 08-19-2023 End: 08-19-[address] Kelsey Burns Work Phone: [facility]-Pulmonary Services/Neurology Work Phone: Start: 08-03-2023 End: 08-03-[address] Kelsey Burns Work Phone: [facility] Work Phone: Start: 08-03-2023 End: 08-03-[address] Kelsey Burns Work Phone: [facility]-Laboratory Work Phone: Start: 07-20-2023 End: 07-20-[address] Kelsey Burns Work Phone: [facility] Internal Medicine Work Phone: Start: 06-16-2023 End: 06-16-[address] Kelsey Burns Work Phone: [facility] Endocrinology Work Phone: Start: 05-16-2023 Non-patient / Non-visit Dr. Kelsey Burns Work Phone: [facility] Work Phone: Start: 05-11-2023 Non-patient / Non-visit Dr. Kelsey Burns Work Phone: [facility] Start: 05-11-2023 End: 05-11-[address] [facility] Work [facility] Start: 02-22-2023 End: 02-22-[address] Raul Aleman [facility] Work Phone: Start: 02-22-2023 End: 02-22-[address] Raul Aleman [facility]-Sleep Lab Work Phone: Start: 01-06-2023 End: 01-06-[address] Raul Aleman [facility] Work Phone: Start: 01-06-2023 End: 01-06-[address] Raul Aleman [facility]-Sleep Lab Work Phone: Start: 12-14-2022 End: 12-14-[address] Raul Aleman [facility] Endocrinology Work Phone: Start: 12-13-2022 End: 12-13-[address] [facility] Work Phone: Start: 12-02-2022 End: 12-02-[address] Raul Aleman [facility] Work Phone: Start: 06-11-2022 End: 06-11-[address] Raul Aleman [facility] Work Phone: Start: 06-11-2022 End: 06-11-[address] Raul Aleman [facility]-Physical Therapy Start: 06-08-2022 End: 06-08-[address] Raul Aleman [facility] Work Phone: Start: 06-08-2022 End: 06-08-[address] Raul Aleman [facility]-Laboratory Start: 06-07-2022 ambulatory RAUL ALEMAN Facility:[id number] Start: 04-08-2022 ambulatory RAUL ALEMAN Facility:[id number] Start: 04-05-2022 End: 04-05-[address] Raul Aleman [facility] Work Phone: Start: 04-05-2022 End: 04-05-[address] Raul Aleman [facility] Start: 03-30-2022 End: 03-30-[address] Raul Aleman [facility]-[place] [facility] Start: 03-23-[address] Raul grayson [facility]-Physical Therapy Start: 03-18-2022 End: 03-18-[address] Raul Aleman [facility] Start: 03-08-2022 End: 03-08-[address] Raul Aleman [facility] Start: 03-04-2022 ambulatory RAUL ALEMAN Facility:[id number] Start: 02-12-2022 ambulatory RAUL ALEMAN Facility:[id number] Start: 12-01-2021 ambulatory RAUL ALEMAN Facility:[id number] Start: 11-16-2021 End: 11-16-[address] Raul Raniol [facility]-Laboratory, Specimen Start: 09-28-2021 Non-patient / Non-visit Dr. Raul Aleman [facility] Start: 09-28-2021 End: 09-28-[address] Raul Aleman [facility]-Cardiovascular Services Start: 09-16-2021 End: 09-16-[address] Raul Aleman [facility] Start: 09-15-2021 ambulatory Catie Flores Facility:[id number] Start: 09-12-2021 End: 09-12-[address] Raul Aleman [facility] Start: 09-11-2021 End: 09-11-[address] Raul Aleman [facility] Start: 08-12-2021 End: 08-12-[address] Raul Aleman [facility]-Laboratory Start: 08-10-2021 ambulatory RAUL ALEMAN Facility:[id number] Start: 06-23-2021 End: 06-23-[address] Raul Aleman [facility] Start: 07-12-2019 Patient encounter procedure ROSALINA CARTWRIGHT Facility:[facility] Start: 04-02-2019 Patient encounter procedure ROSALINA CARTWRIGHT Facility:[facility] Start: 12-12-2018 End: 12-12-2018 Patient encounter procedure Venu Bills MD Work Phone: [facility] Work Phone: Start: 12-12-2018 End: 12-12-2018 Pt evaluation Venu Bills MD Work Phone: [facility] Work Phone: Start: 11-10-2018 End: 11-10-2018 Patient encounter procedure ROSALINA Byrd [facility] Start: 07-13-2018 End: 07-13-2018 Patient encounter procedure ROSALINA Byrd [facility] Start: 02-10-2018 End: 02-10-2018 Patient encounter procedure ROSALINA Byrd [facility] Procedures Date Procedure Procedure Detail Performing Clinician Start: 01-01-2025 Sars-cov-2 Dr. Kelsey Burns MD Work Phone: Start: 04-05-2022 MRI of cervical spine Shin Aleman Start: 03-08-2022 X-ray of cervical spine Dr. Raul Aleman Start: 09-28-2021 Radionuclide imaging of perfusion of myocardium under exercise stress Dr. 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 Lopez MD Start: 01-23-2014 End: 01-29-2014 Echocardiography Elliott Lopez MD Start: 01-23-2014 End: 01-23-2014 Follow Up Appt 3 months Rochelle Haq Start: 01-23-2014 End: 01-29-2014 Left Heart Cath Elliott Lopez MD Plan of Treatment Date Care Activity Detail Author Start: 12-12-2018 End: 12-12-2018 Appointment Appointment [facility] [place] [facility] Work Phone: Start: 07-28-2017 End: 07-28-2017 Appointment Appointment [employer] Work Phone: Start: 07-27-2016 End: 07-27-2016 [facility] 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[employer] Work Phone: Start: 07-27-2016 End: 07-27-2016 Follow Up Appt 1 year Follow Up Appt 1 year [employer] Work Phone: Start: 07-25-2015 End: 07-25-2015 [facility] 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 Work Phone: Start: 01-23-2014 End: 01-23-2014 Follow Up Appt 3 months Follow Up Appt [address] [facility] Work Phone: Start: 01-23-2014 End: 01-23-2014 Left Heart Cath Left Heart Cath [facility] Work Phone: Ambulatory ECG [facility] Sars-cov-2 [facility] SARS-CoV-2 (COVID-19 ) Ag [Presence] in Upper respiratory specimen by Rapid immunoassa [facility] Immunizations Immunization Date Immunization Notes Care Provider Ade stearns 11-30-[address] Kelsey Burns MD Work Phone: [facility] 08-28-[address] Kelsey Burns MD Work Phone: [facility] 05-09-2024 influenza, seasonal, injectable, preservative free Dr. Kelsey Burns MD Work Phone: [facility] 03-30-2024 Covid (Spikevax) Dr. Kelsey Burns MD Work Phone: [facility] 05-05-2023 Covid (Spikevax) Dr. Kelsey Burns Work Phone: [facility] 04-28-2023 influenza, injectabl e, quadrivalent, preservative free Dr. Kelsey Burns Work Phone: [facility] 04-28-2022 influenza, injectabl e, quadrivalent, preservative free Dr. Kelsey Burns Work Phone: [facility] 04-28-2022 influenza, seasonal, [facility] 03-26-2022 Covid Moderna Bivale nt Booster Dr. Bowman [facility] 10-20-2021 Covid (Moderna) Dr. Bowman [facility] 05-05-2021 Covid (Moderna) Dr. Bowman [facility] 04-07-2021 influenza, injectabl e, quadrivalent, preservative free Dr. Kelsey Burns Work Phone: [facility] 04-07-2021 influenza, seasonal, injectable [facility]. Bowman [facility] 04-07-2021 influenza, seasonal, injectable, preservative free Dr. Kelsey Burns MD Work Phone: [facility] 04-07-2021 Seasonal, quadrivale nt, recombinant, injectable influenza vaccine, preservative free Dr. Kelsey Burns Work Phone: [facility] 08-05-2020 Covid (Moderna) Dr. Bowman [facility] 07-08-2020 Covid (Moderna) Dr. Bowman [facility] 04-16-2020 influenza, injectabl e, quadrivalent, preservative free Dr. Kelsey Burns Work Phone: [facility] 04-16-2020 influenza, seasonal, injectable Dr. Bowman [facility] 05-14-2019 influenza, injectabl e, quadrivalent, preservative free Dr. Kelsey Burns Work Phone: [facility] 05-14-2019 influenza, seasonal, injectable Dr. Bowman [facility] 04-24-2018 influenza, injectabl e, quadrivalent, preservative free Dr. Kelsey Burns Work Phone: [facility] 04-24-2018 influenza, seasonal, [facility] 11-28-2017 tetanus toxoid, redu steven diphtheria toxoid, and acellular pertussis vaccine, adsorbed Dr. Bowman [facility] 05-04-2017 influenza, injectabl e, quadrivalent, preservative free Dr. Kelsey Burns Work Phone: [facility] 05-04-2017 influenza, seasonal, injectable Dr. Bowman [facility] 04-26-2016 influenza, injectabl e, quadrivalent, preservative free Dr. Kelsey Burns Work Phone: [facility] 04-26-2016 influenza, seasonal, injectable Dr. Bowman [facility] 05-06-2015 influenza, injectabl e, quadrivalent, preservative free Dr. Kelsey Burns Work Phone: [facility] 05-06-2015 influenza, seasonal, injectable [facility]. Bowman [facility] 05-09-2014 influenza, injectabl e, quadrivalent, preservative free Dr. Kelsey Burns Work Phone: [facility] 05-09-2014 influenza, seasonal, injectable Dr. Bowman [facility] 07-19-[address] Bowman [facility] 01-03-2012 pneumococcal polysaccharide vaccine, [address] Bowman [facility] 05-05-2009 novel influenza-H1N1 -09, preservative-free, injectable Dr. Bowman [facility] No information available. Destini Ann LPN [facility] [place] [facility] Work Phone: Payers Date Payer Category Payer Self-pay [id number] 2023 Unknown [id number] 2016 Unknown [id number] 1965 Unknown [id number] 2.16.8 [id number] 1965 Unknown [id number] 2.16.8 40.1.174522.3.579.2.278 1965 Unknown [id number] 2.16.8 40.1.273757.3.579.2.278 1965 Unknown [id number] 2.16.8 40.1.863926.3.579.2.278 1965 Unknown [id number] 2.16.8 40.1.864808.3.579.2.278 1965 Unknown [id number] 2.16. 840.1.620885.3.579.2.356 1965 Unknown [id number] 2.16. 840.1.357588.3.579.2.356 1965 Unknown [id number] 2.16. 840.1.324434.3.579.2.356 1965 Unknown [id number] 2.16. 840.1.402099.3.579.2.356 1963 Unknown [id number] 2.16. 840.1.965242.3.579.2.356 1963 Unknown [id number] 2.16. 840.1.993391.3.579.2.356 1965 Unknown [id number] 2.16. 840.1.981893.3.579.2.356 Unknown [id number] 2.16.8 40.1.277120.3.579.2.462 Unknown [id number] 2.16.8 40.1.988772.3.579.2.462 Unknown [id number] 2.16.8 40.1.903633.3.579.2.462 Unknown [id number] 2.16.8 40.1.250897.3.579.2.462 Unknown [id number] 2.16.8 40.1.155351.3.579.2.462 Unknown [id number] 2.16.8 40.1.883617.3.579.2.462 Unknown [id number] 2.16.8 40.1.714624.3.579.2.462 Unknown [id number] 2.16.8 [id number] Unknown [id number] 2.16.8 [id number] Social History Date Type Detail Facility Start: 09-16-2021 End: 07-19-2023 Tobacco smoking status [facility] Unknown if ever smoked [facility] Start: 01-23-2019 Occasional [facility] Start: 01-23-2019 Spouse/ Signif icant Other [facility] Start: 1965 Sex Assigned At Male [facility] Start: 01-19-2024 End: 01-04-2025 Tobacco smoking status NHIS Ex-smoker (finding) [facility] NEGATED: Highlighted rowStart: 12-12-2018 End: 12-12-2018 Alcohol use ETOH USE Yes [facility] Work Phone: NEGATED: Highlighted rowStart: 12-12-2018 End: 12-12-2018 Details of drug misuse behavior DRUG USE No [facility] Work Phone: NEGATED: Highlighted rowStart: 12-12-2018 End: 12-12-2018 Assertion Former smoker [facility] Work Phone: NEGATED: Highlighted rowStart: 12-12-2018 End: 12-12-2018 How many days of moderate to strenuous exercise, like a brisk walk, did you do in the last 7 days? EXERCISEFREQ 2 days per week [facility] Work Phone: Clinical Notes 09-12-2020 to 12-30-2024 Note Date & Type Note Facility 12-30-2024 Evaluation note Diagnosis Onset Date Resolution Pharyngitis acute December 30 9:43am [facility] Work Phone: 1(200) 743-755206-22-2025 Evaluation note* Diagnosis Onset Date Resolution Status Admit Date Pharyngitis acute December 30 9:43am URI, acute noneactive January 01 1:30pm [place] [employer] [facility] Work Phone: 1(897) 432-498906-22-2025 Evaluation note* Diagnosis Onset Date Resolution Status Admit Date Pharyngitis acute December 30 9:43am URI, acute noneactive January 01 1:30pm Otitis media acute January 04, 2 025 2:14pm Pharyngitis acute January 04 2:14pm [facility] Work Phone: 1(772) 536-411203-05-2021 NotePatient Outreach (COVAMN) WES SMITH ([id number]) 1965 M Date Time Provider Department 09/12/20 KERRISJONN During your visit today, we recorded the following information about you: Allergies As of Date: 09/12/2020 (No Known Allergies) Date Reviewed: 11/13/2018 Reviewed by: Rosalina Cartwright - Fully Assessed Order(s):SARS-COVID VACCINE 1ST DOSE APPT [[id number]] Order #: [id number] FUTURE Prescriptions as of 09/12/2020 Sig: INSULIN [...] TABLET Take 40 mg by mouth once hcucho* FAMOTIDINE 20 MG TABLET Take 20 mg by mouth once chucho* LISINOPRIL 40 MG TABLET ASPIR-81 ORAL Take 1 tablet by mouth once d* Problem List As Of Date 09/12/2020 Noted Resolved Presence of insulin pump [Z96.41] custodial current use of insulin (HCC) [Z79.4] Essential hypertension, benign [I10] Hyperlipidemia [E78.5] Insulin pump titration [Z46.81] Type 1 diabetes mellitus with hyperglycemia (HC* More... Obesity (BMI 30.0-34.9) [E66.9] Type 1 diabetes mellitus with diabetic retinopa* Encounter Status:Closed by TROY APPLEUSEKhadijah on 09/15/20[facility] Evaluation note* Diagnosis Onset Date Resolution Status Essential hypertension chron ic Hyperlipidemia chronic Nonobstructive atherosclerosis of coronary artery chronic Diabetes mellitus, insulin-dependent (IDDM or type I) chronic Essential hypertension chron ic Hyperlipidemia chronic Obesity chronic Presence of insulin pump chr onic Otitis media, left acute Acute maxillary sinusitis, unspecified acute [facility] Work Phone: Evaluation note* Diagnosis Onset Date Resolution Status Diabetes mellitus, insulin-dependent (IDDM or type I) chronic Essential hypertension chron ic Hyperlipidemia chronic Obesity chronic Presence of insulin pump chr onic Otitis media, left acute Acute maxillary sinusitis, unspecified acute [facility] Work Phone: Evaluation note* Diagnosis Onset Date Resolution Status Essential hypertension chron ic Hyperlipidemia chronic Nonobstructive atherosclerosis of coronary artery chronic Diabetes acute Essential hypertension chron ic Hyperlipidemia chronic Obesity chronic Presence of insulin pump chr [facility] Work Phone: Evaluation note* Diagnosis Onset Date Resolution Status Diabetes mellitus type 1 chr onic Essential hypertension chron ic Nonobstructive atherosclerosis of coronary artery chronic Obstructive sleep apnea none active Establishing care with new doctor, encounter for noneactive Erectile dysfunction noneact rk Diabetes mellitus type 1 chr onic Essential hypertension chron ic Hyperlipidemia chronic Obesity chronic Presence of insulin pump chr [facility] Work Phone: Evaluation note* Diagnosis Onset Date Resolution Status Diabetes mellitus type 1 chr onic Essential hypertension chron ic Hyperlipidemia chronic Obesity chronic Presence of insulin pump chr onic Diabetes mellitus type 1 chr onic Essential hypertension chron ic Nonobstructive atherosclerosis of coronary artery chronic Obstructive sleep apnea none active GARCIA (dyspnea on exertion) no neactive Palpitations noneactive Erectile dysfunction noneact rk Obesity (BMI 30-39.9) noneac tive [facility] Work Phone: Evaluation noteNo assessment information available [facility] Work Phone: Reason for referral (narrative)No reason for referral information [facility] Work Phone: Summary Purpose Family History No Family History Records Found Relationship Condition Age at Onset Recorded Date/T kacie brother Sudden cardiac Unknown Myocardial infarction Unknown Hypertension Unknown Hyperlipidemia Unknown mother Hypertension Unknown Alcoholism Unknown Unknown father Multiple sclerosis Unknown grandmother Hyperlipidemia Unknown grandfather Parkinson's disease Unknown Relationship Condition Age at Onset Recorded Date/T kacie brother Sudden cardiac 48 Myocardial infarction 48 Hypertension Unknown Hyperlipidemia Unknown Cardiac disease Unknown mother Hypertension Unknown Alcoholism Unknown Afib post operatively Unknown Dementia Unknown father Multiple sclerosis Unknown grandmother Hyperlipidemia Unknown grandfather Parkinson's disease Unknown grandmother Malignant neoplasm Unknown Advance Directives No Advanced Directives Records Found Advance Directive Response Recorded Date/ Time Advance Directives No February 18, 2015 6:45am Living Will No January 23, 2019 12:05am Power of Welfare Visitor No January 23 9 12:05am Advance Directive Response Recorded Date/ Time Advance Directives No February 18, 2015 5:45am Living Will No January 22, 2019 11:05pm Power of Welfare Visitor No January 22 9 11:05pm Advance Directive Response Recorded Date/ Time Advance Directives No February 18, 2015 6:45am Advance Directive Response Recorded Date/ Time Advance Directives No January 04 8:23am Chief Complaint Chief Complaint Description Start Date [...] has not been provided by the sender. Chief Complaint and Reason for Visit Chief Complaint 9 M FU E ORDERS//3 ORDERING DOCTORS 5M F/U- [address]M PER DR[address] CARTWRIGHT EAR COMPLAINTS BILATERAL EAR COMPLAINT CAD/ASHD Reason for Visit Essential hypertensi on Hyperlipidemia Nonobstructive atherosclerosis of coronary artery Diabetes mellitus, insulin-dependent (IDDM or type I) Essential hypertension Hyperlipidemia Obesity Presence of insulin pump Otitis media, left Acute maxillary sinusitis, unspecified Chief Complaint E ORDERS//3 ORDERING DOCTORS 5M F/U- [address]M PER DR[address] CARTWRIGHT EAR COMPLAINTS BILATERAL EAR COMPLAINT CAD/ASHD E ORDER Reason for Visit Diabetes mellitus, i nsulin-dependent (IDDM or type I) Essential hypertension Hyperlipidemia Obesity Presence of insulin pump Otitis media, left Acute maxillary sinusitis, unspecified Chief Complaint 9 M FU NECK PAIN. RX HERE 6 M FU RADICULOPATHY Reason for Visit Essential hypertensi on Hyperlipidemia Nonobstructive atherosclerosis of coronary artery Diabetes Essential hypertension Hyperlipidemia Obesity Presence of insulin pump Chief Complaint 9 M FU 6 M FU RADICULOPATHY NECK PAIN. RX HERE Reason for Visit Essential hypertensi on Hyperlipidemia Nonobstructive atherosclerosis of coronary artery Diabetes Essential hypertension Hyperlipidemia Obesity Presence of insulin pump Chief Complaint MARINE DRILLER. EST CARE - PPW S ENT INT LAB 3X ORDERING PROVIDERS 4 M FU OSP Reason for Visit Diabetes mellitus ty pe 1 Essential hypertension Nonobstructive atherosclerosis of coronary artery Obstructive sleep apnea Establishing care with new doctor, encounter for Erectile dysfunction Diabetes mellitus type 1 Essential hypertension Hyperlipidemia Obesity Presence of insulin pump Chief Complaint MARINE DRILLER. EST CARE - PPW S ENT INT LAB 3X ORDERING PROVIDERS 4 M FU OSP DONNELL; CPAP *DEVICE TAGGED Reason for Visit Diabetes mellitus ty pe 1 Essential hypertension Nonobstructive atherosclerosis of coronary artery Obstructive sleep apnea Establishing care with new doctor, encounter for Erectile dysfunction Diabetes mellitus type 1 Essential hypertension Hyperlipidemia Obesity Presence of insulin pump Chief Complaint DIZZINESS AND GIDDIN ESS Amb Documentation 6 M FU FU/R-S FROM JUNE INT LABS Reason for Visit Diabetes mellitus ty pe 1 Essential hypertension Hyperlipidemia Obesity Presence of insulin pump Diabetes mellitus type 1 Essential hypertension Nonobstructive atherosclerosis of coronary artery Obstructive sleep apnea GARCIA (dyspnea on exertion) Palpitations Erectile dysfunction Obesity (BMI 30-39.9) Chief Complaint DIZZINESS AND GIDDIN ESS Amb Documentation 6 M FU FU/R-S FROM JUNE INT LABS PALP Reason for Visit Diabetes mellitus ty pe 1 Essential hypertension Hyperlipidemia Obesity Presence of insulin pump Diabetes mellitus type 1 Essential hypertension Nonobstructive atherosclerosis of coronary artery Obstructive sleep apnea GARCIA (dyspnea on exertion) Palpitations Erectile dysfunction Obesity (BMI 30-39.9) Chief Complaint Admit Date SORE THROAT December 30, 2024 9:43 am Chief Complaint Admit Date SORE THROAT December 30, 2024 9:43 am ACUTE -CONGESTION / SORE THROAT December 1:30pm Reason for Visit Admit Date Pharyngitis December 30, 2024 9:43 am Chief Complaint Admit Date SORE THROAT December 30, 2024 9:43 am ACUTE -CONGESTION / SORE THROAT December 1:30pm ACUTE RIGHT EAR PAIN January 04, 2025 2:1 4pm Reason for Visit Admit Date Pharyngitis December 30, 2024 9:43 am URI, acute January 01, 2025 1:30 pm Reason for Visit Admit Date Pharyngitis December 30, 2024 9:43 am URI, acute January 01, 2025 1:30 pm Otitis media January 04, 2025 2:14 pm Pharyngitis January 04, 2025 2:14 pm Additional Source Comments (unrecognized sect ion and content) No Status Records FoundNo Status Records FoundNo Status Records FoundNo Status Records FoundNo Status Records Found INFORMATION SOURCE (unrecogn ized section and content) DATE CREATED AUTHOR 11/26/2018 [facility] DATE CREATED AUTHOR AUTHOR'S ORGANIZ ATION 11/26/2018 [facility] DATE CREATED AUTHOR AUTHOR'S ORGANIZ ATION 08/08/2021 [facility] DATE CREATED AUTHOR AUTHOR'S ORGANIZ ATION 06/07/2022 [facility] DATE CREATED AUTHOR AUTHOR'S ORGANIZ ATION 01/06/2025 [facility] Reason for Visit (unrecogniz ed section and content) Reason For Visit Description New/Est - 1st visit with physician 12/12 Preliminary reason f or visit data, not yet signed by the author as of right shoulder pain Goals (unrecognized section and content) Goals may be documented in a n alternate sectionGoals may be documented in an alternate sectionGoals may be documented in an alternate sectionGoals may be documented in an alternate sectionGoals may be documented in an alternate sectionGoals may be documented in an alternate sectionGoals may be documented in an alternate sectionGoals may be documented in an alternate sectionGoals may be documented in an alternate sectionGoals may be documented in an alternate sectionGoals may be documented in an alternate sectionGoals may be documented in an alternate sectionGoals may be documented in an alternate sectionGoals may be documented in an alternate section Care Teams (unrecognized sec tion and content) Team Status: Active Member Role Status Dates Dr. Raul Aleman MD Family Provider Active Dr. Kelsey Burns MD Primary Care Provider Active Team Status: Inactive Member Role Status Dates Dr. Raul Aleman MD Referring Provider Active Dr. Rosalina Cartwright MD Attending Provider Active Dr. Kelsey Burns MD Primary Care Provider Active Team Status: Inactive Member Role Status Dates Dr. Raul Aleman MD Primary Care Provider, Referr ing Provider Active Dr. Kelsey Burns MD Attending Provider Active Team Status: Inactive Member Role Status Dates Dr. Kelsey Burns MD Primary Care Pro vider, Attending Provider, Referring Provider Active Team Status: Inactive Member Role Status Dates Dr. Kelsey Burns MD Primary Care Provider, Other P rovider Active Dr. Elliott Lopez MD Attending Provider Active Dr. Rosalina Cartwright MD Referring Provider Active Team Status: Inactive Member Role Status Dates Dr. Kelsey Burns MD Primary Care Provider, Attendi ng Provider Active Team Status: Inactive Member Role Status Dates Dr. Kelsey Burns MD Primary Care Provider, Referri ng Provider Active Dr. Rosalina Cartwright MD Attending Provider Active Team Status: Active Member Role Status Dates Dr. Kelsey Burns MD Primary Care Provider Active Dr. Eleuterio Quinones MD Attending Provider Active Reba Elliott MARINE DRILLER, MARINE DRILLER-C Referring Provider Active Team Status: Active Member Role Status Dates Dr. Kelsey Burns MD Primary Care Provider Active Reba Elliott MARINE DRILLER, MARINE DRILLER-C Attending Provider Active Team Status: Inactive Member Role Status Dates Dr. Kelsey Burns MD Primary Care Provider Active Reba Elliott MARINE DRILLER, MARINE DRILLER-C Attending Provider, Referring P rovider Active Team Status: Inactive Member Role Status Dates Dr. Kelsey Burns MD Primary Care Provider Active Reba Elliott MARINE DRILLER, MARINE DRILLER-C Attending Provider, Referring P rovider Active Dr. Elliott Lopez MD Other Provider Active Team Status: Inactive Member Role Status Dates Dr. Kelsey Burns MD Primary Care Provider Active Start: December 30, 2024 End: December 30, 2024 Dr. Kelsey Burns MD Referring Provider Active Start: December 30, 2024 End: December 30, 2024 Howard Tavera MARINE DRILLER, MARINE DRILLER-C Attending Provider Active S tart: December 30, 2024 End: December 30, 2024 Team Status: Inactive Member Role Status Dates Dr. Kelsey Burns MD Primary Care Provider Active Start: January 01, 2025 End: January 01, 2025 Dr. Kelsey Burns MD Attending Provider Active Start: January 01, 2025 End: January 01, 2025 Dr. Kelsey Burns MD Referring Provider Active Start: January 01, 2025 End: January 01, 2025 Team Status: Active Member Role/Relationship Status Dates Dr. Raul Aleman MD Family Provider Active Dr. Kelsey Burns MD Primary Care Provider Active Team Status: Inactive Member Role/Relationship Status Dates Dr. Kelsey Burns MD Primary Care Provider Active Start: December 30, 2024 End: December 30, 2024 Dr. Kelsey Burns MD Referring Provider Active Start: December 30, 2024 End: December 30, 2024 Howard Tavera MARINE DRILLER, MARINE DRILLER-C Attending Provider Active S tart: December 30, 2024 End: December 30, 2024 Team Status: Inactive Member Role/Relationship Status Dates Dr. Kelsey Burns MD Primary Care Provider Active Start: January 01, 2025 End: January 01, 2025 Dr. Kelsey Burns MD Attending Provider Active Start: January 01, 2025 End: January 01, 2025 Dr. Kelsey Burns MD Referring Provider Active Start: January 01, 2025 End: January 01, 2025 Team Status: Active Member Role/Relationship Status Dates Dr. Kelsey Burns MD Primary Care Provider Active Start: January 01, 2025 Dr. Kelsey Burns MD Attending Provider Active Start: January 01, 2025 Dr. Kelsey Burns MD Referring Provider Active Start: January 01, 2025 Team Status: Inactive Member Role/Relationship Status Dates Dr. Kelsey Burns MD Primary Care Provider Active Start: January 04, 2025 End: January 04, 2025 Dr. Kelsey Burns MD Referring Provider Active Start: January 04, 2025 End: January 04, 2025 CRISTINA Colón Attending Provider Active Start: January 04, 2025 End: January 04, 2025 Team Status: Inactive Member Role/Relationship Status Dates Dr. Kelsey Burns MD Primary Care Provider Active Start: January 01, 2025 End: January 01, 2025 Dr. Kelsey Burns MD Attending Provider Active Start: January 01, 2025 End: January 01, 2025 Dr. Kelsey Burns MD Referring Provider Active Start: January 01, 2025 End: January 01, 2025 FOR RECORDS PERTAINING TO PATIENTS WHO ARE [...] BE BASED ON THE PRIMARY CLINICAL RECORDS. [facility] [employer] provides no warranty or guarantee of the accuracy or completeness of information in this document.
== END | disposition home or self-care (01) ==
LOC: LAB 06:43
PROVIDERS: PCP Internal Medicine; Referring Provider Internal Medicine Cardiovascular Disease; Visit Provider Internal Medicine Cardiovascular Disease
DX: E10.319 Type 1 diabetes mellitus with unspecified diabetic retinopathy without macular edema (principal); I25.10 Atherosclerotic heart disease of native coronary artery without angina pectoris; I10 Essential (primary) hypertension; E78.2 Mixed hyperlipidemia
CPT/HCPCS: 36415; 80053; 80061; 80076; 82043; 82306; 82570; 85025

== ENCOUNTER 2025-04-03 07:00 | Outpatient (RCR) | payer OTHER, SELFPAY ==
--- NOTE | 2025-02-21 17:53 | HP.PTEVAL ---
Patient's Visit Information Visit Information Visit Information: WES SMITH is a 59 year old M referred to Physical Therapy by Dr. Kelsey Burns MD with a diagnosis of R sided sciatica. Date of Evaluation: 02/21/25 Physical Therapist: Darin Fitch, PT, ATC Visit Plan Frequency: 1x/Week Duration: 2 Weeks Plan: Pt was issued HEP of prone prop progression for HEP. Follow up for 1-2 Rx's to assess benefit of HEP and to add L/S stab ex's to HEP Subjective Subjective: Pt reports he began to experience R glute pain approximately 4 months ago while driving to and from work. Pt reports his pain is the worst when he is sitting. Pt notes he has to sit a lot at work, and that causes his pain. Pt notes he has LBP which has been chronically present. Pt reports when his sciatica is present, it will descend to the mid hamstring region. Pt has not had any recent diagnostic tests at this time. Pt reports his LBP is the worst in the morning when he is getting out of heard. Pt reports his pain will go away if he walks after driving for a long period of time. Pt notes he also gets increased pain while he is trying to weed his garden. Pt reports he is able to perform most of his IADL's without being limited, although he does experience increased pain. 7/10 pain at rest, 8/10 at worst. Pain LBP: Pain Intensity (Out of 10): 7 Pain Intensity Range: 8 Objective Objective: Neuro: B LE sensation is WNL to light touch. MMT: B LE's are strong and equal when compared bilaterally ROM: Pt is moderately limited with flex and ext of the lumbar spine. B SB is minimally limited. Repeated movements: RFIS 10x2 peripheralized sx's into R glute region. Prone prop on elbows 2x1 min and [id number] NE, NW Balance/Special Test Scores Lower Extremity Functional Score: 76 Goals Goal 1:: I with HEP Goal Time Frame: 2 Weeks Goal 2:: Decrease R LE radiculopathy x 50% to aid with driving Goal Time Frame: 2 Weeks Goal 3:: Decrease LBP x 50% to aid with yard duties Goal Time Frame: 2 Weeks Rehabilitation Potential Physical Therapy Diagnosis: Pt has B knee pain, R LE radiculopathy, and LBP secondary to L/S disc derrangement Rehabilitation Potential: Good Anticipated Interventions Patient/Client Instruction: Educate patient on: Condition and Plan of Care For the Purpose of:: To improve self management Therapeutic Exercise to Include: Strength training, Body mechanics, Postural training, Dynamic Lumbar Stabilization and [place] Exercises For the Purpose of:: To decrease pain, To increase ROM and To improve muscle performance and motor function Text: Thank you for the opportunity to evaluate your patient. For Medicare and Medicare HMO plans, please review the plan of care and approve it. It will need to be FAXED BACK to us at [phone] for Medicare purposes. For Medicare only, by signing this I certify the plan of care. Please let me know if there are questions or concerns regarding this plan of care. Physician Signature: Date:
--- NOTE | 2025-05-03 07:37 | HP.PTDCSUM_ITS ---
Discharge Summary D/C summary: It has been my pleasure to treat WES SMITH referred by Dr. Kelsey Burns MD, with the diagnosis of R sided sciatica for a total of 4 visit(s). Discharge Date: Please see the following information for a summary of their discharge status. Subjective Subjective: Pt reports he is now pain free. Pain LBP: Pain Intensity (Out of 10): 0 Objective Objective/Function: Pt is now I with HEP. Pt is pain free. Goals Goal 1:: I with HEP Goal Progress: Goal Met Goal 2:: Decrease R LE radiculopathy x 50% to aid with driving Goal Progress: Goal Met Goal 3:: Decrease LBP x 50% to aid with yard duties Goal Progress: Goal Met Plan Plan: [facility]charge to [facility] D/C Information d/c sentence: If there are questions or concerns regarding this patient's physical therapy, please feel free to call me at [phone]. Thank you for the referral of this patient. Sincerely, Darin Fitch, PT, ATC Balance/Gait/Functional tests Balance/Special Test Scores Oswestry Low Back Score: 4 Lower Extremity Functional Score: 76
== END 2025-04-03 19:00 | disposition home or self-care (01) ==
LOC: PT 07:00
PROVIDERS: PCP Internal Medicine; Referring Provider Internal Medicine; Visit Provider Internal Medicine
DX: M25.561 Pain in right knee (principal); M25.562 Pain in left knee; M54.31 Sciatica, right side
CPT/HCPCS: 97110; 97161

== ENCOUNTER 2025-06-29 17:23 | Emergency (ER) | payer OTHER, SELFPAY ==
[2025-06-29 17:24] VITALS: BP 107/65; PULSE 96; RESP 18; TEMP 36.9; O2SAT 97
[2025-06-29 17:28] VITALS: BMI 34.7
--- NOTE | 2025-06-29 17:45 | RAD_ITS ---
PROCEDURE: KNEE 4 OR MORE VIEWS 06/29/2025 REASON FOR EXAM: INJURY/PAIN TECHNIQUE: Procedure Code: RADKN Modality: DX Procedure: KNEE 4 OR MORE VIEWS COMPARISON: None available. FINDINGS: No fracture or dislocation in the right knee. Patellar enthesopathy at the upper and lower poles. The tricompartmental joint spaces of the knees are maintained. Large knee joint effusion. There is a focal calcification in the suprapatellar bursal region. Vascular calcifications. RAD/Knee 4 or More Views IMPRESSION: No acute fracture or dislocation. Large right knee joint effusion. Patellar e nthesopathy. Reading Location: [id number]
--- OUTSIDE RECORDS SUMMARY | 2025-06-29 17:49 | XMS RPT_ITS | CCD ---
Author Organization [facility] ion [facility] Care Team Providers Care Facilities Maintenance Supervisor Name Role Phone Brianne Ramsay Unavailable ROSALINA CARTWRIGHT Attending Unavailable CORBY, ROSALINA M Referring Unavailable CORBY, ROSALINA M Attending Unavailable CORBY, ROSALINA M Referring Unavailable CORBY, ROSALINA M Attending Unavailable CORBY, ROSALINA M Referring Unavailable CORBY, ROSALINA Attending Unavailable CORBY, ROSALINA Referring Unavailable AMARJIT RAUL Primary Care Unavailable CORBY, ROSALINA Attending Unavailable CORBY, ROSALINA Referring Unavailable RANIOL [facility] Care Unavailable CORBY, ROSALINA Attending Unavailable CORBY, ROSALINA Referring Unavailable RANIOL, [facility] Unavailable CORBY, ROSALINA Attending Unavailable CORBY, ROSALINA Referring Unavailable RANIOL, [facility] Care Unavailable CORBY, ROASLINA Attending Unavailable CORBY, ROSALINA Referring Unavailable AMARJIT [facility] Primary Care Unavailable Sanju MCCLAIN, Venu Lucio Unavailable Dr. Raul Aleman Primary Care Provider Unava Dr. Raul Minor Referring Provider UnavailDr. Elliott Cristina Attending Provider Dr. Rosalina Cartwright Attending Provider HECTOR James Attending Provider HECTOR Huizar Attending Provider [phone] Dr. Raul Aleman Primary Care Provider UnaDr. Raul Espinoza Referring Provider UnavailDr. Elliott Cristina Attending Provider Dr. Raul Aleman Primary Care Provider Unava Dr. Raul Minor Referring Provider Unavailwilberto Elliott JAVA WEB USER INTERFACE DEVELOPER, JAVA WEB USER INTERFACE DEVELOPER-C Reba Attending Provider Dr. Rosalina Cartwright Attending Provider AMARJIT, RAUL CHARLES Attending Unavailab le RANIOL, RAUL [...] Raniol, Dr. Bowman Primary Care Provider Unava Dr. Raul Minor Referring Provider Unavailwilberto Elliott JAVA WEB USER INTERFACE DEVELOPER, JAVA WEB USER INTERFACE DEVELOPER-C Reba Attending Provider Dr. Rosalina Cartwright Attending Provider Dr. Raul Aleman Primary Care Provider Alisiava Dr. Raul Minor Referring Provider UnavailDr. Kelsey Desir Attending Provider Dr. Rosalina Cartwright Attending Provider Dr. Kelsey Burns Primary Care Provider Dr. Kelsey Burns Primary Care Provider Dr. Eleuterio Quinones Attending Provider Earl JAVA WEB USER INTERFACE DEVELOPER, JAVA WEB USER INTERFACE DEVELOPER-C Reba Referring Provider Earl JAVA WEB USER INTERFACE DEVELOPER, JAVA WEB USER INTERFACE DEVELOPER-C Reba Attending Provider Dr. Kelsey Burns Referring Provider [phone] Dr. Rosalina Cartwright Attending Provider Dr. Kelsey Burns Attending Provider [phone] Katy MCCLAIN, Dr. Cole Primary Care Provider [phone] Katy MCCLAIN, Dr. Cole Referring Provider [facility] JAVA WEB USER INTERFACE DEVELOPER-CHoward Attending Provider Katy MCCLAIN, Dr. Cole Attending Provider Gio JAVA WEB USER INTERFACE DEVELOPER-C, Omaira Attending Provider [phone] Jessica MCCLAIN, Dr. Gallagher Attending Provider [phone] Jessica MCCLAIN, Dr. Gallagher Referring Provider [phone] Assessment, Health Risk Attending Provider Unava ilable Assessment, Health Risk Referring Provider Unava ilable King SARAHI, Dr. Shoemaker Attending Provider [place], Kelsey Primary Care Unavailable Katy, Kelsey Attending Unavailable [place], Kelsey Referring Unavailable Katy, Kelsey Attending Unavailable Katy, Kelsey Referring Unavailable [place], Kelsey Primary Care Unavailable [place], Kelsey Attending Unavailable [place], Kelsey Referring Unavailable Katy, Kelsey Primary Care Unavailable Assessment, Health Risk Attending Unavaila ble Assessment, Health Risk Referring Unavaila ble [place], Kelsey Primary Care Unavailable Elliott Lopez Attending Unavailable Jessica [facility] Referring Unavailable Katy, Kelsey Primary Care Unavailable Katy, Kelsey Primary Care Unavailable Reba Elliott Attending Unavailable [place], Kelsey Referring Unavailable [place], Kelsey Referring Unavailable [place], Kelsey Primary Care Unavailable Rosalina Cartwright Attending Unavailable Katy, Kelsey Attending Unavailable [place], Kelsey Referring Unavailable [place], Kelsey Primary Care Unavailable Ungerer, Omaira Attending Unavailable [place], Kelsey Referring Unavailable [place], Kelsey Primary Care Unavailable [place], Kelsey Attending Unavailable Katy, Kelsey Referring Unavailable Katy, Kelsey Primary Care Unavailable Roof Howard LEONARD Attending Unavailable Kelsey Burns Referring Unavailable Kelsey Burns Primary Care Unavailable Kelsey Burns Primary Care Unavailable Rosalina Cartwright Attending Unavailable Kelsey Burns Referring Unavailable Medications Current Medications Medication Drug Class(es) Dates Sig (Normalized) Sig (Original) 8 hr acetaminophen 650 mg extended release oral tablet (20 sources) Start: 03-08-2025 Acetaminophen (Tylenol Arthritis Pain) 650 mg tablet extended release Active 1300 mg PO TWICE A DAY March 08, 2025 12:00am Start: 01-16-2025 End: 03-08-2025 Acetaminophen 500 mg capsule Discontinued 1250 mg PO TWICE A DAY January 16, 2025 3:07pm March 08, 2025 3:53pm Start: 10-02-2020 End: 01-16-2025 take 2 capsules by mouth twice daily Acetaminophen 500 mg capsule Discontinued 1000 mg PO TWICE A DAY October 02, 2020 12:00am January 16, 2025 3:10pm Start: 10-02-2020 take 1000 mg by mout h twice daily Acetaminophen Active 1000 MG PO TWICE A DAY October 01, 2020 11:00pm aspirin 81 mg delayed release oral tablet (20 sources) Platelet Aggregation Inhibitor, Nonsteroidal Anti-inflammatory Drug Start: 05-13-2011 take 1 tablet by mouth once daily Aspirin 81 MG tablet Active 81 mg PO DAILY@0800 February 11, 2015 12:00am Start: 05-13-2011 take 1 tablet by demetrio th once daily ASPIRIN 325 MG TABS One tablet by mouth daily ASPIRIN [id number] Antonina Byrd Quinones Start: 05-13-2011 take 1 tablet by demetrio th once daily ASPIRIN 81 MG TABS One tablet by mouth daily ASPIRIN [id number] Elliott Lopez MD brimonidine / Timolol (4 sources) alpha-Adrenergic Agonist, beta-Adrenergic Prakash Start: 12-02-2022 Brimonidine-Mook lol Active 1 DRP OPHTHALMIC TWICE A DAY December 01, 2022 11:00pm Start: 12-02-2022 Brimonidine-Ti molol Active 1 DRP OPHTHALMIC TWICE A DAY December 02, 2022 12:00am Brimonidine-Timolol 0.2-0.5 % drops (14 sources) Start: 01-19-2024 take 0.2-0.5 drop(s) into the eye(s) twice daily Brimonidine-Timolol 0.2-0.5 % drops Active 1 NMA OPHTHALMIC TWICE A DAY 5 January 19, 2024 3:41pm Start: 01-19-2024 take 0.2-0.5 drop(s) into the eye(s) twice daily Brimonidine-Timolol 0.2-0.5 % drops Active 1 NMA OPHTHALMIC TWICE A DAY January 19, 2024 3:41pm Start: 12-02-2022 End: 01-19-2024 take 0.2-0.5 drop(s) into the eye(s) twice daily Brimonidine-Timolol 0.2-0.5 % drops Discontinued 1 NMA OPHTHALMIC TWICE A DAY December 02, 2022 12:00am January 19, 2024 3:41pm diphenhydrAMINE hydrochloride 25 mg oral tablet (20 [...] esomeprazole 20 mg delayed release oral capsule (7 sources) Proton Pump Inhibitor Start: 10-21-2023 take 1 capsule by mouth once daily Esomeprazole Magnesium 20 mg capsule,delayed release(DR/EC) Active 20 mg PO DAILY October 21, 2023 12:00am insulin lispro 100 unt/ml injectable solution (20 sources) Insulin Analog Start: 04-04-2020 End: 03-08-2025 Insulin Lispro (Humalog U-100 Insulin) 100 unit/mL solution Active 160 U SC .continuous 150 3 March 08, 2025 5:17pm Start: 05-28-2019 End: 04-04-2020 Insulin Lispro (Humalog [...] 12:00am April 23, 2019 8:38am INSULIN PUMP melatonin 10 mg oral capsule (20 sources) [...] Start: 07-27-2016 take 2 tablets by mo uth once daily as needed MELATONIN 5 MG TABS 10 mg by mouth daily as needed MELATONIN [id number] Elliott Lopez MD spironolactone 50 mg oral tablet (20 sources) Aldosterone Antagonist Start: 01-19-2024 End: 05-17-2024 take 1 tablet by mouth once daily Spironolactone 50 mg tablet Active 50 mg PO daily 90 3 May 17, 2024 4:15pm Start: 01-19-2024 End: [...] tablet Discontinued 25 mg PO DAILY 90 3 March 18, 2022 4:04pm July 29, 2022 5:11pm tadalafil 20 mg oral tablet (10 sources) Phosphodiesterase 5 Inhibitor Start: 07-18-2024 End: 01-16-2025 take 1 tablet by mouth every twenty-four hours Tadalafil (Cialis) 20 mg tablet Active 20 mg PO daily as needed for sexual activity 10 January 16, 2025 3:55pm administer approximately 30min before sexual activity; do not use more than 1 dose per 24hrs Completed/Discontinued Medications Medication Drug Class(es) Dates Sig (Normalized) Sig (Original) amLODIPine 10 mg oral tablet (20 sources) Dihydropyridine Calcium Channel Prakash Start: 08-19-2017 End: 05-17-2024 take 1 tablet by mouth once daily Amlodipine 10 mg tablet Discontinued 10 mg PO daily 90 3 September 28, 2022 4:14pm July 20, 2023 5:17pm Start: 01-22-2014 End: 08-19-2017 take 1 tablet by mouth once daily Amlodipine 5 MG tablet Discontinued 5 mg PO DAILY January 24, 2014 12:00am August 19, 2017 5:09pm Start: 01-22-2014 take 1 tablet by demetrio th once daily AMLODIPINE BESYLATE 10 MG TABS One tablet by mouth daily AMLODIPINE BESYLATE [id number] Elliott Lopez MD amoxicillin 500 mg oral tablet (17 sources) Penicillin-class Antibacterial Start: 09-12-2021 End: 03-18-2022 take 1 tablet by mouth twice daily Amoxicillin 500 mg tablet Discontinued 500 mg PO TWICE A DAY 20 September 12, 2021 1:00am March 18, 2022 3:55pm amoxicillin 500 mg / clavulanate 125 mg oral tablet (20 sources) Penicillin-class Antibacterial Start: 01-04-2025 End: 01-16-2025 Amoxicillin-Pot Clavulanate (Augmentin) 500-125 mg tablet Discontinued 1 {tbl} PO THREE TIMES A DAY 21 0 January 04, 2025 12:00am January 16, 2025 3:08pm Otitis media Otitis media, unspecified, unspecified ear Start: 09-16-2021 End: 03-18-2022 Amoxicillin-Pot Clavulanate 875-125 mg tablet Discontinued 1 {tbl} PO TWICE A DAY September 16, 2021 1:00am March 18, 2022 3:55pm Start: 09-16-2021 End: 03-18-2022 take 1 tablet by mouth twice daily Amoxicillin-Pot Clavulanate Discontinued 1 TABLET PO TWICE A DAY September 16, 2021 12:00am March 18, 2022 2:55pm Cholecalciferol (20 sources) Vitamin D Start: 12-12-2018 EQL VITAMIN D3 2000 UNIT CAPS take 1 capsule daily CHOLECALCIFEROL [id number] Elodia Basilio PA-C Start: 08-29-2018 take 2 capsules by m outh once daily Cholecalciferol (Vitamin D3) 1,000 unit capsule Active 2000 U PO DAILY August 29, 2018 12:30pm Start: 08-29-2018 take 2000 [IU] by mo uth once daily Cholecalciferol (Vitamin D3) Active 2000 [...] by demetrio th once daily VITAMIN D 2000 UNIT TABS One tablet by mouth daily CHOLECALCIFEROL [id number] Elliott Lopez MD codeine phosphate 2 mg/ml / guaiFENesin 20 mg/ml oral solution (5 sources) Opioid Agonist Start: 01-02-2025 End: 01-16-2025 take 1 mL by mouth every four to six hours as needed for cough Codeine-Guaifenesin 10-100 mg/5 mL liquid Discontinued 10 mL PO EVERY 4-6 HOURS as needed for cough 118 0 January 02, 2025 12:00am January 16, 2025 3:08pm Acute upper respiratory infection Acute upper respiratory infection, unspecified dorzolamide 20 mg/ml / timolol 5 mg/ml ophthalmic solution (17 sources) Carbonic Anhydrase Inhibitor, beta-Adrenergic Prakash Start: [...] Right eye empagliflozin 25 mg oral tablet (17 sources) Sodium-Glucose Cotransporter 2 Inhibitor Start: 08-19-2017 End: 08-29-2018 take 1 tablet by mouth once daily Empagliflozin (Jardiance) 25 mg tablet Discontinued 25 mg PO daily August 19, 2017 1:00am August 29, 2018 12:30pm escitalopram 10 mg oral tablet (17 sources) Serotonin Reuptake Inhibitor Start: 01-22-2019 End: [...] tablet Discontinued 25 mg PO EVERY MORNING August 19, 2017 1:00am April 23, 2019 8:38am ibuprofen 400 mg oral tablet (20 sources) Nonsteroidal Anti-inflammatory Drug Start: 07-18-2024 End: 01-16-2025 Ibuprofen 400 mg tablet Discontinued 600 mg PO TWICE A DAY as needed December 30, 2024 10:08am January 16, 2025 3:10pm Start: 03-18-2022 End: 07-18-2024 take 1 tablet by mouth twice daily Ibuprofen 400 mg tablet Discontinued 400 mg PO TWICE A DAY March 18, 2022 12:00am July 18, 2024 3:08pm insulin, aspart, human 100 unt/ml injectable solution (1 source) Insulin Analog Start: 05-13-2011 NOVOLOG 100 UNIT/ML SOLN Per insulin pump, sliding scale INSULIN ASPART [id number] Antonina Quinones ketorolac tromethamine 4 mg/ml ophthalmic solution (17 sources) Nonsteroidal Anti-inflammatory Drug, Cyclooxygenase Inhibitor Start: [...] June 23, 2021 3:51pm RT EYE QID Lidocaine (7 sources) Antiarrhythmic, Amide Local Anesthetic Start: 12-30-2024 End: 01-16-2025 Lidocaine Hcl (Lidocaine Viscous) 2 % solution Discontinued 1 NMA MUCOUS MEM TWICE A DAY as needed for pain 300 1 December 30, 2024 12:00am January 16, 2025 3:09pm Start: 12-30-2024 Lidocaine Hcl (Lidocaine Viscous) 2 % solution Active 1 NMA MUCOUS MEM TWICE A DAY as needed for pain 300 1 December 30, 2024 12:00am Start: 12-30-2024 Lidocaine Hcl (Lidocaine Viscous) 2 % solution Active 1 NMA MUCOUS MEM TWICE A DAY as needed for pain 300 December 30, 2024 12:00am lisinopril 40 mg oral tablet (20 sources) Angiotensin Converting Enzyme Inhibitor Start: 05-13-2011 End: 05-17-2024 take 1 tablet by mouth once daily Lisinopril 40 mg tablet Discontinued 40 mg PO DAILY September 28, 2022 4:14pm July 20, 2023 5:17pm naproxen 375 mg delayed release oral tablet (1 source) Nonsteroidal Anti-inflammatory Drug Start: 12-12-2018 EC-NAPROSYN 375 MG TBEC take 1 tablet twice daily NAPROXEN [id number] Elodia Basilio PA-C omeprazole 20 mg delayed release oral tablet (9 sources) Proton Pump Inhibitor Start: 07-20-2023 End: 10-21-2023 take 1 tablet by mouth once daily Omeprazole 20 mg tablet,delayed release (DR/EC) Discontinued 20 mg PO DAILY July 20, 2023 1:00am October 21, 2023 4:05pm ondansetron 8 mg oral tablet (17 sources) Serotonin-3 Receptor Antagonist Start: 01-25-2019 End: 04-23-2019 take 1 tablet by mouth every eight hours as needed for nausea Ondansetron Hcl 8 MG tablet Discontinued 8 mg PO EVERY 8 HOURS NEEDED as needed for nausea, emesis 20 0 January 25, 2019 12:00am April 23, 2019 8:38am pantoprazole 40 mg delayed release oral tablet (17 sources) Proton Pump Inhibitor Start: 01-25-2019 End: [...] 4:51pm Prednisolone Sod Ph-Bromfenac 1-0.075 % drops (7 sources) Start: 04-10-2021 End: 06-23-2021 Prednisolone Sod Ph-Bromfenac 1-0.075 % drops Discontinued NMA OPHTHALMIC April 10, 2021 12:00am June 23, 2021 4:51pm predniSONE 10 mg oral tablet (9 sources) Start: 01-16-2025 End: 03-08-2025 take 4 tablets by mouth once daily, then take 3 tablets by mouth once daily, then take 2 tablets by mouth once daily, then take 1 tablet by mouth once daily, then take 0.5 tablet by mouth once daily Prednisone 10 mg tablet Discontinued 10 mg PO As Directed 32 0 January 16, 2025 12:00am March 08, 2025 3:55pm see taper instructions take 4 tablets daily x 3 days, then 3 tablets daily x 3 days, then 2 tablets daily x 3 days, then 1 tablet daily x 3 days, then half a tablet daily for 2 days. Start: 01-01-2025 End: 01-16-2025 take 2 tablets by mouth once daily Prednisone 20 mg tablet Discontinued 40 mg PO daily 10 January 01, 2025 12:00am January 16, 2025 3:09pm rosuvastatin calcium 40 mg oral tablet (20 sources) HMG-CoA Reductase Inhibitor Start: 08-29-2018 End: 05-17-2024 take 1 tablet by mouth once daily Rosuvastatin 40 mg tablet Discontinued 40 mg PO DAILY January 18, 2023 6:11pm January 19, 2024 [...] by mouth daily as needed SILDENAFIL CITRATE [id number] Antonina M Joni Tirzepatide (Mounjaro) 2.5 mg/0.5 mL pen injector (9 sources) Start: 06-16-2023 End: 10-21-2023 Tirzepatide (Mounjaro) 2.5 mg/0.5 mL pen injector Discontinued 2.5 mg SC EVERY WEEK June 16, 2023 1:00am October 21, 2023 4:05pm Start: 06-16-2023 End: 10-21-2023 Tirzepatide (Mounjaro) 2.5 m g/0.5 mL pen injector Discontinued 2.5 mg SC EVERY WEEK 09 07June 16, 2023 1:00am October 21, 2023 4:05pm Start: 06-16-2023 Tirzepatide (Rochelle zimmeremmacandy) 2.5 mg/0.5 mL pen injector Active 2.5 MG SC EVERY WEEK 2 June 16, 2023 12:00am vitamin d 1000 unt oral tablet (2 sources) Start: 05-13-2011 take 1 tablet by mouth every other day VITAMIN D 1000 UNIT TABS 1 tablet by mouth every other day CHOLECALCIFEROL [id number] Antonina Quinones Start: 05-13-2011 take 1 tablet by demetrio th once daily VITAMIN D 1000 UNIT TABS One tablet by mouth daily CHOLECALCIFEROL [id number] Elliott Lopez MD Problems Active Problems Problem Classification Problem Date Documented Da te Episodic/Chronic Administrative/social admission (2 sources) Persons encountering health services in other specified circumstances; Translations: [Other reasons for seeking consultation] 12-02-2022 Episodic Cardiac dysrhythmias (2 sources) Palpitations; Translations: [Palpitations] 07-20-2023 Episodic Conditions associated with dizziness or vertigo (9 sources) Dizziness; Translations: [Dizziness and giddiness] 03-31-2023 Episodic Coronary atherosclerosis and other heart disease (20 sources) Coronary atherosclerosis; Translations: [Atherosclerotic heart disease of ewiiaapaayp coronary artery without angina pectoris] Onset: 05-13-2011 [...] Onset: 05-13-2011 05-13-2011 Chronic Malaise and fatigue (9 sources) Fatigue; Translations: [Other fatigue] 09-21-2023 Episodic Other aftercare (17 sources) Long-term current use of insulin; 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] 10-02-2019 Episodic Other connective tissue disease (1 source) Impingement syndrome of shoulder region; Translations: [Impingement syndrome of right shoulder] Onset: 12-12-2018 12-12-2018 Episodic Other ear and sense organ disorders (2 sources) Ear pressure sensation; Translations: [Other specified disorders of ear, unspecified ear] 01-16-2025 Episodic Other endocrine disorders (3 sources) Increased cortisol level; Translations: [Other adrenocortical overactivity] Chronic Other lower respiratory disease (2 sources) Other forms of dyspnea; Translations: [Other respiratory abnormalities] 07-20-2023 Episodic Other male genital disorders (7 sources) Male erectile dysfunction, unspecified; Translations: [Impotence [...] Chronic Other nutritional; endocrine; and metabolic disorders (17 sources) Obesity; Translations: [Obesity, unspecified] 10-13-2020 Chronic Other nutritional; endocrine; and metabolic disorders (12 sources) Obesity, unspecified; Translations: [Obesity, unspecified] Chronic Other nutritional; endocrine; and metabolic disorders (3 sources) Body mass index 30+ - obesity; Translations: [Obesity, unspecified] 01-16-2025 Chronic Otitis media and related conditions (20 sources) Otitis media; Translations: [Otitis media, unspecified, left ear] Episodic Residual codes; unclassified (17 sources) Sleep apnea; Translations: [Sleep apnea, unspecified] 08-17-2017 Chronic Residual codes; unclassified (4 sources) Obstructive sleep apnea (adult) (pediatric); Translations: [Obstructive sleep apnea (adult)(pediatric)] 12-02-2022 Chronic Residual codes; unclassified (3 sources) Obstructive sleep apnea syndrome; Translations: [Obstructive sleep apnea (adult) (pediatric)] 01-16-2025 Chronic Screening and history of mental health and substance abuse codes (2 sources) Patient encounter status; Translations: [Encounter for screening for depression] 01-16-2025 Episodic Sprains and strains (1 source) Strain of neck muscle; Translations: [Strain of muscle, fascia and tendon at neck level, initial encounter] Onset: 12-12-2018 12-12-2018 Episodic Unclassified (3 sources) Pain in both knees Unclassified (3 sources) Right sciatic nerve pain Unclassified (3 sources) M25.561 - Pain in right knee,M25.562 - Pain in left knee,M54.31 - Sciatica, right side Past or Other Problems Problem Classification Problem Date Documented Date Episodic/Chronic Other aftercare (2 sources) residential (current) use of insulin; 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] Onset: 11-01-2015 Episodic Other non-traumatic joint disorders (4 sources) Pain in right knee; Translations: [Bilateral knee pain] Onset: 01-16-2025 01-16-2025 Episodic Other non-traumatic joint disorders (1 source) Pain in left knee; Translations: [Pain in left knee] Onset: 01-16-2025 Episodic Other screening for suspected conditions (not mental disorders or infectious disease) (3 sources) Abnormal result of cardiovascular function study, unspecified; Translations: [Abnormal result of cardiovascular function study, unspecified] Onset: 05-13-2011 Resolved: 01-22-2014 01-22-2014 Episodic Other upper respiratory disease (1 source) Nasal congestion; Translations: [Nasal congestion] Onset: 01-06-2025 Episodic Other upper respiratory infections (20 sources) Acute maxillary sinusitis; Translations: [Acute maxillary sinusitis, unspecified] Onset: 01-01-2025 Episodic Residual codes; unclassified (1 source) Family [...] history of other specified conditions] 01-23-2014 Episodic Spondylosis; intervertebral disc disorders; other back problems (4 sources) Sciatica; Translations: [Sciatica, right side] Onset: 01-16-2025 01-16-2025 Episodic Unclassified (1 source) Problem Results Test Name Value Interpretation Reference Range Facility PT D/C Summary (1)on 025 PT D/C Summary (1) [facility] [address] [place] [address] [address] [place] [address] / REHABILITATION SERVICES DISCHARGE SUMMARY MR#: [id number] Acct: [id number] Name: WES SMITH Rep #: [id number] : 1965 59 From: Darin Fitch PT, ATC Referring Dr.: Dr. Kelsey Burns MD Status: R EG RCR Insurance: [place] SELF PAY INSURANCE Discharge Summary D/C summary: It has been my pleasure to treat WES SMITH referred by Dr. Kelsey Burns MD, with the diagnosis of R sided sciatica for a total of 4 visit(s). Discharge Date: Please see the following information for a summary of their discharge status. Subjective Subjective: Pt reports he is now pain free. Pain LBP: Pain Intensity (Out of 10): 0 Objective Objective/Function: Pt is now I with HEP. Pt is pain free. Goals Goal 1:: I with HEP Goal Progress: Goal Met Goal 2:: Decrease R LE radiculopathy x 50% to aid with driving Goal Progress: Goal Met Goal 3:: Decrease LBP x 50% to aid with yard duties Goal Progress: Goal Met Plan Plan: Discharge to HEP D/C Information d/c sentence: If there are questions or concerns regarding this patient's physical therapy, please feel free to call me at [phone]. Thank you for the referral of this patient. Sincerely, Darin Fitch, PT, ATC Balance/Gait/Functiona l tests Balance/Special Test Scores Oswestry Low Back Score: 4 Lower Extremity Functional Score: 76 05/03/25 0737 CC: Dr. Kelsey Burns MD [facility] Signed Normal [facility] Endocrinology Visit Reporton 03-08-2025 Endocrinology Visit Report [facility] [address] [place] [address] OFFICE VISIT Date of Service: 03/08/25 MR#: [id number] Acct: [id number] Name: WES SMITH Rep #: [id number] : 1965 Provider: Rochelle Camacho Age/Sex: 59/M Location: [facility] Status: Signed Intake Vital Signs 08/24/24 16:03 01/16/25 15:12 03/08/25 15:51 Height 6 ft 2 in 6 ft 2 in 6 ft 2 in Weight: 266 lb 268 lb BMI 34.1 34.4 BP 126/64 H 124/77 H Blood Pressure Location Lt brachial Lt brachial Position Sitting Sitting Respiration 16 Pulse 73 80 Pulse Source Monitor Monitor Temp 97.3 F L Temp Source Temporal Pulse Oximetry (%) 93 83 Oxygen Delivery Method room air room air Intake Visit Reasons: 6 M FU Chief Complaint: Diabetes 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 Accompanied by: Self Is patient in pain?: Yes (Knees) Pain scale (1-10): 7 Allergies No Known Allergies Allergy (Verified 03/08/25 15:51) Medications ???Medication ???Instructions ???Recorded ???Confirmed ???Type aspirin 81 mg tablet,delayed 81 mg PO DAILY@0800 02/11/1503/08 History release cholecalciferol (vitamin D3) 25 2,000 unit PO DAILY 08/29/1803/08 History mcg (1,000 unit) capsule melatonin 10 mg capsule 10 mg PO HS 04/23/19 03/08/25 Hist ory esomeprazole magnesium 20 mg 20 mg PO DAILY 10/21/23 03/08/25 H istory capsule,delayed release brimonidine 0.2 %-timolol 0.5 % 1 drp ophthalmic (eye) BID #5 mL 0 01/19/24 03/08/25 Rx eye drops amlodipine 10 mg tablet 10 mg PO QDAY #90 tabs 05/17/24 Rx lisinopril 40 mg tablet 40 mg PO DAILY #90 tabs 05/17/24 0 03/08/25 Rx rosuvastatin 40 mg tablet 40 mg PO DAILY #90 tabs 05/17/24 0 03/08/25 Rx spironolactone 50 mg tablet 50 mg PO QDAY #90 tabs 05/17/24 Rx diphenhydramine HCl 25 mg tablet 50 mg PO QHS PRN 01/04/25 03/08/25 History (Allergy (diphenhydramine)) ibuprofen 400 mg tablet 600 mg PO BID 01/16/25 03/08/25 Hi story tadalafil 20 mg tablet (Cialis) 20 mg PO QDAY PRN sexual activity 01/16/25 03/08/25 Rx #10 tabs acetaminophen 650 mg 1,300 mg PO BID 03/08/25 03/08/25 History tablet,extended release (Tylenol Arthritis Pain) insulin lispro 100 unit/mL 160 unit (1.6 mL) subcut 03/08/25 03/08/25 Rx subcutaneous solution (Humalog .continuous #150 mL U-100 Insulin) [facility] Medical History 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 A1C is 6.9% He is using T-slim insulin pump with Dexcom CGM and Control IQ+ Upload shows controlled blood sugars. Labs are up to date. He is on PANTERA, statin and spironolactone. Blood pressure and lipids are controlled. ROS Const Constitutional: No fatigue, weakness, weight change or change in appetite Eyes Eyes: No change in vision ENT ENT: No hearing loss, nasal congestion or difficulty swallowing Cardio Cardiology: No chest pain at rest, chest pain with exertion or shortness of breath Musc M (more content not included)... Normal [facility] Inital Evaluation (1) - PTon 02-21-2025 Inital Evaluation (1) - PT [facility] Physical Therapy [facility] [address] [place] [address] / REHABILITATION SERVICES INITIAL EVALUATION MR#: [id number] Acct: [id number] Name: WES SMITH Rep #: [id number] : 1965 59 From: Darin Fitch PT, ATC Referring Dr.: Dr. Kelsey Burns MD Status: R EG RCR [facility] SELF PAY INSURANCE Patient's Visit Information Visit Information Visit Information: WES SMITH is a 59 year old M referred to Physical Therapy by Dr. Kelsey Burns MD with a diagnosis of R sided sciatica. Date of Evaluation: 02/21/25 Physical Therapist: Darin Fitch, PT, ATC Visit Plan Frequency: 1x/Week Duration: 2 Weeks Plan: Pt was issued HEP of prone prop progression for HEP. Follow up for 1-2 Rx's to assess benefit of HEP and to add L/S stab ex's to HEP Subjective Subjective: Pt reports he began to experience R glute pain approximately 4 months ago while driving to and from work. Pt reports his pain is the worst when he is sitting. Pt notes he has to sit a lot at work, and that causes his pain. Pt notes he has LBP which has been chronically present. Pt reports when his sciatica is present, it will descend to the mid hamstring region. Pt has not had any recent diagnostic tests at this time. Pt reports his LBP is the worst in the morning when he is getting out of heard. Pt reports his pain will go away if he walks after driving for a long period of time. Pt notes he also gets increased pain while he is trying to weed his garden. Pt reports he is able to perform most of his IADL's without being limited, although he does experience increased pain. 7/10 pain at rest, 8/10 at worst. Pain LBP: Pain Intensity (Out of 10): 7 Pain Intensity Range: 8 Objective Objective: Neuro: B LE sensation is WNL to light touch. MMT: B LE's are strong and equal when compared bilaterally ROM: Pt is moderately limited with flex and ext of the lumbar spine. B SB is minimally limited. Repeated movements: RFIS 10x2 peripheralized sx's into R glute region. Prone prop on elbows 2x1 min and [id number] NE, NW Balance/Special Test Scores Lower Extremity Functional Score: 76 Goals Goal 1:: I with HEP Goal Time Frame: 2 Weeks Goal 2:: Decrease R LE radiculopathy x 50% to aid with driving Goal Time Frame: 2 Weeks Goal 3:: Decrease LBP x 50% to aid with yard duties Goal Time Frame: 2 Weeks Rehabilitation Potential Physical Therapy Diagnosis: Pt has B knee pain, R LE radiculopathy, and LBP secondary to L/S disc derrangement Rehabilitation Potential: Good Anticipated Interventions Patient/Client Instruction: Educate patient on: Condition and Plan of Care For the Purpose of:: To improve self management Therapeutic Exercise to Include: Strength training, Body mechanics, Postural training, Dynamic Lumbar Stabilization and [place] Exercises For the Purpose of:: To decrease pain, To increase ROM and To improve muscle performance and motor function Text: Thank you for the opportunity to evaluate your patient. For Medicare and Medicare HMO plans, please review the plan of care and approve it. It will need to be FAXED BACK to us at [phone] for Medicare purposes. For Medicare only, by signing this I certify the plan of care. Please let me know if there are questions or concerns regarding this plan of care. Physician Signature: Date:__ 02/21/25 1753 CC: Dr. Kelsey Burns MD [facility] Signed Normal [facility] Laboratory - Hematology and Cell countsOrdered By: Kelsey Burns on 01-16-2025 HbA1c (Bld) [Mass fraction] 6.9 % High 4.2-6.3 [facility] Absolute lymphocyte countOrd ered By: HEALTH ASSESSMENT on 01-15-2025 Lymphocytes Auto (Unsp spec) [#/Vol] 2.22 10*3/uL 0.83-4.51 [facility] Absolute lymphocyte countOrd ered By: Kelsey Burns on 01-15-2025 Lymphocytes Auto (Unsp spec) [#/Vol] 2.48 10*3/uL 0.83-4.51 [facility] Absolute neutrophil countOrd ered By: HEALTH ASSESSMENT on 01-15-2025 Neutrophils (Bld) [#/Vol] 4.4 10*3/uL 2.0-7.7 [facility] Absolute neutrophil countOrd ered By: Kelsey Burns on 01-15-2025 Neutrophils (Bld) [#/Vol] 4.6 10*3/uL 2.0-7.7 [facility] Absolute nucleated red blood cell countOrdered By: HEALTH ASSESSMENT on 01-15-2025 Nucleated RBC (Bld) [#/Vol] 0.00 10*3/uL 0-5 [facility] Anion gap in Serum or Plasma Ordered By: HEALTH ASSESSMENT on 01-15-2025 Anion gap [Moles/Vol] 11 mmol/L 5- [facility] Anion gap in Serum or Plasma Ordered By: Kelsey Burns on 01-15-2025 Anion gap [Moles/Vol] 11 mmol/L 5- [facility] Automated lymphocyte count a s percentage of total leukocytesOrdered By: Kelsey Burns on 01-15-2025 Lymphocytes/100 WBC Auto (Unsp spec) 29.4 % 19-41 [facility] BUN/creatinine ratioOrdered By: HEALTH ASSESSMENT on 01-15-2025 Urea nitrogen/Creatinine [Mass ratio] 20.8 mg/mg High 10- [facility] BUN/creatinine ratioOrdered By: Kelsey Burns on 01-15-2025 Urea nitrogen/Creatinine [Mass ratio] 21.0 mg/mg High 10- [facility] Basophil percentageOrdered B y: Kelsey Burns on 01-15-2025 Basophils/100 WBC (Bld) 0.8 % 0-[address] [facility] Bilirubin Test strip Ql (U)O rdered By: HEALTH ASSESSMENT on 01-15-2025 Bilirubin Ql (U) Negative Negative [facility] Bilirubin directOrdered By: HEALTH ASSESSMENT on 01-15-2025 Bilirubin.direct [Mass/Vol] 0.20 mg/dL 0.00-0.30 [facility] Bilirubin directOrdered By: Elliott Lopez on 01-15-2025 Bilirubin.direct [Mass/Vol] 0.20 mg/dL 0.00-0.30 [facility] Bilirubin, totalOrdered By: HEALTH ASSESSMENT on 01-15-2025 Bilirubin [Mass/Vol] 0.51 mg/dL 0.00-1.30 [facility] Bilirubin, totalOrdered By: Kelsey Burns on 01-15-2025 Bilirubin [Mass/Vol] 0.52 mg/dL 0.00-1.30 [facility] CBC W/Diff, Automatedon 07-0 8-2025 Absolute Lymph 2.48 X10 3/uL Normal 0.83-4.51 [facility] Comment on above: Performed By: #### L 500.4050, L500.4100, L506.1001, L100.0100, L502.0250 #### [facility] [address] [place], [address] Absolute Neut 4.6 X10 3/uL Normal 2.0-7.7 [facility] Comment on above: Performed By: #### L 500.4050, L500.4100, L506.1001, L100.0100, L502.0250 #### [facility] [address] [place], [address] Basophils/100 WBC (Bld) 0.8 % Normal 0-[address] [facility] Comment on above: Performed By: #### L 500.4050, L500.4100, L506.1001, L100.0100, L502.0250 #### [facility] [address] [place], [address] Eosinophils/100 WBC (Bld) 2.7 % Normal 0-5 [facility] Comment on above: Performed By: #### L 500.4050, L500.4100, L506.1001, L100.0100, L502.0250 #### [facility] [address] [place], [address] Erythrocyte distribution width (RBC) [Ratio] 12.5 % Normal 11.6-14.6 [facility] Comment on above: Performed By: #### L 500.4050, L500.4100, L506.1001, L100.0100, L502.0250 #### [facility] [address] [place], [address] Hematocrit (Bld) [Volume fraction] 40.4 % Normal 40-54 [facility] Comment on above: Performed By: #### L 500.4050, L500.4100, L506.1001, L100.0100, L502.0250 #### [facility] [address] [place], [address] Hemoglobin (Bld) [Mass/Vol] 13.8 g/dL Normal 13.0-16.5 [facility] Comment on above: Performed By: #### L 500.4050, L500.4100, L506.1001, L100.0100, L502.0250 #### [facility] [address] [place], [address] IG% 0.500 Normal 0.0-0.9 [facility] Comment on above: Result Comment: IG% - Immature Granulocytes (promyelocytes, myelocytes and metamyelocytes) > 1% indicates that a LEFT SHIFT is Present. Performed By: #### L 500.4050, L500.4100, L506.1001, L100.0100, L502.0250 #### [facility] [address] [place], [address] Lymphocytes/100 WBC (Bld) 29.4 % Normal 19-41 [facility] Comment on above: Performed By: #### L 500.4050, L500.4100, L506.1001, L100.0100, L502.0250 #### [facility] [address] [place], [address] MCH (RBC) [Entitic mass] 31.4 pg Normal 27.0-32.0 [facility] Comment on above: Performed By: #### L 500.4050, L500.4100, L506.1001, L100.0100, L502.0250 #### [facility] [address] [place], [address] MCHC (RBC) [Mass/Vol] 34.2 g/dL Normal 32-36 [facility] Comment on above: Performed By: #### L 500.4050, L500.4100, L506.1001, L100.0100, L502.0250 #### [facility] [address] [place], [address] MCV (RBC) [Entitic vol] 92.0 fL Normal 80-[address] [facility] Comment on above: Performed By: #### L 500.4050, L500.4100, L506.1001, L100.0100, L502.0250 #### [facility] [address] [place], [address] Monocytes/100 WBC (Bld) 11.7 % High 0-[address] [facility] Comment on above: Performed By: #### L 500.4050, L500.4100, L506.1001, L100.0100, L502.0250 #### [facility] [address] [place], [address] Neutrophils/100 WBC (Bld) 54.9 % Normal 47-70 [facility] Comment on above: Performed By: #### L 500.4050, L500.4100, L506.1001, L100.0100, L502.0250 #### [facility] [address] [place], [address] Nucleated RBC (Bld) [#/Vol] 0 10*3/uL Normal 0-5 [facility] Comment on above: Performed By: #### L 500.4050, L500.4100, L506.1001, L100.0100, L502.0250 #### [facility] [address] [place], [address] Platelet mean volume (Bld) [Entitic vol] 9.6 fL Normal 6.2-12.0 [facility] Comment on above: Performed By: #### L 500.4050, L500.4100, L506.1001, L100.0100, L502.0250 #### [facility] [address] [place], [address] Platelets (Bld) [#/Vol] 264 10*3/uL Normal 150-450 [facility] Comment on above: Performed By: #### L 500.4050, L500.4100, L506.1001, L100.0100, L502.0250 #### [facility] [address] [place], [address] RBC (Bld) [#/Vol] 4.39 10*6/uL Low 4.6-6.2 [facility] Comment on above: Performed By: #### L 500.4050, L500.4100, L506.1001, L100.0100, L502.0250 #### [facility] [address] [place], [address] RDW SD 42.2 fl Normal 35.1-43.9 [facility] Comment on above: Performed By: #### L 500.4050, L500.4100, L506.1001, L100.0100, L502.0250 #### [facility] [address] [place], [address] WBC (Bld) [#/Vol] 8.4 10*3/uL Normal 4.4-11.0 [facility] Comment on above: Performed By: #### L 500.4050, L500.4100, L506.1001, L100.0100, L502.0250 #### [facility] [address] [place], [address] CBC, Employeeon 01-15-2025 Absolute Lymph 2.22 X10 3/uL Normal 0.83-4.51 [facility] Comment on above: Order Comment: Y Performed By: #### L 100.0200, L400.0100, L500.2900 #### [facility] [address] [place], [address] Absolute Neut 4.4 X10 3/uL Normal 2.0-7.7 [facility] Comment on above: Order Comment: Y Performed By: #### L 100.0200, L400.0100, L500.2900 #### [facility] [address] [place], [address] Basophils/100 WBC (Bld) 0.8 % Normal 0-[address] [facility] Comment on above: Order Comment: Y Performed By: #### L 100.0200, L400.0100, L500.2900 #### [facility] [address] [place], [address] Eosinophils/100 WBC (Bld) 2.4 % Normal 0-5 [facility] Comment on above: Order Comment: Y Performed By: #### L 100.0200, L400.0100, L500.2900 #### [facility] [address] [place], [address] Erythrocyte distribution width (RBC) [Ratio] 12.5 % Normal 11.6-14.6 [facility] Comment on above: Order Comment: Y Performed By: #### L 100.0200, L400.0100, L500.2900 #### [facility] [address] [place], [address] Hematocrit (Bld) [Volume fraction] 40.3 % Normal 40-54 [facility] Comment on above: Order Comment: Y Performed By: #### L 100.0200, L400.0100, L500.2900 #### [facility] [address] [place], [address] Hemoglobin (Bld) [Mass/Vol] 13.7 g/dL Normal 13.0-16.5 [facility] Comment on above: Order Comment: Y Performed By: #### L 100.0200, L400.0100, L500.2900 #### [facility] [address] [place], [address] Lymphocytes/100 WBC (Bld) 28.2 % Normal 19-41 [facility] Comment on above: Order Comment: Y Performed By: #### L 100.0200, L400.0100, L500.2900 #### [facility] [address] [place], [address] MCH (RBC) [Entitic mass] 31.2 pg Normal 27.0-32.0 [facility] Comment on above: Order Comment: Y Performed By: #### L 100.0200, L400.0100, L500.2900 #### [facility] [address] [place], [address] MCHC (RBC) [Mass/Vol] 34.0 g/dL Normal 32-36 [facility] Comment on above: Order Comment: Y Performed By: #### L 100.0200, L400.0100, L500.2900 #### [facility] [address] [place], [address] MCV (RBC) [Entitic vol] 91.8 fL Normal 80-[address] [facility] Comment on above: Order Comment: Y Performed By: #### L 100.0200, L400.0100, L500.2900 #### [facility] [address] [place], [address] Monocytes/100 WBC (Bld) 11.8 % High 0-[address] [facility] Comment on above: Order Comment: Y Performed By: #### L 100.0200, L400.0100, L500.2900 #### [facility] [address] [place], [address] Neutrophils/100 WBC (Bld) 56.3 % Normal 47-70 [facility] Comment on above: Order Comment: Y Performed By: #### L 100.0200, L400.0100, L500.2900 #### [facility] [address] [place], [address] NRBC # 0.00 10 3/uL Normal 0-5 [facility] Comment on above: Order Comment: Y Performed By: #### L 100.0200, L400.0100, L500.2900 #### [facility] [address] [place], [address] Nucleated RBC (Bld) [#/Vol] 0 10*3/uL Normal 0-5 [facility] Comment on above: Order Comment: Y Performed By: #### L 100.0200, L400.0100, L500.2900 #### [facility] [address] [place], [address] Platelet mean volume (Bld) [Entitic vol] 9.4 fL Normal 6.2-12.0 [facility] Comment on above: Order Comment: Y Performed By: #### L 100.0200, L400.0100, L500.2900 #### [facility] [address] [place], [address] Platelets (Bld) [#/Vol] 264 10*3/uL Normal 150-450 [facility] Comment on above: Order Comment: Y Performed By: #### L 100.0200, L400.0100, L500.2900 #### [facility] [address] [place], [address] RBC (Bld) [#/Vol] 4.39 10*6/uL Low 4.6-6.2 [facility] Comment on above: Order Comment: Y Performed By: #### L 100.0200, L400.0100, L500.2900 #### [facility] [address] [place], [address] RDW SD 42.3 fl Normal 35.1-43.9 [facility] Comment on above: Order Comment: Y Performed By: #### L 100.0200, L400.0100, L500.2900 #### [facility] [address] [place], [address] WBC (Bld) [#/Vol] 7.9 10*3/uL Normal 4.4-11.0 [facility] Comment on above: Order Comment: Y Performed By: #### L 100.0200, L400.0100, L500.2900 #### [facility] [address] [place], [address] Calculated very low density lipoprotein (VLDL) cholesterol measurementOrdered By: HEALTH ASSESSMENT on 01-15-2025 Calculated very low density lipoprotein (VLDL) cholesterol measurement 22 mg/dL [facility] Calculated very low density lipoprotein (VLDL) cholesterol measurementOrdered By: Kelsey Burns on 01-15-2025 Calculated very low density lipoprotein (VLDL) cholesterol measurement 23 mg/dL [facility] Carbon dioxide, total [Moles /volume] in Central venous bloodOrdered By: HEALTH ASSESSMENT on 01-15-2025 CO2 [Moles/Vol] 22.8 mmol/L 21.0-32.0 [facility] Carbon dioxide, total [Moles /volume] in Central venous bloodOrdered By: Kelsey Burns on 01-15-2025 CO2 [Moles/Vol] 22.9 mmol/L 21.0-32.0 [facility] Chloride assayOrdered By: ALTH ASSESSMENT on 01-15-2025 Chloride [Moles/Vol] 104 mmol/L 98-108 [facility] Chloride assayOrdered By: Nelson Burns on 01-15-2025 Chloride [Moles/Vol] 104 mmol/L 98-108 [facility] Comprehensive Metabolic Prof ilon 01-15-2025 Albumin [Mass/Vol] 4.0 g/dL Normal 3.4-4.8 [facility] Comment on above: Performed By: #### L 500.4050, L500.4100, L506.1001, L100.0100, L502.0250 #### [facility] [address] [place], [address] Albumin/Globulin [Mass ratio] 1.5 {ratio} Normal 0.9-2.4 [facility] Comment on above: Performed By: #### L 500.4050, L500.4100, L506.1001, L100.0100, L502.0250 #### [facility] [address] [place], [address] ALK PHOS 80 U/L Normal 40-129 [facility] Comment on above: Performed By: #### L 500.4050, L500.4100, L506.1001, L100.0100, L502.0250 #### [facility] [address] [place], [address] ALT [Catalytic activity/Vol] 46 U/L Normal <=46 [facility] Comment on above: Performed By: #### L 500.4050, L500.4100, L506.1001, L100.0100, L502.0250 #### [facility] [address] [place], [address] AST [Catalytic activity/Vol] 25 U/L Normal <=37 [facility] Comment on above: Performed By: #### L 500.4050, L500.4100, L506.1001, L100.0100, L502.0250 #### [facility] [address] [place], [address] Bilirubin [Mass/Vol] 0.52 mg/dL Normal 0.00-1.30 [facility] Comment on above: Performed By: #### L 500.4050, L500.4100, L506.1001, L100.0100, L502.0250 #### [facility] [address] [place], [address] BUN/CRE 21.0 RATIO High 10-20 [facility] Comment on above: Performed By: #### L 500.4050, L500.4100, L506.1001, L100.0100, L502.0250 #### [facility] [address] [place], [address] Calcium [Mass/Vol] 9.8 mg/dL Normal 7.6-11.0 [facility] Comment on above: Performed By: #### L 500.4050, L500.4100, L506.1001, L100.0100, L502.0250 #### [facility] [address] [place], [address] Chloride [Moles/Vol] 104 mmol/L Normal 98-108 [facility] Comment on above: Performed By: #### L 500.4050, L500.4100, L506.1001, L100.0100, L502.0250 #### [facility] [address] [place], [address] CO2 [Moles/Vol] 22.9 mmol/L Normal 21.0-32.0 [facility] Comment on above: Performed By: #### L 500.4050, L500.4100, L506.1001, L100.0100, L502.0250 #### [facility] [address] [place], [address] Creatinine [Mass/Vol] 1.05 mg/dL Normal 0.70-1.20 [facility] Comment on above: Performed By: #### L 500.4050, L500.4100, L506.1001, L100.0100, L502.0250 #### [facility] [address] [place], [address] GAP 11 Normal 5-15 [facility] Comment on above: Performed By: #### L 500.4050, L500.4100, L506.1001, L100.0100, L502.0250 #### [facility] [address] [place], [address] GFR/1.73 sq M.predicted among non-blacks MDRD (S/P/Bld) [Vol rate/Area] 81 mL/min/{1.73_m2} Normal >60 [facility] Comment on above: Result Comment: mL/m in/1.73m2 CKD-EPI Creatinine Equation (2020) Performed By: #### L 500.4050, L500.4100, L506.1001, L100.0100, L502.0250 #### [facility] [address] [place], [address] Globulin (S) [Mass/Vol] 2.7 g/dL Normal 2.2-4.2 [facility] Comment on above: Performed By: #### L 500.4050, L500.4100, L506.1001, L100.0100, L502.0250 #### [facility] [address] [place], [address] Glucose [Mass/Vol] 104 mg/dL High 70-99 [facility] Comment on above: Performed By: #### L 500.4050, L500.4100, L506.1001, L100.0100, L502.0250 #### [facility] [address] [place], [address] Potassium [Moles/Vol] 4.3 mmol/L Normal 3.3-5.1 [facility] Comment on above: Performed By: #### L 500.4050, L500.4100, L506.1001, L100.0100, L502.0250 #### [facility] [address] [place], [address] Sodium [Moles/Vol] 137 mmol/L Normal 133-145 [facility] Comment on above: Performed By: #### L 500.4050, L500.4100, L506.1001, L100.0100, L502.0250 #### [facility] [address] [place], [address] T PROT 6.7 g/dL Normal 5.9-8.4 [facility] Comment on above: Performed By: #### L 500.4050, L500.4100, L506.1001, L100.0100, L502.0250 #### [facility] [address] [place], [address] Urea nitrogen [Mass/Vol] 22 mg/dL High 4-19 [facility] Comment on above: Performed By: #### L 500.4050, L500.4100, L506.1001, L100.0100, L502.0250 #### [facility] [address] [place], [address] [employer] Cholesterol in LDL [Mass/Vol] 82 mg/dL Normal 0-130 [facility] Comment on above: Order Comment: Y Performed By: #### L 100.0200, L400.0100, L500.2900 #### [facility] [address] [place], [address] Eosinophil percentageOrdered By: Kelsey Burns on 01-15-2025 Eosinophils/100 WBC (Bld) 2.7 % 0-5 [facility] Erythrocyte distribution wid th ratioOrdered By: HEALTH ASSESSMENT on 01-15-2025 Erythrocyte distribution width (RBC) [Ratio] 12.5 % 11.6-14.6 [facility] Erythrocyte distribution wid th ratioOrdered By: Kelsey Burns on 01-15-2025 Erythrocyte distribution width (RBC) [Ratio] 12.5 % 11.6-14.6 [facility] Erythrocyte distribution wid th standard deviationOrdered By: HEALTH ASSESSMENT on 01-15-2025 Erythrocyte distribution width (RBC) [Ratio] 42.3 fl 35.1-43.9 [facility] Erythrocyte distribution wid th standard deviationOrdered By: Kelsey Burns on 01-15-2025 Erythrocyte distribution width (RBC) [Ratio] 42.2 fl 35.1-43.9 [facility] Glomerular filtration rate ( GFR) estimation/1.73 sq m using serum, plasma, or whole bOrdered By: HEALTH ASSESSMENT on 01-15-2025 GFR/1.73 sq M.predicted among non-blacks MDRD (S/P/Bld) [Vol rate/Area] 80 mL/min/{1.73_m2} >60 [facility] Comment on above: mL/min/1.73m2 CKD-EP I Creatinine Equation (2020) Glomerular filtration rate ( GFR) estimation/1.73 sq m using serum, plasma, or whole bOrdered By: Kelsey Burns on 01-15-2025 GFR/1.73 sq M.predicted among non-blacks MDRD (S/P/Bld) [Vol rate/Area] 81 mL/min/{1.73_m2} >60 [facility] Comment on above: mL/min/1.73m2 CKD-EP I Creatinine Equation (2020) Hematocrit Auto (Bld) [Volum e fraction]Ordered By: HEALTH ASSESSMENT on 01-15-2025 Hematocrit (Bld) [Volume fraction] 40.3 % 40-54 [facility] Hematocrit Auto (Bld) [Volum e fraction]Ordered By: Kelsey Burns on 01-15-2025 Hematocrit (Bld) [Volume fraction] 40.4 % 40-54 [facility] Hemoglobin measurementOrdere d By: HEALTH ASSESSMENT on 01-15-2025 Hemoglobin (Bld) [Mass/Vol] 13.7 g/dL 13.0-16.5 [facility] Hemoglobin measurementOrdere d By: Kelsey Burns on 01-15-2025 Hemoglobin (Bld) [Mass/Vol] 13.8 g/dL 13.0-16.5 [facility] Immature granulocytes/100 WB C Auto (Bld)Ordered By: Kelsey Burns on 01-15-2025 Immature granulocytes/100 WBC (Bld) 0.500 % 0.0-0.9 [facility] Comment on above: IG% - Immature Granu locytes (promyelocytes, myelocytes and metamyelocytes) > 1% indicates that a LEFT SHIFT is Present. Internal Medicine Office Vis alinaemma 01-15-2025 Internal Medicine Office Visit [facility] [address] [place] [address] [place] [address] OFFICE VISIT Date of Service: 01/16/25 MR#: [id number] Acct: [id number] Name: WES SMITH Rep #: [id number] : 1965 Provider: Dr. Kelsey thomas MD Age/Sex: 59/M Location: [facility] Status: Signed Intake Vital Signs 07/18/24 14:07 08/24/24 16:03 01/04/25 08:23 01/16/25 15:12 Height 6 ft 2 in 6 ft 2 in 6 ft 2 in 6 ft 2 in Weight: 266 lb BMI 34.1 BP 126/64 H Blood Pressure Location Lt brachial Position Sitting Respiration 16 Pulse 73 Pulse Source Monitor Temp 97.3 F L Temp Source Temporal Pulse Oximetry (%) 93 Oxygen Delivery Method room air Intake Visit Reasons: 6 M FU Chief Complaint: 6 M FU Is patient in pain?: Yes (BILATERAL KNEE) Pain scale (1-10): 4 Allergies No Known Allergies Allergy (Verified 01/16/25 15:07) Medications ???Medication ???Instructions ???Recorded ???Confirmed ???Type aspirin 81 mg tablet,delayed 81 mg PO DAILY@0800 02/11/1501/16 History release cholecalciferol (vitamin D3) 25 2,000 unit PO DAILY 08/29/1801/16 History mcg (1,000 unit) capsule melatonin 10 mg capsule 10 mg PO HS 04/23/19 01/16/25 Hist ory esomeprazole magnesium 20 mg 20 mg PO DAILY 10/21/23 01/16/25 H istory capsule,delayed release brimonidine 0.2 %-timolol 0.5 % 1 drp ophthalmic (eye) BID #5 mL 0 01/19/24 01/16/25 Rx eye drops amlodipine 10 mg tablet 10 mg PO QDAY #90 tabs 05/17/24 Rx lisinopril 40 mg tablet 40 mg PO DAILY #90 tabs 05/17/24 0 01/16/25 Rx rosuvastatin 40 mg tablet 40 mg PO DAILY #90 tabs 05/17/24 0 01/16/25 Rx spironolactone 50 mg tablet 50 mg PO QDAY #90 tabs 05/17/24 Rx insulin lispro 100 unit/mL 160 unit (1.6 mL) subcut 11/26/24 01/16/25 Rx subcutaneous solution (Humalog .continuous #150 mL U-100 Insulin) diphenhydramine HCl 25 mg tablet 50 mg PO QHS PRN 01/04/25 01/16/25 History (Allergy (diphenhydramine)) acetaminophen 500 mg capsule 1,250 mg PO BID 01/16/25 01/16/25 History ibuprofen 400 mg tablet 600 mg PO BID 01/16/25 01/16/25 Hi story prednisone 10 mg tablet 10 mg PO DIRECTED #32 tabs 04/0401/16/25 Rx tadalafil 20 mg tablet (Cialis) 20 mg PO QDAY PRN sexual activity 01/16/25 01/16/25 Rx #10 tabs Have you fallen in the past year?: No PFSH Medical History Pseudophakia of both eyes 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 1. Little interest or pleasure in doing things: not at all 2. Feeling down, depressed, or hopeless: not at all 3. Trouble falling or staying asleep, or sleeping too much: not at all 4. Feeling tired or having little energy: not at all 5. Poor appetite or overeating: not at all 6. Feeling bad about yourself - or that you are a failure or have let yourself and your family down: not at all 7. Trouble concentrating on things, such as reading the newspaper or watching television: several days 8. Moving or speaking so slowly that other people could have noticed (more content not included)... Normal [facility] Ketones Test strip Ql (U)Ord ered By: HEALTH ASSESSMENT on 01-15-2025 Ketones Ql (U) Negative Negative [facility] LDL calc ser/plasOrdered By: Kelsey Burns on 01-15-2025 Cholesterol in LDL [Mass/Vol] 81 mg/dL [facility] Comment on above: Udalnqcdrg=970-305 m g/dL & Higher Uqjw=916 mg/dL or greater Laboratory - Chemistry and C hemistry - challengeOrdered By: HEALTH ASSESSMENT on 01-15-2025 AST [Catalytic activity/Vol] 26 U/L <38 [facility] - Chemistry and C hemistry - challengeOrdered By: Kelsey Burns on 01-15-2025 AST [Catalytic activity/Vol] 25 U/L <38 [facility] Lactate dehydrogenase (LDH) measurementOrdered By: HEALTH ASSESSMENT on 01-15-2025 LDH [Catalytic activity/Vol] 173 U/L 87-241 [facility] Lipid Profileon 01-15-2025 CHOL:HDL 3.66 Normal [facility] Comment on above: Performed By: #### L 500.4050, L500.4100, L506.1001, L100.0100, L502.0250 #### [facility] [address] [place], [address] Cholesterol [Mass/Vol] 142 mg/dL Normal <=200 [facility] Comment on above: Result Comment: Chol esterol level, Desirable <200 mg/dL Borderline high cholesterol 200-239 mg/dL High cholesterol >=240 mg/dL Recommendations of the NCEP Adult Treatment Panel for the following risk-cutoff thresholds for the [place] population. Performed By: #### L 500.4050, L500.4100, L506.1001, L100.0100, L502.0250 #### [facility] [address] [place], [address] Cholesterol in HDL [Mass/Vol] 39 mg/dL Low [facility] Comment on above: Result Comment: Sasha onal Cholesterol Education Program (NCEP) guidelines: <40 mg/dL: Low HDL-cholesterol (major risk factor for CHD) >= 60 mg/dL: High HDL-cholesterol (negative risk factor for CHD) HDL-cholesterol is affected by a number of factors, e.g. smoking, exercise, hormones, sex and age. Performed By: #### L 500.4050, L500.4100, L506.1001, L100.0100, L502.0250 #### [facility] [address] [place], [address] Cholesterol in LDL [Mass/Vol] 81 mg/dL Normal [facility] Comment on above: Result Comment: Bord engmet=652-834 mg/dL Higher Gzlk=477 mg/dL or greater Performed By: #### L 500.4050, L500.4100, L506.1001, L100.0100, L502.0250 #### [facility] [address] [place], [address] Cholesterol in VLDL [Mass/Vol] 23 mg/dL Normal 5-40 [facility] Comment on above: Performed By: #### L 500.4050, L500.4100, L506.1001, L100.0100, L502.0250 #### [facility] [address] [place], [address] Triglyceride [Mass/Vol] 113 mg/dL Normal [facility] Comment on above: Result Comment: The drugs N-Acetylcysteine and Metamizole may falsely depress this assay. Normal range: <150 mg/dL Borderline High: 150-199 mg/dL High: 200-499 mg/dL Very High: >500 mg/dL Performed By: #### L 500.4050, L500.4100, L506.1001, L100.0100, L502.0250 #### [facility] [address] [place], [address] Liver Profileon 01-15-2025 Albumin [Mass/Vol] 3.9 g/dL Normal 3.4-4.8 [facility] Comment on above: Performed By: #### L 100.0200, L400.0100, L500.2900 #### [facility] [address] [place], [address] ALK PHOS 80 U/L Normal 40-129 [facility] Comment on above: Performed By: #### L 100.0200, L400.0100, L500.2900 #### [facility] [address] [place], [address] ALT [Catalytic activity/Vol] 46 U/L Normal <=46 [facility] Comment on above: Performed By: #### L 100.0200, L400.0100, L500.2900 #### [facility] [address] [place], [address] AST [Catalytic activity/Vol] 25 U/L Normal <=37 [facility] Comment on above: Performed By: #### L 100.0200, L400.0100, L500.2900 #### [facility] [address] [place], [address] Bilirubin [Mass/Vol] 0.51 mg/dL Normal 0.00-1.30 [facility] Comment on above: Performed By: #### L 100.0200, L400.0100, L500.2900 #### [facility] [address] [place], [address] Bilirubin.direct [Mass/Vol] 0.20 mg/dL Normal 0.00-0.30 [facility] Comment on above: Performed By: #### L 100.0200, L400.0100, L500.2900 #### [facility] [address] [place], [address] Globulin (S) [Mass/Vol] 2.8 g/dL Normal 2.2-4.2 [facility] Comment on above: Performed By: #### L 100.0200, L400.0100, L500.2900 #### [facility] [address] [place], [address] T PROT 6.7 g/dL Normal 5.9-8.4 [facility] Comment on above: Performed By: #### L 100.0200, L400.0100, L500.2900 #### [facility] [address] [place], [address] MCV (mean corpuscular volume ) determinationOrdered By: HEALTH ASSESSMENT on 01-15-2025 MCV (RBC) [Entitic vol] 91.8 fL 80-[address] [facility] MCV (mean corpuscular volume ) determinationOrdered By: Kelsey Burns on 01-15-2025 MCV (RBC) [Entitic vol] 92.0 fL 80-[address] [facility] Mean corpuscular hemoglobin (MCH) determinationOrdered By: HEALTH ASSESSMENT on 01-15-2025 MCH (RBC) [Entitic mass] 31.2 pg 27.0-32.0 [facility] Mean corpuscular hemoglobin (MCH) determinationOrdered By: Kelsey [place] on 01-15-2025 MCH (RBC) [Entitic mass] 31.4 pg 27.0-32.0 [facility] Mean corpuscular hemoglobin concentration (MCHC) determinationOrdered By: HEALTH ASSESSMENT on 01-15-2025 MCHC (RBC) [Mass/Vol] 34.0 g/dL [facility] Mean corpuscular hemoglobin concentration (MCHC) determinationOrdered By: Kelsey [place] on 01-15-2025 MCHC (RBC) [Mass/Vol] 34.2 g/dL [facility] Mean platelet volume determi nationOrdered By: HEALTH ASSESSMENT on 01-15-2025 Platelet mean volume (Bld) [Entitic vol] 9.4 fL 6.2-12.0 [facility] Mean platelet volume determi nationOrdered By: Kelsey [place] on 01-15-2025 Platelet mean volume (Bld) [Entitic vol] 9.6 fL 6.2-12.0 [facility] Microalb:Creat Ratio,Random URon 01-15-2025 MALB:CREAT 7.5 mg/g CRE Normal [facility] Comment on above: Performed By: #### L 500.4050, L500.4100, L506.1001, L100.0100, L502.0250 #### [facility] [address] [place], [address] MICROALBUMIN,UR 18.2 mg/L Normal NO RANGE EST. [facility] Comment on above: Performed By: #### L 500.4050, L500.4100, L506.1001, L100.0100, L502.0250 #### [facility] [address] [place], [address] Monocyte percentageOrdered B y: Kelsey Burns on 01-15-2025 Monocytes/100 WBC (Bld) 11.7 % High 0-[address] [facility] Neutrophil percentageOrdered By: HEALTH ASSESSMENT on 01-15-2025 Neutrophils/100 WBC (Bld) 56.3 % 47-70 [facility] Neutrophil percentageOrdered By: Kelsey Burns on 01-15-2025 Neutrophils/100 WBC (Bld) 54.9 % 47-70 [facility] Nitrite Test strip Ql (U)Ord ered By: HEALTH ASSESSMENT on 01-15-2025 Nitrite Ql (U) Negative Negative [facility] Nucleated red blood cell per centageOrdered By: HEALTH ASSESSMENT on 01-15-2025 Nucleated RBC/100 WBC (Bld) [Ratio] 0 % 0-5 [facility] Nucleated red blood cell per centageOrdered By: Kelsey Burns on 01-15-2025 Nucleated RBC/100 WBC (Bld) [Ratio] 0 % 0-5 [facility] Platelet countOrdered By: YOSSI ALTH ASSESSMENT on 01-15-2025 Platelets (Bld) [#/Vol] 264 10*3/uL 150-450 [facility] Platelet countOrdered By: Nelson Burns on 01-15-2025 Platelets (Bld) [#/Vol] 264 10*3/uL 150-450 [facility] Potassium measurement (mass/ volume)Ordered By: HEALTH ASSESSMENT on 01-15-2025 Potassium (Unsp spec) [Mass/Vol] 4.1 mmol/L 3.3-5.1 [facility] Potassium measurement (mass/ volume)Ordered By: Kelsey Burns on 01-15-2025 Potassium (Unsp spec) [Mass/Vol] 4.3 mmol/L 3.3-5.1 [facility] Protein Test strip Ql (U)Ord ered By: HEALTH ASSESSMENT on 01-15-2025 Protein Ql (U) 30 mg/dl High Negative [facility] RBC Auto (Bld) [#/Vol]Ordere d By: HEALTH ASSESSMENT on 01-15-2025 RBC (Bld) [#/Vol] 4.39 10*6/uL Low 4.6-6.2 [facility] RBC Auto (Bld) [#/Vol]Ordere d By: Kelsey Burns on 01-15-2025 RBC (Bld) [#/Vol] 4.39 10*6/uL Low 4.6-6.2 [facility] Random urine creatinine darlene urement (mass/volume)Ordered By: Kelsey Burns on 01-15-2025 Creatinine Unsp time (U) [Mass/Vol] 244.00 mg/dL 39.00-259.00 [facility] Screening total cholesterol/ high density lipoprotein (HDL) cholesterol ratioOrdered By: HEALTH ASSESSMENT on 01-15-2025 Cholesterol.total/Arlyn sterol in HDL [Mass ratio] 3.69 {ratio} [facility] Screening total cholesterol/ high density lipoprotein (HDL) cholesterol ratioOrdered By: Kelsey Burns on 01-15-2025 Cholesterol.total/Arlyn sterol in HDL [Mass ratio] 3.66 {ratio} [facility] Serum creatinine measurement (mass/volume)Ordered By: HEALTH ASSESSMENT on 01-15-2025 Creatinine [Mass/Vol] 1.06 mg/dL 0.70-1.20 [facility] Serum creatinine measurement (mass/volume)Ordered By: Kelsey Burns on 01-15-2025 Creatinine [Mass/Vol] 1.05 mg/dL 0.70-1.20 [facility] Serum globulin measurementOr dered By: HEALTH ASSESSMENT on 01-15-2025 Globulin (S) [Mass/Vol] 2.8 g/dL 2.2-4.[address] [facility] Serum globulin measurementOr dered By: Kelsey Burns on 01-15-2025 Globulin (S) [Mass/Vol] 2.7 g/dL 2.2-4.[address] [facility] Serum glucose measurement (m ass/volume)Ordered By: HEALTH ASSESSMENT on 01-15-2025 Glucose [Mass/Vol] 105 mg/dL High 70- [facility] Serum glucose measurement (m ass/volume)Ordered By: Kelsey Burns on 01-15-2025 Glucose [Mass/Vol] 104 mg/dL High 70-99 [facility] Serum or plasma alanine marcum otransferase (ALT) measurementOrdered By: HEALTH ASSESSMENT on 01-15-2025 ALT [Catalytic activity/Vol] 46 U/L <47 [facility] Serum or plasma alanine marcum otransferase (ALT) measurementOrdered By: Kelsey Burns on 01-15-2025 ALT [Catalytic activity/Vol] 46 U/L <47 [facility] Serum or plasma albumin darlene urement (mass/volume)Ordered By: HEALTH ASSESSMENT on 01-15-2025 Albumin [Mass/Vol] 3.9 g/dL 3.4-4.8 [facility] Serum or plasma albumin darlene urement (mass/volume)Ordered By: Kelsey Burns on 01-15-2025 Albumin [Mass/Vol] 4.0 g/dL 3.4-4.8 [facility] Serum or plasma albumin/glob ulin mass ratioOrdered By: HEALTH ASSESSMENT on 01-15-2025 Albumin/Globulin [Mass ratio] 1.4 {ratio} 0.9-2.4 [facility] Serum or plasma albumin/glob ulin mass ratioOrdered By: Kelsey Burns on 01-15-2025 Albumin/Globulin [Mass ratio] 1.5 {ratio} 0.9-2.4 [facility] Serum or plasma alkaline kamryn sphatase measurementOrdered By: HEALTH ASSESSMENT on 01-15-2025 ALP [Catalytic activity/Vol] 81 U/L 40-129 [facility] Serum or plasma alkaline kamryn sphatase measurementOrdered By: Kelsey Burns on 01-15-2025 ALP [Catalytic activity/Vol] 80 U/L 40-129 [facility] Serum or plasma calcium darlene urement (mass/volume)Ordered By: HEALTH ASSESSMENT on 01-15-2025 Calcium [Mass/Vol] 9.8 mg/dL 7.6-11.0 [facility] Serum or plasma calcium darlene urement (mass/volume)Ordered By: Kelsey Burns on 01-15-2025 Calcium [Mass/Vol] 9.8 mg/dL 7.6-11.0 [facility] Serum or plasma cholesterol in HDL measurement (mass/volume)Ordered By: HEALTH ASSESSMENT on 01-15-2025 Cholesterol in HDL [Mass/Vol] 39 mg/dL Low >40 [facility] Comment on above: National Cholesterol Education Program (NCEP) guidelines:<40 mg/dL: Low HDL-cholesterol (major risk factor for CHD)>= 60 mg/dL: High HDL-cholesterol (negative risk factor for CHD)HDL-cholesterol is affected by a number of factors, e.g. smoking, exercise, hormones, sex and age. Serum or plasma cholesterol in HDL measurement (mass/volume)Ordered By: Kelsey Burns on 01-15-2025 Cholesterol in HDL [Mass/Vol] 39 mg/dL Low >40 [facility] Comment on above: National Cholesterol Education Program (NCEP) guidelines:<40 mg/dL: Low HDL-cholesterol (major risk factor for CHD)>= 60 mg/dL: High HDL-cholesterol (negative risk factor for CHD)HDL-cholesterol is affected by a number of factors, e.g. smoking, exercise, hormones, sex and age. Serum or plasma cholesterol in LDL measurement (mass/volume)Ordered By: HEALTH ASSESSMENT on 01-15-2025 Cholesterol in LDL [Mass/Vol] 82 mg/dL 0-130 [facility] Serum or plasma cholesterol measurement (mass/volume)Ordered By: HEALTH ASSESSMENT on 01-15-2025 Cholesterol [Mass/Vol] 143 mg/dL <201 [facility] Comment on above: Cholesterol level, D esirable <200 mg/dLBorderline high cholesterol 200-239 mg/dLHigh cholesterol >=240 mg/dLRecommendations of the NCEP Adult Treatment Panel for the following risk-cutoff thresholds for the [place] population. Serum or plasma cholesterol measurement (mass/volume)Ordered By: Kelsey Bunrs on 01-15-2025 Cholesterol [Mass/Vol] 142 mg/dL <201 [facility] Comment on above: Cholesterol level, D esirable <200 mg/dLBorderline high cholesterol 200-239 mg/dLHigh cholesterol >=240 mg/dLRecommendations of the NCEP Adult Treatment Panel for the following risk-cutoff thresholds for the [place] population. Serum or plasma urea nitroge n measurement (mass/volume)Ordered By: HEALTH ASSESSMENT on 01-15-2025 Urea nitrogen [Mass/Vol] 22 mg/dL High 4-19 [facility] Serum or plasma urea nitroge n measurement (mass/volume)Ordered By: Kelsey Burns on 01-15-2025 Urea nitrogen [Mass/Vol] 22 mg/dL High 4-19 [facility] Serum or plasma uric acid me asurement (mass/volume)Ordered By: HEALTH ASSESSMENT on 01-15-2025 Urate [Mass/Vol] 4.6 mg/dL 3.5-7.2 [facility] Comment on above: The drugs N-Acetylcy steine and Metamizole may falsely depress this assay. Sodium levelOrdered By: [facility] ASSESSMENT on 01-15-2025 Sodium [Moles/Vol] 138 mmol/L 133-145 [facility] Sodium levelOrdered By: Vinicio Burns on 01-15-2025 Sodium [Moles/Vol] 137 mmol/L 133-145 [facility] Total proteinOrdered By: JOSE MIGUEL [facility] ASSESSMENT on 01-15-2025 Protein [Mass/Vol] 6.8 g/dL 5.9-8.4 [facility] Total proteinOrdered By: Mj Burns on 01-15-2025 Protein [Mass/Vol] 6.7 g/dL 5.9-8.4 [facility] Triglycerides measurementOrd ered By: HEALTH ASSESSMENT on 01-15-2025 Triglyceride [Mass/Vol] 110 mg/dL <[address] [facility] Comment on above: The drugs N-Acetylcy steine and Metamizole may falsely depress this assay. Normal range: <150 mg/dLBorderline High: 150-199 mg/dLHigh: 200-499 mg/dLVery High: >500 mg/dL Triglycerides measurementOrd ered By: Kelsey Burns on 01-15-2025 Triglyceride [Mass/Vol] 113 mg/dL <[address] [facility] Comment on above: The drugs N-Acetylcy steine and Metamizole may falsely depress this assay. Normal range: <150 mg/dLBorderline High: 150-199 mg/dLHigh: 200-499 mg/dLVery High: >500 mg/dL Urinalysis, Employeeon 01-15 BILIRUBIN URINE Negative Normal Negative [facility] Comment on above: Order Comment: Y Urine, Random Performed By: #### L 100.0200, L400.0100, L500.2900 #### [facility] [address] [place], [address] Clarity (U) Clear Normal Clear [facility] Comment on above: Order Comment: Y Urine, Random Performed By: #### L 100.0200, L400.0100, L500.2900 #### [facility] [address] [place], [address] Color (U) Yellow Normal Yellow [facility] Comment on above: Order Comment: Y Urine, Random Performed By: #### L 100.0200, L400.0100, L500.2900 #### [facility] [address] [place], [address] GLUCOSE, UR Normal Normal Normal [facility] Comment on above: Order Comment: Y Urine, Random Performed By: #### L 100.0200, L400.0100, L500.2900 #### [facility] [address] [place], [address] KETONE UR Negative Normal Negative [facility] Comment on above: Order Comment: Y Urine, Random Performed By: #### L 100.0200, L400.0100, L500.2900 #### [facility] [address] [place], [address] LEUK ESTERASE 25 /ul Abnormal Negative [facility] Comment on above: Order Comment: Y Urine, Random Performed By: #### L 100.0200, L400.0100, L500.2900 #### [facility] [address] [place], [address] Nitrite Ql (U) Negative Normal Negative [facility] Comment on above: Order Comment: Y Urine, Random Performed By: #### L 100.0200, L400.0100, L500.2900 #### [facility] [address] [place], [address] OCCULT BLOOD-UR 10 /ul Abnormal Negative [facility] Comment on above: Order Comment: Y Urine, Random Performed By: #### L 100.0200, L400.0100, L500.2900 #### [facility] [address] [place], [address] pH UR 6.0 Normal 5.0 - 8.0 [facility] Comment on above: Order Comment: Y Urine, Random Performed By: #### L 100.0200, L400.0100, L500.2900 #### [facility] [address] [place], [address] PROT DIPSTX 30 mg/dl Abnormal Negative [facility] Comment on above: Order Comment: Y Urine, Random Performed By: #### L 100.0200, L400.0100, L500.2900 #### [facility] [address] [place], [address] SP.GR. DIPSTX 1.020 Normal 1.002-1.030 [facility] Comment on above: Order Comment: Y Urine, Random Performed By: #### L 100.0200, L400.0100, L500.2900 #### [facility] [address] [place], [address] UROBILI Normal Normal Normal [facility] Comment on above: Order Comment: Y Urine, Random Performed By: #### L 100.0200, L400.0100, L500.2900 #### [facility] [address] [place], [address] Urine albumin measurement [facility] detection limit of 20 mg/L or less (mass/volume)Ordered By: Kelsey Burns on 01-15-2025 Albumin DL <= 20 mg/L (U) [Mass/Vol] 18.2 mg/L NO RANGE EST. [facility] Urine clarityOrdered By: JOSE MIGUEL LT ASSESSMENT on 01-15-2025 Clarity (U) Clear Clear [facility] Urine color determinationOrd ered By: HEALTH ASSESSMENT on 01-15-2025 Color (U) Yellow Yellow [facility] Urine glucose detectionOrder ed By: HEALTH ASSESSMENT on 01-15-2025 Glucose Ql (U) Normal mg/dl Normal [facility] Urine leukocyte esterase det ection by dipstickOrdered By: HEALTH ASSESSMENT on 01-15-2025 Leukocyte esterase Test strip Ql (U) 25 /ul High Negative [facility] Urine pHOrdered By: HEALTH A SSESSMENT on 01-15-2025 pH (U) 6.0 [pH] 5.0 - 8.0 [facility] Urine specific gravity measu rementOrdered By: HEALTH ASSESSMENT on 01-15-2025 Specific gravity (U) [Rel density] 1.020 1.002-1.030 [facility] Urine urobilinogen measureme ntOrdered By: HEALTH ASSESSMENT on 01-15-2025 Urobilinogen Ql (U) Normal mg/dl Normal [facility] Vitamin D,25 Hydroxyon 01-15 Vitamin D 25-OH 36.5 ng/mL Normal 30-100 [facility] Comment on above: Result Comment: Rajani min D Status Deficiency: <20 ng/mL (50nmol/L) Insufficiency: 20-30 ng/mL (50-75 nmol/L) Sufficiency: 30-100 ng/mL (75-250 nmol/L) Toxicity: >100 ng/mL (>250 nmol/L) Performed By: #### L 500.4050, L500.4100, L506.1001, L100.0100, L502.0250 #### [facility] [address] [place] [address]. [place], [address] White blood cell (WBC) count Ordered By: HEALTH ASSESSMENT on 01-15-2025 WBC (Bld) [#/Vol] 7.9 10*3/uL 4.4-11.0 [facility] White blood cell (WBC) count Ordered By: Kelsey Burns on 01-15-2025 WBC (Bld) [#/Vol] 8.4 10*3/uL 4.4-11.0 [facility] Internal Medicine Office Vis raegan 01-04-2025 Internal Medicine Office Visit [facility] [address] [place], [place] [address] OFFICE VISIT Date of Service: 01/04/25 MR#: [id number] Acct: [id number] Name: WES SMITH Rep #: [id number] : 1965 Provider: CRISTINA joshi Age/Sex: 59/M Location: [facility] Status: Signed Intake Vital Signs 01/01/25 13:32 [...] PAIN Chief Complaint: ACUTE RIGHT EAR PAIN 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 finishing prednisone tomorrow. feels sweaty today. 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 Normal [facility] Internal Medicine Office Vis [facility] 01-01-2025 Internal Medicine Office Visit [facility] [address] [place] [address] OFFICE VISIT Date of Service: 01/01/25 MR#: [id number] Acct: [id number] Name: WES SMITH Rep #: [id number] : 1965 Provider: Dr. 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 [facility] M100.019on 01-01-2025 M100.019 Negative Normal [facility] Comment on above: Performed By: #### M 100.019 #### [facility] [address] [place], [address] No Panel InformationOrdered By: Kelsey Burns on 01-01-2025 POC SARS CoV-[address] [facility] Rapid [facility] A Streptococcus antigen assay at point of careOrdered By: Kelsey Burns on 01-01-2025 S. pyogenes Ag IA.rapid Ql (Throat) Negative [facility] [id number] By: Kelsey Burns on 01-01-2025 SARS-CoV-2 (COVID-19) RNA CORINNE+probe Ql (Unsp spec) [facility] Rapid group A Streptococcus antigen assay at point of careOrdered By: Howard Tavera on 12-30-2024 S. pyogenes Ag IA.rapid Ql (Throat) Negative [facility] Urgent Care Visit Reporton 0 12-30-2024 Urgent Care Visit Report [facility] [address], [address] [place], [place] [address] OFFICE VISIT Date of Service: 12/30/24 MR#: [id number] Acct: [id number] Name: WES SMITH Rep #: [id number] : 1965 Provider: CRISTINA schwartz Age/Sex: 59/M Location: [facility] Status: Signed Intake Vital Signs 08/24/24 16:03 [...] 81 mg tablet,delayed 81 mg PO DAILY@0800 08/04/15 12/30 /25 History release cholecalciferol (vitamin D3) 25 2,000 [...] has pressure in his ear this morning. 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 Normal [facility] Endocrinology Visit Reporton 08-24-2024 Endocrinology Visit Report [facility] [address] [place] [address]. 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 Normal [facility] Internal Medicine Office Vis raegan 07-17-2024 Internal Medicine Office Visit [facility] [address] [place] [address] [place] [address] OFFICE VISIT Date of Service: 07/18/24 MR#: [id number] Acct: [id number] Name: WES SMITH Rep #: [id number] : 1965 Provider: Dr. Kelsey thomas MD Age/Sex: 58/M Location: [facility] Status: Signed Intake Vital Signs 01/19/24 12:59 [...] mg tablet,delayed 81 mg PO DAILY@0800 15 07/18/24 History release cholecalciferol (vitamin D3) 25 [...] on 0- 10 scale. reports no concerns. 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 Normal [facility] Cardiology Visit Reporton Cardiology Visit Report [facility] [address] [place] [address] OFFICE VISIT Date of Service: 05/17/24 MR#: [id number] Acct: [id number] Name: WES SMITH Rep #: [id number] : 1965 Provider: CRISTINA nicole Age/Sex: 58/M Location: 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 Normal [facility] Absolute lymphocyte countOrd ered By: Reba Elliott on 08-03-2023 Lymphocytes Auto (Unsp spec) [#/Vol] 2.39 10*3/uL 0.83-4.51 [facility] Automated lymphocyte count a s percentage of total leukocytesOrdered By: Reba Elliott on 08-03-2023 Lymphocytes/100 WBC Auto (Unsp spec) 31.0 % 19-41 [facility] Basophil percentageOrdered B y: Reba Elliott on 08-03-2023 Basophils/100 WBC (Bld) 0.9 % 0-[address] [facility] Chloride [Moles/Vol] 108 mmol/L 98-107 [facility] Eosinophils/100 WBC (Bld) 4.5 % 0-5 [facility] Glucose [Mass/Vol] 158 mg/dL 74-106 [facility] Comment on above: Fasting Glucose resu lt greater than or equal to 126 mg/dL suggests DIABETES MELLITUS per A.D.A. criteria. Hemoglobin (Bld) [Mass/Vol] 14.5 g/dL 13.0-16.5 [facility] Monocytes/100 WBC (Bld) 9.4 % 0-[address] [facility] Neutrophils (Bld) [#/Vol] 4.2 10*3/uL 2.0-7.7 [facility] Neutrophils/100 WBC (Bld) 53.9 % 47-70 [facility] Potassium [Moles/Vol] 4.2 mmol/L 3.5-5.1 [facility] Sodium [Moles/Vol] 137 mmol/L 136-145 [facility] WBC (Bld) [#/Vol] 7.7 10*3/uL 4.4-11.0 [facility] Basophil percentageOrdered B y: [facility] Jessica on 08-03-2023 Bilirubin [Mass/Vol] 0.40 mg/dL 0.20-1.00 [facility] Comment on above: For patients on eltr ombopag therapy, use of Dimension [place] TBIL is not recommended. Cholesterol [Mass/Vol] 155 mg/dL <200 [facility] Comment on above: <200 mg/dL Desirable 200-240 mg/dL Borderline >240 mg/dL High Risk Protein [Mass/Vol] 7.1 g/dL 6.4-8.2 [facility] Triglyceride [Mass/Vol] 118 mg/dL <[address] [facility] Comment on above: The drugs N-Acetylcy steine and Metamizole may falsely depress this assay.Serum Triglycerides Reference Interval Normal <150 mg/dL Borderline high 150 - 199 mg/dL High 200 - 499 mg/dL Very High > or = 500 mg/dL Determination of erythrocyte mean corpuscular volume (MCV)Ordered By: Reba Elliott on 08-03-2023 MCV (RBC) [Entitic vol] 92.1 fL 80-[address] [facility] Direct bilirubinOrdered By: [facility] Jessica on 08-03-2023 Bilirubin.direct [Mass/Vol] 0.16 mg/dL 0.00-0.30 [facility] Erythrocyte distribution wid th ratioOrdered By: Reba Elliott on 08-03-2023 Erythrocyte distribution width (RBC) [Ratio] 12.5 % 11.6-14.6 [facility] Erythrocyte distribution wid th standard deviationOrdered By: Reba Elliott on 08-03-2023 Erythrocyte distribution width (RBC) [Entitic vol] 42.0 fL 35.1-43.9 [facility] Hematocrit Auto (Bld) [Volum e fraction]Ordered By: Reba Elliott on 08-03-2023 Hematocrit (Bld) [Volume fraction] 43.2 % 40-54 [facility] High density lipoprotein (HD L) measurementOrdered By: [facility] Jessica on 08-03-2023 Cholesterol in HDL (Body fld) [Mass/Vol] 47 mg/dL >40 [facility] Comment on above: The drugs N-Acetylcy steine and Metamizole may falsely depress this assay. Reference Range HDL <40 mg/dL Low HDL Cholesterol HDL >or= 60 mg/dL High HDL Cholesterol Immature granulocytes/100 WB C Auto (Bld)Ordered By: Reba Elliott on 08-03-2023 Immature granulocytes/100 WBC (Bld) 0.300 % 0.0-0.9 [facility] Comment on above: IG% - Immature Granu locytes (promyelocytes, myelocytes and metamyelocytes) > 1% indicates that a LEFT SHIFT is Present. Laboratory - Chemistry and C hemistry - challengeOrdered By: Elliott Lopez on 08-03-2023 ALP [Catalytic activity/Vol] 85 U/L 45-117 [facility] ALT [Catalytic activity/Vol] 40 U/L 16-61 [facility] Globulin (S) [Mass/Vol] 3.6 g/dL 2.2-4.[address] [facility] Laboratory - Chemistry and C hemistry - challengeOrdered By: Reba Elliott on 08-03-2023 CO2 [Moles/Vol] 27.0 mmol/L 21.0-32.0 [facility] Urea nitrogen/Creatinine [Mass ratio] 24.4 mg/mg 10-20 [facility] - Hematology and Cell countsOrdered By: Reba Elliott on 08-03-2023 MCH (RBC) [Entitic mass] 30.9 pg 27.0-32.0 [facility] MCHC (RBC) [Mass/Vol] 33.6 g/dL 32-36 [facility] Nucleated RBC/100 WBC (Bld) [Ratio] 0 % 0-5 [facility] Platelets (Bld) [#/Vol] 255 10*3/uL 150-450 [facility] Low density lipoprotein (LDL ) cholesterol measurementOrdered By: Elliott Lopez on 08-03-2023 Cholesterol in LDL (Body fld) [Moles/Vol] 84 mg/dL 0-130 [facility] No Panel InformationOrdered By: Reba Elliott on 08-03-2023 Estimated GFR (MDRD) Amer 100 mL/min >60 [facility] Comment on above: GFR Calc Estimated GFR (MDRD) Non-Af Amer 83 mL/min >60 [facility] Comment on above: Non- GFR Calc Free Triiodothyronine (T3) pg/dL 2.8 pg/mL 2.18-3.98 [facility] Vitamin D 25-Hydroxy 41.6 ng/mL [facility] Comment on above: Vitamin D 25(OH) Sta tus Range Deficiency <20 ng/mL (50nmol/L) Insufficiency 20 - 30 ng/mL (50 - 75 nmol/L) Sufficiency 30 - 100 ng/mL (75 - 250 nmol/L) Toxicity >100 ng/mL (>250 nmol/L) Platelet mean volume Jonathan-Ec ker (Bld) [Entitic vol]Ordered By: Reba Elliott on 08-03-2023 Platelet mean volume (Bld) [Entitic vol] 10.0 fL 6.2-12.0 [facility] RBC Auto (Bld) [#/Vol]Ordere d By: Reba Elliott on 08-03-2023 RBC (Bld) [#/Vol] 4.69 10*6/uL 4.6-6.2 [facility] Serum or plasma calcium darlene urement (mass/volume)Ordered By: Reba Elliott on 08-03-2023 Calcium [Mass/Vol] 9.9 mg/dL 8.5-10.1 [facility] Serum or plasma creatinine m easurement (mass/volume)Ordered By: Reba Elliott on 08-03-2023 Creatinine [Mass/Vol] 0.98 mg/dL 0.70-1.30 [facility] Comment on above: The validity of the calculated GFR & GFRAA in patients over 70 years has not been determined. Clinical correlation is essential. Serum or plasma thyroid stim ulating hormone (TSH) measurement (units/volume)Ordered By: Reba Elliott on 08-03-2023 TSH Qn 3.06 uIU/mL 0.358-3.74 [facility] Serum or plasma urea nitroge n measurement (mass/volume)Ordered By: Reba Elliott on 08-03-2023 Urea nitrogen [Mass/Vol] 24 mg/dL 7-18 [facility] Thin prep Papanicolaou smear with manual screeningOrdered By: Elliott Lopez on 08-03-2023 Thin prep Papanicolaou smear with manual screening 3.5 g/dL 3.2-5.0 [facility] Thin prep Papanicolaou smear with manual screening 19 U/L 15-37 [facility] Thin prep Papanicolaou smear with manual screeningOrdered By: Reba Elliott on 08-03-2023 Thin prep Papanicolaou smear with manual screening 2 5-15 [facility] Thin prep Papanicolaou smear with manual screening 0.89 ng/dL 0.76-1.46 [facility] Very low density lipoprotein (VLDL) cholesterol measurementOrdered By: Elliott Lopez on 08-03-2023 Cholesterol in VLDL Calc [Moles/Vol] 24 mg/dL 5-40 [facility] - Hematology and Cell countson 06-16-2023 HbA1c (Bld) [Mass fraction] 7.4 % 4.2-6.3 [facility] Basophil percentageOrdered B y: [facility] Jessica on 12-13-2022 Bilirubin [Mass/Vol] 0.40 mg/dL 0.20-1.00 [facility] Comment on above: For patients on eltr ombopag therapy, use of Dimension [place] TBIL is not recommended. Cholesterol [Mass/Vol] 132 mg/dL <200 [facility] Comment on above: <200 mg/dL Desirable 200-240 mg/dL Borderline >240 mg/dL High Risk Protein [Mass/Vol] 6.8 g/dL 6.4-8.2 [facility] Triglyceride [Mass/Vol] 83 mg/dL <[address] [facility] Comment on above: The drugs N-Acetylcy steine and Metamizole may falsely depress this assay.Serum Triglycerides Reference Interval Normal <150 mg/dL Borderline high 150 - 199 mg/dL High 200 - 499 mg/dL Very High > or = 500 mg/dL Basophil percentageOrdered B y: Kelsey [place] on 12-13-2022 Testosterone [Mass/Vol] 556 ng/dL 264-[address] [facility] Comment on above: Adult male reference interval is based on a population ofhealthy nonobese males (BMI <30) between 19 and 39 yearsold. vanessa Black.al. JCEM 2017,102;9027-7979. PMID:[id number]. Direct bilirubinOrdered By: Elliott Lopez on 12-13-2022 Bilirubin.direct [Mass/Vol] 0.12 mg/dL 0.00-0.30 [facility] Free testosterone percentage Ordered By: Kelsey Burns on 12-13-2022 Testosterone Free/Testosterone.total [Mass fraction] 2.37 % 1.50-4.20 [facility] Comment on above: Performed at: CB - [facility] [address] [id number] Director: Markel Luu PhD, Phone: [phone] at: - [facility] [address] [id number] Director: Rom Ohara MD, Phone: [phone] Laboratory - Chemistry and C hemistry - challengeOrdered By: Elliott Lopez on 12-13-2022 ALP [Catalytic activity/Vol] 86 U/L 45-117 [facility] ALT [Catalytic activity/Vol] 60 U/L 16-61 [facility] Globulin (S) [Mass/Vol] 3.3 g/dL 2.2-4.2 [facility] No Panel InformationOrdered By: Kelsey Burns on 12-13-2022 Urine Microalbumin/Creatinine Ratio 8.4 mg/g CRE <30 [facility] Serum or plasma albumin darlene urement (mass/volume)Ordered By: Elliott Lopez on 12-13-2022 Albumin [Mass/Vol] 3.5 g/dL 3.2-5.0 [facility] Serum or plasma cholesterol in HDL measurement (mass/volume)Ordered By: Elliott Lopez on 12-13-2022 Cholesterol in HDL [Mass/Vol] 37 mg/dL >40 [facility] Comment on above: The drugs N-Acetylcy steine and Metamizole may falsely depress this assay. Reference Range HDL <40 mg/dL Low HDL Cholesterol HDL >or= 60 mg/dL High HDL Cholesterol Serum or plasma cholesterol in VLDL measurement (mass/volume)Ordered By: Elliott Lopez on 12-13-2022 Cholesterol in VLDL [Mass/Vol] 17 mg/dL 5-40 [facility] Serum or plasma low density lipoprotein (LDL) cholesterol measurement (mass/volume)Ordered By: Elliott Lopez on 12-13-2022 Cholesterol in LDL [Mass/Vol] 78 mg/dL 0-130 [facility] Serum or plasma testosterone free measurement (mass/volume)Ordered By: Kelsey Burns on 12-13-2022 Testosterone Free [Mass/Vol] 13.18 ng/dL 5.00-21.00 [facility] Thin prep Papanicolaou smear with manual screeningOrdered By: Elliott Lopez on 12-13-2022 Thin prep Papanicolaou smear with manual screening 25 U/L 15-37 [facility] Thin prep Papanicolaou smear with manual screeningOrdered By: Kelsey Burns on 12-13-2022 Thin prep Papanicolaou smear with manual screening 27.1 mg/L NO RANGE EST. [facility] Urine creatinine measurement (mass/volume)Ordered By: Kelsey Burns on 12-13-2022 Creatinine (U) [Mass/Vol] 323.00 mg/dL NO RANGE EST. [facility] Whole blood hemoglobin A1c/t otal hemoglobin ratio (mass fraction)Ordered By: Rosalina Cartwright on 12-13-2022 HbA1c (Bld) [Mass fraction] 6.6 % 3.8-5.6 [facility] Comment on above: Normal < 5.7 % Predi abetic 5.7 - 6.4 % Diabetic >or= 6.5 % Please note range changes. Absolute lymphocyte counton 06-08-2022 Lymphocytes Auto (Unsp spec) [#/Vol] 2.28 10*3/uL 0.83-4.51 [facility] Work Phone: Basophil percentageon 2021 Basophils/100 WBC (Bld) 0.8 % 0-[address] [facility] Work Phone: Eosinophils/100 WBC (Bld) 3.7 % 0-5 [facility] Work Phone: Neutrophils (Bld) [#/Vol] 3.8 10*3/uL 2.0-7.7 [facility] Work Phone: [phone] Neutrophils/100 WBC (Bld) 53.1 % 47-70 [facility] Work Phone: WBC (Bld) [#/Vol] 7.1 10*3/uL 4.4-11.0 [facility] Work Phone: Bilirubin [Mass/Vol] 0.40 mg/dL 0.20-1.00 [facility] Work Phone: Comment on above: For patients on eltr ombopag therapy, use of Dimension [place] TBIL is not recommended. Chloride [Moles/Vol] 106 mmol/L 98-107 [facility] Work Phone: Cholesterol [Mass/Vol] 171 mg/dL <200 [facility] Work Phone: Comment on above: <200 mg/dL Desirable 200-240 mg/dL Borderline >240 mg/dL High Risk Glucose [Mass/Vol] 156 mg/dL 74-106 [facility] Work Phone: Comment on above: Fasting Glucose resu lt greater than or equal to 126 mg/dL suggests DIABETES MELLITUS per A.D.A. criteria. Potassium [Moles/Vol] 3.8 mmol/L 3.5-5.1 [facility] Work Phone: Protein [Mass/Vol] 7.1 g/dL 6.4-8.2 [facility] Work Phone: Sodium [Moles/Vol] 139 mmol/L 136-145 [facility] Work Phone: Triglyceride [Mass/Vol] 177 mg/dL <[address] [facility] Work Phone: Comment on above: The drugs N-Acetylcy steine and Metamizole may falsely depress this assay.Serum Triglycerides Reference Interval Normal <150 mg/dL Borderline high 150 - 199 mg/dL High 200 - 499 mg/dL Very High > or = 500 mg/dL Bilirubin Test strip Ql (U)o n 06-08-2022 Bilirubin Ql (U) Negative Negative [facility] Work Phone: Blood erythrocytes count (nu mber/volume)on 06-08-2022 RBC (Bld) [#/Vol] 4.71 10*6/uL 4.6-6.2 [facility] Work Phone: Blood hemoglobin measurement (mass/volume)on 06-08-2022 Hemoglobin (Bld) [Mass/Vol] 15.0 g/dL 13.0-16.5 [facility] Work Phone: Blood lymphocytes/100 leukoc yteson 06-08-2022 Lymphocytes/100 WBC (Bld) 32.2 % 19-41 [facility] Work Phone: Blood monocytes/100 leukocyt eson 06-08-2022 Monocytes/100 WBC (Bld) 9.8 % 0-[address] [facility] Work Phone: Blood platelet mean volumeon 06-08-2022 Platelet mean volume (Bld) [Entitic vol] 9.5 fL 6.2-12.0 [facility] Work Phone: Determination of erythrocyte mean corpuscular volume (MCV)on 06-08-2022 MCV (RBC) [Entitic vol] 93.0 fL 80-[address] [facility] Work Phone: Direct bilirubinon 2 Bilirubin.direct [Mass/Vol] 0.10 mg/dL 0.00-0.30 [facility] Work Phone: Hematocrit Auto (Bld) [Volum e fraction]on 06-08-2022 Hematocrit (Bld) [Volume fraction] 43.8 % 40-54 [facility] Work Phone: Ketones Test strip Ql (U)on 06-08-2022 Ketones Ql (U) Negative Negative [facility] Work Phone: Laboratory - Chemistry and C hemistry - challengeon 06-08-2022 ALP [Catalytic activity/Vol] 82 U/L 45-117 [facility] Work Phone: ALT [Catalytic activity/Vol] 44 U/L 16-61 [facility] Work Phone: CO2 [Moles/Vol] 28.0 mmol/L 21.0-32.0 [facility] Work Phone: Globulin (S) [Mass/Vol] 3.6 g/dL 2.2-4.[address] [facility] Work Phone: Urea nitrogen/Creatinine [Mass ratio] 19.8 mg/mg 10-20 [facility] Work Phone: Laboratory - Hematology and Cell countson 06-08-2022 Erythrocyte distribution width (RBC) [Entitic vol] 41.5 fL 35.1-43.9 [facility] Work Phone: Erythrocyte distribution width (RBC) [Ratio] 12.0 % 11.6-14.6 [facility] Work Phone: Immature granulocytes/100 WBC (Bld) 0.400 % 0.0-0.9 [facility] Work Phone: Comment on above: IG% - Immature Granu locytes (promyelocytes, myelocytes and metamyelocytes) > 1% indicates that a LEFT SHIFT is Present. MCH (RBC) [Entitic mass] 31.8 pg 27.0-32.0 [facility] Work Phone: Nucleated RBC/100 WBC (Bld) [Ratio] 0 % 0-5 [facility] Work Phone: MCHC Auto (RBC) [Mass/Vol]on 06-08-2022 MCHC (RBC) [Mass/Vol] 34.2 g/dL 32-36 [facility] Work Phone: Nitrite Test strip Ql (U)on 06-08-2022 Nitrite Ql (U) Negative Negative [facility] Work Phone: No Panel Informationon 06-08 Estimated GFR (MDRD) Amer 97 mL/min >60 [facility] Work Phone: Comment on above: GFR Calc Estimated GFR (MDRD) Non-Af Amer 81 mL/min >60 [facility] Work Phone: Comment on above: Non- GFR Calc Prostate Specific Antigen Screen 2.18 ng/mL 0.00-4.00 [facility] Work Phone: Comment on above: This test was perfor med using the TPSA assay method for [employer] chemistry system. Values obtained with differentassay methods cannot be used interchangably.When changing PSA assays in the course of monitoring apatient, additional sequential testing should be carriedout to confirm baseline values. Thyroid Stimulating Hormone (TSH) 2.60 uIU/mL 0.358-3.74 [facility] Work Phone: Platelets bldon 06-08-2022 Platelets (Bld) [#/Vol] 244 10*3/uL 150-450 [facility] Work Phone: Protein Test strip Ql (U)on 06-08-2022 Protein Ql (U) Negative Negative [facility] Work Phone: Serum or plasma albumin darlene urement (mass/volume)on 06-08-2022 Albumin [Mass/Vol] 3.5 g/dL 3.2-5.0 [facility] Work Phone: Serum or plasma albumin/glob ulin mass ratioon 06-08-2022 Albumin/Globulin [Mass ratio] 1.0 {ratio} 0.9-2.4 [facility] Work Phone: Serum or plasma calcium darlene urement (mass/volume)on 06-08-2022 Calcium [Mass/Vol] 9.8 mg/dL 8.5-10.1 [facility] Work Phone: Serum or plasma cholesterol in HDL measurement (mass/volume)on 06-08-2022 Cholesterol in HDL [Mass/Vol] 48 mg/dL >40 [facility] Work Phone: Comment on above: The drugs N-Acetylcy steine and Metamizole may falsely depress this assay. Reference Range HDL <40 mg/dL Low HDL Cholesterol HDL >or= 60 mg/dL High HDL Cholesterol Serum or plasma cholesterol in VLDL measurement (mass/volume)on 06-08-2022 Cholesterol in VLDL [Mass/Vol] 35 mg/dL 5-40 [facility] Work Phone: Serum or plasma creatinine m easurement (mass/volume)on 06-08-2022 Creatinine [Mass/Vol] 1.01 mg/dL 0.70-1.30 [facility] Work Phone: Comment on above: The validity of the calculated GFR & GFRAA in patients over 70 years has not been determined. Clinical correlation is essential. Serum or plasma low density lipoprotein (LDL) cholesterol measurement (mass/volume)on 06-08-2022 Cholesterol in LDL [Mass/Vol] 88 mg/dL 0-130 [facility] Work Phone: Serum or plasma urea nitroge n measurement (mass/volume)on 06-08-2022 Urea nitrogen [Mass/Vol] 20 mg/dL 7-18 [facility] Work Phone: Thin prep Papanicolaou smear with manual screeningon 06-08-2022 Thin prep Papanicolaou smear with manual screening 21 U/L 15-37 [facility] Work Phone: Thin prep Papanicolaou smear with manual screening 5 5-15 [facility] Work Phone: Urine blood detectionon 05-12 RBC Ql (U) Negative Negative [facility] Work Phone: Urine clarityon 06-08-2022 Clarity (U) Clear Clear [facility] Work Phone: Urine color determinationon 06-08-2022 Color (U) Yellow Yellow [facility] Work Phone: Urine glucose detectionon Glucose Ql (U) 100 mg/dl Normal [facility] Work Phone: Urine leukocyte esterase det ection by dipstickon 06-08-2022 Leukocyte esterase Test strip Ql (U) Negative Negative [facility] Work Phone: Urine pHon 06-08-2022 pH (U) 7.0 [pH] 5.0 - 8.0 [facility] Work Phone: Urine specific gravity measu rementon 06-08-2022 Specific gravity (U) [Rel density] 1.010 1.002-1.030 [facility] Work Phone: Urobilinogen Auto test strip Ql (U)on 06-08-2022 Urobilinogen Ql (U) Normal mg/dl Normal [facility] Work Phone: Laboratory - Hematology and Cell countson 03-30-2022 HbA1c (Bld) [Mass fraction] 7.2 % [facility] Work Phone: Basophil percentageon 2021 Bilirubin [Mass/Vol] 0.40 mg/dL 0.20-1.00 [facility] Work Phone: Comment on above: For patients on eltr ombopag therapy, use of Dimension [place] TBIL is not recommended. Chloride [Moles/Vol] 103 mmol/L 98-107 [facility] Work Phone: Cholesterol [Mass/Vol] 136 mg/dL <200 [facility] Work Phone: Comment on above: <200 mg/dL Desirable 200-240 mg/dL Borderline >240 mg/dL High Risk Glucose [Mass/Vol] 310 mg/dL 74-106 [facility] Work Phone: Comment on above: Glucose result great er than or equal to 200 mg/dLsuggests DIABETES MELLITUS per A.D.A. criteria. Potassium [Moles/Vol] 4.0 mmol/L 3.5-5.1 [facility] Work Phone: Protein [Mass/Vol] 7.2 g/dL 6.4-8.2 [facility] Work Phone: Sodium [Moles/Vol] 137 mmol/L 136-145 [facility] Work Phone: Triglyceride [Mass/Vol] 143 mg/dL [facility] Work Phone: Comment on above: The drugs N-Acetylcy steine and Metamizole may falsely depress this assay.Serum Triglycerides Reference Interval Normal <150 mg/dL Borderline high 150 - 199 mg/dL High 200 - 499 mg/dL Very High > or = 500 mg/dL Direct bilirubinon 2 Bilirubin.direct [Mass/Vol] 0.10 mg/dL 0.00-0.30 [facility] Work Phone: Laboratory - Chemistry and C hemistry - challengeon 08-12-2021 ALP [Catalytic activity/Vol] 94 U/L 45-117 [facility] Work Phone: ALT [Catalytic activity/Vol] 58 U/L 16-61 [facility] Work Phone: CO2 [Moles/Vol] 29.0 mmol/L 21.0-32.0 [facility] Work Phone: Globulin (S) [Mass/Vol] 3.4 g/dL 2.2-4.[address] [facility] Work Phone: Urea nitrogen/Creatinine [Mass ratio] 22.5 mg/mg 10-20 [facility] Work Phone: No Panel Informationon 08-12 Estimated GFR (MDRD) Amer 88 mL/min >60 [facility] Work Phone: Comment on above: GFR Calc Estimated GFR (MDRD) Non-Af Amer 72 mL/min >60 [facility] Work Phone: Comment on above: Non- GFR Calc Serum or plasma albumin darlene urement (mass/volume)on 08-12-2021 Albumin [Mass/Vol] 3.8 g/dL 3.2-5.0 [facility] Work Phone: Serum or plasma calcium darlene urement (mass/volume)on 08-12-2021 Calcium [Mass/Vol] 9.1 mg/dL 8.5-10.1 [facility] Work Phone: Serum or plasma cholesterol in HDL measurement (mass/volume)on 08-12-2021 Cholesterol in HDL [Mass/Vol] 39 mg/dL [facility] Work Phone: Comment on above: The drugs N-Acetylcy steine and Metamizole may falsely depress this assay. Reference Range HDL <40 mg/dL Low HDL Cholesterol HDL >or= 60 mg/dL High HDL Cholesterol Serum or plasma cholesterol in VLDL measurement (mass/volume)on 08-12-2021 Cholesterol in VLDL [Mass/Vol] 29 mg/dL 5-40 [facility] Work Phone: Serum or plasma creatinine m easurement (mass/volume)on 08-12-2021 Creatinine [Mass/Vol] 1.11 mg/dL 0.70-1.30 [facility] Work Phone: Comment on above: The validity of the calculated GFR & GFRAA in patients over 70 years has not been determined. Clinical correlation is essential. Serum or plasma low density lipoprotein (LDL) cholesterol measurement (mass/volume)on 08-12-2021 Cholesterol in LDL [Mass/Vol] 68 mg/dL 0-130 [facility] Work Phone: Serum or plasma urea nitroge n measurement (mass/volume)on 08-12-2021 Urea nitrogen [Mass/Vol] 25 mg/dL 7-18 [facility] Work Phone: Thin prep Papanicolaou smear with manual screeningon 08-12-2021 Thin prep Papanicolaou smear with manual screening 22 U/L 15-37 [facility] Work Phone: Thin prep Papanicolaou smear with manual screening 5 5-15 [facility] Work Phone: Whole blood hemoglobin A1c/t otal hemoglobin ratio (mass fraction)on 08-12-2021 HbA1c (Bld) [Mass fraction] 6.7 % 3.8-5.6 [facility] Work Phone: Comment on above: Normal < 5.7 % Predi abetic 5.7 - 6.4 % Diabetic >or= 6.5 % Please note range changes. Clinical Summary: HMSPatient IDon 12-12-2018 OOP [facility] Work Phone: Clinical Summary: Scanned RO S Summaryon 12-12-2018 endocrine ROS Complains [facility] Work Phone: endocrine system, review of, comments Diabetes [facility] Work Phone: genitourinary review of systems, E&M Denies [facility] Work Phone: Lymphocytes #/vol (Bld) Denies C [facility] Work Phone: ROS cardiovascular [facility] Work [facility]: ROS ENT E&M Denies [facility] Work Phone: ROS gastrointestinal E&M Denies [facility] Work Phone: ROS general E&M Denies [facility] Work Phone: ROS Musculoskeletal comments Pain,Joint Pain [facility] Work Phone: ROS musculoskeletal E&M Complains C [facility] Work Phone: ROS neurological E&M Denies Kizzy lourdes [facility] Work Phone: ROS psychiatric E&M Denies Cryst al [facility] Work Phone: ROS pulmonary E&M Denies [facility] Work Phone: ROS skin E&M Denies [facility] Work Phone: Office Visit: New/Est - 1st visit with physician, Rm: 41on 12-12-2018 NEGATED: Highlighted rowProtein mass conc Done [facility] Work Phone: NEGATED: Highlighted rowThyrotropin Qn of the right shoulder on 11/2018 at [facility] Work Phone: NEGATED: Highlighted rowTobacco smoking status NHIS Tobacco smoking status DEIS [facility] Work Phone: PROGRESSon 11-13-2018 Protein mass conc HNO ID: [id number] Author: Rosalina Cartwright Service: ? Author Type: [...] - Hyperlipidemia - Insulin pump titration - residential current use of insulin (HCC) - Obesity (BMI 30.0-34.9) - Presence of insulin pump - Type 1 diabetes mellitus with hyperglycemia (HCC) PAST SURGICAL HISTORY Procedure Laterality Date - CATARACT EXTRACTION HX 2017 retina ok - EYE SURGERY HX 1988 [...] each week. Objective BP 136/68 Ht 6' 2" (1.88m) Wt 265 lb (120.2kg) BMI 34.01 [...] ICD10: E78.2 - Continue current medication. 4. residential current use of insulin (HCC) - ICD9: [...] sugar, and artificial sweeteners. [facility] (AGENDO G) WES SMITH ([id number]) 1965 M Date Time Provider Department 11/10/18 [...] - Hyperlipidemia - Insulin pump titration - residential current use of insulin (HCC) - Obesity [...] tablet by mouth once daily. Blood-Glucose Sensor ([employer] G5-G4 SENSOR) radha 1 Each once each week. Objective BP 136/68 Ht 6' 2" (1.88m) Wt 265 lb (120.2kg) BMI 34.01 [...] ICD10: E78.2 - Continue current medication. 4. 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] Presence [...] each week.Disp: 12 DeviceRfl: 3 HGB A1C [[id number]] Order #: [id number] FUTURE Prescriptions as of 11/10/2018 Sig: INSULIN [...] Noted Resolved Presence of insulin pump [Z96.41] residential current use of insulin (HCC) [Z79.4] Essential [...] Status:Closed by ROSALINA CARTWRIGHT MD on 11/13/18 [facility] PROGRESSon 07-14-2018 Protein mass conc HNO ID: [id number] Author: Rosalina Cartwright Service: (none) Author Type: [...] - Hyperlipidemia - Insulin pump titration - 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 Objective BP 132/76 Ht 6' 2.488" (1.89m) Wt 266 lb (120.7kg) BMI 33.71 [...] loss. - Goal of BP <130/80 4. residential current use of insulin (HCC) - ICD9: [...] sugar, and artificial sweeteners. 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 Objective BP 132/76 Ht 6' 2.488" (1.89m) Wt 266 lb (120.7kg) BMI 33.71 [...] loss. - Goal of BP <130/80 4. 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) - ICD9: [...] Rosalina Cartwright MD Referring Provider: ROSALINA CARTWRIGHT [[id number]] Allergies As of Date: 07/13/2018 (No Known Allergies) Date Reviewed: 02/13/2018 Reviewed by: Rosalina Cartwright - Fully Assessed Reason for Visit: Diabetes [34] Primary Visit Diagnosis:Type 1 diabetes mellitus with hyperglycemia (HCC) [E10.65] Other Visit Diagnoses:Mixed hyperlipidemia [E78.2] Essential hypertension, benign [I10] residential current use of insulin (HCC) [Z79.4] Presence of insulin pump [Z96.41] Insulin pump titration [Z46.81] Class 1 obesity due to excess calories with serious comorbidity and body mass index (BMI) of 33.0 to 33.9 in adult [E66.09, Z68.33] Order(s):HEMOGLOBIN A1C (EXTERNAL) [1326780] Order #: [id number] Prescriptions as of 07/13/2018 Sig: AMLODIPINE 10 [...] Noted Resolved Presence of insulin pump [Z96.41] residential current use of insulin (HCC) [Z79.4] Essential hypertension, benign [I10] Hyperlipidemia [E78.5] Insulin pump titration [Z46.81] Type 1 diabetes mellitus with hyperglycemia (HC* More... Obesity (BMI 30.0-34.9) [E66.9] Encounter Status:Closed by ROSALINA CARTWRIGHT MD on 08/04/18 [facility] PROGRESSon 02-13-2018 Protein mass conc HNO ID: [id number] Author: Rosalina Cartwright Service: (none) Author Type: [...] - Hyperlipidemia - Insulin pump titration - residential current use of insulin (HCC) - Obesity [...] once daily. Objective BP 130/76 Ht 6' 2.488" (1.89m) Wt 263 lb 9.6 oz (119.6kg) [...] ICD10: E78.2 - Continue current medication. 3. 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 Objective BP 130/76 Ht 6' 2.488" (1.89m) Wt 263 lb 9.6 oz (119.6kg) [...] ICD10: E78.2 - Continue current medication. 3. 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) - ICD9: [...] Rosalina Cartwright MD Referring Provider: ROSALINA CARTWRIGHT [[id number]] Allergies As of Date: 02/10/2018 (No Known Allergies) Date Reviewed: 10/08/2017 Reviewed by: Rosalina Cartwright - Fully Assessed Reason for Visit: Diabetes [34] Primary Visit Diagnosis:Type 1 diabetes mellitus with hyperglycemia (HCC) [E10.65] Other Visit Diagnoses:Mixed hyperlipidemia [E78.2] residential current use of insulin (HCC) [Z79.4] Presence [...] daily.Disp: 90 tabletRfl: 0 HEMOGLOBIN A1C (EXTERNAL) [[id number]] Order #: [id number] MICROALBUMIN/CREATININ E UR W RATIO (EXTERNAL) [[id number]] Order #: [id number] cholecalciferol (VITAMIN D-3) 2,000 unit tabletTake 1 [...] Noted Resolved Presence of insulin pump [Z96.41] 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 Chart Maintenanceon 10-26-19 17 Hemoglobin A1c/Hemoglobin.total mass fraction (Bld) 7.8 % [facility] Work Phone: Office Visiton 07-27-2016 Protein mass conc Done 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 Left ventricular Ejection fraction 60 % [facility] Work Phone: Clinical Lists Update: [facility] 06-23-2016 Cholesterol in HDL mass conc 40 mg/dL [facility] Work Phone: Cholesterol in LDL mass conc 67 mg/dL [facility] Work Phone: Cholesterol mass conc 134 mg/dL [facility] Work Phone: Triglyceride mass conc 133 mg/dL Bl [facility] Work Phone: Office Visiton 07-25-2015 Tobacco smoking status NHIS Never smoker [facility] Work Phone: Clinical Lists Update: [facility] 07-10-2015 Albumin mass conc 3.8 g/dL [facility] Work Phone: ALP enzyme act/vol (Bld) 96 U/L [facility] Work Phone: ALT enzyme act/vol 40 U/L [facility] Work Phone: AST enzyme act/vol 17 U/L [facility] Work Phone: Bilirubin mass conc 0.40 mg/dL [facility] Work Phone: Bilirubin.direct mass conc 0.11 mg/dL [facility] Work Phone: Glucose mass conc 231 mg/dL High [facility] Work Phone: Lipoprotein.pre-beta mass conc 14 mg/dL [facility] Work Phone: Protein mass conc 7.2 g/dL [facility] Work Phone: Office Visiton 05-31-2014 cardiac risk group C [facility] Work Phone: General cardiovascular disease 10Y risk [#] Pruden.D'Agostino N/A [facility] Work Phone: Lab Report: BGMon 01-25-2014 BGM 195 mg/dL High 70-110 [facility] Work Phone: Clinical Lists Update: 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 Work Phone: CO2 ppres (BldV) 28.0 mmol/L [facility] Work Phone: Creatinine mass conc 1.1 mg/dL [facility] Work Phone: Hematocrit Volume Fraction (Bld) 44.2 % [facility] Work Phone: Hemoglobin mass conc (Bld) 16.0 g/dL [facility] Work Phone: MCH Entitic mass (RBC) 32.0 pg Bl [facility] Work Phone: MCHC mass conc (RBC) 36.2 g/dL [facility] Work Phone: MCV Entitic volume (RBC) 88.4 fL [facility] Work Phone: Platelets #/vol (Bld) 200 10*3/mm3 [facility] Work Phone: Potassium molar conc 4.0 mmol/L [facility] Work Phone: RBC #/vol (Bld) 5.0 10*6/uL [facility] Work Phone: Sodium molar conc 140 mmol/L [facility] Work Phone: Thyrotropin Qn 2.51 u[iU]/mL [facility] Work Phone: Urea nitrogen mass conc 19 mg/dL [facility] Work Phone: Urea nitrogen/Creatinine mass ratio 17.3 mg/mg [facility] Work Phone: WBC #/vol (Bld) 7.4 10*3/uL [facility] Work Phone: Vital Signs Date Time Vital Sign Value Performing Clinician Facility 03-08-2025 15:51-0400 Body height 187.[address] Kelsey Burns MD Work Phone: [facility] 03-08-2025 15:51-0400 Body mass index (BMI) [Ratio] 34.4 kg/m2 Dr. Kelsey Burns MD Work Phone: [facility] 03-08-2025 15:51-0400 Body weight 121.[address] Kelsey Burns MD Work Phone: [facility] 03-08-2025 15:51-0400 Diastolic blood pressure 77 mm[Hg] Dr. Kelsey Burns MD Work Phone: [facility] 03-08-2025 15:51-0400 Heart rate 80 /min Dr. Kelsey Burns MD Work Phone: [facility] 03-08-2025 15:51-0400 SaO2% (BldA) [Mass fraction] 83 % Dr. Kelsey Burns MD Work Phone: [facility] 03-08-2025 15:51-0400 Systolic blood pressure 124 mm[Hg] Dr. Kelsey Burns MD Work Phone: [facility] 01-16-2025 15:12-0400 Body height 187.[address] Kelsey Burns MD Work Phone: [facility] 01-16-2025 15:12-0400 Body mass index (BMI) [Ratio] 34.1 kg/m2 Dr. Kelsey Burns MD Work Phone: [facility] 01-16-2025 15:12-0400 Body temperature 97.3 [degF] Dr. Kelsey Burns MD Work Phone: [facility] 01-16-2025 15:12-0400 Body weight 120.[address] Kelsey Burns MD Work Phone: [facility] 01-16-2025 15:12-0400 Diastolic blood pressure 64 mm[Hg] Dr. Kelsey Burns MD Work Phone: [facility] 01-16-2025 15:12-0400 Heart rate 73 /min Dr. Kelsey Burns MD Work Phone: [facility] 01-16-2025 15:12-0400 Respiratory rate 16 /min Dr. Kelsey Burns MD Work Phone: [facility] 01-16-2025 15:12-0400 SaO2% (BldA) [Mass fraction] 93 % Dr. Kelsey Burns MD Work Phone: [facility] 01-16-2025 15:12-0400 Systolic blood pressure 126 mm[Hg] Dr. Kelsey Burns MD Work Phone: [facility] 01-04-2025 08:23-0400 Body height 187.[address] Kelsey Burns MD Work Phone: [facility] 01-04-2025 08:23-0400 Body mass index (BMI) [Ratio] 34.4 kg/m2 Dr. Kelsey Burns MD Work Phone: [facility] 01-04-2025 08:23-0400 Body temperature 96.8 [degF] Dr. Kelsey Burns MD Work Phone: [facility] 01-04-2025 08:23-0400 Body weight 121.[address] Kelsey Burns MD Work Phone: [facility] 01-04-2025 08:23-0400 Diastolic blood pressure 62 mm[Hg] Dr. Kelsey Burns MD Work Phone: [facility] 01-04-2025 08:23-0400 Heart rate 89 /min Dr. Kelsey Burns MD Work Phone: [facility] 01-04-2025 08:23-0400 Respiratory rate 18 /min Dr. Kelsey Burns MD Work Phone: [facility] 01-04-2025 08:23-0400 SaO2% (BldA) [Mass fraction] 94 % Dr. Kelsey Burns MD Work Phone: [facility] 01-04-2025 08:23-0400 Systolic blood pressure 128 mm[Hg] Dr. Kelsey Burns MD Work Phone: [facility] 01-01-2025 13:32-0400 Body height 187.[address] Kelsey Burns MD Work Phone: [facility] 01-01-2025 13:32-0400 Body mass index (BMI) [Ratio] 33.9 kg/m2 Dr. Kelsey Burns MD Work Phone: [facility] 01-01-2025 13:32-0400 Body temperature 97.6 [degF] Dr. Kelsey Burns MD Work Phone: [facility] 01-01-2025 13:32-0400 Body weight 119.[address] Kelsey Burns MD Work Phone: [facility] 01-01-2025 13:32-0400 Diastolic blood pressure 78 mm[Hg] Dr. Kelsey Burns MD Work Phone: [facility] 01-01-2025 13:32-0400 Heart rate 81 /min Dr. Kelsey Burns MD Work Phone: [facility] 01-01-2025 13:32-0400 Respiratory rate 16 /min Dr. Kelsey Burns MD Work Phone: [facility] 01-01-2025 13:32-0400 SaO2% (BldA) [Mass fraction] 92 % Dr. Kelsey Burns MD Work Phone: [facility] 01-01-2025 13:32-0400 Systolic blood pressure 140 mm[Hg] Dr. Kelsey Burns MD Work Phone: [facility] 12-30-2024 10:08-0400 Body temperature 98.5 [degF] Dr. Kelsey Burns MD Work Phone: [facility] 12-30-2024 10:08-0400 Diastolic blood pressure 66 mm[Hg] Dr. Kelsey Burns MD Work Phone: [facility] 12-30-2024 10:08-0400 Heart rate 82 /min Dr. Kelsey Burns MD Work Phone: [facility] 12-30-2024 10:08-0400 Respiratory rate 16 /min Dr. Kelsey Burns MD Work Phone: [facility] 12-30-2024 10:08-0400 SaO2% (BldA) [Mass fraction] 95 % Dr. Kelsey Burns MD Work Phone: [facility] 12-30-2024 10:08-0400 Systolic blood pressure 124 mm[Hg] Dr. Kelsey Burns MD Work Phone: [facility] 07-20-2023 15:40-0500 Body height 187.[address] Kelsey Burns Work Phone: [facility] 07-20-2023 15:40-0500 Body mass index (BMI) [Ratio] 35.9 kg/m2 Dr. Kelsey Burns Work Phone: [facility] 07-20-2023 15:40-0500 Body temperature 97.3 [degF] Dr. Kelsey Burns Work Phone: [facility] 07-20-2023 15:40-0500 Body weight [address] Kelsey Burns Work Phone: [facility] 07-20-2023 15:40-0500 Diastolic blood pressure 74 mm[Hg] Dr. Kelsey Burns Work Phone: [facility] 07-20-2023 15:40-0500 Heart rate 73 /min Dr. Kelsey Burns Work Phone: [facility] 07-20-2023 15:40-0500 Respiratory rate 16 /min Dr. Kelsey Burns Work Phone: [facility] 07-20-2023 15:40-0500 SaO2% (BldA) [Mass fraction] 94 % Dr. Kelsey Burns Work Phone: [facility] 07-20-2023 15:40-0500 Systolic blood pressure 140 mm[Hg] Dr. Kelsey Burns Work Phone: [facility] 06-16-2023 16:00-0500 Body mass index (BMI) [Ratio] 35 kg/m2 Dr. Kelsey Burns Work Phone: [facility] 06-16-2023 16:00-0500 Body temperature 97.8 [degF] Dr. Kelsey Burns Work Phone: [facility] 06-16-2023 16:00-0500 Body weight 123.[address] Kelsey Burns Work Phone: [facility] 06-16-2023 16:00-0500 Diastolic blood pressure 80 mm[Hg] Dr. Kelsey Burns Work Phone: [facility] 06-16-2023 16:00-0500 Heart rate 81 /min Dr. Kelsey Burns Work Phone: [facility] 06-16-2023 16:00-0500 SaO2% (BldA) [Mass fraction] 95 % Dr. Kelsey Burns Work Phone: [facility] 06-16-2023 16:00-0500 Systolic blood pressure 152 mm[Hg] Dr. Kelsey Burns Work Phone: [facility] 12-14-2022 15:56-0400 Body height 187.[address] Bowman [facility] 12-14-2022 15:56-0400 Body mass index (BMI) [Ratio] 34.7 kg/m2 Dr. Bowman [facility] 12-14-2022 15:56-0400 Body temperature 98.2 [degF] [facility] 12-14-2022 15:56-0400 Body weight 122.[address] Bowman [facility] 12-14-2022 15:56-0400 Diastolic blood pressure 73 mm[Hg] [facility] 12-14-2022 15:56-0400 Heart rate 78 /min [facility]. Bowman [facility] 12-14-2022 15:56-0400 Respiratory rate 16 /min [facility]. Bowman [facility] 12-14-2022 15:56-0400 SaO2% (BldA) [Mass fraction] 95 % Dr. Bowman [facility] 12-14-2022 15:56-0400 Systolic blood pressure 133 mm[Hg] Dr. Bowman [facility] 12-02-2022 15:06-0400 Body mass index (BMI) [Ratio] 34.1 kg/m2 Dr. Bowman [facility] 12-02-2022 15:06-0400 Body temperature 98.2 [degF] Dr. Bowman [facility] 12-02-2022 15:06-0400 Body weight 120.[address] Bowman [facility] 12-02-2022 15:06-0400 Diastolic blood pressure 68 mm[Hg] [facility] 12-02-2022 15:06-0400 Heart rate 62 /[facility] 12-02-2022 15:06-0400 Respiratory rate 14 /[facility] 12-02-2022 15:06-0400 SaO2% (BldA) [Mass fraction] 97 % Dr[facility] Bowman [facility] 12-02-2022 15:06-0400 Systolic blood pressure 124 mm[Hg] [facility] 03-30-2022 15:07-0400 Body height 187.[address] Bowman [facility] Work Phone: 03-30-2022 15:07-0400 Body mass index (BMI) [Ratio] 34.9 kg/m2 Dr. Bowman [facility] Work Phone: 03-30-2022 15:07-0400 Body temperature 96.5 [degF] [facility] Work [facility]: 03-30-2022 15:07-0400 Body weight 123.[address] Bowman [facility] Work Phone: 03-30-2022 15:07-0400 Diastolic blood pressure 78 mm[Hg] [facility] Work [facility]: 03-30-2022 15:07-0400 Heart rate 74 /min [facility] Work [facility]: 03-30-2022 15:07-0400 Respiratory rate 20 /min [facility]. Bowman [facility] Work Phone: 03-30-2022 15:07-0400 SaO2% (BldA) [Mass fraction] 94 % Dr. Bowman [facility] Work Phone: 03-30-2022 15:07-0400 Systolic blood pressure 126 mm[Hg] Dr. Raul Aleman [facility] Work Phone: 03-18-2022 15:51-0400 Body mass index (BMI) [Ratio] 34.9 kg/m2 [facility] Work Phone: 03-18-2022 15:51-0400 Body weight 123.[address] Raul Aleman [facility] Work Phone: 03-18-2022 15:51-0400 Diastolic blood pressure 77 mm[Hg] Dr. Raul Aleman [facility] Work Phone: 03-18-2022 15:51-0400 Heart rate 79 /min [facility] Work [facility]: 03-18-2022 15:51-0400 Respiratory rate 18 /[facility] Work Phone: 03-18-2022 15:51-0400 SaO2% (BldA) [Mass fraction] 95 % Dr. Bowman [facility] Work Phone: 03-18-2022 15:51-0400 Systolic blood pressure 134 mm[Hg] [facility] Work Phone: 09-16-2021 14:39-0500 Body temperature 97.8 [degF] Dr. Raul Aleman [facility] Work Phone: 09-16-2021 14:39-0500 Diastolic blood pressure 70 mm[Hg] Dr. Raul Aleman [facility] Work Phone: 09-16-2021 14:39-0500 Heart rate 62 /[facility] Work [facility]: 09-16-2021 14:39-0500 Respiratory rate 16 /min [facility] Work Phone: 09-16-2021 14:39-0500 SaO2% (BldA) [Mass fraction] 97 % [facility] Work Phone: 09-16-2021 14:39-0500 Systolic blood pressure 152 mm[Hg] [facility] Work Phone: 09-12-2021 10:23-0500 Body height 187.[address] Raul Aleman [facility] Work Phone: 09-12-2021 10:23-0500 Body mass index (BMI) [Ratio] 34 kg/m2 [facility] Work Phone: 09-12-2021 10:23-0500 Body temperature 98 [degF] Dr. Raul Aleman [facility] Work Phone: 09-12-2021 10:23-0500 Body weight 120.[address] Bowman [facility] Work Phone: 09-12-2021 10:23-0500 Diastolic blood pressure 78 mm[Hg] [facility] Work Phone: 09-12-2021 10:23-0500 Heart rate 78 /min [facility]. Bowman [facility] Work Phone: 09-12-2021 10:23-0500 Respiratory rate 16 /min [facility]. Bowman [facility] Work Phone: 09-12-2021 10:23-0500 SaO2% (BldA) [Mass fraction] 96 % Dr. Bowman [facility] Work Phone: 09-12-2021 10:23-0500 Systolic blood pressure 132 mm[Hg] Dr. Raul Aleman [facility] Work Phone: 09-11-2021 14:07-0500 Body mass index (BMI) [Ratio] 34.2 kg/m2 [facility] Work Phone: 09-11-2021 14:07-0500 Body temperature 96.5 [degF] Dr. Raul Aleman [facility] Work Phone: 09-11-2021 14:07-0500 Body weight 120.[address] Raul Aleman [facility] Work Phone: 09-11-2021 14:07-0500 Diastolic blood pressure 82 mm[Hg] Dr. Raul Aleman [facility] Work Phone: 09-11-2021 14:07-0500 Heart rate 73 /min Dr. Raul Aleman [facility] Work Phone: 09-11-2021 14:07-0500 Respiratory rate 16 /min [facility] Work Phone: 09-11-2021 14:07-0500 SaO2% (BldA) [Mass fraction] 97 % [facility] Work Phone: 09-11-2021 14:07-0500 Systolic blood pressure 140 mm[Hg] Dr. Raul Aleman [facility] Work Phone: 06-23-2021 14:46-0500 Body weight 122.[address] Raul Aleman [facility] Work Phone: 06-23-2021 14:46-0500 Diastolic blood pressure 87 mm[Hg] Dr. Raul Aleman [facility] Work Phone: 06-23-2021 14:46-0500 Heart rate 82 /min Dr. Raul Aleman [facility] Work Phone: 06-23-2021 14:46-0500 Respiratory rate 16 /min [facility] Work Phone: 06-23-2021 14:46-0500 SaO2% (BldA) [Mass fraction] 96 % Dr. Raul Aleman [facility] Work Phone: 06-23-2021 14:46-0500 Systolic blood pressure 154 mm[Hg] Dr. Raul Aleman [facility] Work Phone: 10-02-2020 15:46-0400 Body mass index (BMI) [Ratio] 34.1 kg/m2 Dr. Bowman [facility] Work Phone: 07-27-2016 16:00-0500 BMI (Body Mass Index) 32.98 kg/m2 [facility] Work Phone: 07-27-2016 16:00-0500 BP Diastolic 60 mm[Hg] [facility] Work Phone: 07-27-2016 16:00-0500 BP Systolic 110 mm[Hg] [facility] Work Phone: 07-27-2016 16:00-0500 BSA (Body Surface Area) 2.37 m2 [facility] Work Phone: 07-27-2016 16:00-0500 Pulse (Heart Rate) 68 /min [facility] Work Phone: 07-27-2016 16:00-0500 Respiratory Rate 20 /min [facility] Work Phone: 07-27-2016 16:00-0500 Weight 113.4 kg [facility] Work Phone: 01-23-2014 10:04-0400 Height 185.42 cm [facility] Work Phone: NEGATED: Highlighted [id number] 15:27-0400 BMI (Body Mass Index) 34.28 kg/m2 [facility] Work Phone: NEGATED: Highlighted [id number] 15:27-0400 BP Diastolic 82 mm[Hg] [facility] Work Phone: NEGATED: Highlighted [id number] 15:27-0400 BP Systolic 124 mm[Hg] Destini Ann [employer] [facility] Work Phone: NEGATED: Highlighted [id number] 15:270400 Height 187.96 cm Destini Ann [employer] [facility] Work Phone: NEGATED: Highlighted [id number] 15:27-0400 Height 188 cm Destini Ann [facility] Work Phone: NEGATED: Highlighted [id number] 15:27-0400 Pulse (Heart Rate) 80 /min Destinicarl Ann [facility] Work Phone: NEGATED: Highlighted [id number] 15:27-0400 Weight 120.66 kg Destinicarl [facility] Work Phone: NEGATED: Highlighted [id number] 15:27-0400 Weight 121 kg Destinicarl [facility] Work Phone: Encounters Encounter Date Encounter Type Care Provider Facility Start: 04-03-2025 End: 04-03-2025 ambulatory Kelsey Burns Facility:[facility] Start: 03-08-2025 End: 03-08-[address] Rosalina Cartwright MD -[facility] Work Phone: Start: 03-08-2025 End: 03-08-[address] Kelsey Burns MD Work Phone: -[facility] Start: 03-07-[address] Kelsey anderson MD -Physical Therapy Work Phone: Start: 01-16-2025 End: 01-16-[address] Kelsey Burns MD -[facility] Work Phone: Start: 01-16-2025 End: 01-16-[address] Kelsey Burns MD Work Phone: -[facility] Start: 01-15-2025 Registered [employer] -Employee Health Start: 01-15-2025 End: 01-15-[address] Kelsey Burns MD Work Phone: -Laboratory Start: 01-15-2025 End: 01-15-[address] Elliott Lopez MD -Laboratory Work Phone: Start: 01-15-2025 End: 01-15-2025 ambulatory Elliott Lopez Facility:[facility] Start: 01-04-2025 End: 01-04-2025 Patient encounter procedure Omaira EVANS -[facility] Work Phone: Start: 01-04-2025 End: 01-04-[address] Kelsey Burns MD Work Phone: -[facility] Start: 01-01-2025 End: 01-01-[address] Kelsey Burns MD Work Phone: -Laboratory Specimen Start: 01-01-2025 End: 01-01-[address] Kelsey Burns MD -Laboratory Specimen Work Phone: Start: 01-01-2025 End: 01-01-[address] Kelsey Burns MD -[facility] Work Phone: Start: 01-01-2025 End: 01-01-[address] Kelsey Burns MD Work Phone: [facility] Work Phone: Start: 01-01-2025 End: 01-01-2025 ambulatory Kelsey Burns Facility:[facility] Start: 12-30-2024 End: 12-30-2024 Patient encounter procedure Howard EVANS -[facility] Work Phone: Start: 12-30-2024 End: 12-30-[address] Kelsey Burns MD Work Phone: [facility] Work Phone: Start: 08-24-2024 End: 08-24-2024 ambulatory Kelsey Burns Facility:[facility] Start: 07-18-2024 End: 07-18-2024 ambulatory Kelsey Burns Facility:[facility] Start: 05-17-2024 End: 05-17-2024 ambulatory Kelsey Burns Facility:[facility] Start: 08-19-2023 End: 08-19-[address] Kelsey Burns Work Phone: [facility] Work Phone: Start: 08-19-2023 End: 08-19-[address] Kelsey Burns Work Phone: [facility]-Pulmonary Services/Neurology Work Phone: Start: 08-03-2023 End: 08-03-[address] Kelsey Burns Work Phone: [facility] Work Phone: Start: 08-03-2023 End: 08-03-[address] Kelsey Burns Work Phone: [facility]-Laboratory Work Phone: Start: 07-20-2023 End: 07-20-[address] Kelsey Burns Work Phone: [facility] Internal Medicine Work Phone: Start: 06-16-2023 End: 06-16-[address] Kelsey Burns Work Phone: [facility] Endocrinology Work Phone: Start: 05-16-2023 Non-patient / Non-visit Dr. Kelsey Burns Work Phone: [facility] Work Phone: Start: 05-11-2023 Non-patient / Non-visit Dr. Kelsey Burns Work Phone: [facility] Start: 05-11-2023 End: 05-11-[address] [facility] Work [facility] Start: 02-22-2023 End: 02-22-[address] Raul Aleman [facility] Work Phone: Start: 02-22-2023 End: 02-22-[address] Raul Aleman [facility]-Sleep Lab Work Phone: Start: 01-06-2023 End: 01-06-[address] Raul Aleman [facility] Work Phone: Start: 01-06-2023 End: 01-06-[address] Raul Aleman [facility]-Sleep Lab Work Phone: Start: 12-14-2022 End: 12-14-[address] Raul Aleman [facility] Work Phone: Start: 12-13-2022 End: 12-13-[address] Raul Aleman [facility]-Laboratory Work Phone: Start: 12-02-2022 End: 12-02-[address] Raul Aleman [facility] Internal Medicine Work Phone: Start: 06-11-2022 End: 06-11-[address] Raul Aleman [facility] Work Phone: Start: 06-11-2022 End: 06-11-[address] Raul Aleman [facility]-Physical Therapy Start: 06-08-2022 End: 06-08-[address] Raul Aleman [facility] Work Phone: Start: 06-08-2022 End: 06-08-[address] Raul Aleman [facility]-Laboratory Start: 06-07-2022 ambulatory RAUL Schwartz acility:[id number] Start: 04-08-2022 ambulatory RAUL Schwartz acility:[id number] Start: 04-05-2022 End: 04-05-[address] Raul Aleman [facility] Work Phone: Start: 04-05-2022 End: 04-05-[address] [facility] Start: 03-30-2022 End: 03-30-[address] Raul Aleman [facility] Start: 03-23-[address] Raul grayson [facility]-Physical Therapy Start: 03-18-2022 End: 03-18-[address] Raul Aleman [facility] Start: 03-08-2022 End: 03-08-[address] Raul Aleman [facility]-Radiology, [facility] Start: 03-04-2022 ambulatory RAUL Schwartz acility:[id number] Start: 02-12-2022 ambulatory RAUL Schwartz acility:[id number] Start: 12-01-2021 ambulatory RAUL Schwartz acility:[id number] Start: 11-16-2021 End: 11-16-[address] Raul Aleman [facility]-Laboratory, Specimen Start: 09-28-2021 Non-patient / Non-visit Dr. Raul Aleman [facility] Start: 09-28-2021 End: 09-28-[address] Raul Aleman [facility]-Cardiovascular Services Start: 09-16-2021 End: 09-16-[address] Raul Aleman [facility] Start: 09-15-2021 ambulatory Catie Flores Facility:[id number] Start: 09-12-2021 End: 09-12-[address] Raul Aleman [facility] Start: 09-11-2021 End: 09-11-[address] Raul Aleman [facility] [facility] Start: 08-12-2021 End: 08-12-[address] Raul Aleman [facility] Start: 08-10-2021 ambulatory RAUL ALEMAN F acility:[id number] Start: 06-23-2021 End: 06-23-[address] Raul Aleman [facility] Start: 07-12-2019 Patient encounter procedure [facility] Facility:[facility] Start: 04-02-2019 Patient encounter procedure [facility] Facility:[facility] Start: 12-12-2018 End: 12-12-2018 Patient encounter procedure Venu Bills MD Work Phone: [facility] Work Phone: Start: 12-12-2018 End: 12-12-2018 Pt evaluation Venu Bills MD Work Phone: [facility] Work Phone: Start: 11-10-2018 End: 11-10-2018 Patient encounter procedure ROSALINA Byrd [facility] Start: 07-13-2018 End: 07-13-2018 Patient encounter procedure ROSALINA Byrd [facility] Start: 02-10-2018 End: 02-10-2018 Patient encounter procedure ROSALINA Byrd [facility] Procedures Date Procedure Procedure Detail Performing Clinician Start: 01-15-2025 Serum inorganic phos phate measurement Dr. Kelsey Burns MD Work Phone: Start: 01-15-2025 Urnls dip stick/tabl et reagent auto microscopy Dr. Kelsey Burns MD Work Phone: Start: 01-15-2025 Urine microalbumin/creatinine ratio measurement Dr. Kelsey Burns MD Work Phone: Start: 01-15-2025 Vitamin D, 25-hydrox y measurement Dr. Kelsey Burns MD Work Phone: Comment on above: Vitamin D StatusDefi ciency: <20 ng/mL (50nmol/L)Insufficiency: 20-30 ng/mL (50-75 nmol/L)Sufficiency: 30-100 ng/mL (75-250 nmol/L)Toxicity: >100 ng/mL (>250 nmol/L) Start: 01-01-2025 Sars-cov-2 Dr. 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 Start: 07-27-2016 End: 07-27-2016 Follow [...] Author Start: 12-12-2018 End: 12-12-2018 Appointment Appointment [facility] Work Phone: Start: 07-28-2017 End: 07-28-2017 [place] [facility] Work Phone: Start: 07-27-2016 End: 07-27-2016 [facility] [employer] [facility] Work Phone: Start: 07-27-2016 End: 07-27-2016 Follow Up Appt 1 year Follow Up Appt 1 year [facility] [place] [facility] Work Phone: Start: 07-25-2015 End: 07-25-2015 [facility] [place] [facility] Work Phone: Start: 07-25-2015 End: 07-25-2015 Follow Up Appt 1 year Follow Up Appt 1 year [place] [employer] Work Phone: Start: 05-31-2014 End: 05-31-2014 [facility] [place] [facility] Work Phone: Start: 05-31-2014 End: 05-31-2014 Follow Up Appt 1 year Follow Up Appt 1 year [place] [facility] Work Phone: Start: 01-23-2014 End: 01-24-2014 Chest x-ray X-Ray, Chest, PA & Lateral [place] [facility] Work Phone: Start: 01-23-2014 End: 01-23-2014 [facility] [place] [facility] Work Phone: Start: 01-23-2014 End: 01-23-2014 Echocardiography Echocardiogram (complete) [place] [facility] Work Phone: Start: 01-23-2014 End: 01-23-2014 Follow Up Appt 3 months Follow Up Appt 3 months [place] [facility] Work Phone: Start: 01-23-2014 End: 01-23-2014 Left Heart Cath Left Heart Cath [place] [facility] Work Phone: Ambulatory ECG [facility] Sars-cov-2 [facility] SARS-CoV-2 (COVID-19 ) Ag [Presence] in Upper respiratory specimen by Rapid immunoassa [facility] Immunizations Immunization Date Immunization Notes Care Provider Fa cility 11-30-[address] Kelsey Burns MD Work Phone: [facility] 08-28-[address] Kelsey Burns MD Work Phone: [facility] 05-09-2024 influenza, seasonal, injectable, preservative free Dr. Kelsey Burns MD Work Phone: [facility] 03-30-2024 Covid (Spikevax) Dr. Kelsey Burns MD Work Phone: [facility] 05-05-2023 Covid (Spikevax) Dr. Kelsey Burns Work Phone: [facility] 04-28-2023 influenza, injectabl e, quadrivalent, preservative free Dr. Kelsey Burns Work Phone: [facility] 04-28-2022 influenza, injectabl e, quadrivalent, preservative free Dr. Kelsey Burns Work Phone: [facility] 04-28-2022 influenza, seasonal, injectable Dr. Bowman [facility] 03-26-2022 Covid Moderna Bivale nt Booster Dr. Bowman [facility] 10-20-2021 Covid (Moderna) Dr. Bowman [facility] 05-05-2021 Covid (Moderna) Dr. Bowman [facility] 04-07-2021 influenza, injectabl e, quadrivalent, preservative free Dr. Kelsey Burns Work Phone: [facility] 04-07-2021 influenza, seasonal, injectable Dr. Bowman [facility] 04-07-2021 influenza, seasonal, injectable, preservative free Dr. Kelsey Burns MD Work Phone: [facility] 04-07-2021 Seasonal, quadrivale nt, recombinant, injectable influenza vaccine, preservative free Dr. Kelsey Burns Work Phone: [facility] 08-05-2020 Covid (Moderna) Dr. Bowman [facility] 07-08-2020 Covid (Moderna) Dr. Bowman [facility] 04-16-2020 influenza, injectabl e, quadrivalent, preservative free Dr. Kelsey Burns Work Phone: [facility] 04-16-2020 influenza, seasonal, injectable Dr. Bowman [facility] 05-14-2019 influenza, injectabl e, quadrivalent, preservative free Dr. Kelsey Burns Work Phone: [facility] 05-14-2019 influenza, seasonal, injectable Dr. Bowman [facility] 04-24-2018 influenza, injectabl e, quadrivalent, preservative free Dr. Kelsey Burns Work Phone: [facility] 04-24-2018 influenza, seasonal, injectable Dr. Bowman [facility] 11-28-2017 tetanus toxoid, redu steven diphtheria toxoid, and acellular pertussis vaccine, [facility]2017 influenza, injectabl e, quadrivalent, preservative free Dr. Kelsey Burns Work Phone: [facility] 05-04-2017 influenza, seasonal, injectable Dr. Bowman [facility] 04-26-2016 influenza, injectabl e, quadrivalent, preservative free Dr. Kelsey Burns Work Phone: [facility] 04-26-2016 influenza, seasonal, [facility]able [facility] 05-06-2015 influenza, injectabl e, quadrivalent, preservative free Dr. Kelsey Burns Work Phone: [facility] 05-06-2015 influenza, seasonal, injectable [facility] 05-09-2014 influenza, injectabl e, quadrivalent, preservative free Dr. Kelsey Burns Work Phone: [facility] 05-09-2014 influenza, seasonal, injectable [facility] 07-19-[address] Bowman [facility] 01-03-2012 pneumococcal polysaccharide vaccine, [address] Bowman [facility] 05-05-2009 novel influenza-H1N1 -09, preservative-free, injectable Dr. Bowman [facility] No information available. Destini Ann LPN [facility] Work Phone: Payers Date Payer Category Payer Self-pay [id number] 2023 Unknown [id number] 2016 Unknown [id number] 1965 Unknown [id number] 2.16.8 [id number] 1965 Unknown [id number] 2.16.8 40.1.125340.3.579.2.278 1965 Unknown [id number] 2.16.8 40.1.200424.3.579.2.278 1965 Unknown [id number] 2.16.8 40.1.276593.3.579.2.278 1965 Unknown [id number] 2.16.8 40.1.373876.3.579.2.278 1965 Unknown [id number] 2.16. 840.1.209252.3.579.2.356 1965 Unknown [id number] 2.16. 840.1.154377.3.579.2.356 1965 Unknown [id number] 2.16. 840.1.381180.3.579.2.356 1965 Unknown [id number] 2.16. 840.1.322461.3.579.2.356 1965 Unknown [id number] 2.16. 840.1.208058.3.579.2.356 1965 Unknown [id number] 2.16. 840.1.805870.3.579.2.356 1965 Unknown [id number] 2.16. 840.1.072449.3.579.2.356 Unknown [id number] 2.16.8 40.1.479873.3.579.2.462 Unknown [id number] 2.16.8 40.1.269487.3.579.2.462 Unknown [id number] 2.16.8 40.1.917524.3.579.2.462 Unknown [id number] 2.16.8 40.1.646822.3.579.2.462 Unknown [id number] 2.16.8 40.1.356206.3.579.2.462 Unknown [id number] 2.16.8 40.1.634393.3.579.2.462 Unknown [id number] 2.16.8 40.1.188663.3.579.2.462 Unknown [id number] 2.16.8 40.1.569163.3.579.2.462 Unknown [id number] 2.16.8 40.1.108967.3.579.2.462 Unknown [id number] 2.16.8 40.1.867024.3.579.2.462 Unknown [id number] 2.16.8 40.1.707511.3.579.2.462 Unknown [id number] 2.16.8 40.1.277510.3.579.2.462 Social History Date Type Detail Facility Start: 09-16-2021 End: 07-19-2023 Tobacco smoking status DEIS Unknown if ever smoked [facility] Start: 01-23-2019 Occasional [facility] Start: 01-23-2019 Spouse/ Signif icant Other [facility] Start: 1965 Sex Assigned At Male [facility] Start: 01-19-2024 End: 01-16-2025 Tobacco smoking status NHIS Ex-smoker (finding) [facility] NEGATED: Highlighted rowStart: 12-12-2018 End: 12-12-2018 Alcohol use ETOH USE Yes [facility] Work Phone: NEGATED: Highlighted rowStart: 12-12-2018 End: 12-12-2018 Details of drug misuse behavior DRUG USE No [facility] Work Phone: NEGATED: Highlighted rowStart: 12-12-2018 End: 12-12-2018 Assertion Former smoker [facility] Work Phone: NEGATED: Highlighted rowStart: 12-12-2018 End: 12-12-2018 How many days of moderate to strenuous exercise, like a brisk walk, did you do in the last 7 days? EXERCISEFREQ 2 days per week [facility] Work Phone: Clinical Notes 09-12-2020 to 12-30-2024 Note Date & Type Note Facility 12-30-2024 Evaluation note Diagnosis Onset Date Resolution Pharyngitis acute December 30 9:43am [facility] Work Phone: 1(563) 198-989706-22-2025 Evaluation note* Diagnosis Onset Date Resolution Status Admit Date Pharyngitis acute December 30 9:43am URI, acute noneactive January 01 1:30pm [facility] Work Phone: 1(136) 154-826106-22-2025 Evaluation note* Diagnosis Onset Date Resolution Status Admit Date Pharyngitis acute December 30 9:43am URI, acute noneactive January 01 1:30pm Otitis media acute January 04, 2 025 2:14pm Pharyngitis acute January 04 2:14pm [facility] Work Phone: 1(889) 644-342606-22-2025 Evaluation note* Diagnosis Onset Date Resolution Status Admit Date Pharyngitis acute December 30 9:43am URI, acute noneactive January 01 1:30pm Otitis media acute January 04, 2 025 2:14pm Pharyngitis acute January 04 2:14pm Diabetes mellitus type 1 chronic January 16, 2025 2:54pm Essential hypertension chronic Ju ly 2024 2:54pm Nonobstructive atheroscleros is of coronary artery chronic January 16 2:54pm Obstructive sleep apnea noneactive J clemencia 2024 2:54pm Erectile dysfunction noneactive January 16, 2025 2:54pm Right sciatic nerve pain noneactive January 16, 2025 2:54pm Bilateral knee pain noneactive January 16, 2025 2:54pm Obesity (BMI 30-39.9) noneactive Jan 2:54pm [facility] Work Phone: 1(761) 518-294106-22-2025 Evaluation note* Diagnosis Onset Date Resolution Status Admit Date Pharyngitis acute December 30 9:43am URI, acute noneactive January 01 1:30pm Otitis media acute January 04, 2 025 2:14pm Pharyngitis acute January 04 2:14pm Diabetes mellitus type 1 chronic January 16, 2025 2:54pm Essential hypertension chronic Ju 2024 2:54pm Nonobstructive atheroscleros is of coronary artery chronic January 16 2:54pm Ear pressure noneactive January 16 2:54pm Screening for depression noneJanuary 16, 2025 2:54pm Obstructive sleep apnea noneactive J clemencia 2024 2:54pm Erectile dysfunction noneactive January 16, 2025 2:54pm Right sciatic nerve pain noneactive January 16, 2025 2:54pm Bilateral knee pain noneactive January 16, 2025 2:54pm Obesity (BMI 30-39.9) noneactive Jan 2:54pm [facility] Work Phone: 1(315) 159-324203-05-2021 NotePatient Outreach (COVAMN) WES SMITH ([id number]) 1965 M Date Time Provider Department 09/12/20 JONN RAYMOND During your visit today, we recorded the following information about you: Allergies As of Date: 09/12/2020 (No Known Allergies) Date Reviewed: 11/13/2018 Reviewed by: Rosalina Cartwright - Fully Assessed Order(s):SARS-COVID VACCINE 1ST DOSE APPT [[id number]] Order #: [id number] FUTURE Prescriptions as of 09/12/2020 Sig: INSULIN [...] Noted Resolved Presence of insulin pump [Z96.41] 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 Obesity (BMI 30.0-34.9) [E66.9] Type 1 diabetes mellitus with diabetic retinopa* Encounter Status:Closed by [employer] on 09/15/20[facility] Evaluation note* Diagnosis Onset Date Resolution Status Essential hypertension chron ic Hyperlipidemia chronic Nonobstructive atherosclerosis of coronary artery chronic Diabetes mellitus, insulin-dependent (IDDM or type I) chronic Essential hypertension chron ic Hyperlipidemia chronic Obesity chronic Presence of insulin pump chr onic Otitis media, left acute Acute maxillary sinusitis, unspecified acute [facility] Work Phone: Evaluation note* Diagnosis Onset Date Resolution Status Diabetes mellitus, insulin-dependent (IDDM or type I) chronic Essential hypertension chron ic Hyperlipidemia chronic Obesity chronic Presence of insulin pump chr onic Otitis media, left acute Acute maxillary sinusitis, unspecified acute [facility] Work Phone: Evaluation note* Diagnosis Onset Date Resolution Status Essential hypertension chron ic Hyperlipidemia chronic Nonobstructive atherosclerosis of coronary artery chronic Diabetes acute Essential hypertension chron ic Hyperlipidemia chronic Obesity chronic Presence of insulin pump chr onic [facility] Work Phone: Evaluation note* Diagnosis Onset Date Resolution Status Diabetes mellitus type 1 chr onic Essential hypertension chron ic Nonobstructive atherosclerosis of coronary artery chronic Obstructive sleep apnea none active Establishing care with new doctor, encounter for noneactive Erectile dysfunction noneact rk Diabetes mellitus type 1 chr onic Essential hypertension chron ic Hyperlipidemia chronic Obesity chronic Presence of insulin pump chr onic [facility] Work Phone: Evaluation note* Diagnosis Onset [...] noneact rk Obesity (BMI 30-39.9) noneac tive [facility] Work Phone: Evaluation noteNo assessment information available [facility] Work Phone: Hospital Discharge instructionsAmbulatory Orders* Physical Therapy Referral Location: None Selected [facility] Work Phone: Reason for referral (narrative)No reason for referral [facility] Work [facility]: Summary Purpose Family History [...] No January 23, 2019 12:05am Power of Etcher Electrolytic No January 23 9 12:05am Advance Directive Response Recorded Date/ Time Advance Directives No February 18, 2015 5:45am Living Will No January 22, 2019 11:05pm Power of Etcher Electrolytic No January 22 9 11:05pm Advance Directive [...] Obesity Presence of insulin pump Chief 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 January 15, 2025 6:44a m 6 M FU January 16, 2025 2:54p m Reason for Visit Admit Date Pharyngitis December 30, 2024 9:43 am URI, acute January 01, 2025 1:30 pm Otitis media January 04, 2025 2:14 pm Pharyngitis January 04, 2025 2:14 pm Diabetes mellitus type 1 January 16, 2025 2:54pm Essential hypertension January 16, 2025 2: 54pm Nonobstructive atherosclerosis of gerardo ry artery January 16, 2025 2:54pm Obstructive sleep apnea January 16, 2025 2 :54pm Erectile dysfunction January 16, 2025 2:54 pm Right sciatic nerve pain January 16, 2025 2:54pm Bilateral knee pain January 16, 2025 2:54p m Obesity (BMI 30-39.9) January 16, 2025 2:5 4pm Reason for Visit Admit Date Pharyngitis December 30, 2024 9:43 am URI, acute January 01, 2025 1:30 pm Otitis media January 04, 2025 2:14 pm Pharyngitis January 04, 2025 2:14 pm Diabetes mellitus type 1 January 16, 2025 2:54pm Essential hypertension January 16, 2025 2: 54pm Nonobstructive atherosclerosis of gerardo ry artery January 16, 2025 2:54pm Ear pressure January 16, 2025 2:54p m Screening for depression January 16, 2025 2:54pm Obstructive sleep apnea January 16, 2025 2 :54pm Erectile dysfunction January 16, 2025 2:54 pm Right sciatic nerve pain January 16, 2025 2:54pm Bilateral knee pain January 16, 2025 2:54p m Obesity (BMI 30-39.9) January 16, 2025 2:5 4pm Chief Complaint Admit Date SORE THROAT December 30, 2024 9:43 am ACUTE -CONGESTION / SORE THROAT December 1:30pm ACUTE RIGHT EAR PAIN January 04, 2025 2:1 4pm E ORDERS X 2 DRS January 15, 2025 6:41a 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 RX HERE February 3:30pm 6 M FU March 08, 2025 3: 48pm Additional Source Comments (unrecognized sect ion and content) No Status Records FoundNo Status Records FoundNo Status Records FoundNo Status Records FoundNo Status Records Found INFORMATION SOURCE (unrecogn ized section and content) DATE CREATED AUTHOR 11/26/2018 [facility] DATE CREATED AUTHOR AUTHOR'S ORGANIZ ATION 11/26/2018 [facility] DATE CREATED AUTHOR AUTHOR'S ORGANIZ ATION 08/08/2021 [facility] DATE CREATED AUTHOR AUTHOR'S ORGANIZ ATION 06/07/2022 [facility] DATE CREATED AUTHOR AUTHOR'S ORGANIZ ATION 05/07/2025 [facility] Reason for Visit (unrecogniz ed section and [...] Quinones MD Attending Provider Active Reba Elliott JAVA WEB USER INTERFACE DEVELOPER, JAVA WEB USER INTERFACE DEVELOPER-C Referring Provider Active Team Status: Active Member Role Status Dates Dr. Kelsey Burns MD Primary Care Provider Active Reba Elliott JAVA WEB USER INTERFACE DEVELOPER, JAVA WEB USER INTERFACE DEVELOPER-C Attending Provider Active Team Status: Inactive Member Role Status Dates Dr. Kelsey Burns MD Primary Care Provider Active Reba Elliott JAVA WEB USER INTERFACE DEVELOPER, JAVA WEB USER INTERFACE DEVELOPER-C Attending Provider, Referring P rovider Active Team Status: Inactive Member Role Status Dates Dr. Kelsey Burns MD Primary Care Provider Active Reba Elliott JAVA WEB USER INTERFACE DEVELOPER, JAVA WEB USER INTERFACE DEVELOPER-C Attending Provider, Referring P rovider Active Dr. Elliott Lopez MD Other Provider Active Team Status: Inactive Member Role Status Dates Dr. Kelsey Burns MD Primary Care Provider Active Start: December 30, 2024 End: December 30, 2024 Dr. Kelsey Burns MD Referring Provider Active Start: December 30, 2024 End: December 30, 2024 Howard Tavera JAVA WEB USER INTERFACE DEVELOPER, JAVA WEB USER INTERFACE DEVELOPER-C Attending Provider Active S tart: December 30, [...] 2024 End: December 30, 2024 Howard Tavera NP JAVA WEB USER INTERFACE DEVELOPER-C Attending Provider Active S tart: December 30, [...] January 04, 2025 End: January 04, 2025 Omaira Powers NP-C Attending Provider Active Start: January 04, 2025 [...] MD Primary Care Provider Active Team Status: Active Member Role/Relationship Status Dates Dr. Kelsey Burns MD Primary Care Provider Active Start: January 15, 2025 Dr. Elliott Lopez MD Attending Provider Active S tart: January 15, 2025 Dr. Elliott Lopez MD Referring Provider Active S tart: January 15, 2025 Team Status: Active Member Role/Relationship Status Dates Dr. Kelsey Burns MD Primary Care Provider Active Start: January 15, 2025 Health Risk Assessment Attending Provider Active Start: January 15, 2025 Health Risk Assessment Referring Provider Active Start: January 15, 2025 Team Status: Inactive Member Role/Relationship Status Dates Dr. Kelsey Burns MD Primary Care Provider Active Start: January 16, 2025 End: January 16, 2025 Dr. Kelsey Burns MD Attending Provider Active Start: January 16, 2025 End: January 16, 2025 Dr. Kelsey Burns MD Referring Provider Active Start: January 16, 2025 End: January 16, 2025 Team Status: Inactive Member Role/Relationship Status Dates Dr. Kelsey Burns MD Primary Care Provider Active Start: January 15, 2025 End: January 15, 2025 Dr. Elliott Lopez MD Attending Provider Active S tart: January 15, 2025 End: January 15, 2025 Dr. Elliott Lopez MD Referring Provider Active S tart: January 15, 2025 End: January 15, 2025 Team Status: Active Member Role/Relationship Status Dates Dr. Kelsey Burns MD Primary Care Provider Active Start: March 07, 2025 Dr. Kelsey Burns MD Attending Provider Active Start: March 07, 2025 Dr. Kelsey Burns MD Referring Provider Active Start: March 07, 2025 Team Status: Inactive Member Role/Relationship Status Dates Dr. Kelsey Burns MD Primary Care Provider Active Start: March 08, 2025 End: March 08, 2025 Dr. Kelsey Burns MD Referring Provider Active Start: March 08, 2025 End: March 08, 2025 Dr. Rosalina Cartwright MD Attending Provider Active Sta rt: March 08, 2025 End: March 08, 2025 FOR RECORDS PERTAINING TO PATIENTS WHO [...] BE BASED ON THE PRIMARY CLINICAL RECORDS. [facility]. provides no warranty or guarantee of the accuracy or completeness of information in this document.
--- NOTE | 2025-06-29 18:27 | EX.ED.GENINJ ---
HPI History of Present Illness Chief Complaint: Lower Extremity Injury Detail of Chief Complaint: Fell down steps this morning injuring right knee Informant: patient and spouse/S.O. Onset/Context/Timing Onset: Today and Hours Mechanism/Context: Blunt Injury and Fall Location of pain/injuries: Right Knee Location: Right knee Current Severity: Mild Maximum Severity: Severe Worsened by: Movement Relieved by: Nothing Associated Symptoms Associated Symptoms: Positive for Loss of function and Inability to ambulate; Negative for Parasthesias or Weakness Narrative Narrative: Patient is a 59-year-old male. He has history of type 1 diabetes on insulin pump, essential hypertension, hyperlipidemia, obstructive sleep apnea and nonobstructive atherosclerotic coronary disease. He was seen at outside facility today. He arrives because of increased pain, swelling. He has a knee immobilizer in place. He was told that his patella was dislocated. He states he is unable to use the leg. He had no head trauma. He denies neck pain. He denies any neurologic symptoms. He is not on an anticoagulant. 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 associated with type 1 diabetes mellitus Epiretinal membrane (ERM) of right eye Ocular hypertension of right eye High triglycerides Glaucoma Diabetes mellitus type 1 Nonobstructive atherosclerosis of coronary artery Obesity intermediate current use of insulin Vascular disease Stomach ulcer Cataracts, bilateral History of back problems DKA (diabetic ketoacidoses) Sleep apnea Hyperlipidemia Home Medications Medication Instructions Recorded Last Taken Type aspirin 81 mg tablet,delayed 81 mg PO DAILY@0800 02/11/15 Unknown History release cholecalciferol (vitamin D3) 25 2,000 unit PO DAILY 08/29/18 Unknown History mcg (1,000 unit) capsule melatonin 10 mg capsule 10 mg PO HS 04/23/19 Unknown History esomeprazole magnesium 20 mg 20 mg PO DAILY 10/21/23 Unknown History capsule,delayed release brimonidine 0.2 %-timolol 0.5 % 1 drp ophthalmic (eye) BID #5 mL 01/19/24 Unknown Rx eye drops lisinopril 40 mg tablet 40 mg PO DAILY #90 tabs 05/17/24 Unknown Rx rosuvastatin 40 mg tablet 40 mg PO DAILY #90 tabs 05/17/24 Unknown Rx spironolactone 50 mg tablet 50 mg PO QDAY #90 tabs 05/17/24 Unknown Rx diphenhydramine HCl 25 mg tablet 50 mg PO QHS PRN 01/04/25 Unknown History (Allergy (diphenhydramine)) ibuprofen 400 mg tablet 600 mg PO BID 01/16/25 Unknown History acetaminophen 650 mg 1,300 mg PO BID 03/08/25 Unknown History tablet,extended release (Tylenol Arthritis Pain) insulin lispro 100 unit/mL 160 unit (1.6 mL) subcut 03/08/25 Unknown Rx subcutaneous solution (Humalog .continuous #150 mL U-100 Insulin) amlodipine 10 mg tablet 10 mg PO QDAY #90 tabs 06/05/25 Unknown Rx tadalafil 20 mg tablet (Cialis) 20 mg PO QDAY PRN sexual activity 06/05/25 Unknown Rx #10 tabs Allergy/AdvReac Type Severity Reaction Status Date / Time No Known Allergies Allergy Verified 06/29/25 17:28 Family History Brother Sudden cardiac , Onset Age: 48 Myocardial infarction, Onset Age: 48 Hypertension Hyperlipidemia Heart disease Mother Hypertension Alcoholism analgesic complications Afib post operatively Hyperlipidemia Dementia Father Multiple sclerosis Grandmother Hyperlipidemia Hypertension Grandfather Parkinsons disease Grandmother Cancer lung Surgical History H/O vitrectomy History of left heart catheterization (01/25/14) History of eye surgery Social History household members: spouse current occupational status: employed 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 [employer] Smoking Status: Former smoker quit date: 07/11/97 pack-years: 17 Electronic Cigarette Use: not used how long ago did patient quit smokin years ago alcohol intake: former substance use type: does not use caffeine: Yes Type: coffee Number of servings: 6 what type of physical activity do you participate in: walking frequency: 1-2 times per week do you feel safe at home: Yes ROS ROS ED Constitutional Constitutional ED: Denies chills, fever(s), subjective, sweats or weight loss Eyes Eyes: Denies change in vision Cardiovascular Cardiovascular: Denies chest pain Respiratory/Chest Respiratory/Chest: Denies cough or dyspnea on exertion Gastrointestinal Gastrointestinal: Denies nausea or vomiting Genitourinary Genitourinary ED: Denies hematuria Musculoskeletal Musculoskeletal: Reports other Details: Right knee pain ; Denies arthralgias, back pain or myalgias Neurologic Neurologic: Denies paresthesias Hematologic/Lymphatic Hematologic/Lymphatic: Denies easy bleeding or easy bruising EXAM Physical Exam Const Vital Signs: 06/29/25 17:24 Temperature 98.4 F Temperature Source Oral Pulse Rate 96 Respiratory Rate 18 Blood Pressure 107/65 Blood Pressure Mean 79 Pulse Ox 97 Oxygen Delivery Method Room Air Positive well nourished and well developed General Appearance ED: well developed and NAD HEENT HEENT Narrative: Ears appear normal. Nares/nose normal atraumatic Eyes PERRL and EOMs intact bilaterally General Eye ED: Yes other Other Details: No subconjunctival hemorrhage. Resp normal respiratory effort Cardio regular rhythm Rate: regular rate Extremity Negative for normal to inspection or full ROM Extremity Narrative: Patient has a markedly swollen left knee. Patella is not high riding. There is an obvious effusion. There is no laxity varus valgus stress testing. Patient is unable to hold his leg against gravity. Clinically he has ruptured his quadricep tendon. The patella tendon is intact to palpation. He has a palpable PT pulse. He has stigmata of peripheral arterial disease of his lower extremity. There is no abrasion, laceration. There is some slight bruising noted. Neuro oriented x3 and CN's II-XII intact bilaterally Sensorium / Orientation: alert Psych mental status grossly normal and thought process normal Skin no rashes or lesions noted, no wounds, skin turgor normal and no jaundice MDM MDM MDM Narrative Medical decision making narrative: Since I am unable to obtain images that were performed at outside facility these were repeated especially since he was misdiagnosed at outside facility. Concern patient has a quadricep complete rupture. Will obtain images to evaluate for prolonged fracture of the superior portion of the patella. Radiography Chest X-Ray - ED: Read by ED Physician (4 view x-ray reveals degenerative changes of the patella. There is a significant effusion. The patella is not high riding.) Diagnostic Testing: Clinical Impression(s) from Imaging Studies Knee X-Ray 06/29/25 17:45 IMPRESSION: No acute fracture or dislocation. Large right knee joint effusion. Patellar enthesopathy. Reading Location: [facility] Management Discussion w/another healthcare provider: Enrollment Management Manager (Spoke with Dr. Fletcher Ochoa. Mr. Anne is to call office Tuesday to be seen for operative intervention for ruptured quadricep tendon.) Discharge Plan Triage Chief Complaint: Lower Extremity Injury ED Provider: Tunde Coulter Dx/Rx/DC Orders Clinical Impression: Traumatic rupture of right quadriceps tendon, Essential hypertension, Hyperlipidemia, Diabetes mellitus type 1, Nonobstructive atherosclerosis of coronary artery, Sleep apnea Instructions: ED Quadriceps Tendon Rupture Prescriptions: No Action melatonin 10 mg capsule 10 mg PO HS ibuprofen 400 mg tablet 600 mg PO BID spironolactone 50 mg tablet 50 mg PO QDAY Qty: 90 3RF rosuvastatin 40 mg tablet 40 mg PO DAILY Qty: 90 3RF lisinopril 40 mg tablet 40 mg PO DAILY Qty: 90 3RF esomeprazole magnesium 20 mg capsule,delayed release(DR/EC) 20 mg PO DAILY brimonidine-timolol 0.2-0.5 % drops 1 drp ophthalmic (eye) BID Qty: 5 0RF diphenhydramine HCl [Allergy (diphenhydramine)] 25 mg tablet 50 mg PO QHS PRN acetaminophen [Tylenol Arthritis Pain] 650 mg tablet extended release 1,300 mg PO BID insulin lispro [Humalog U-100 Insulin] 100 unit/mL solution 160 unit SC .continuous Qty: 150 3RF cholecalciferol (vitamin D3) 1,000 unit capsule 2,000 unit PO DAILY aspirin 81 MG tablet 81 mg PO DAILY@0800 amlodipine 10 mg tablet 10 mg PO QDAY Qty: 90 3RF tadalafil [Cialis] 20 mg tablet 20 mg PO QDAY PRN (Reason: sexual activity) Qty: 10 1RF Rx Instructions: administer approximately 30min before sexual activity; do not use more than 1 dose per 24hrs Primary Care Provider: Kelsey Burns Referrals: Kelsey Burns MD [Primary Care Provider, Internal Medicine] Fletcher Ochoa MD [Med Staff - Active Staff, Orthopedics] - As soon as possible Activity Restrictions/Additional Instructions: Call Dr. Fletcher Ochoa's office Tuesday morning for appointment to schedule surgery for quadricep tendon rupture. Apply ice to your knee 6-8 times a day. Wear knee immobilizer during the day. Print Language: St [place] Disposition Disposition: Home, Self Care
[2025-06-29 18:55] VITALS: BP 116/60; PULSE 74; RESP 18; TEMP 37.1; O2SAT 98
== END 2025-06-29 19:06 | disposition home or self-care (01) ==
PROVIDERS: Emergency Provider Emergency Medicine; PCP Internal Medicine; Visit Provider Emergency Medicine
DX: S76.101A Unspecified injury of right quadriceps muscle, fascia and tendon, initial encounter (principal); E10.9 Type 1 diabetes mellitus without complications; Z79.4 Long term (current) use of insulin; I25.10 Atherosclerotic heart disease of native coronary artery without angina pectoris; I10 Essential (primary) hypertension; R26.2 Difficulty in walking, not elsewhere classified; G47.30 Sleep apnea, unspecified; Z79.82 Long term (current) use of aspirin; Z87.891 Personal history of nicotine dependence; E78.5 Hyperlipidemia, unspecified; W10.9XXA Fall (on) (from) unspecified stairs and steps, initial encounter
CPT/HCPCS: 73564; 82962; 99282

== ENCOUNTER 2025-07-02 13:03 | Day surgery (SDC) | payer OTHER, SELFPAY ==
--- NOTE | 2025-07-01 12:06 | PAT.ANE_ITS ---
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 When Was Last Pacemaker Check QUESTION #4 FULL TEXT: You/Your Family Experience fever (hyperthermia) with Anesthesia Last Oral Intake Last Oral intake: Last Oral Intake NPO since Meds taken in AM with sips of water? 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 Has anyone observed you stop breathing during sleep? STOP Results Positive 07/01/25 11:27 QUESTION #5 FULL TEXT : Do you snore loudly (louder than talking or can be heard through closed doors)? 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 Specify any problems Hx of Preganancy in last 3 N/A 07/01/25 11:27 Months Nurse Filling Out Transfusion JONI 07/01/25 11:27 & Questions: Date: 07/01/25 07/01/25 11:27 Time: 11:37 07/01/25 11:27 Patient unable to answer at this time (ie. 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 Hx Now Gestational Age (in weeks): EDC: Hx Hx Para Hx Section SAB No 07/01/25 11:27 Does the father of the baby or his family experience fever w Father of the baby Malignant Hypertension history comment [facility] Medical History (Updated 07/01/25 @ 11:35 by Sussy Montgomery) Wears glasses Abrasion Diabetes Walker as ambulation aid High cholesterol Gastric reflux Former smoker CPAP (continuous positive airway pressure) dependence History of edema History of Holter monitoring History of echocardiogram History of stress test Cardiology follow-up encounter Hypertension Pseudophakia of both eyes 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 associated with type 1 diabetes mellitus Epiretinal membrane (ERM) of right eye Ocular hypertension of right eye High triglycerides Glaucoma Diabetes mellitus type 1 Nonobstructive atherosclerosis of coronary artery Obesity shelter current use of insulin Vascular disease Stomach ulcer Cataracts, bilateral History of back problems DKA (diabetic ketoacidoses) Sleep apnea Hyperlipidemia Home Medications ?Medication ?Instructions ?Recorded ?Last Taken ?Type aspirin 81 mg tablet,delayed 81 mg PO DAILY@0800 02/11 Unknown History release cholecalciferol (vitamin D3) 25 2,000 unit PO DAILY Unknown History mcg (1,000 unit) capsule melatonin 10 mg capsule 10 mg PO HS 10/14/19 Unknown History esomeprazole magnesium 20 mg 20 mg PO DAILY 10/21/23 U nknown History capsule,delayed release brimonidine 0.2 %-timolol 0.5 % 1 drp ophthalmic (eye) BID #5 mL 01/19/24 Unknown Rx eye drops lisinopril 40 mg tablet 40 mg PO DAILY #90 tabs 01/31 Unknown Rx rosuvastatin 40 mg tablet 40 mg PO DAILY #90 tabs 01/31 Unknown Rx spironolactone 50 mg tablet 50 mg PO QDAY #90 tabs 01/31 Unknown Rx diphenhydramine HCl 25 mg tablet 25 mg PO QHS PRN slee p 01/04/25 Unknown History (Allergy (diphenhydramine)) ibuprofen 400 mg tablet 600 mg PO Q6H 01/16/25 Unkno wn History acetaminophen 650 mg 1,300 mg PO BID 03/08/25 Unk nown History tablet,extended release (Tylenol Arthritis Pain) Held on 07/01/25. Instructions: MD Ordered insulin lispro 100 unit/mL 160 unit (1.6 mL) subcut Unknown Rx subcutaneous solution (Humalog .continuous #150 mL U-100 Insulin) amlodipine 10 mg tablet 10 mg PO QDAY #90 tabs 06/05 Unknown Rx tadalafil 20 mg tablet (Cialis) 20 mg PO QDAY PRN sexu al activity 06/05/25 Unknown Rx #10 tabs Allergy/AdvReac Type Severity Reaction Status Date / Time No Known Allergies Allergy Verified 07/01/25 11:22 Family History Brother Sudden cardiac , Onset Age: 48 Myocardial infarction, Onset Age: 48 Hypertension Hyperlipidemia Heart disease Mother Hypertension Alcoholism analgesic complications Afib post operatively Hyperlipidemia Dementia Father Multiple sclerosis Grandmother Hyperlipidemia Hypertension Grandfather Parkinsons disease Grandmother Cancer lung Surgical History (Updated 07/01/25 @ 11:35 by Sussy Montgomery) H/O vitrectomy History of left heart catheterization (01/25/14) History of eye surgery Social History household members: spouse current occupational status: employed 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 [place] Smoking Status: Former smoker quit date: 07/11/97 pack-years: 17 Electronic Cigarette Use: not used how long ago did patient quit smokin years ago alcohol intake: former substance use type: does not use caffeine: Yes Type: coffee Number of servings: 6 what type of physical activity do you participate in: walking frequency: 1-2 times per week do you feel safe at home: Yes Audit: Pertinent Findings Pertinent Findings Stress test pertinent findings: 09/28/2021. Negative. Echo (EF%) pertinent findings: 09/28/2021. EF 60%. Pulmonary artery pressure 30. Consult pertinent findings: Cardiology. 05/17/2024. Nonobstructive coronary artery disease. Chronic. Recent stress test 09/28/2021 negative. Stable. Continue current medical therapy. Hypertension chronic. Recommendation Anesthesia Recommendation Anesthesia recommendation: OPTIMIZED for anesthesia
[2025-07-02] VITALS (12 sets, daily range): BP systolic 123–148; BP diastolic 70–106; PULSE 76–99; RESP 14–16; TEMP 36.6–37; O2SAT 85–98; BMI 34.7
[2025-07-02] MEDS: Lactated Ringers 1,000 ML 15 ML IV (13:46)
--- NOTE | 2025-07-02 14:07 | PCM.PRE.AN2 ---
ASA Classification* ASA Classification ASA Classification: 2 Assessment & Plan Anesthesia* Anesthesia Assessment Anesthesia Assessment: Discussed sedation and/or anesthesia options, risks, benefits, and alternatives with patient/parents/legal guardian/POA. Questions invited. The patient/parents/legal guardian/POA seems to understand and agrees to proceed with anesthesia plan. Reviewed the physical assessment, medical history, allergy history and patient home medications list prior to surgery/procedure/anesthetic and documented any changes. Performed airway and anesthesia risk assessments. Anesthesia Type Anesthesia Type: General and Block (Patient is consented for right femoral block.) History Source History Obtained from:: Patient and Chart Anesthesia Focused Assessment* Temperature: 98.6 F Pulse Rate: 76 Blood Pressure: 141/71 Respiratory Rate: 16 Pulse Ox: 96 Oxygen Delivery Method: Room Air Airway Assessment Mouth opens: >3 cm Mallampati Score: I Teeth Condition: Caps/Crowns (Patient has a crown. It is tight.) Neck Range of motion (ROM): Limited ROM (Somewhat Decreased) Labs Anesthesia Preop lab: CBC WBC, (4.4-11.0) 7.9 K/mm3 01/15/25, 06:53 RBC, (4.6-6.2) 4.39 M/mm3 L 01/15/25, 06:53 Hgb, (13.0-16.5) 13.7 g/dL 01/15/25, 06:53 Hct, (40-54) 40.3 % 01/15/25, 06:53 Plt Count, (150-450) 264 K/mm3 01/15/25, 06:53 CHEMISTRY Potassium, (3.3-5.1) 4.1 mmol/L 01/15/25, 06:53 Sodium, (133-145) 138 mmol/L 01/15/25, 06:53 Magnesium, (1.6-2.6) 2.4 mg/dL 01/25/19, 06:13 Phosphorus, (2.7-4.5) 3.2 mg/dL 01/15/25, 06:53 BUN, (4-19) 22 mg/dL H 01/15/25, 06:53 Creatinine, (0.70-1.20) 1.06 mg/dL 01/15/25, 06:53 Glucose, (70-99) 105 mg/dL H 01/15/25, 06:53 POC Glucose, (74-106) 248 mg/dL H 06/29/25, 18:12 TSH, (0.358-3.74) 3.06 uIU/mL 08/03/23, 06:11 COAG Pre-Assessment Diagnosis/Proposed Procedure Planned Operative Procedure(s): Quadraceps tendon repair Anesthesia History Anesthesia History - salesperson surgical appliances: Anesthesia History - salesperson surgical appliances Hx Hospitalization No 07/01/25 11:27 Any Problems With Anesthesia No 07/01/25 11:27 Cholinesterase deficiency No 07/01/25 11:27 You/Your Family Experience No 07/01/25 11:27 fever (hyperthermia) with Relationship Recent Exposure to Contagious No 07/02/25 13:34 Disease Does patient have nerve No 07/01/25 11:27 stimulator Patient instructed to have device shut off --Does patient have Pacemaker No 07/02/25 13:34 or ICD? When Was Last Pacemaker Check QUESTION #4 FULL TEXT: You/Your Family Experience fever (hyperthermia) with Anesthesia Last Oral Intake Last Oral intake: Last Oral Intake NPO since 08:30 07/02/25 13:34 Meds taken in AM with sips of Yes 07/02/25 13:34 water? 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 - salesperson surgical appliances: PONV - salesperson surgical appliances Female No 07/01/25 11:27 HX of Motion Sickness No 07/01/25 11:27 HX of N/V After Surgery No 07/01/25 11:27 Non-Smoker No 07/01/25 11:27 Duration of Surgery greater No 07/01/25 11:27 than 60 minutes Number of Risk Factors PONV Score Height & Weight Height & Weight: Anesthesia: Height & Weight Height 6 ft 2 in 07/02/25 13:34 Weight: 122.47 kg 07/02/25 13:34 Body Mass Index (BMI) 34.7 07/02/25 13:34 Respiratory Assessment Respiratory Assessment - salesperson surgical appliances: Respiratory Tract Infection Hx - salesperson surgical appliances Hx Respiratory Tract Infection No 07/01/25 11:27 STOP Sleep Apnea STOP Sleep Apnea - salesperson surgical appliances: STOP Sleep Apnea - salesperson surgical appliances Hx Hypertension No 07/01/25 11:27 Hx Sleep Apnea Yes 07/01/25 11:27 CPAP Yes 07/01/25 11:27 BIPAP No 07/01/25 11:27 Do you snore loudly (louder than talking or can be heard Do you often feel tired/ fatigued/ sleepy during daytime? Has anyone observed you stop breathing during sleep? STOP Results Positive 07/01/25 11:27 QUESTION #5 FULL TEXT : Do you snore loudly (louder than talking or can be heard through closed doors)? Tobacco Use History Tobacco Use History - salesperson surgical appliances: Tobacco Use History - salesperson surgical appliances Tobacco Use Smoking Status Former smoker 07/01/25 11:27 Hx Tobacco Use No 07/01/25 11:27 Years Smoking Packs Smoked per Day Smoking Cessation Date was No - quit smoking greater 07/01/25 11:27 within the last 15 years than 15 years ago Hx Smoking Cessation Date Hx Smoking Cessation Counseling Hematologic Medial History Hematologic Hx - salesperson surgical appliances: Hematologic Medical Hx - measurement coordinator Hx of Blood Transfusion No 07/01/25 11:27 Hx of Transfusion in last 3 No 07/01/25 11:27 Months Date of Last Transfusion (if within last 3 months) Ever experience any problems No 07/01/25 11:27 with transfusion(s)? Specify any problems Hx of Preganancy in last 3 N/A 07/01/25 11:27 Months Nurse Filling Out Transfusion JONI 07/01/25 11:27 & Questions: Date: 07/01/25 07/01/25 11:27 Time: 11:37 07/01/25 11:27 Patient unable to answer at this time (ie. confused, unrespo /Reproduction History /Reproductive History - salesperson surgical appliances: /Reproductive Hx- salesperson surgical appliances Hx Now Gestational Age (in weeks): EDC: Hx Hx Para Hx Section SAB No 07/01/25 11:27 Does the father of the baby or his family experience fever w Father of the baby Malignant Hypertension history comment Active Medications Active Medications: Current Medications Generic Name Dose Route Start Last Admin Trade Name Freq PRN Reason Stop Dose Admin Lactated Ringer's 1,000 mls @ 15 mls/hr 07/02/25 13:15 07/02/25 13:46 IV 15 mls/hr .Q48H MELANIE Administration PFSH Medical History Wears glasses Abrasion Diabetes Walker as ambulation aid High cholesterol Gastric reflux Former smoker CPAP (continuous positive airway pressure) dependence History of edema History of Holter monitoring History of echocardiogram History of stress test Cardiology follow-up encounter Hypertension Pseudophakia of both eyes 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 associated with type 1 diabetes mellitus Epiretinal membrane (ERM) of right eye Ocular hypertension of right eye High triglycerides Glaucoma Diabetes mellitus type 1 Nonobstructive atherosclerosis of coronary artery Obesity intermediate current use of insulin Vascular disease Stomach ulcer Cataracts, bilateral History of back problems DKA (diabetic ketoacidoses) Sleep apnea Hyperlipidemia Home Medications ?Medication ?Instructions ?Recorded ?Last Taken ?Type aspirin 81 mg tablet,delayed 81 mg PO DAILY@0800 02/11/15 Unknown History release cholecalciferol (vitamin D3) 25 2,000 unit PO DAILY 08/29/18 Unknown History mcg (1,000 unit) capsule melatonin 10 mg capsule 10 mg PO HS 04/23/19 Unknown History esomeprazole magnesium 20 mg 20 mg PO DAILY 10/21/23 07/02/25 08:00 History capsule,delayed release brimonidine 0.2 %-timolol 0.5 % 1 drp ophthalmic (eye) BID #5 mL 01/19/24 Unknown Rx eye drops lisinopril 40 mg tablet 40 mg PO DAILY #90 tabs 05/17/24 Unknown Rx rosuvastatin 40 mg tablet 40 mg PO DAILY #90 tabs 05/17/24 Unknown Rx spironolactone 50 mg tablet 50 mg PO QDAY #90 tabs 05/17/24 Unknown Rx diphenhydramine HCl 25 mg tablet 25 mg PO QHS PRN sleep 01/04/25 Unknown History (Allergy (diphenhydramine)) ibuprofen 400 mg tablet 600 mg PO Q6H 01/16/25 Unknown History acetaminophen 650 mg 1,300 mg PO BID 03/08/25 Unknown History tablet,extended release (Tylenol Arthritis Pain) Held on 07/01/25. Instructions: Ordered insulin lispro 100 unit/mL 160 unit (1.6 mL) subcut 03/08/25 Unknown Rx subcutaneous solution (Humalog .continuous #150 mL U-100 Insulin) amlodipine 10 mg tablet 10 mg PO QDAY #90 tabs 06/05/25 07/02/25 10:30 Rx tadalafil 20 mg tablet (Cialis) 20 mg PO QDAY PRN sexual activity 06/05/25 Unknown Rx #10 tabs oxycodone-acetaminophen 5 mg-325 1 tab PO TID PRN PRN pain 07/02/25 07/02/25 05:00 History mg tablet Allergy/AdvReac Type Severity Reaction Status Date / Time No Known Allergies Allergy Verified 07/01/25 11:22 Family History Brother Sudden cardiac , Onset Age: 48 Myocardial infarction, Onset Age: 48 Hypertension Hyperlipidemia Heart disease Mother Hypertension Alcoholism analgesic complications Afib post operatively Hyperlipidemia Dementia Father Multiple sclerosis Grandmother Hyperlipidemia Hypertension Grandfather Parkinsons disease Grandmother Cancer lung Surgical History H/O vitrectomy History of left heart catheterization (01/25/14) History of eye surgery Social History household members: spouse current occupational status: employed 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
[2025-07-02] MEDS: Midazolam 2 MG/2 ML Syringe IV (14:40)
[2025-07-02] MEDS: Cefazolin 1 GM/5 ML Vial 3 GM IV (14:51)
[2025-07-02] MEDS: Lidocaine 1% (5 ml sdv) 5 ML Vial IV (14:58)
[2025-07-02] MEDS: fentaNYL 100 MCG/2 ML Ampul 200 MCG IV (16:05)
--- NOTE | 2025-07-02 16:08 | PCM.OPRPT ---
Operative Report (Standard) Operative Information Date of Procedure: 07/02/25 Pre-Operative Diagnosis: Right quadriceps tendon rupture Post-Operative Diagnosis: Same Surgery/Procedure Performed: Open repair right quadriceps tendon rupture business process modeler: Yes Skates Operator: Randy Foley Tasks completed by airline pilot/first officer: Closing Additional diet assistant?: No Type of Anesthesia: General/Regional RN Documented Start/Stop Times: Operation Date: 07/02/25 14:30 Case Time Into Pre-Op 07/02/25 13:12 Anesthesia Start 07/02/25 14:51 Into Room 07/02/25 14:51 Procedure Start 07/02/25 15:05 Procedure Start Time: 15:05 Procedure Stop Time: 16:30 Select all DRAINS/GRAFTS/IMPLANTS that apply: None Estimated Blood Loss: 50 Fluids Replaced: 1 L Specimen collected: No Description of surgery: Preoperative diagnosis: Right quadriceps tendon rupture Preoperative diagnosis: Same Procedure: Repair right quadriceps tendon rupture Surgeon: Dr. Fletcher Ochoa Pot Annealer: ALFONSO Hendricks Anesthesia: General Anesthesia provider Dr. Padgett/KRISTINE Special medications: Ancef 3 gm Complications: None EBL: Less than 50 Indications for surgery: Patient is a 59-year-old male with a recently fell rupturing his right quadriceps tendon. Patient underwent standard open repair of the right quadriceps tendon executive assistant to president, ALFONSO as utilized throughout the entire procedure. Sharp with patient positioning. Holding of limb holding of retractors. Help with suturing of the quadriceps tendon. Sharp with passing sutures through the patellar tendon. She helped with appropriate tensioning of the repair wound closure bandage and brace application patient transfer. Without director surgical and her expertise, surgical outcome could have been less optimal and surgical time would have been significantly increased Procedure: Patient taken to the operating room transferred to the OR table. Given appropriate anesthetic. Ancef given IV. Appropriate timeouts performed. EFRA hose and SCD on the nonoperative limb. Operative limb was prepped padded draped in usual orthopedic sterile fashion for the procedure. No tourniquet was utilized. Midline incision was taken through skin subcutaneous tissue longitudinally over the patella down to the inferior pole of the patella. Proximally extending onto the quadriceps tendon. Full-thickness skin flaps are raised. Complete tendon rupture was noted. Wound was thoroughly irrigated. No undue bleeding. Freshen the superior pole of the patella with a rongeur. . At this point we used an arthrex 1.3 mm suturetape on a curved needle on each end. We started at the medial portion of the proximal quadriceps and weaved our sutures crossing fashion distally with several passes before we came out the end of the tendon. We repeated this step with another Arthrex 1.3 mm suture tape on the lateral portion. We used a 2.5 drill placing 3 drill holes longitudinally in the patella 1 central and one medial and 1 lateral. Was done from proximal to distal. We used a long straight needle to pass the appropriate sutures through the holes. 2 sutures through the central hole. We now tightened the suture tape over the patella distally repairing the quadriceps to the superior pole of the patella and then tying the sutures. Then used another 1.3 mm suture tape centrally oversewing this area over the patella proximally. We then did another running suture at the medial and lateral aspect oversewing and repairing that tissue. This point we could fully extend the knee. We could bend to 90 degrees without rupture of our repair. Wound was thoroughly irrigated. No undue bleeding was noted. . We repaired the deep soft tissues with an 0 Vicryl. Followed by 2-0 Vicryl followed by skin mahi. Mepilex dressing was applied. We placed a T ROM knee brace locked in extension. We will plan aspirin for DVT prevention. Oxycodone for postoperative pain. Follow-up in the office. Surgical Findings: Right quadriceps tendon rupture Complications Complications: No Admit VTE Documentation VTE Present on Admission: No VTE Mechan Device Prophylaxis: SCD's and Knee High EFRA Hose VTE Pharm Prophylaxis ordered?: Yes
--- NOTE | 2025-07-02 16:52 | PCM.POST.ANE ---
Anesthesia: Postop Eval I Current Vital Signs Temperature: 98 F Pulse Rate: 98 Blood Pressure: 148/75 Respiratory Rate: 15 Pulse Ox: 94 Oxygen Delivery Method: Nasal Cannula Oxygen Flow Rate (L/min): 4 Assessment Airway patent: Yes Spontaneous unlabored respirations: Yes Mental status: Awake and Calm nausea: No Vomiting: No Anesthesia Complication: No Fluid Hydration Crystalloid volume administer (ml): 1,200 Total IV fluid infused: 1,200 Progress Note Anesthesia document: Postop Eval 1 completed: Yes
--- NOTE | 2025-07-02 18:32 | POSTOPAN2_ITS ---
Anesthesia Postop Eval I Sum Postop Eval Completion status Anesthesia document: Postop Eval 1 completed: Yes Anesthesia Postop Eval I Summary Anesthesia Postop Eval I Summary: Anesthesia Postop Eval I: Assessment Summary Airway patent Yes 07/02/25 16:52 ASSISTANT CORPORATE [email or web address] Spontaneous unlabored Yes 07/02/25 16:52 ASSISTANT CORPORATE [email or web address] respirations Mental status Awake,Calm 07/02/25 16:52 ASSISTANT [email or web address] [email or web address] nausea No 07/02/25 16:52 ASSISTANT CORPORATE [email or web address] Vomiting No 07/02/25 16:52 ASSISTANT CORPORATE [email or web address] Anesthesia Postop Eval I: Fluid Summary Crystalloid volume administer 1,200 07/02/25 16:52 ASSISTANT CORPORATE [email or web address] (ml) Colloids volume administered ( ml) Blood Product volume administered (ml) Total IV fluid infused 1,200 07/02/25 16:52 ASSISTANT CORPORATE [email or web address] Anesthesia Postop Eval I: Summary Notes Anesthesia Complication No 07/02/25 16:52 ASSISTANT CORPORATE [email or web address] Anesthesia Complication Comment: Post-operative progress note Anesthesia: Postop Eval II Evaluation Mental status: Awake and Calm Pain Level: 1 nausea: No Vomiting: No Progress Note Post-operative progress note: Patient states that he has a numb spot on his tongue. I explained it is probably a spot that got caught between the LMA and his teeth. Like biting his tongue. This should go away in a couple days. He understands and is satisfied with the explanation. Complications Anesthesia Complication: Yes Anesthesia Complication Comment:: See progress note.
== END 2025-07-02 18:56 | disposition home or self-care (01) ==
LOC: SDC 13:05 → AC 13:06
PROVIDERS: PCP Internal Medicine; Referring Provider Orthopaedic Surgery; Visit Provider Orthopaedic Surgery
PROC: (CPT 27385; principal; 2025-07-02 14:15)
DX: S76.111A Strain of right quadriceps muscle, fascia and tendon, initial encounter (principal); E10.3291 Type 1 diabetes mellitus with mild nonproliferative diabetic retinopathy without macular edema, right eye; Z79.4 Long term (current) use of insulin; W19.XXXA Unspecified fall, initial encounter; I10 Essential (primary) hypertension; K21.9 Gastro-esophageal reflux disease without esophagitis; H40.9 Unspecified glaucoma; E78.00 Pure hypercholesterolemia, unspecified; I25.10 Atherosclerotic heart disease of native coronary artery without angina pectoris; Z79.82 Long term (current) use of aspirin; Z79.899 Other long term (current) drug therapy; Z87.891 Personal history of nicotine dependence
CPT/HCPCS: 27385; 01250; 64447; 82962; C1713; J2405